=== PATIENT | female | born 1945 | race Caucasian/White ===

== ENCOUNTER → 2016-07-12 | Outpatient (REF) | payer MEDICARE ==
[~2016-07-12] MED LIST: ASPI1TAB PO; CALCTAB7 PO; LISI10TA4 PO; MONT10TA2 PO; NEXI40CA PO; NITR4TASL SL; SIMV40TA2 PO; VITA400C29 PO; ZETI10TA2 PO
[2016-07-12 17:41] LABS: BLOOD UREA NITROGEN 27 MG/DL (7-18); CREATININE FOR GFR 0.82 MG/DL (0.55-1.02); GLOMERULAR FILTRATION RATE > 60.0 (>45)
== END ==
LOC: M LABDRAW1 16:52
PROVIDERS: ATTEND Internal Medicine Pulmonary Disease
DX: R91.8 Other nonspecific abnormal finding of lung field (principal)

== ENCOUNTER 2016-07-15 10:00 | Emergency (ER) | payer MEDICARE ==
[2016-07-15 11:52] LABS: BASO % 0.4 % (0.0-1.0); EOS # 0.2 K/mm3 (0.0-0.50); EOS % 2.6 % (0.0-3.0); LARGE UNSTAINED CELL # 0.2 K/mm3 (0.0-0.4); LARGE UNSTAINED CELL % 2.3 % (0.0-4.0); LYMPH # 1.4 K/mm3 (1.5-4.5); MEAN CORPUSCULAR HEMOGLOBIN 30.7 pg (27.0-33.0); MEAN CORPUSCULAR VOLUME 93.3 fl (80.0-96.0); MONO # 0.5 K/mm3 (0.0-0.8); MONO % 5.5 % (0.0-5.0); NEUTROPHILS % 72.2 % (36.0-66.0); PLATELET COUNT, AUTOMATED 240 k/mm3 (150-450); RED CELL DISTRIBUTION WIDTH 12.2 % (11.5-14.5); WHITE BLOOD COUNT 8.3 K/mm3 (4.0-10.0)
[2016-07-15] MEDS ORDERED: ASPIRIN 81 MG CHEW TABLET As Ordered ONE (12:17)
[2016-07-15 12:21] LABS: ANION GAP 6 MEQ/L (8-16); BLOOD UREA NITROGEN 19 MG/DL (7-18); CALCIUM LEVEL 8.9 MG/DL (8.8-10.2); CARBON DIOXIDE LEVEL 32 MEQ/L (21-32); CHLORIDE LEVEL 101 MEQ/L (98-107); CREATININE FOR GFR 0.74 MG/DL (0.55-1.02); GLOMERULAR FILTRATION RATE > 60.0 (>45); GLUCOSE, FASTING 106 MG/DL (80-110); POTASSIUM SERUM 4.1 MEQ/L (3.5-5.1); SODIUM LEVEL 139 MEQ/L (136-145)
[2016-07-15 12:42] LABS: PHOSPHORUS LEVEL 3.3 MG/DL (2.5-4.9)
--- NOTE | 2016-07-15 12:49 | REP ---
Clinical: Chest pain . Comparison: 02/11/2014 . Technique: PA and lateral. Findings: The mediastinum and cardiac silhouette are normal. The lung [place] are clear and without acute consolidation, effusion, or pneumothorax. The skeletal structures are intact and normal. Impression: 1. No acute cardiopulmonary process. Signed by Royal Noel MD 07/15/2016 12:40 P
--- NOTE | 2016-07-15 18:52 | EDDOCDS ---
Physician Documentation [facility] Name: Huong Alcocer Age: 70 yrs Sex: Female : 1945 Arrival Date: 07/15/2016 Time: 10:00 Bed 13 Private MD: Iam Coon Disposition: 07/15/16 18:38 Discharged to Home/Self Care. Impression: Palpitations. - Condition is Stable. - Discharge Instructions: Palpitations. - Medication Reconciliation, Local Pharmacy Hours form. - Follow up: Rubin Lucas; When: 2 - 3 days; Reason: Recheck today's complaints. Follow up: Yared Landa; When: 2 - 3 days; Reason: Recheck today's complaints. - Problem is new. - Symptoms are resolved. - Notes: You were seen in the ED for fluttering in the chest concerning for palpitations. Bloodwork along with EKG of the heart, chest XRay and cardiac monitoring showed no acute findings. We have discussed the case with cardiology as well. As you are feeling better you may return home. Keep the appointment to see Dr. Landa on and call to make a general follow up as well. Return to the ED for any return of palpitations, chest pain, trouble breathing, lightheadedness, loss of consciousness or any other concerns. Historical: - Allergies: no known allergies; - Home Meds: 1. aspirin 81 mg Oral TbEC 1 tab once daily (Last dose: 07/13/2016) 2. lisinopril-hydrochlorothiazide 10-12.5 mg oral tab 1 tab once daily (Last dose: 07/14/2016) 3. Nexium 40 mg Oral cpDR 1 cap 2 times per day (Last dose: 07/14/2016) 4. Singulair 10 mg Oral tab 1 tab once daily (Last dose: 07/14/2016) 5. rosuvastatin 20 mg oral tab 1 tab once daily (Last dose: 07/13/2016) - PMHx: GERD; Hypercholesterolemia; Hypertension; Seasonal Allergies; - PSHx: ; Colonoscopy; Cardiac stents; - Social history: Smoking status: Patient states former smoker of tobacco. No barriers to communication noted, The patient speaks fluent Bulgarian. - : The pt / caregiver states he / she is not on anticoagulants. Home medication list is obtained from the patient. - Exposure Risk Screening:: None identified. Vital Signs: 07/15 10:01 BP 169 / 84; Pulse 76; Resp 18 S; Temp 96.8(O); Pulse Ox 97% on R/A; Weight 67.13 kg / gr2 148 lbs (R); Height 5 ft. 2 in. (157.48 cm) (R); Pain 3/10; 10:17 BP 127 / 56 (auto/); jjr 10:18 Pulse 64 MON; Pulse Ox 96% ; jjr 10:31 BP 120 / 58 (auto/); jjr 10:31 Pulse 62 MON; Pulse Ox 96% ; jjr 10:46 BP 122 / 65 (auto/); jjr 10:46 Pulse 58 MON; Pulse Ox 96% ; jjr 11:01 BP 133 / 67 (auto/); jjr 11:01 Pulse 60 MON; Pulse Ox 96% ; jjr 11:16 BP 157 / 75 (auto/); jjr 11:16 Pulse 60 MON; Pulse Ox 97% ; jjr 11:31 BP 144 / 80 (auto/); jjr 11:31 Pulse 56 MON; Pulse Ox 97% ; jjr 11:46 BP 144 / 83 (auto/); jjr 11:46 Pulse 56 MON; Pulse Ox 96% ; jjr 12:01 BP 153 / 89 (auto/); jjr 12:01 Pulse 66 MON; Resp 18; Pulse Ox 96% on R/A; jjr 12:16 BP 154 / 63 (auto/); tm5 12:16 Pulse 66 MON; Resp 18 S; Pulse Ox 96% on R/A; Pain 2/10; tm5 12:46 BP 150 / 67 (auto/); jjr 12:46 Pulse 56 MON; Pulse Ox 97% ; jjr 13:16 BP 159 / 67 (auto/); jjr 13:16 Pulse 70 MON; Pulse Ox 96% ; jjr 13:46 BP 137 / 64 (auto/); jjr 13:46 Pulse 72 MON; Pulse Ox 97% ; jjr 14:16 BP 142 / 66 (auto/); jjr 14:16 Pulse 74 MON; Resp 18; Pulse Ox 98% on R/A; jjr 14:46 BP 150 / 65 (auto/); jjr 14:46 Pulse 58 MON; Pulse Ox 97% ; jjr 15:16 BP 152 / 66 (auto/); jjr 15:16 Pulse 58 MON; Resp 18; Pulse Ox 97% on R/A; jjr 15:46 BP 154 / 65 (auto/); jjr 15:46 Pulse 62 MON; Resp 18; Pulse Ox 96% on R/A; jjr 16:16 BP 164 / 71 (auto/); jjr 16:16 Pulse 58 MON; Pulse Ox 97% ; jjr 16:46 BP 155 / 65 (auto/); jjr 16:46 Pulse 64 MON; Resp 18; Pulse Ox 97% on R/A; jjr 17:16 BP 146 / 64 (auto/); jjr 17:16 Pulse 58 MON; Pulse Ox 96% ; jjr 17:46 BP 144 / 65 (auto/); jjr 17:46 Pulse 60 MON; Resp 18; Pulse Ox 96% on R/A; jjr 18:17 BP 158 / 65 (auto/); jjr 18:17 Pulse 66 MON; Pulse Ox 96% ; jjr 18:43 BP 158 / 96 (auto/); Temp 97.2(O); Pain 0/10; jjr 18:43 Pulse 62 MON; Resp 18; Pulse Ox 95% on R/A; jjr 10:01 Body Mass Index 27.07 (67.13 kg, 157.48 cm) gr2 MDM: 10:05 ECG WITH READING ER PHYS+CARDIAG ordered. EDMS 11:13 Contract Law Specialist/Pulse Ox/q 30 min VS ordered. kcs 11:13 IV Saline Lock ordered. kcs 11:13 Rhythm Strip to chart ordered. kcs 11:13 Undress patient appropriately for examination ordered. kcs 11:14 Basic Metabolic Profile Ordered. EDMS 11:14 CBC with Diff Ordered. EDMS 11:14 Cardiac Injury Profile Ordered. EDMS 11:14 Troponin Ordered. EDMS 12:09 Aspirin 324 mg PO once ordered. br1 12:09 Chest, 2 View (pa\E\lat) Ordered. EDMS 12:09 D-Dimer Quant Ordered. EDMS 12:09 TSH with Free T4 Ordered. EDMS 12:09 Magnesium Level Ordered. EDMS 12:09 Phosphorous Level Ordered. EDMS 12:34 LOW FAT LOW CHOLESTEROL+DIET ordered. EDMS 12:38 Financial registration complete. mm15 12:52 [facility] Payment Agreement was scanned into [email or web address] and attached to record. mm15 14:19 Basic Metabolic Profile Reviewed. br1 14:19 CBC with Diff Reviewed. br1 14:19 Cardiac Injury Profile Reviewed. br1 14:19 Troponin Reviewed. br1 14:19 D-Dimer Quant Reviewed. br1 14:19 TSH with Free T4 Reviewed. br1 14:19 Magnesium Level Reviewed. br1 14:19 Phosphorous Level Reviewed. br1 14:19 Chest, 2 View (pa\E\lat) Reviewed. br1 14:21 Repeat EKG (put time details section) ordered. br1 14:21 Redraw CIP &Troponin (put time in details section) ordered. br1 15:03 Repeat EKG (put time details section) complete. deg 15:03 Redraw CIP &Troponin (put time in details section) complete. deg 15:04 ECG WITH READING ER PHYS ordered. EDMS 15:04 CARDIAC MARKER PANEL Ordered. EDMS 18:35 CARDIAC MARKER PANEL Reviewed. br1 Administered Medications: 12:22 Drug: Aspirin 324 mg [aspirin 81 mg chewable tablet (4 tabs)] Route: PO; tm5 13:00 Follow up: Response: No Adverse Reaction tm5 Signatures: Dispatcher [employer] EDMS Marina Wick, YENNIFER RN Phyllis Duvall, Drafter Assistant Unit deg Edwin Corrigan MD MD br1 Allie Good RN RN jjr Castle, Jennifer, RN RN jc4 Mehul De Lóen mm15 Nadeen Ya RN tm5 The chart was reviewed and I authenticate all verbal orders and agree with the evaluation and treatment provided.Attachments: 12:52 [facility] Payment Agreement mm15 MTDD
--- NOTE | 2016-07-15 18:52 | EDDOCDS ---
Nurse's Notes [facility] Name: Huong Alcocer Age: 70 yrs Sex: Female : 1945 Arrival Date: 07/15/2016 Time: 10:00 Bed 13 Private MD: Iam Coon Diagnosis: Palpitations Presentation: 07/15 10:07 Presenting complaint: Patient states: "I don't feel good. I don't have any energy. I'm jc4 a little short of breath. I had the flu a couple of weeks ago and it got worse after that. Palpitations have been ongoing for a month. Adult Sepsis Screening: The patient does not have new or worsening altered mentation. Patient's respiratory rate is less than 22. Systolic blood pressure is greater than 100. Patient has a qSOFA score of 0- Negative Sepsis Screen. Suicide/Homicide risk assessment- the patient denies having any suicidal and/or homicidal ideations and does not present with any other emotional, behavioral or mental health complaints. Status: Patient is not a visitor services coordinator or dependent. Transition of care: patient was not received from another setting of care. 10:07 Acuity: EDI Level 3 jc4 10:07 Method Of Arrival: Wheelchair jc4 Triage Assessment: 10:12 General: Appears in no apparent distress. Pain: Denies pain. The patient is triaged at jc4 the bedside. See Assessment in Nurses Notes section of ED record. Historical: - Allergies: no known allergies; - Home Meds: 1. aspirin 81 mg Oral TbEC 1 tab once daily (Last dose: 07/13/2016) 2. lisinopril-hydrochlorothiazide 10-12.5 mg oral tab 1 tab once daily (Last dose: 07/14/2016) 3. Nexium 40 mg Oral cpDR 1 cap 2 times per day (Last dose: 07/14/2016) 4. Singulair 10 mg Oral tab 1 tab once daily (Last dose: 07/14/2016) 5. rosuvastatin 20 mg oral tab 1 tab once daily (Last dose: 07/13/2016) - PMHx: GERD; Hypercholesterolemia; Hypertension; Seasonal Allergies; - PSHx: ; Colonoscopy; Cardiac stents; - Social history: Smoking status: Patient states former smoker of tobacco. No barriers to communication noted, The patient speaks fluent Georgian. - : The pt / caregiver states he / she is not on anticoagulants. Home medication list is obtained from the patient. - Exposure Risk Screening:: None identified. Screenin:25 Screening information is obtained from the patient. Fall risk: No risks identified. jjr Assistance ADL's: requires no assistance with activities of daily living. Abuse/DV Screen: The patient / caregiver reports he/she is: not in a situation that causes fear, pain or injury. Nutritional screening: No deficits noted. Advance Directives: There is no active DNR order. home support is adequate. Assessment: 10:24 General: Appears in no apparent distress, well nourished, well groomed, Behavior is jjr appropriate for age. Pain: Denies pain. Neurological: No deficits noted. Cardiovascular: Rhythm is sinus rhythm pt reports intermittent sharp pains to left anterior chest for past month. Respiratory: Airway is patent Respiratory effort is even, unlabored, Respiratory pattern is regular, Breath sounds are clear bilaterally. Derm: Skin is pink, warm & dry. 11:28 General: Appears in no apparent distress, reports sensation of irregular heart beat a jjr few times since arrival, PVC's noted to full disclosure page of cardiac rehabilitation program director, pt denies any chest pain since arrival and denies SOB at rest. 13:00 General: eating lunch tray denies needs at this time. jjr 14:26 General: Appears in no apparent distress. Cardiovascular: Rhythm is sinus rhythm Chest jjr pain is denied. Respiratory: No deficits noted. Derm: No deficits noted. 15:31 General: Appears in no apparent distress, Behavior is appropriate for age. Pain: Denies jjr pain. Neurological: No deficits noted. Cardiovascular: Rhythm is sinus rhythm. Respiratory: No deficits noted. Derm: No deficits noted. 17:15 General: Appears in no apparent distress. Neurological: No deficits noted. jjr Cardiovascular: Rhythm is sinus rhythm. Respiratory: No deficits noted. Derm: No deficits noted. 18:18 General: Appears in no apparent distress. Neurological: No deficits noted. jjr Cardiovascular: Rhythm is sinus rhythm. Respiratory: No deficits noted. Derm: No deficits noted. Vital Signs: 10:01 BP 169 / 84; Pulse 76; Resp 18 S; Temp 96.8(O); Pulse Ox 97% on R/A; Weight 67.13 kg gr2 (R); Height 5 ft. 2 in. (157.48 cm) (R); Pain 3/10; 10:17 BP 127 / 56 (auto/); jjr 10:18 Pulse 64 MON; Pulse Ox 96% ; jjr 10:31 BP 120 / 58 (auto/); jjr 10:31 Pulse 62 MON; Pulse Ox 96% ; jjr 10:46 BP 122 / 65 (auto/); jjr 10:46 Pulse 58 MON; Pulse Ox 96% ; jjr 11:01 BP 133 / 67 (auto/); jjr 11:01 Pulse 60 MON; Pulse Ox 96% ; jjr 11:16 BP 157 / 75 (auto/); jjr 11:16 Pulse 60 MON; Pulse Ox 97% ; jjr 11:31 BP 144 / 80 (auto/); jjr 11:31 Pulse 56 MON; Pulse Ox 97% ; jjr 11:46 BP 144 / 83 (auto/); jjr 11:46 Pulse 56 MON; Pulse Ox 96% ; jjr 12:01 BP 153 / 89 (auto/); jjr 12:01 Pulse 66 MON; Resp 18; Pulse Ox 96% on R/A; jjr 12:16 BP 154 / 63 (auto/); tm5 12:16 Pulse 66 MON; Resp 18 S; Pulse Ox 96% on R/A; Pain 2/10; tm5 12:46 BP 150 / 67 (auto/); jjr 12:46 Pulse 56 MON; Pulse Ox 97% ; jjr 13:16 BP 159 / 67 (auto/); jjr 13:16 Pulse 70 MON; Pulse Ox 96% ; jjr 13:46 BP 137 / 64 (auto/); jjr 13:46 Pulse 72 MON; Pulse Ox 97% ; jjr 14:16 BP 142 / 66 (auto/); jjr 14:16 Pulse 74 MON; Resp 18; Pulse Ox 98% on R/A; jjr 14:46 BP 150 / 65 (auto/); jjr 14:46 Pulse 58 MON; Pulse Ox 97% ; jjr 15:16 BP 152 / 66 (auto/); jjr 15:16 Pulse 58 MON; Resp 18; Pulse Ox 97% on R/A; jjr 15:46 BP 154 / 65 (auto/); jjr 15:46 Pulse 62 MON; Resp 18; Pulse Ox 96% on R/A; jjr 16:16 BP 164 / 71 (auto/); jjr 16:16 Pulse 58 MON; Pulse Ox 97% ; jjr 16:46 BP 155 / 65 (auto/); jjr 16:46 Pulse 64 MON; Resp 18; Pulse Ox 97% on R/A; jjr 17:16 BP 146 / 64 (auto/); jjr 17:16 Pulse 58 MON; Pulse Ox 96% ; jjr 17:46 BP 144 / 65 (auto/); jjr 17:46 Pulse 60 MON; Resp 18; Pulse Ox 96% on R/A; jjr 18:17 BP 158 / 65 (auto/); jjr 18:17 Pulse 66 MON; Pulse Ox 96% ; jjr 18:43 BP 158 / 96 (auto/); Temp 97.2(O); Pain 0/10; jjr 18:43 Pulse 62 MON; Resp 18; Pulse Ox 95% on R/A; jjr 10:01 Body Mass Index 27.07 (67.13 kg, 157.48 cm) gr2 Vitals: 10:01 Log In Time: July 15, 2016 at 10:01. gr2 10:03 RN notified that patient meets Red Flag criteria. gr2 ED Course: 10:01 Patient visited by Comfort Good. gr2 10:01 Iam Coon is Private Physician. gr2 10:01 Patient moved to Waiting gr2 10:03 Patient visited by Comfort Good. gr2 10:03 Patient visited by Comfort Good. gr2 10:04 Patient moved to Pre RCE gr2 10:06 Patient moved to 13 jc4 10:08 Triage Initiated jc4 10:12 EKG done. (by ED staff). Reviewed by Edwin Corrigan MD. dem1 10:20 athletic monitor on. Pulse ox on. NIBP on. dem1 10:21 Patient visited by Joya Nazario. dem1 10:25 Patient visited by Allie Good, YENNIFER. jjr 10:25 The patient / caregiver is instructed regarding the plan of care and ED course. jjr 11:29 Patient visited by Yanet Kelley PCA. ct3 11:30 Patient visited by Allie Good RN. jjr 11:37 Edwin Corrigan MD is Attending Physician. br1 11:41 Basic Metabolic Profile Sent. jjr 11:41 CBC with Diff Sent. jjr 11:41 Cardiac Injury Profile Sent. jjr 11:41 Troponin Sent. jjr 11:42 Inserted saline lock: 20 gauge in left antecubital area and blood collected. Labs jjr drawn. (by ED staff). Sent per order to lab. 11:59 Patient visited by Rosalia Childress PCA. jlf 12:08 Patient visited by Edwin Corrigan MD. br1 12:42 Patient visited by Rosalia Childress PCA. jlf 12:52 [facility] Payment Agreement was scanned into [employer] and attached to record. mm15 12:53 Diet: low fat cholesterol diet given to patient.. ct3 12:54 Patient visited by Yanet Kelley PCA. ct3 13:09 Chest, 2 View (pa\\E\\lat) Returned. EDMS 13:22 Patient visited by Rosalia Childress PCA. jlf 14:27 Patient visited by Allie Good RN. jjr 15:31 Patient visited by Allie Good RN. jjr 15:52 Patient visited by Yanet Kelley PCA. ct3 15:52 EKG done. (by ED staff). Reviewed by Edwin Corrigan MD. ct3 15:53 CARDIAC MARKER PANEL Sent. jjr 17:15 Patient visited by Allie Good RN. jjr 18:18 Patient visited by Allie Good RN. jjr 18:37 Rubin Lucas is Referral Physician. br1 18:37 Yared Landa is Referral Physician. br1 18:48 Discontinued lock intact, bleeding controlled, pressure dressing applied, No jjr redness/swelling at site. No procedures done that require assistance. Administered Medications: 12:22 Drug: Aspirin 324 mg [aspirin 81 mg chewable tablet (4 tabs)] Route: PO; tm5 13:00 Follow up: Response: No Adverse Reaction tm5 Order Results: Lab Order: Basic Metabolic Profile; SPEC'M 07/15/16 11:38 Test: GLUCOSE, FASTING; Value: 106; Range: 80-110; Units: MG/DL; Status: F Test: BLOOD UREA NITROGEN; Value: 19; Range: 7-18; Abnormal: Above high normal; Units: MG/DL; Status: F Test: CREATININE FOR GFR; Value: 0.74; Range: 0.55-1.02; Units: MG/DL; Status: F Test: GLOMERULAR FILTRATION RATE; Value: > 60.0; Range: >45; Status: F Test: SODIUM LEVEL; Value: 139; Range: 136-145; Units: MEQ/L; Status: F Test: POTASSIUM SERUM; Value: 4.1; Range: 3.5-5.1; Units: MEQ/L; Status: F Test: CHLORIDE LEVEL; Value: 101; Range: 98-107; Units: MEQ/L; Status: F Test: CARBON DIOXIDE LEVEL; Value: 32; Range: 21-32; Units: MEQ/L; Status: F Test: ANION GAP; Value: 6; Range: 8-16; Abnormal: Below low normal; Units: MEQ/L; Status: F Test: CALCIUM LEVEL; Value: 8.9; Range: 8.8-10.2; Units: MG/DL; Status: F Test Note: ; Units are mL/min/1.73 m2 Chronic Kidney Disease Staging per NKF: Stage I & II GFR >=60 Normal to Mildly Decreased Stage III GFR 30-59 Moderately Decreased Stage IV GFR 15-29 Severely Decreased Stage V GFR <15 Very Little GFR Left ESRD GFR <15 on FURRIER DESIGNER Lab Order: CBC with Diff; SPEC'M 07/15/16 11:38 Test: WHITE BLOOD COUNT; Value: 8.3; Range: 4.0-10.0; Units: K/mm3; Status: F Test: RED BLOOD COUNT; Value: 4.25; Range: 4.00-5.40; Units: M/mm3; Status: F Test: HEMOGLOBIN; Value: 13.1; Range: 12.0-16.0; Units: g/dl; Status: F Test: HEMATOCRIT; Value: 39.6; Range: 36.0-47.0; Units: %; Status: F Test: MEAN CORPUSCULAR VOLUME; Value: 93.3; Range: 80.0-96.0; Units: fl; Status: F Test: MEAN CORPUSCULAR HEMOGLOBIN; Value: 30.7; Range: 27.0-33.0; Units: pg; Status: F Test: MEAN CORPUSCULAR HGB CONC; Value: 33.0; Range: 32.0-36.5; Units: g/dl; Status: F Test: RED CELL DISTRIBUTION WIDTH; Value: 12.2; Range: 11.5-14.5; Units: %; Status: F Test: PLATELET COUNT, AUTOMATED; Value: 240; Range: 150-450; Units: k/mm3; Status: F Test: NEUTROPHILS %; Value: 72.2; Range: 36.0-66.0; Abnormal: Above high normal; Units: %; Status: F Test: LYMPH %; Value: 17.0; Range: 24.0-44.0; Abnormal: Below low normal; Units: %; Status: F Test: MONO %; Value: 5.5; Range: 0.0-5.0; Abnormal: Above high normal; Units: %; Status: F Test: EOS %; Value: 2.6; Range: 0.0-3.0; Units: %; Status: F Test: BASO %; Value: 0.4; Range: 0.0-1.0; Units: %; Status: F Test: LARGE UNSTAINED CELL %; Value: 2.3; Range: 0.0-4.0; Units: %; Status: F Test: NEUTROPHILS #; Value: 6.0; Range: 1.8-7.7; Units: K/mm3; Status: F Test: LYMPH #; Value: 1.4; Range: 1.5-4.5; Abnormal: Below low normal; Units: K/mm3; Status: F Test: MONO #; Value: 0.5; Range: 0.0-0.8; Units: K/mm3; Status: F Test: EOS #; Value: 0.2; Range: 0.0-0.50; Units: K/mm3; Status: F Test: BASO #; Value: 0.0; Range: 0.0-0.2; Units: K/mm3; Status: F Test: LARGE UNSTAINED CELL #; Value: 0.2; Range: 0.0-0.4; Units: K/mm3; Status: F Lab Order: Cardiac Injury Profile; 07/15/16 11:38 Test: CPK CREATINE PHOSPHOKINASE; Value: 64; Range: 26-192; Units: U/L; Status: F Test: CK-MB VALUE MASS; Value: 1.0; Range: 0.0-3.6; Units: NG/ML; Status: F Test: MB/CK RELATIVE INDEX; Value: 1.56; Range: < OR =4; Status: F Test Note: ; DIAGNOSIS CRITERIA MMB ng/ml Relative Index (RI) NON-AMI < or = 5 N/A VASQUEZ ZONE > 5 < or = 4 AMI > 5 > 4 Lab Order: Troponin; 07/15/16 11:38 Test: TROPONIN I; Value: < 0.02; Range: < 0.10; Units: NG/ML; Status: F Test Note: ; Troponin I Reference Interval for [employer] LOCI: 99th Percentile= 0.00-0.045 ng/ml Risk Stratification: <= 0.10 ng/ml Decreased Risk for Adverse Clinical Events. 0.10-1.50 ng/ml Increased Risk for Adverse Clinical Events. Evaluation of additional criterion and/or repeat testing in 2-6 hours is suggested to rule out myocardial damage. >= 1.50 ng/ml Indicative of Myocardial Injury. Lab Order: D-Dimer Quant; 07/15/16 11:38 Test: D-DIMER QUANT; Value: 408.3; Range: <500; Units: ng/ml; Status: F Lab Order: TSH with Free T4; 07/15/16 11:38 Test: THYROID STIMULATING HORMONE; Value: 1.190; Range: 0.358-3.740; Units: uIU/ML; Status: F Test: FREE T4; Value: 1.00; Range: 0.76-1.46; Units: NG/DL; Status: F Lab Order: Magnesium Level; 07/15/16 11:38 Test: MAGNESIUM LEVEL; Value: 2.0; Range: 1.8-2.4; Units: MG/DL; Status: F Lab Order: Phosphorous Level; SPEC'M 07/15/16 11:38 Test: PHOSPHORUS LEVEL; Value: 3.3; Range: 2.5-4.9; Units: MG/DL; Status: F Lab Order: CARDIAC MARKER PANEL; SPEC'M 07/15/16 15:51 Test: CPK CREATINE PHOSPHOKINASE; Value: 56; Range: 26-192; Units: U/L; Status: F Test: CK-MB VALUE MASS; Value: 1.0; Range: 0.0-3.6; Units: NG/ML; Status: F Test: MB/CK RELATIVE INDEX; Value: 1.78; Range: < OR =4; Status: F Test: TROPONIN I; Value: < 0.02; Range: < 0.10; Units: NG/ML; Status: F Test Note: ; DIAGNOSIS CRITERIA MMB ng/ml Relative Index (RI) NON-AMI < or = 5 N/A VASQUEZ ZONE > 5 < or = 4 AMI > 5 > 4 Radiology Order: Chest, 2 View (pa\\E\\lat) Test: Chest, 2 View (pa\\E\\lat) REASON FOR EXAMINATION: Chest Pain; Clinical: Chest pain .; ; Comparison: 02/11/2014 .; ; Technique: PA and lateral.; ; Findings:; The mediastinum and cardiac silhouette are normal. The lung [place] are clear and; without acute consolidation, effusion, or pneumothorax. The skeletal structures; are intact and normal.; ; Impression:; 1. No acute cardiopulmonary process.; ; ; Signed by; Royal Noel MD 07/15/2016 12:40 P; Outcome: 18:38 Discharge ordered by Provider. br1 18:51 Discharge Assessment: patient administered narcotics - no. The following High Risk jjr Discharge criteria are identified: None. Discharged to home ambulatory, with significant other. Condition: stable. Discharge instructions given to patient, Instructed on discharge instructions, follow up and referral plans. Demonstrated understanding of instructions. No special radiology studies were completed. Property sent home with patient. 18:51 Patient left the ED. jjr Signatures: Dispatcher [employer] EDMS Edwin Corrigan MD MD br1 Allie Good RN RN Alma Jason RN RN jc4 Yanet Kelley, FOOD SAFETY COORDINATOR FOOD SAFETY COORDINATOR ct3 Joya Nazario dem1 Comfort Good gr2 Mehul De León mm15 Rosalia Childress, FOOD SAFETY COORDINATOR FOOD SAFETY COORDINATOR jlf Nadeen Ya,RN RN tm5 MTDD
--- NOTE | 2016-07-16 19:43 | ECGEPIP ---
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
--- NOTE | 2016-07-16 19:50 | ECGEPIP ---
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
--- NOTE | 2016-07-17 19:52 | EDDOCDS ---
Nurse's Notes [facility] Name: Huong Rucker Age: 70 yrs Sex: Female : 1945 Arrival Date: 07/15/2016 Time: 10:00 Bed 13 Private MD: Iam Coon Diagnosis: Palpitations Presentation: 07/15 10:07 Presenting complaint: Patient states: "I don't feel good. I don't have any energy. I'm jc4 a little short of breath. I had the flu a couple of weeks ago and it got worse after that. Palpitations have been ongoing for a month. Adult Sepsis Screening: The patient does not have new or worsening altered mentation. Patient's respiratory rate is less than 22. Systolic blood pressure is greater than 100. Patient has a qSOFA score of 0- Negative Sepsis Screen. Suicide/Homicide risk assessment- the patient denies having any suicidal and/or homicidal ideations and does not present with any other emotional, behavioral or mental health complaints. Status: Patient is not a counseling services manager or dependent. Transition of care: patient was not received from another setting of care. 10:07 Acuity: EDI Level 3 jc4 10:07 Method Of Arrival: Wheelchair jc4 Triage Assessment: 10:12 General: Appears in no apparent distress. Pain: Denies pain. The patient is triaged at jc4 the bedside. See Assessment in Nurses Notes section of ED record. Historical: - Allergies: no known allergies; - Home Meds: 1. aspirin 81 mg Oral TbEC 1 tab once daily (Last dose: 07/13/2016) 2. lisinopril-hydrochlorothiazide 10-12.5 mg oral tab 1 tab once daily (Last dose: 07/14/2016) 3. Nexium 40 mg Oral cpDR 1 cap 2 times per day (Last dose: 07/14/2016) 4. Singulair 10 mg Oral tab 1 tab once daily (Last dose: 07/14/2016) 5. rosuvastatin 20 mg oral tab 1 tab once daily (Last dose: 07/13/2016) - PMHx: GERD; Hypercholesterolemia; Hypertension; Seasonal Allergies; - PSHx: ; Colonoscopy; Cardiac stents; - Social history: Smoking status: Patient states former smoker of tobacco. No barriers to communication noted, The patient speaks fluent Paraguayan. - : The pt / caregiver states he / she is not on anticoagulants. Home medication list is obtained from the patient. - Exposure Risk Screening:: None identified. Screenin:25 Screening information is obtained from the patient. Fall risk: No risks identified. jjr Assistance ADL's: requires no assistance with activities of daily living. Abuse/DV Screen: The patient / caregiver reports he/she is: not in a situation that causes fear, pain or injury. Nutritional screening: No deficits noted. Advance Directives: There is no active DNR order. home support is adequate. Assessment: 10:24 General: Appears in no apparent distress, well nourished, well groomed, Behavior is jjr appropriate for age. Pain: Denies pain. Neurological: No deficits noted. Cardiovascular: Rhythm is sinus rhythm pt reports intermittent sharp pains to left anterior chest for past month. Respiratory: Airway is patent Respiratory effort is even, unlabored, Respiratory pattern is regular, Breath sounds are clear bilaterally. Derm: Skin is pink, warm & dry. 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 13:00 General: eating lunch tray denies needs at this time. jjr 14:26 General: Appears in no apparent distress. Cardiovascular: Rhythm is sinus rhythm Chest jjr pain is denied. Respiratory: No deficits noted. Derm: No deficits noted. 15:31 General: Appears in no apparent distress, Behavior is appropriate for age. Pain: Denies jjr pain. Neurological: No deficits noted. Cardiovascular: Rhythm is sinus rhythm. Respiratory: No deficits noted. Derm: No deficits noted. 17:15 General: Appears in no apparent distress. Neurological: No deficits noted. jjr Cardiovascular: Rhythm is sinus rhythm. Respiratory: No deficits noted. Derm: No deficits noted. 18:18 General: Appears in no apparent distress. Neurological: No deficits noted. jjr Cardiovascular: Rhythm is sinus rhythm. Respiratory: No deficits noted. Derm: No deficits noted. Vital Signs: 10:01 BP 169 / 84; Pulse 76; Resp 18 S; Temp 96.8(O); Pulse Ox 97% on R/A; Weight 67.13 kg gr2 (R); Height 5 ft. 2 in. (157.48 cm) (R); Pain 3/10; 10:17 BP 127 / 56 (auto/); jjr 10:18 Pulse 64 MON; Pulse Ox 96% ; jjr 10:31 BP 120 / 58 (auto/); jjr 10:31 Pulse 62 MON; Pulse Ox 96% ; jjr 10:46 BP 122 / 65 (auto/); jjr 10:46 Pulse 58 MON; Pulse Ox 96% ; jjr 11:01 BP 133 / 67 (auto/); jjr 11:01 Pulse 60 MON; Pulse Ox 96% ; jjr 11:16 BP 157 / 75 (auto/); jjr 11:16 Pulse 60 MON; Pulse Ox 97% ; jjr 11:31 BP 144 / 80 (auto/); jjr 11:31 Pulse 56 MON; Pulse Ox 97% ; jjr 11:46 BP 144 / 83 (auto/); jjr 11:46 Pulse 56 MON; Pulse Ox 96% ; jjr 12:01 BP 153 / 89 (auto/); jjr 12:01 Pulse 66 MON; Resp 18; Pulse Ox 96% on R/A; jjr 12:16 BP 154 / 63 (auto/); tm5 12:16 Pulse 66 MON; Resp 18 S; Pulse Ox 96% on R/A; Pain 2/10; tm5 12:46 BP 150 / 67 (auto/); jjr 12:46 Pulse 56 MON; Pulse Ox 97% ; jjr 13:16 BP 159 / 67 (auto/); jjr 13:16 Pulse 70 MON; Pulse Ox 96% ; jjr 13:46 BP 137 / 64 (auto/); jjr 13:46 Pulse 72 MON; Pulse Ox 97% ; jjr 14:16 BP 142 / 66 (auto/); jjr 14:16 Pulse 74 MON; Resp 18; Pulse Ox 98% on R/A; jjr 14:46 BP 150 / 65 (auto/); jjr 14:46 Pulse 58 MON; Pulse Ox 97% ; jjr 15:16 BP 152 / 66 (auto/); jjr 15:16 Pulse 58 MON; Resp 18; Pulse Ox 97% on R/A; jjr 15:46 BP 154 / 65 (auto/); jjr 15:46 Pulse 62 MON; Resp 18; Pulse Ox 96% on R/A; jjr 16:16 BP 164 / 71 (auto/); jjr 16:16 Pulse 58 MON; Pulse Ox 97% ; jjr 16:46 BP 155 / 65 (auto/); jjr 16:46 Pulse 64 MON; Resp 18; Pulse Ox 97% on R/A; jjr 17:16 BP 146 / 64 (auto/); jjr 17:16 Pulse 58 MON; Pulse Ox 96% ; jjr 17:46 BP 144 / 65 (auto/); jjr 17:46 Pulse 60 MON; Resp 18; Pulse Ox 96% on R/A; jjr 18:17 BP 158 / 65 (auto/); jjr 18:17 Pulse 66 MON; Pulse Ox 96% ; jjr 18:43 BP 158 / 96 (auto/); Temp 97.2(O); Pain 0/10; jjr 18:43 Pulse 62 MON; Resp 18; Pulse Ox 95% on R/A; jjr 10:01 Body Mass Index 27.07 (67.13 kg, 157.48 cm) gr2 Vitals: 10:01 Log In Time: July 15, 2016 at 10:01. gr2 10:03 RN notified that patient meets Red Flag criteria. gr2 ED Course: 10:01 Patient visited by Comfort Good. gr2 10:01 Iam Coon is Private Physician. gr2 10:01 Patient moved to Waiting gr2 10:03 Patient visited by Comfort Good. gr2 10:03 Patient visited by Comfort Good. gr2 10:04 Patient moved to Pre RCE gr2 10:06 Patient moved to 13 jc4 10:08 Triage Initiated jc4 10:12 EKG done. (by ED staff). Reviewed by Momo Corrigan MD. 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 Pulse ox on. NIBP on. dem1 10:21 Patient visited by Joya Nazario. dem1 10:25 Patient visited by Allie Good, YENNIFER. jjr 10:25 The patient / caregiver is instructed regarding the plan of care and ED course. jjr 11:29 Patient visited by Yanet Kelley PCA. ct3 11:30 Patient visited by Allie Good, YENNIFER. jjr 11:37 Momo Corrigan MD is Attending Physician. br1 11:41 Basic Metabolic Profile Sent. jjr 11:41 CBC with Diff Sent. jjr 11:41 Cardiac Injury Profile Sent. jjr 11:41 Troponin Sent. jjr 11:42 Inserted saline lock: 20 gauge in left antecubital area and blood collected. Labs jjr drawn. (by ED staff). Sent per order to lab. 11:59 Patient visited by Rosalia Childress PCA. jlf 12:08 Patient visited by Momo Corrigan MD. br1 12:42 Patient visited by Rosalia Childress PCA. jlf 12:52 [facility] Payment Agreement was scanned into [employer] and attached to record. mm15 12:53 Diet: low fat cholesterol diet given to patient.. ct3 12:54 Patient visited by Yanet Kelley PCA. ct3 13:09 Chest, 2 View (pa\\E\\lat) Returned. EDMS 13:22 Patient visited by Rosalia Childress PCA. jlf 14:27 Patient visited by Allie Good RN. jjr 15:31 Patient visited by Allie Good RN. jjr 15:52 Patient visited by Yanet Kelley PCA. ct3 15:52 EKG done. (by ED staff). Reviewed by Momo Corrigan MD. ct3 15:53 CARDIAC MARKER PANEL Sent. jjr 17:15 Patient visited by Allie Good RN. jjr 18:18 Patient visited by Allie Good, YENNIFER. jjr 18:37 Rubin Lucas is Referral Physician. br1 18:37 Yared Landa is Referral Physician. br1 18:48 Discontinued lock intact, bleeding controlled, pressure dressing applied, No jjr redness/swelling at site. No procedures done that require assistance. 07/16 04:01 T-Sheet-- Draft Copy was scanned into [employer] and attached to record. hs2 10:34 ECG/EKG was scanned into [employer] and attached to record. gb 20:25 EKG-ADULT Returned. EDMS 20:25 ECG WITH READING ER PHYS Returned. EDMS Administered Medications: 07/15 12:22 Drug: Aspirin 324 mg [aspirin 81 mg chewable tablet (4 tabs)] Route: PO; tm5 13:00 Follow up: Response: No Adverse Reaction tm5 Order Results: Lab Order: Basic Metabolic Profile; SPEC'M 07/15/16 11:38 Test: GLUCOSE, FASTING; Value: 106; Range: 80-110; Units: MG/DL; Status: F Test: BLOOD UREA NITROGEN; Value: 19; Range: 7-18; Abnormal: Above high normal; Units: MG/DL; Status: F Test: CREATININE FOR GFR; Value: 0.74; Range: 0.55-1.02; Units: MG/DL; Status: F Test: GLOMERULAR FILTRATION RATE; Value: > 60.0; Range: >45; Status: F Test: SODIUM LEVEL; Value: 139; Range: 136-145; Units: MEQ/L; Status: F Test: POTASSIUM SERUM; Value: 4.1; Range: 3.5-5.1; Units: MEQ/L; Status: F Test: CHLORIDE LEVEL; Value: 101; Range: 98-107; Units: MEQ/L; Status: F Test: CARBON DIOXIDE LEVEL; Value: 32; Range: 21-32; Units: MEQ/L; Status: F Test: ANION GAP; Value: 6; Range: 8-16; Abnormal: Below low normal; Units: MEQ/L; Status: F Test: CALCIUM LEVEL; Value: 8.9; Range: 8.8-10.2; Units: MG/DL; Status: F Test Note: ; Units are mL/min/1.73 m2 Chronic Kidney Disease Staging per NKF: Stage I & II GFR >=60 Normal to Mildly Decreased Stage III GFR 30-59 Moderately Decreased Stage IV GFR 15-29 Severely Decreased Stage V GFR <15 Very Little GFR Left ESRD GFR <15 on DELIVERY RECRUITER Lab Order: CBC with Diff; SPEC'M 07/15/16 11:38 Test: WHITE BLOOD COUNT; Value: 8.3; Range: 4.0-10.0; Units: K/mm3; Status: F Test: RED BLOOD COUNT; Value: 4.25; Range: 4.00-5.40; Units: M/mm3; Status: F Test: HEMOGLOBIN; Value: 13.1; Range: 12.0-16.0; Units: g/dl; Status: F Test: HEMATOCRIT; Value: 39.6; Range: 36.0-47.0; Units: %; Status: F Test: MEAN CORPUSCULAR VOLUME; Value: 93.3; Range: 80.0-96.0; Units: fl; Status: F Test: MEAN CORPUSCULAR HEMOGLOBIN; Value: 30.7; Range: 27.0-33.0; Units: pg; Status: F Test: MEAN CORPUSCULAR HGB CONC; Value: 33.0; Range: 32.0-36.5; Units: g/dl; Status: F Test: RED CELL DISTRIBUTION WIDTH; Value: 12.2; Range: 11.5-14.5; Units: %; Status: F Test: PLATELET COUNT, AUTOMATED; Value: 240; Range: 150-450; Units: k/mm3; Status: F Test: NEUTROPHILS %; Value: 72.2; Range: 36.0-66.0; Abnormal: Above high normal; Units: %; Status: F Test: LYMPH %; Value: 17.0; Range: 24.0-44.0; Abnormal: Below low normal; Units: %; Status: F Test: MONO %; Value: 5.5; Range: 0.0-5.0; Abnormal: Above high normal; Units: %; Status: F Test: EOS %; Value: 2.6; Range: 0.0-3.0; Units: %; Status: F Test: BASO %; Value: 0.4; Range: 0.0-1.0; Units: %; Status: F Test: LARGE UNSTAINED CELL %; Value: 2.3; Range: 0.0-4.0; Units: %; Status: F Test: NEUTROPHILS #; Value: 6.0; Range: 1.8-7.7; Units: K/mm3; Status: F Test: LYMPH #; Value: 1.4; Range: 1.5-4.5; Abnormal: Below low normal; Units: K/mm3; Status: F Test: MONO #; Value: 0.5; Range: 0.0-0.8; Units: K/mm3; Status: F Test: EOS #; Value: 0.2; Range: 0.0-0.50; Units: K/mm3; Status: F Test: BASO #; Value: 0.0; Range: 0.0-0.2; Units: K/mm3; Status: F Test: LARGE UNSTAINED CELL #; Value: 0.2; Range: 0.0-0.4; Units: K/mm3; Status: F Lab Order: Cardiac Injury Profile; 07/15/16 11:38 Test: CPK CREATINE PHOSPHOKINASE; Value: 64; Range: 26-192; Units: U/L; Status: F Test: CK-MB VALUE MASS; Value: 1.0; Range: 0.0-3.6; Units: NG/ML; Status: F Test: MB/CK RELATIVE INDEX; Value: 1.56; Range: < OR =4; Status: F Test Note: ; DIAGNOSIS CRITERIA MMB ng/ml Relative Index (RI) NON-AMI < or = 5 N/A VASQUEZ ZONE > 5 < or = 4 AMI > 5 > 4 Lab Order: Troponin; 07/15/16 11:38 Test: TROPONIN I; Value: < 0.02; Range: < 0.10; Units: NG/ML; Status: F Test Note: ; Troponin I Reference Interval for [employer] LOCI: 99th Percentile= 0.00-0.045 ng/ml Risk Stratification: <= 0.10 ng/ml Decreased Risk for Adverse Clinical Events. 0.10-1.50 ng/ml Increased Risk for Adverse Clinical Events. Evaluation of additional criterion and/or repeat testing in 2-6 hours is suggested to rule out myocardial damage. >= 1.50 ng/ml Indicative of Myocardial Injury. Lab Order: D-Dimer Quant; 07/15/16 11:38 Test: D-DIMER QUANT; Value: 408.3; Range: <500; Units: ng/ml; Status: F Lab Order: TSH with Free T4; 07/15/16 11:38 Test: THYROID STIMULATING HORMONE; Value: 1.190; Range: 0.358-3.740; Units: uIU/ML; Status: F Test: FREE T4; Value: 1.00; Range: 0.76-1.46; Units: NG/DL; Status: F Lab Order: Magnesium Level; SPEC'M 07/15/16 11:38 Test: MAGNESIUM LEVEL; Value: 2.0; Range: 1.8-2.4; Units: MG/DL; Status: F Lab Order: Phosphorous Level; SPEC'M 07/15/16 11:38 Test: PHOSPHORUS LEVEL; Value: 3.3; Range: 2.5-4.9; Units: MG/DL; Status: F Lab Order: CARDIAC MARKER PANEL; SPEC'M 07/15/16 15:51 Test: CPK CREATINE PHOSPHOKINASE; Value: 56; Range: 26-192; Units: U/L; Status: F Test: CK-MB VALUE MASS; Value: 1.0; Range: 0.0-3.6; Units: NG/ML; Status: F Test: MB/CK RELATIVE INDEX; Value: 1.78; Range: < OR =4; Status: F Test: TROPONIN I; Value: < 0.02; Range: < 0.10; Units: NG/ML; Status: F Test Note: ; DIAGNOSIS CRITERIA MMB ng/ml Relative Index (RI) NON-AMI < or = 5 N/A VASQUEZ ZONE > 5 < or = 4 AMI > 5 > 4 Radiology Order: EKG-ADULT Test: EKG-ADULT REASON FOR EXAMINATION: PALPITATIONS; Stationary ECG Study; [facility] - ED; ; Test Date: 2016-07-15; Pat Name: HUONG RUCKER Department:; Room: -; Gender: F 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; : 1945 Requested By: MOMO Cook; Order Number: [id number] Reading MD: Bee Welsh; Measurements; Intervals [place]; Rate: 66 P: 62; TN: 193 QRS: 6; QRSD: 94 T: 40; QT: 388; QTc: 407; Interpretive Statements; SINUS RHYTHM; BASELINE ARTIFACT LIMITS INTERPRETATION; DELAYED R PROGRESSION; LOW VOLTAGE LIMB; NO PRIOR FOR COMPARISON; Electronically Signed On 07-16-2016 19:43:01 EST by Bee Welsh; Radiology Order: Chest, 2 View (pa\\E\\lat) Test: Chest, 2 View (pa\\E\\lat) REASON FOR EXAMINATION: Chest Pain; Clinical: Chest pain .; ; Comparison: 02/11/2014 .; ; Technique: PA and lateral.; ; Findings:; The mediastinum and cardiac silhouette are normal. The lung [place] are clear and; without acute consolidation, effusion, or pneumothorax. The skeletal structures; are intact and normal.; ; Impression:; 1. No acute cardiopulmonary process.; ; ; Signed by; Royal Noel MD 07/15/2016 12:40 P; Radiology Order: ECG WITH READING ER PHYS Test: ECG WITH READING ER PHYS REASON FOR EXAMINATION: CHEST PAIN; Stationary ECG Study; [facility] ED; ; Test Date: 2016-07-15; Pat Name: HUONG RUCKER Department:; Room: -; Gender: F Ear Pull Machine Operator: ct; : 1945 Requested By: MOMO Cook; Order Number: [id number] Reading MD: Bee Welsh; Measurements; Intervals [place]; Rate: 63 P: 59; TN: 198 QRS: 38; QRSD: 90 T: 48; QT: 408; QTc: 419; Interpretive Statements; SINUS RHYTHM; DELAYED R PROGRESSION; LOW VOLTAGE LIMB; SIMILAR 07/15/16; Electronically Signed On 07-16-2016 19:50:18 EST by Bee Welsh; Outcome: 18:38 Discharge ordered by Provider. br1 18:51 Discharge Assessment: patient administered narcotics - no. The following High Risk jjr Discharge criteria are identified: None. Discharged to home ambulatory, with significant other. Condition: stable. Discharge instructions given to patient, Instructed on discharge instructions, follow up and referral plans. Demonstrated understanding of instructions. No special radiology studies were completed. Property sent home with patient. 18:51 Patient left the ED. jjr Signatures: Dispatcher [employer] EDMS Aranza Wan, Reg Reg Momo Perez MD MD br1 Allie Good RN RN Alma Jason RN RN jc4 Yanet Kelley, DIAGNOSTIC ASSISTANT DIAGNOSTIC ASSISTANT ct3 Joya Nazario dem1 Comfort Good gr2 Mehul De León mm15 Rosalia Childress, DIAGNOSTIC ASSISTANT DIAGNOSTIC ASSISTANT jlf Brandie Castillo, Reg Reg hs2 Nadeen Ya,RN RN tm5 Chart Complete MTDD
--- NOTE | 2016-07-17 19:52 | EDDOCDS ---
Physician Documentation [facility] Name: Huong Alccoer Age: 70 yrs Sex: Female : 1945 Arrival Date: 07/15/2016 Time: 10:00 Bed 13 Private MD: Iam Coon Disposition: 07/15/16 18:38 Discharged to Home/Self Care. Impression: Palpitations. - Condition is Stable. - Discharge Instructions: Palpitations. - Medication Reconciliation, Local Pharmacy Hours form. - Follow up: Rubin Lucas; When: 2 - 3 days; Reason: Recheck today's complaints. Follow up: Yared Landa; When: 2 - 3 days; Reason: Recheck today's complaints. - Problem is new. - Symptoms are resolved. - Notes: You were seen in the ED for fluttering in the chest concerning for palpitations. Bloodwork along with EKG of the heart, chest XRay and cardiac monitoring showed no acute findings. We have discussed the case with cardiology as well. As you are feeling better you may return home. Keep the appointment to see Dr. Landa on and call to make a general follow up as well. Return to the ED for any return of palpitations, chest pain, trouble breathing, lightheadedness, loss of consciousness or any other concerns. Historical: - Allergies: no known allergies; - Home Meds: 1. aspirin 81 mg Oral TbEC 1 tab once daily (Last dose: 07/13/2016) 2. lisinopril-hydrochlorothiazide 10-12.5 mg oral tab 1 tab once daily (Last dose: 07/14/2016) 3. Nexium 40 mg Oral cpDR 1 cap 2 times per day (Last dose: 07/14/2016) 4. Singulair 10 mg Oral tab 1 tab once daily (Last dose: 07/14/2016) 5. rosuvastatin 20 mg oral tab 1 tab once daily (Last dose: 07/13/2016) - PMHx: GERD; Hypercholesterolemia; Hypertension; Seasonal Allergies; - PSHx: ; Colonoscopy; Cardiac stents; - Social history: Smoking status: Patient states former smoker of tobacco. No barriers to communication noted, The patient speaks fluent Upper Sorbian. - : The pt / caregiver states he / she is not on anticoagulants. Home medication list is obtained from the patient. - Exposure Risk Screening:: None identified. Vital Signs: 07/15 10:01 BP 169 / 84; Pulse 76; Resp 18 S; Temp 96.8(O); Pulse Ox 97% on R/A; Weight 67.13 kg / gr2 148 lbs (R); Height 5 ft. 2 in. (157.48 cm) (R); Pain 3/10; 10:17 BP 127 / 56 (auto/); jjr 10:18 Pulse 64 MON; Pulse Ox 96% ; jjr 10:31 BP 120 / 58 (auto/); jjr 10:31 Pulse 62 MON; Pulse Ox 96% ; jjr 10:46 BP 122 / 65 (auto/); jjr 10:46 Pulse 58 MON; Pulse Ox 96% ; jjr 11:01 BP 133 / 67 (auto/); jjr 11:01 Pulse 60 MON; Pulse Ox 96% ; jjr 11:16 BP 157 / 75 (auto/); jjr 11:16 Pulse 60 MON; Pulse Ox 97% ; jjr 11:31 BP 144 / 80 (auto/); jjr 11:31 Pulse 56 MON; Pulse Ox 97% ; jjr 11:46 BP 144 / 83 (auto/); jjr 11:46 Pulse 56 MON; Pulse Ox 96% ; jjr 12:01 BP 153 / 89 (auto/); jjr 12:01 Pulse 66 MON; Resp 18; Pulse Ox 96% on R/A; jjr 12:16 BP 154 / 63 (auto/); tm5 12:16 Pulse 66 MON; Resp 18 S; Pulse Ox 96% on R/A; Pain 2/10; tm5 12:46 BP 150 / 67 (auto/); jjr 12:46 Pulse 56 MON; Pulse Ox 97% ; jjr 13:16 BP 159 / 67 (auto/); jjr 13:16 Pulse 70 MON; Pulse Ox 96% ; jjr 13:46 BP 137 / 64 (auto/); jjr 13:46 Pulse 72 MON; Pulse Ox 97% ; jjr 14:16 BP 142 / 66 (auto/); jjr 14:16 Pulse 74 MON; Resp 18; Pulse Ox 98% on R/A; jjr 14:46 BP 150 / 65 (auto/); jjr 14:46 Pulse 58 MON; Pulse Ox 97% ; jjr 15:16 BP 152 / 66 (auto/); jjr 15:16 Pulse 58 MON; Resp 18; Pulse Ox 97% on R/A; jjr 15:46 BP 154 / 65 (auto/); jjr 15:46 Pulse 62 MON; Resp 18; Pulse Ox 96% on R/A; jjr 16:16 BP 164 / 71 (auto/); jjr 16:16 Pulse 58 MON; Pulse Ox 97% ; jjr 16:46 BP 155 / 65 (auto/); jjr 16:46 Pulse 64 MON; Resp 18; Pulse Ox 97% on R/A; jjr 17:16 BP 146 / 64 (auto/); jjr 17:16 Pulse 58 MON; Pulse Ox 96% ; jjr 17:46 BP 144 / 65 (auto/); jjr 17:46 Pulse 60 MON; Resp 18; Pulse Ox 96% on R/A; jjr 18:17 BP 158 / 65 (auto/); jjr 18:17 Pulse 66 MON; Pulse Ox 96% ; jjr 18:43 BP 158 / 96 (auto/); Temp 97.2(O); Pain 0/10; jjr 18:43 Pulse 62 MON; Resp 18; Pulse Ox 95% on R/A; jjr 10:01 Body Mass Index 27.07 (67.13 kg, 157.48 cm) gr2 MDM: 10:05 ECG WITH READING ER PHYS+CARDIAG ordered. EDMS 11:13 Radio Interference Supervisor/Pulse Ox/q 30 min VS ordered. kcs 11:13 IV Saline Lock ordered. kcs 11:13 Rhythm Strip to chart ordered. kcs 11:13 Undress patient appropriately for examination ordered. kcs 11:14 Basic Metabolic Profile Ordered. EDMS 11:14 CBC with Diff Ordered. EDMS 11:14 Cardiac Injury Profile Ordered. EDMS 11:14 Troponin Ordered. EDMS 12:09 Aspirin 324 mg PO once ordered. br1 12:09 Chest, 2 View (pa\E\lat) Ordered. EDMS 12:09 D-Dimer Quant Ordered. EDMS 12:09 TSH with Free T4 Ordered. EDMS 12:09 Magnesium Level Ordered. EDMS 12:09 Phosphorous Level Ordered. EDMS 12:34 LOW FAT LOW CHOLESTEROL+DIET ordered. EDMS 12:38 Financial registration complete. mm15 12:52 [facility] Payment Agreement was scanned into [employer] and attached to record. mm15 14:19 Basic Metabolic Profile Reviewed. br1 14:19 CBC with Diff Reviewed. br1 14:19 Cardiac Injury Profile Reviewed. br1 14:19 Troponin Reviewed. br1 14:19 D-Dimer Quant Reviewed. br1 14:19 TSH with Free T4 Reviewed. br1 14:19 Magnesium Level Reviewed. br1 14:19 Phosphorous Level Reviewed. br1 14:19 Chest, 2 View (pa\E\lat) Reviewed. br1 14:21 Repeat EKG (put time details section) ordered. br1 14:21 Redraw CIP &Troponin (put time in details section) ordered. br1 15:03 Repeat EKG (put time details section) complete. deg 15:03 Redraw CIP &Troponin (put time in details section) complete. deg 15:04 ECG WITH READING ER PHYS ordered. EDMS 15:04 CARDIAC MARKER PANEL Ordered. EDMS 18:35 CARDIAC MARKER PANEL Reviewed. br1 07/16 04:01 T-Sheet-- Draft Copy was scanned into [employer] and attached to record. hs2 10:34 ECG/EKG was scanned into [employer] and attached to record. gb Administered Medications: 07/15 12:22 Drug: Aspirin 324 mg [aspirin 81 mg chewable tablet (4 tabs)] Route: PO; tm5 13:00 Follow up: Response: No Adverse Reaction tm5 Signatures: Dispatcher [employer] EDMS Marina Wick, RN RN Phyllis Duvall, Pl Sql Programmer Unit deg Aranza Wan, Reg Reg gb Edwin Corrigan MD MD br1 Allie Good RN RN Alma Jason RN RN jc4 Mehul De León mm15 Brandie Castillo, Reg Reg hs2 Nadeen Ya RN tm5 The chart was reviewed and I authenticate all verbal orders and agree with the evaluation and treatment provided.Attachments: 12:52 [facility] Payment Agreement mm15 07/16 04:01 T-Sheet-- Draft Copy hs2 10:34 ECG/EKG gb Chart Complete MTDD
--- NOTE | 2016-07-17 19:52 | EDDOCDS ---
Physician Documentation [facility] Name: Huong Alcocer Age: 70 yrs Sex: Female : 1945 Arrival Date: 07/15/2016 Time: 10:00 Bed 13 Private MD: Ima Coon Disposition: 07/15/16 18:38 Discharged to Home/Self Care. Impression: Palpitations. - Condition is Stable. - Discharge Instructions: Palpitations. - Medication Reconciliation, Local Pharmacy Hours form. - Follow up: Rubin Lucas; When: 2 - 3 days; Reason: Recheck today's complaints. Follow up: Yared Landa; When: 2 - 3 days; Reason: Recheck today's complaints. - Problem is new. - Symptoms are resolved. - Notes: You were seen in the ED for fluttering in the chest concerning for palpitations. Bloodwork along with EKG of the heart, chest XRay and cardiac monitoring showed no acute findings. We have discussed the case with cardiology as well. As you are feeling better you may return home. Keep the appointment to see Dr. Landa on and call to make a general follow up as well. Return to the ED for any return of palpitations, chest pain, trouble breathing, lightheadedness, loss of consciousness or any other concerns. Historical: - Allergies: no known allergies; - Home Meds: 1. aspirin 81 mg Oral TbEC 1 tab once daily (Last dose: 07/13/2016) 2. lisinopril-hydrochlorothiazide 10-12.5 mg oral tab 1 tab once daily (Last dose: 07/14/2016) 3. Nexium 40 mg Oral cpDR 1 cap 2 times per day (Last dose: 07/14/2016) 4. Singulair 10 mg Oral tab 1 tab once daily (Last dose: 07/14/2016) 5. rosuvastatin 20 mg oral tab 1 tab once daily (Last dose: 07/13/2016) - PMHx: GERD; Hypercholesterolemia; Hypertension; Seasonal Allergies; - PSHx: ; Colonoscopy; Cardiac stents; - Social history: Smoking status: Patient states former smoker of tobacco. No barriers to communication noted, The patient speaks fluent Greek. - : The pt / caregiver states he / she is not on anticoagulants. Home medication list is obtained from the patient. - Exposure Risk Screening:: None identified. Vital Signs: 07/15 10:01 BP 169 / 84; Pulse 76; Resp 18 S; Temp 96.8(O); Pulse Ox 97% on R/A; Weight 67.13 kg / gr2 148 lbs (R); Height 5 ft. 2 in. (157.48 cm) (R); Pain 3/10; 10:17 BP 127 / 56 (auto/); jjr 10:18 Pulse 64 MON; Pulse Ox 96% ; jjr 10:31 BP 120 / 58 (auto/); jjr 10:31 Pulse 62 MON; Pulse Ox 96% ; jjr 10:46 BP 122 / 65 (auto/); jjr 10:46 Pulse 58 MON; Pulse Ox 96% ; jjr 11:01 BP 133 / 67 (auto/); jjr 11:01 Pulse 60 MON; Pulse Ox 96% ; jjr 11:16 BP 157 / 75 (auto/); jjr 11:16 Pulse 60 MON; Pulse Ox 97% ; jjr 11:31 BP 144 / 80 (auto/); jjr 11:31 Pulse 56 MON; Pulse Ox 97% ; jjr 11:46 BP 144 / 83 (auto/); jjr 11:46 Pulse 56 MON; Pulse Ox 96% ; jjr 12:01 BP 153 / 89 (auto/); jjr 12:01 Pulse 66 MON; Resp 18; Pulse Ox 96% on R/A; jjr 12:16 BP 154 / 63 (auto/); tm5 12:16 Pulse 66 MON; Resp 18 S; Pulse Ox 96% on R/A; Pain 2/10; tm5 12:46 BP 150 / 67 (auto/); jjr 12:46 Pulse 56 MON; Pulse Ox 97% ; jjr 13:16 BP 159 / 67 (auto/); jjr 13:16 Pulse 70 MON; Pulse Ox 96% ; jjr 13:46 BP 137 / 64 (auto/); jjr 13:46 Pulse 72 MON; Pulse Ox 97% ; jjr 14:16 BP 142 / 66 (auto/); jjr 14:16 Pulse 74 MON; Resp 18; Pulse Ox 98% on R/A; jjr 14:46 BP 150 / 65 (auto/); jjr 14:46 Pulse 58 MON; Pulse Ox 97% ; jjr 15:16 BP 152 / 66 (auto/); jjr 15:16 Pulse 58 MON; Resp 18; Pulse Ox 97% on R/A; jjr 15:46 BP 154 / 65 (auto/); jjr 15:46 Pulse 62 MON; Resp 18; Pulse Ox 96% on R/A; jjr 16:16 BP 164 / 71 (auto/); jjr 16:16 Pulse 58 MON; Pulse Ox 97% ; jjr 16:46 BP 155 / 65 (auto/); jjr 16:46 Pulse 64 MON; Resp 18; Pulse Ox 97% on R/A; jjr 17:16 BP 146 / 64 (auto/); jjr 17:16 Pulse 58 MON; Pulse Ox 96% ; jjr 17:46 BP 144 / 65 (auto/); jjr 17:46 Pulse 60 MON; Resp 18; Pulse Ox 96% on R/A; jjr 18:17 BP 158 / 65 (auto/); jjr 18:17 Pulse 66 MON; Pulse Ox 96% ; jjr 18:43 BP 158 / 96 (auto/); Temp 97.2(O); Pain 0/10; jjr 18:43 Pulse 62 MON; Resp 18; Pulse Ox 95% on R/A; jjr 10:01 Body Mass Index 27.07 (67.13 kg, 157.48 cm) gr2 MDM: 10:05 ECG WITH READING ER PHYS+CARDIAG ordered. EDMS 11:13 Bath Tester/Pulse Ox/q 30 min VS ordered. kcs 11:13 IV Saline Lock ordered. kcs 11:13 Rhythm Strip to chart ordered. kcs 11:13 Undress patient appropriately for examination ordered. kcs 11:14 Basic Metabolic Profile Ordered. EDMS 11:14 CBC with Diff Ordered. EDMS 11:14 Cardiac Injury Profile Ordered. EDMS 11:14 Troponin Ordered. EDMS 12:09 Aspirin 324 mg PO once ordered. br1 12:09 Chest, 2 View (pa\E\lat) Ordered. EDMS 12:09 D-Dimer Quant Ordered. EDMS 12:09 TSH with Free T4 Ordered. EDMS 12:09 Magnesium Level Ordered. EDMS 12:09 Phosphorous Level Ordered. EDMS 12:34 LOW FAT LOW CHOLESTEROL+DIET ordered. EDMS 12:38 Financial registration complete. mm15 12:52 [facility] Payment Agreement was scanned into In[employer] and attached to record. mm15 14:19 Basic Metabolic Profile Reviewed. br1 14:19 CBC with Diff Reviewed. br1 14:19 Cardiac Injury Profile Reviewed. br1 14:19 Troponin Reviewed. br1 14:19 D-Dimer Quant Reviewed. br1 14:19 TSH with Free T4 Reviewed. br1 14:19 Magnesium Level Reviewed. br1 14:19 Phosphorous Level Reviewed. br1 14:19 Chest, 2 View (pa\E\lat) Reviewed. br1 14:21 Repeat EKG (put time details section) ordered. br1 14:21 Redraw CIP &Troponin (put time in details section) ordered. br1 15:03 Repeat EKG (put time details section) complete. deg 15:03 Redraw CIP &Troponin (put time in details section) complete. deg 15:04 ECG WITH READING ER PHYS ordered. EDMS 15:04 CARDIAC MARKER PANEL Ordered. EDMS 18:35 CARDIAC MARKER PANEL Reviewed. br1 07/16 04:01 T-Sheet-- Draft Copy was scanned into Instructure and attached to record. hs2 10:34 ECG/EKG was scanned into In[employer] and attached to record. gb Administered Medications: 07/15 12:22 Drug: Aspirin 324 mg [aspirin 81 mg chewable tablet (4 tabs)] Route: PO; tm5 13:00 Follow up: Response: No Adverse Reaction tm5 Signatures: Dispatcher [employer] EDMS Marina Wick, RN RN Phyllis Duvall, Job Placement Officer Unit deg Aranza Wan, Reg Reg gb Edwin Corrigan MD MD br1 Allie Good RN RN Alma Jason RN RN jc4 Mehul De León mm15 Brandie Castillo, Reg Reg hs2 Nadeen Ya RN tm5 The chart was reviewed and I authenticate all verbal orders and agree with the evaluation and treatment provided.Attachments: 12:52 [facility] Payment Agreement mm15 07/16 04:01 T-Sheet-- Draft Copy hs2 10:34 ECG/EKG gb Chart Complete MTDD
== END 2016-07-15 18:51 | disposition home or self-care (01) ==
LOC: M ED 10:00
DX: R00.2 Palpitations (principal); K21.9 Gastro-esophageal reflux disease without esophagitis; E78.00 Pure hypercholesterolemia, unspecified; I10 Essential (primary) hypertension; J30.2 Other seasonal allergic rhinitis; Z87.891 Personal history of nicotine dependence; Z98.61 Coronary angioplasty status; Z79.82 Long term (current) use of aspirin; Z79.899 Other long term (current) drug therapy

== ENCOUNTER → 2017-06-27 | Outpatient (CLI) | payer MEDICARE ==
[~2017-06-27] MED LIST changes: +VITA-110 PO; -VITA400C29 PO; -ZETI10TA2 PO; +ZETI10TA30 PO
--- NOTE | 2017-06-27 14:00 | REPMRS ---
Patient History The patient states she had a clinical breast exam in 05/2017. Patient is postmenopausal. Family history of colorectal cancer in father at age 50 or over, colorectal cancer in paternal aunt, colorectal cancer in paternal grandmother, and colorectal cancer in brother at age 50 or over. Digital Woman Screen Mammo: June 27, 2017 - Exam #: [id number] Bilateral CC and MLO view(s) were taken. Technologist: Lizette Otto Technologist Prior study comparison: May 07, 2016, digital woman screen mammo performed at [facility] [employer] [place] [facility]. January 04, 2015, digital woman screen mammo performed at [facility] [place] [facility]. October 27, 2013, digital woman screen mammo performed at [facility] [place] [facility]. FINDINGS: There are scattered fibroglandular densities. There is a grouping of coarse benign appearing calcifications projecting at 12 o'clock on the right. There has been no change in the appearance of the mammogram from the prior studies. There is a mild amount of scattered fibroglandular density which is fairly symmetric. There is no interval development of dominant mass, architectural distortion, or clustered microcalcification suggestive of malignancy. ASSESSMENT: BI-RADS/ACR category 2 mammogram. Benign finding(s). Recommendation Routine screening mammogram in 1 year (for women over age 40). This mammogram was interpreted with the aid of an FDA-approved computer-aided dectection system. Electronically Signed By: Mg Garza MD 06/27/17 1400
== END ==
LOC: M WHC 13:34
PROVIDERS: ATTEND Nurse Practitioner Family
DX: Z12.31 Encounter for screening mammogram for malignant neoplasm of breast (principal); Z78.0 Asymptomatic menopausal state

== ENCOUNTER → 2017-07-09 | Outpatient (REF) | payer MEDICARE ==
[2017-07-09 15:42] LABS: CREATININE FOR GFR 0.92 MG/DL (0.55-1.02); GLOMERULAR FILTRATION RATE > 60.0 (>39)
[2017-07-09 15:42] LABS: BLOOD UREA NITROGEN 29 MG/DL (7-18)
== END ==
LOC: M LABDRAW1 13:41
DX: R91.8 Other nonspecific abnormal finding of lung field (principal)
CPT/HCPCS: 82565

== ENCOUNTER → 2017-09-06 | Outpatient (REF) | payer MEDICARE | LOC: M LAB REF 09:16 | DX: R31.9 Hematuria, unspecified (principal) | CPT/HCPCS: 87086 ==

== ENCOUNTER → 2017-11-12 | Outpatient (REF) | payer MEDICARE ==
[2017-11-12 12:20] LABS: ALBUMIN 3.7 GM/DL (3.2-5.2); ANION GAP 3 MEQ/L (8-16); BLOOD UREA NITROGEN 24 MG/DL (7-18); CALCIUM LEVEL 8.6 MG/DL (8.8-10.2); CARBON DIOXIDE LEVEL 30 MEQ/L (21-32); CHLORIDE LEVEL 108 MEQ/L (98-107); CREATININE FOR GFR 0.82 MG/DL (0.55-1.30); GLOMERULAR FILTRATION RATE > 60.0 (>39); GLUCOSE, FASTING 116 MG/DL (70-100); PHOSPHORUS LEVEL 2.6 MG/DL (2.5-4.9); POTASSIUM SERUM 4.4 MEQ/L (3.5-5.1); SODIUM LEVEL 141 MEQ/L (136-145)
== END ==
LOC: M LABDRAW1 09:16
DX: I10 Essential (primary) hypertension (principal)
CPT/HCPCS: 80069

== ENCOUNTER 2018-04-20 11:52 | Day surgery (SDC) | payer MEDICARE ==
[~2018-04-20 11:52] MED LIST changes: -ASPI1TAB PO; -CALCTAB7 PO; -LISI10TA4 PO; -MONT10TA2 PO; -NEXI40CA PO; -NITR4TASL SL; +NS 1,000 ML IV; -SIMV40TA2 PO; -VITA-110 PO; -ZETI10TA30 PO
[2018-04-20] MEDS ORDERED: PROPOFOL 200 MG/20 ML VIAL As Ordered (12:26)
[2018-04-20] MEDS ORDERED: LIDOCAINE 2% INJ 100 MG/5 ML SDV (FOR ANES.) As Ordered (12:26)
== END 2018-04-20 14:04 | disposition home or self-care (01) ==
LOC: M OPP 11:52
DX: K22.70 Barrett's esophagus without dysplasia (principal); K22.8 Other specified diseases of esophagus; K44.9 Diaphragmatic hernia without obstruction or gangrene; I25.10 Atherosclerotic heart disease of native coronary artery without angina pectoris; I10 Essential (primary) hypertension; Z95.5 Presence of coronary angioplasty implant and graft; E78.5 Hyperlipidemia, unspecified; K21.9 Gastro-esophageal reflux disease without esophagitis; R12 Heartburn; M48.02 Spinal stenosis, cervical region; L40.9 Psoriasis, unspecified; Z78.0 Asymptomatic menopausal state; R06.02 Shortness of breath; Z87.891 Personal history of nicotine dependence; Z79.82 Long term (current) use of aspirin; Z79.899 Other long term (current) drug therapy; Z80.0 Family history of malignant neoplasm of digestive organs; Z83.71 Family history of colonic polyps
CPT/HCPCS: 43239

== ENCOUNTER → 2018-07-01 | Outpatient (CLI) | payer MEDICARE ==
[~2018-07-01] MED LIST changes: +ASPI1TAB PO; +CALCTAB7 PO; +CHLO25TA PO; +LISI10TA4 PO; +MONT10TA2 PO; +NEXI40CA PO; +NITR4TASL SL; -NS 1,000 ML IV; +SIMV40TA2 PO; +VITA-110 PO; +ZETI10TA30 PO
--- NOTE | 2018-07-01 09:43 | REPMRS ---
Patient History The patient states she had a clinical breast exam in 06/23 Family history of colorectal cancer in paternal aunt, colorectal cancer at age 50 or over in brother, colorectal cancer at age 50 or over in father, colorectal cancer in paternal grandmother. 3D TOMOSYNTHESIS WAS PERFORMED. Digital Woman Screen Mammo: July 01, 2018 - Exam #: [id number] Bilateral CC and MLO view(s) were taken. Technologist: Huong Serrato, Technologist Prior study comparison: June 27, 2017, digital woman screen mammo performed at [facility] [employer] [facility]. May 07, 2016, digital woman screen mammo performed at [facility] [employer] [facility]. FINDINGS: The breast tissue is heterogeneously dense. This may lower the sensitivity of mammography. There has been no change in the appearance of the mammogram from the prior studies. There is a moderate amount of residual fibroglandular tissue which is fairly symmetric. There is no interval development of dominant mass, areas of architectural distortion, or clustered microcalcification typical of malignancy. Assessment: BI-RADS/ACR category 1 mammogram. Negative. Recommendation Routine screening mammogram in 1 year (for women over age 40). This mammogram was interpreted with the aid of an FDA-approved computer-aided dectection system. Electronically Signed By: Jose Carlson MD 07/01/18 0990
--- NOTE | 2018-07-02 14:00 | DEXA ---
AP SPINE L1 - L4 1.185 -0.1 1.6 LT FEMUR TOTAL 0.987 -0.2 1.4 LT NECK 0.806 -1.7 0.1 RT FEMUR TOTAL 1.037 0.2 1.8 RT NECK 0.896 -1.0 0.7 TOTAL BODY TOTAL OTHER COMMENTS: Normal bone densitometry of the spine. There is low bone density of the hips. FOLLOW-UP: Recommendation for the next bone density exam: 2 years. JEANNETTE
== END ==
LOC: M WHC 08:16
PROVIDERS: ATTEND Nurse Practitioner Family
DX: Z12.31 Encounter for screening mammogram for malignant neoplasm of breast (principal); N95.9 Unspecified menopausal and perimenopausal disorder
CPT/HCPCS: 77063; 77067; 77080; G0463

== ENCOUNTER → 2018-07-21 | Outpatient (CLI) | payer MEDICARE ==
[~2018-07-21] MED LIST changes: +LIDOCAINE 1% MDV 20ML VIAL As Ordered ONE
--- NOTE | 2018-07-21 16:22 | REP ---
Thyroid sonography: History: The patient referred for bilateral fine-needle aspiration biopsy thyroid nodules. Comparison is made with prior CT study. Soft tissues of the neck from April 21, 2018 and a prior sonography April 28, 2018. Sonographic findings: Thyroid isthmus is 0.2 cm in thickness. Right lobe dimensions are 3.4 x 1.6 x 1.5 cm. Left lobe measures 4.0 x 1.1 x 1.5 cm. There are multiple hypoechoic nodules in each lobe. Dominant nodule on the right measures 1.1 x 0.8 x 0.9 cm. This is felt to correspond with a enhancing nodule on CT. The right lobe also contains solid nodules measuring 0.4 centimeter in greatest diameter, one in the upper and the other in the lower pole. There is a 0.4 cm hypoechoic lesion in the thyroid isthmus. In the lower pole left lobe there is a 0.6 x 0.5 cm nodule. This is felt to correspond with the other enhancing lesion seen on CT. The left lobe also contains two tiny 0.3 cm hypoechoic nodules. Impression: Multinodular thyroid. The largest nodule in each lobe will be targeted for fine needle aspiration biopsy Electronically Signed by Cortez Garza MD 07/21/2018 06:16 P
--- NOTE | 2018-07-22 19:39 | REP ---
ULTRASOUND-GUIDED BILATERAL THYROID BIOPSY The procedure was performed under the direct supervision of Dr. Garza. The patient has a history of a 1.1 x 0.8 x 0.9 cm nodule in the right thyroid and a 0.6 x 0.5 cm nodule in the left lower pole thyroid seen on a previous ultrasound performed earlier today. The risks and benefits of the procedure were explained to the patient and informed consent was obtained. The left and right thyroid nodules were localized using ultrasound guidance. The skin was prepped and draped in a sterile fashion. The right thyroid nodule was addressed first. 1% lidocaine was used as a local anesthetic. Using ultrasound guidance four fine-needle aspirations were obtained using 29 gauge needles. The left thyroid nodule was then addressed. 1% lidocaine was used as a local anesthetic. Using ultrasound guidance four fine-needle aspirations were obtained using 25 gauge needles. The patient tolerated the procedure well and there were no immediate complications. After the appropriate amount of monitored convalescence the patient was discharged from the department. Reviewed by BRONSON Brady 07/22/2018 03:10 P Electronically Signed by Cortez Garza MD 07/22/2018 07:31 P
== END ==
LOC: M RADPRO 10:53
PROVIDERS: ATTEND Otolaryngology
DX: E07.9 Disorder of thyroid, unspecified (principal)

== ENCOUNTER → 2018-10-20 | Outpatient (CLI) | payer MEDICARE ==
[~2018-10-20] MED LIST changes: -ASPI1TAB PO; +ASPI81TA26 PO; -LIDOCAINE 1% MDV 20ML VIAL As Ordered ONE
[2018-10-20 12:15] LABS: BASO % 0.3 % (0.0-1.0); EOS # 0.2 10^3/uL (0.0-0.50); EOS % 1.7 % (0.0-3.0); HEMATOCRIT 41.6 % (36.0-47.0); HEMOGLOBIN 13.3 g/dl (12.0-15.5); LYMPH # 1.6 10^3/uL (1.5-4.5); LYMPH % 15.1 % (24.0-44.0); MEAN CORPUSCULAR HEMOGLOBIN 31.4 pg (27.0-33.0); MEAN CORPUSCULAR VOLUME 98.3 fl (80.0-96.0); MONO # 0.8 10^3/uL (0.0-0.8); MONO % 7.4 % (0.0-5.0); NEUTROPHILS # 7.7 10^3/uL (1.8-7.7); PLATELET COUNT, AUTOMATED 266 10^3/uL (150-450); RED BLOOD COUNT 4.23 10^6/uL (4.00-5.40); WHITE BLOOD COUNT 10.2 10^3/uL (4.0-10.0)
[2018-10-20 12:37] LABS: CALCIUM LEVEL 9.4 MG/DL (8.8-10.2); CREATININE FOR GFR 0.99 MG/DL (0.55-1.30); GLOMERULAR FILTRATION RATE 58.9 (>39); POTASSIUM SERUM 4.2 MEQ/L (3.5-5.1)
--- NOTE | 2018-10-20 14:15 | REP ---
PA and lateral chest: Comparison is 07/15/2016. The lung [place] are clear. The cardiac size is normal. The christine, mediastinum, and skeletal structures are unremarkable. Impression: Negative PA and lateral chest. There is no interval change. Electronically Signed by Jose Maravilla MD 10/20/2018 02:07 P
== END ==
LOC: M LAB 11:31
PROVIDERS: ATTEND Physician Assistant
DX: R06.02 Shortness of breath (principal)

== ENCOUNTER → 2019-01-28 | Outpatient (CLI) | payer MEDICARE ==
--- NOTE | 2019-01-28 11:52 | REP ---
Thyroid ultrasound in a patient with nontoxic multinodular goiter: Comparison is 07/21/2018. The thyroid right lobe measures 5.0 x 1.5 x 1.8 cm and is enlarged. The thyroid left lobe measures 3.90 1.4 x 1.4 cm and is normal size. The isthmus measures 3 ml thickness which is normal for this. There are multiple small nodules throughout the thyroid gland bilaterally and in the isthmus. The largest nodules in the right lobe are one at the mid pole measuring 10 mm and another at the lower pole measuring 7 mm. The largest nodules in the left lobe at the mid pole measuring 3 mm at the lower pole measuring 6 mm. There is a 3 mm nodule in the isthmus. Impression: Enlarged thyroid right lobe. Multiple nodules bilaterally compatible with the clinical diagnosis nontoxic multinodular goiter. The largest nodules in each lobe are measured as discussed above. Electronically Signed by Jose Maravilla MD 01/28/2019 11:44 A
== END ==
LOC: M RAD 10:38
PROVIDERS: ATTEND Otolaryngology
DX: E04.2 Nontoxic multinodular goiter (principal)

== ENCOUNTER → 2019-02-10 | Outpatient (CLI) | payer MEDICARE ==
[~2019-02-10] MED LIST changes: +ZETI10TA16 PO; -ZETI10TA30 PO
[2019-02-10 12:33] LABS: C REACTIVE PROTEIN QUANTITATIV < 0.30 MG/DL (0.00-0.30); RHEUMATOID FACTOR QUANT < 10.0 IU/ML (<15.0)
--- NOTE | 2019-02-10 14:05 | REP ---
REASON: Pain. There is mild asymmetric hip joint space narrowing without buttressing or prominent marginal osteophytosis. IMPRESSION: Chronic changes. Electronically Signed by Carlito Au DO 02/10/2019 05:13 P
--- NOTE | 2019-02-10 14:33 | REP ---
REASON FOR EXAM: Pain. FINDINGS: Three views of the sacroiliac joints show them to be non-fused. There is no lysis or sclerosis of either the sacral or iliac side of either SI joints. There is no evidence of whiskering. There is no prominent osteophytosis. IMPRESSION: SI joints within normal limits. Electronically Signed by Carlito Au DO 02/10/2019 05:14 P
[2019-02-17 14:12] LABS: CYCLIC CITRULLINATED PEPTIDE 11 units (0-19); HLA-B27 Negative (.)
== END ==
LOC: M LAB 10:58
PROVIDERS: ATTEND Internal Medicine Rheumatology
DX: M16.0 Bilateral primary osteoarthritis of hip (principal); M25.551 Pain in right hip; Z87.2 Personal history of diseases of the skin and subcutaneous tissue
CPT/HCPCS: 36415; 72202; 73502; 81374; 86140; 86200; 86431; G0463

== ENCOUNTER → 2019-03-15 | Outpatient (REF) | payer MEDICARE ==
[2019-03-15 12:40] LABS: HEMATOCRIT 40.5 % (36.0-47.0); HEMOGLOBIN 12.4 g/dl (12.0-15.5); MEAN CORPUSCULAR HEMOGLOBIN 31.1 pg (27.0-33.0); MEAN CORPUSCULAR HGB CONC 30.6 g/dl (32.0-36.5); MEAN CORPUSCULAR VOLUME 101.5 fl (80.0-96.0); PLATELET COUNT, AUTOMATED 247 10^3/uL (150-450); RED BLOOD COUNT 3.99 10^6/uL (4.00-5.40); WHITE BLOOD COUNT 7.7 10^3/uL (4.0-10.0)
[2019-03-15 12:58] LABS: ALBUMIN 3.9 GM/DL (3.2-5.2); BILIRUBIN,TOTAL 0.3 MG/DL (0.2-1.0); CALCIUM LEVEL 9.6 MG/DL (8.8-10.2); CHOLESTEROL RISK RATIO 2.933 (<5); CREATININE FOR GFR 1.08 MG/DL (0.55-1.30); GLOMERULAR FILTRATION RATE 53.1 (>39); POTASSIUM SERUM 4.8 MEQ/L (3.5-5.1)
[2019-03-15 13:02] LABS: HEMOGLOBIN A1c 6.4 %
== END ==
LOC: M LABDRAW1 11:34
PROVIDERS: ATTEND Internal Medicine
DX: E78.5 Hyperlipidemia, unspecified (principal); I10 Essential (primary) hypertension

== ENCOUNTER → 2019-05-10 | Outpatient (CLI) | payer MEDICARE ==
--- NOTE | 2019-05-10 13:11 | REP ---
Lumbar spine five views: There is mild degenerative disc disease at L2-3 and advanced degenerative disc disease at L5 S1. The remainder of the disc spaces are unremarkable. Vertebral body heights and alignment are normal. There is no spondylolysis. There is no spondylolisthesis. The pedicles and facets are unremarkable. The sacroiliac articulations are unremarkable. Impression: Mild degenerative disc disease at L2-3. Advanced degenerative disc disease at L5 S1. Electronically Signed by Jose Maravilla MD 05/10/2019 01:02 P
== END ==
LOC: M RAD 12:06
PROVIDERS: ATTEND Internal Medicine
DX: M51.36 Other intervertebral disc degeneration, lumbar region (principal); M51.37 Other intervertebral disc degeneration, lumbosacral region; M54.32 Sciatica, left side

== ENCOUNTER → 2019-07-02 | Outpatient (CLI) | payer MEDICARE ==
[~2019-07-02] MED LIST changes: -MONT10TA2 PO; +MONT10TA4 PO; -SIMV40TA2 PO; +SIMV40TA20 PO
--- NOTE | 2019-07-02 09:31 | REPMRS ---
Patient History The patient states she had a clinical breast exam in June 2019.Family history of colorectal cancer in paternal aunt, colorectal cancer at age 50 or over in brother, colorectal cancer at age 50 or over in father, colorectal cancer in paternal grandmother. 3D TOMOSYNTHESIS WAS PERFORMED. The Luana Whitehead lifetime risk for breast cancer is 3.6%. Digital Woman Screen Mammo: July 02, 2019 - Exam #: [id number] Bilateral CC and MLO view(s) were taken. Technologist: Alma Alcazar, Technologist Prior study comparison: July 01, 2018, bilateral digital woman screen mammo performed at [facility]. June 27, 2017, digital woman screen mammo performed at [facility]. FINDINGS: The breast tissue is heterogeneously dense. This may lower the sensitivity of mammography. There has been no change in the appearance of the mammogram from the prior studies. There is a moderate amount of residual fibroglandular tissue which is fairly symmetric. There is no interval development of dominant mass, areas of architectural distortion, or clustered microcalcification typical of malignancy. Assessment: BI-RADS/ACR category 1 mammogram. Negative Mammogram. Recommendation Routine screening mammogram in 1 year (for women over age 40). This mammogram was interpreted with the aid of an FDA-approved computer-aided dectection system. Electronically Signed By: Jose Carlson MD 07/02/19 2724
== END ==
LOC: M WHC 08:06
PROVIDERS: ATTEND Nurse Practitioner Family
DX: Z12.31 Encounter for screening mammogram for malignant neoplasm of breast (principal)
CPT/HCPCS: 72052; 77063; 77067; G0101

== ENCOUNTER → 2019-07-02 | Outpatient (CLI) | payer MEDICARE ==
[~2019-07-02] MED LIST changes: +MONT10TA2 PO; -MONT10TA4 PO
--- NOTE | 2019-07-02 09:47 | REP ---
Clinical: Cervical Technique: AP, lateral, flexion/extension, bilateral oblique, and open mouth views of the cervical spine. Findings: Moderate/early advanced multilevel degenerative disc osteophyte complexes are appreciated along with 3.5 mm anterolisthesis at the C3-4 level and 1.5 mm anterolisthesis at the C4-5 level. No acute fracture / compression injury. Open mouth view demonstrates normal C1-C2 articulation and odontoid process. Impression: Moderate/early advanced multilevel degenerative spondylosis with anterolisthesis at C3-4 and C4-5. Electronically Signed by Royal Noel MD 07/02/2019 09:38 A
== END ==
LOC: M RAD 09:12
PROVIDERS: ATTEND Internal Medicine
DX: M47.812 Spondylosis without myelopathy or radiculopathy, cervical region (principal); M54.2 Cervicalgia

== ENCOUNTER → 2019-07-23 | Outpatient (CLI) | payer MEDICARE ==
[2019-07-23 09:44] LABS: HEMATOCRIT 41.9 % (36.0-47.0); HEMOGLOBIN 13.1 g/dl (12.0-15.5); MEAN CORPUSCULAR HEMOGLOBIN 30.3 pg (27.0-33.0); MEAN CORPUSCULAR HGB CONC 31.3 g/dl (32.0-36.5); PLATELET COUNT, AUTOMATED 285 10^3/uL (150-450); RED BLOOD COUNT 4.32 10^6/uL (4.00-5.40); WHITE BLOOD COUNT 10.3 10^3/uL (4.0-10.0)
[2019-07-23 10:14] LABS: BILIRUBIN,TOTAL 0.5 MG/DL (0.2-1.0); CALCIUM LEVEL 9.1 MG/DL (8.8-10.2); CREATININE FOR GFR 0.98 MG/DL (0.55-1.30); GLOMERULAR FILTRATION RATE 59.4 (>39); POTASSIUM SERUM 4.5 MEQ/L (3.5-5.1); THYROID STIMULATING HORMONE 1.05 uIU/ML (0.358-3.740); TOTAL PROTEIN 7.4 GM/DL (6.4-8.2)
== END ==
LOC: M LAB 09:10
PROVIDERS: ATTEND Internal Medicine
DX: R06.02 Shortness of breath (principal); R53.83 Other fatigue

== ENCOUNTER → 2019-09-13 | Outpatient (CLI) | payer MEDICARE ==
[~2019-09-13] MED LIST changes: -MONT10TA2 PO; +MONT10TA4 PO
--- NOTE | 2019-09-13 14:17 | REP ---
Low-dose lung screening CT of the chest: The study is performed without IV contrast. The images are presented at lung windowing only. Comparison is the chest CT with IV contrast dated 07/16/2017. There are seven small sub centimeter stable lung nodules, unchanged from the prior study, one in the right upper lobe, two in the left upper lobe and four in the right middle lobe. There are no new lung nodules. There are no masses. There are no infiltrates or pleural effusions. Impression: There are multiple small stable lung nodules as described. There are no enlarging nodules. There are no new lung nodules. Category II low-dose lung screening CT of the chest. The probability of malignancy is less than 1%. Depending on risk factors, consider annual follow-up low-dose lung screening CT of the chest. Electronically Signed by Jose Maravilla MD 09/13/2019 02:09 P
== END ==
LOC: M RAD 13:29
PROVIDERS: ATTEND Internal Medicine Pulmonary Disease
DX: Z12.2 Encounter for screening for malignant neoplasm of respiratory organs (principal); J44.9 Chronic obstructive pulmonary disease, unspecified; Z87.891 Personal history of nicotine dependence

== ENCOUNTER → 2019-12-22 | Outpatient (CLI) | payer MEDICARE ==
[2019-12-22 12:20] LABS: ALBUMIN 3.8 GM/DL (3.2-5.2); CREATININE FOR GFR 1.01 MG/DL (0.55-1.30); GLOMERULAR FILTRATION RATE 57.4 (>39); PHOSPHORUS LEVEL 2.9 MG/DL (2.5-4.9); POTASSIUM SERUM 4.3 MEQ/L (3.5-5.1)
== END ==
LOC: M PLALAB 08:00
PROVIDERS: ATTEND Physician Assistant
DX: L40.9 Psoriasis, unspecified (principal)
CPT/HCPCS: 36415; 80069; G0463

== ENCOUNTER → 2020-03-01 | Outpatient (CLI) | payer MEDICARE ==
[~2020-03-01] MED LIST changes: +CALC-211 PO; -CALCTAB7 PO
[2020-03-01 16:05] LABS: BASO % 0.3 % (0.0-1.0); EOS # 0.7 10^3/uL (0.0-0.5); EOS % 7.9 % (0.0-3.0); HEMATOCRIT 40.2 % (36.0-47.0); HEMOGLOBIN 12.8 g/dl (12.0-15.5); LYMPH # 1.5 10^3/uL (1.5-5.0); LYMPH % 16.6 % (24.0-44.0); MEAN CORPUSCULAR HEMOGLOBIN 31.1 pg (27.0-33.0); MEAN CORPUSCULAR HGB CONC 31.8 g/dl (32.0-36.5); MEAN CORPUSCULAR VOLUME 97.8 fl (80.0-96.0); MONO # 0.8 10^3/uL (0.0-0.8); MONO % 9.2 % (0.0-5.0); NEUTROPHILS # 5.8 10^3/uL (1.5-8.5); NEUTROPHILS % 65.2 % (36.0-66.0); PLATELET COUNT, AUTOMATED 240 10^3/uL (150-450); RED BLOOD COUNT 4.11 10^6/uL (4.00-5.40); WHITE BLOOD COUNT 8.9 10^3/uL (4.0-10.0)
[2020-03-01 16:08] LABS: ALBUMIN 3.8 GM/DL (3.2-5.2); ALT/SGPT 42 U/L (12-78); BILIRUBIN,TOTAL 0.3 MG/DL (0.2-1.0); BLOOD UREA NITROGEN 30 MG/DL (7-18); CALCIUM LEVEL 9.2 MG/DL (8.8-10.2); CARBON DIOXIDE LEVEL 28 MEQ/L (21-32); CHLORIDE LEVEL 104 MEQ/L (98-107); CREATININE FOR GFR 1.21 MG/DL (0.55-1.30); GLOMERULAR FILTRATION RATE 46.4 (>39); GLUCOSE, FASTING 114 MG/DL (70-100); POTASSIUM SERUM 4.5 MEQ/L (3.5-5.1); SODIUM LEVEL 138 MEQ/L (136-145); TOTAL PROTEIN 7.1 GM/DL (6.4-8.2)
[2020-03-01 16:29] LABS: HEPATITIS B SURFACE ANTIGEN NEGATIVE (NEGATIVE)
[2020-03-01 16:56] LABS: HEPATITIS C VIRUS ABY INDEX 0.2 INDEX (<0.8)
[2020-03-01 16:57] LABS: HEPATITIS B CORE ANTIBODY IGM NEGATIVE (NEGATIVE); HIV 1&2 SCREEN CENTAUR NEGATIVE (NEGATIVE)
[2020-03-01 16:59] LABS: HEPATITIS A ANTIBODY IGM NEGATIVE (NEGATIVE)
== END ==
LOC: M PLALAB 13:42
PROVIDERS: ATTEND Physician Assistant
DX: L40.0 Psoriasis vulgaris (principal)

== ENCOUNTER → 2020-07-04 | Outpatient (CLI) | payer MEDICARE ==
[~2020-07-04] MED LIST changes: -MONT10TA4 PO; +MONT5TAB2 PO
--- NOTE | 2020-07-04 09:22 | REPMRS ---
Patient History The patient states she had a clinical breast exam in 06/2020. Patient is postmenopausal. Family history of colorectal cancer in paternal aunt, colorectal cancer at age 50 or over in brother, colorectal cancer at age 50 or over in father, colorectal cancer in paternal grandmother. No Hormone Replacement Therapy Digital Woman Screen Mammo: July 04, 2020 - Exam #: [id number] Bilateral CC and MLO view(s) were taken. Technologist: Maira Hauser, Technologist Prior study comparison: July 02, 2019, bilateral digital woman screen mammo performed at [facility]. July 01, 2018, bilateral digital woman screen mammo performed at [facility]. June 27, 2017, digital woman screen mammo performed at [facility]. FINDINGS: There are scattered fibroglandular densities. The Volpara volumetric breast density category is: B. There is a moderate amount of residual fibroglandular tissue which is fairly symmetric. There is no interval development of dominant mass, architectural distortion, or grouped microcalcification typical of malignancy. There has been no change in the appearance of the mammogram from the prior studies. 3-D tomosynthesis shows no additional findings. Assessment: BI-RADS/ACR category 1 mammogram. Negative Mammogram. Recommendation Routine screening mammogram of both breasts in 1 year (for women over age 40). This patient's [facility] Lifetime Breast Cancer RIsk is estimated at 3.4 %. This mammogram was interpreted with the aid of an FDA-approved computer-aided dectection system. Electronically Signed By: Mg Garza MD 07/04/20 0922
== END ==
LOC: M WHC 08:08
PROVIDERS: ATTEND Nurse Practitioner Family
DX: Z12.31 Encounter for screening mammogram for malignant neoplasm of breast (principal); Z78.0 Asymptomatic menopausal state; Z80.0 Family history of malignant neoplasm of digestive organs
CPT/HCPCS: 77063; 77067; G0463

== ENCOUNTER → 2020-07-26 | Outpatient (CLI) | payer MEDICARE ==
[~2020-07-26] MED LIST changes: +ANOR1AER INH; +DUPI300I SC; +LISI10TA22 PO; -LISI10TA4 PO; +MONT10TA10 PO; -MONT5TAB2 PO; +OMEP40CA97 PO; +POTA1TAB14 PO; +ROSU20TA5 PO; +TRAM50TA2 PO
== END ==
LOC: M LABSMTC 10:24
PROVIDERS: ATTEND Anesthesiology
DX: Z01.812 Encounter for preprocedural laboratory examination (principal); Z20.822 Contact with and (suspected) exposure to COVID-19

== ENCOUNTER → 2020-08-23 | Outpatient (CLI) | payer MEDICARE | LOC: M LABSMTC 09:48 | PROVIDERS: ATTEND Anesthesiology | DX: Z01.812 Encounter for preprocedural laboratory examination (principal); Z20.822 Contact with and (suspected) exposure to COVID-19 ==

== ENCOUNTER 2020-08-28 06:55 | Day surgery (SDC) | payer MEDICARE ==
[~2020-08-28] VITALS: Ht 157.5 cm; Wt 83.9 kg
[~2020-08-28 06:55] MED LIST changes: +NS 1,000 ML IV ONE
[2020-08-28] MEDS ORDERED: NS 1,000 ML IV ONE (07:00)
--- OUTSIDE RECORDS SUMMARY | 2020-08-28 07:00 | CCD ---
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 Active 64530160 Problem Arias's esophagus K22.70 Active 260719447 Problem Psoriasis vulgaris L40.0 Active 396601249 Problem Intrinsic eczema L20.84 Active 88676137 Problem Family history of cancer of digestive organ Z80.0 Active 741820694 Problem Family history of breast cancer in male Z80.3 Active 562685022 Problem Menopausal disorder N95.9 Active 614448103 Problem Psoriasis L40.9 Active 6745061 ALLERGIES Allergen (clinical drug ingredient) Drug/Non Drug Allergy do cumented on EMR Reaction Allergy Type Onset Date Status apremilast Otezla([facility] Code:[address]-48) Hives Drug Allergy Active ENCOUNTERS from 1945 to 2020-07-31 Encounter Location Date Provider Diagnosis [facility] Dermatology [address] [address] Jul, Genesis Nguyen IMMUNIZATIONS No Information SOCIAL HISTORY Tobacco Use: Social History Observation Description Date Details (start date - stop date) Former Smoker Sex Assigned At : Social History Observation Description Sex Assigned At Unknown Education: Question Answer Notes Level of Education: Finished High School Language: Question Answer Notes Languages spoken: Chinese Latter Day: Question Answer Notes Latter Day 21 Taoist Sexual Hx: Question Answer Notes Had sex in the last 12 months (vaginal, oral, or anal)? No LMP: post menopause Have you ever had an STD? No Alcohol Screening: Question Answer Notes Did you have a drink containing alcohol in the past year? Ye s Points 5 Interpretation Positive How often did you have six or more drinks on one occas ion in the past year? Never (0 points) How many drinks did you have on a typica l day when you were drinking in the past year? 3 or 4 (1 point) How often did you have a drink containing alcohol in t he past year? Four or more times a week (4 points) BMI Care Goal Follow-Up Question Answer Notes Above Normal BMI Follow-Up Giving encouragement to exercise Tobacco Use: Question Answer Notes Are you a: former smoker REASON FOR REFERRAL No Information VITAL SIGNS No information MEDICATIONS Medication SIG (Take, Route, Frequency, Duration) Notes Start Da te End Date Status Simvastatin 80 MG 1 tablet in the evening Orally Once a day Not-Taking Anoro Ellipta 62.5-25 MCG/INH 1 puff Inhalation Once a day Active Doxycycline Hyclate 100 MG 1 tablet Orally Once a day for 10 day (s) Dec, Not-Taking Lisinopril 20 MG 1 tablet Orally Once a day Not-Taking Rosuvastatin Calcium 20 MG 1 tablet Orally Once a day Active AmLODIPine Besylate 5 MG 1 tablet Orally Once a day for 30 day(s) Active Aspir-81 81 MG 1 tab(s) p.o. Once a day for 30 day(s) Active Omeprazole 20 MG 1 capsule 30 minutes before morning meal Orally Once a day for 30 day(s) Active Betamethasone Dipropionate 0.05 % 1 application Sterile Instrument Technician ally Twice daily to rash on the body for 2 weeks, then once daily for 2 weeks Not-Taking Levocetirizine Dihydrochloride 5 MG 1 tablet in the ev ening Orally Once a day for 30 day(s) Apr, Not-Taking Dupixent 300 MG/2ML as directed Subcutaneous 300 mg SQ every other week, *DISP PEN NOT SYRINGE for 30 days Mar, Acti ve Betamethasone Dipropionate Aug 0.05 % External for 14 Not-Taking Sulfamethoxazole-Trimethoprim 400-80 MG 1 tablet Orall y Once a day for 10 day(s) Not-Taking Otezla 30 MG 1 tablet Orally Twice a day for 30 day(s) Dec, Not-Taking PredniSONE 20 MG 1 tablet Orally Once a day for 5 days Jan, Not-Taking Lisinopril-Hydrochlorothiazide 10-12.5 MG 1 tablet Orally Once a day Not-Taking Singulair 10 MG 1 tablet in the evening Orally Once a day for 30 day( s) Not-Taking Mometasone Furoate 0.1 % APPLY TO FACIAL RASH TWICE DAILY FOR 2 WEEKS for 30 Not-Taking HydrOXYzine HCl 10 MG as directed Orally at bedtime for itch for 30 days Dec, Not-Taking Tramadol HCl 50 MG 1 tablet as needed Orally Once a day Active Otezla 10 & 20 & 30 MG as directed Orally Twice a day for 14 day s Dec, Not-Taking Montelukast Sodium 10 MG 1 tablet Orally Once a day for 30 day(s) Active Triamcinolone Acetonide 0.1 % 1 application Externally Once a day to trunk and extremities (1 lb jar) for 14 days Apr, Not-Taking Calcium 600 + D 600-400 MG-UNIT 1 tablet Orally occ. Not-Taking Nexium 40 mg 1 capsule p.o. twice a day as needed Not-Taking Nitroglycerin 0.4 MG 1 tab Sublingual up to 3 doses as needed Not-Taking Chlorthalidone 25 mg 1/2 tablet Orally Once a day Active PROCEDURES No Information RESULTS No Results REASON FOR VISIT PA Dupixent 300MG/2ML Pens MEDICAL (GENERAL) HISTORY Type Description Date Medical History hyperlipidemia Medical History Hiatal hernia Medical History environmental allergies Medical History microscopic hematuria, hx of Sees Dr Leonardo Heaton annually Medical History Colonoscopy 2008, polyp removed again 25 06 Medical History IVP 03/2007, Neg Medical History psoriasis Medical History cardiac stent placed 04/2010, [place] Se[facility] cardiology Medical History GERD/Barretts esophagus EDG every 2 year s Medical History postmenopause Medical History fam hx colon cancer (father, brother) Medical History thyroid nodules euthyroid 2017 Medical History degenerative disc disease Surgical History C section 1971 Surgical History D&C Surgical History tubal ligation Surgical History stent placed due to blockage ([place]) 04/2010 Surgical History cystoscopy Surgical History colonoscopy EDG 2016 Hospitalization History chest pain 05/26 Goals Section No Information Health Concerns No Information MEDICAL EQUIPMENT No Information MENTAL STATUS No Information FUNCTIONAL STATUS No Information ASSESSMENTS No Information PLAN OF TREATMENT Medication Medication Name Sig Start Date Stop Date Dupixent 300 MG/2ML as directed Subcutaneous 300 mg SQ every other week, *DISP PEN NOT SYRINGE for 30 days Mar, Next Appt Details Provider Name:Genesis Nguyen, 07:15:00 AM, [address] [place], [address], Insurance Providers Payer Name Payer Address Payer Phone Insured Name Patient Relati onship to Insured Coverage Start Date Coverage End Date [employer] HE[employer] CARE OPTIONS [facility] CLAIM DIV [address] [facility] [phone] JOSELUIS RUCKER self MEDICARE Part A and B [address] [facility] [phone] JOSELUIS RUCKER self
--- OUTSIDE RECORDS SUMMARY | 2020-08-28 07:00 | CCD ---
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 Active con firmed 09501028 Problem Arias's esophagus K22.70 Active confirmed 796730395 Problem Psoriasis vulgaris L40.0 Active confirmed 2 58833466 Problem Intrinsic eczema L20.84 Active confirmed 240 79113 Problem Family history of cancer of digestive organ Z80.0 Active confirmed 847945139 Problem Family history of breast cancer in male Z80.3 Active confirmed 265102608 Problem Menopausal disorder N95.9 Active confirmed 874459329 Problem Psoriasis L40.9 Active confirmed 9655772 ALLERGIES Allergen (clinical drug ingredient) Drug/Non Drug Allergy do cumented on EMR Reaction Allergy Type Onset Date Status apremilast Otezla([facility] Code:[address]-00) Hives Drug Allergy Active ENCOUNTERS from 1945 to 2020-08-07 Encounter Location Date Provider Diagnosis [address] [address] Jul, Genesis Nguyen IMMUNIZATIONS No Information SOCIAL HISTORY Tobacco Use: Social History Observation Description Date Details (start date - stop date) Former Smoker Sex Assigned At : Social History Observation Description Sex Assigned At Unknown Education: Question Answer Notes Level of Education: Finished High School Language: Question Answer Notes Languages spoken: Citizen Of [place] Pentecostal: Question Answer Notes Pentecostal 21 Cheondoism Sexual Hx: Question Answer Notes Had sex [...] Notes Start Da te End Date Status Calcium 600 + D 600-400 MG-UNIT 1 tablet Orally occ. Not-Taking Nexium 40 mg 1 capsule p.o. twice a day as needed Not-Taking Nitroglycerin 0.4 MG 1 tab Sublingual up to 3 doses as needed Active Montelukast Sodium 10 MG 1 tablet Orally Once a day for 30 day(s) Active Otezla 10 & 20 & 30 MG as directed Orally Twice a day for 14 day s Dec, Not-Taking Chlorthalidone 25 mg 1/2 tablet Orally Once a day Active Omeprazole 20 MG 1 capsule 30 minutes before morning meal Orally Once a day for 30 day(s) Active Dupixent 300 MG/2ML as directed Subcutaneous 300 mg SQ every other week, *DISP PEN NOT SYRINGE for 30 days Mar, Acti ve Aspir-81 81 MG 1 tab(s) p.o. Once a day for 30 day(s) Active Doxycycline Hyclate 100 MG 1 tablet Orally Once a day for 10 day (s) Dec, Not-Taking Singulair 10 MG 1 tablet in the evening Orally Once a day for 30 day( s) Not-Taking Otezla 30 MG 1 tablet Orally Twice a day for 30 day(s) Dec, Not-Taking Rosuvastatin Calcium 20 MG 1 tablet Orally Once a day Active Simvastatin 80 MG 1 tablet in the evening Orally Once a day Not-Taking Lisinopril Active Anoro Ellipta 62.5-25 MCG/INH 1 puff Inhalation Once a day Active PredniSONE 20 MG 1 tablet Orally Once a day for 5 days Jan, Not-Taking Triamcinolone Acetonide 0.1 % 1 application Externally Once a day to trunk and extremities (1 lb jar) for 14 days Apr, Not-Taking Lisinopril-Hydrochlorothiazide 10-12.5 MG 1 tablet Orally Once a day Not-Taking Mometasone Furoate 0.1 % APPLY TO FACIAL RASH TWICE DAILY FOR 2 WEEKS for 30 Not-Taking Tramadol HCl 50 MG 1 tablet as needed Orally Once a day Active Levocetirizine Dihydrochloride 5 MG 1 tablet in the ev ening Orally Once a day for 30 day(s) Apr, Not-Taking Betamethasone Dipropionate Aug 0.05 % External for 14 Not-Taking Sulfamethoxazole-Trimethoprim 400-80 MG 1 tablet Orall y Once a day for 10 day(s) Not-Taking Potassium Chloride ER Act shay Betamethasone Dipropionate 0.05 % 1 application Transportation Design Engineer ally Twice daily to rash on the body for 2 weeks, then once daily for 2 weeks Not-Taking AmLODIPine Besylate 5 MG 1 tablet Orally Once a day for 30 day(s) Not-Taking Lisinopril 20 MG 1 tablet Orally Once a day Not-Taking HydrOXYzine HCl 10 MG as directed Orally at bedtime for itch for 30 days Dec, Not-Taking PROCEDURES No Information RESULTS No Results REASON FOR VISIT Dupixent pen MEDICAL (GENERAL) HISTORY Type Description Date Medical History hyperlipidemia Medical History Hiatal hernia Medical History environmental allergies Medical History microscopic hematuria, hx of Sees Dr Leonardo Heaton annually Medical History Colonoscopy 2008, polyp removed again 25 06 Medical History IVP 03/2007, Neg Medical History psoriasis Medical History cardiac stent placed 04/2010, [facility] Sees cardiology Medical History GERD/Barretts esophagus EDG every 2 year s Medical History postmenopause Medical History fam hx colon cancer (father, brother) Medical History thyroid nodules euthyroid 2017 Medical History degenerative disc disease Surgical History C section 1971 Surgical History D&C Surgical History tubal ligation Surgical History stent placed due to blockage ([facility]) 04/2010 Surgical History cystoscopy Surgical History colonoscopy [...] Details Provider Name:Genesis Nguyen, 07:15:00 AM, [address] [place], [address], Insurance Providers Payer Name Payer Address Payer Phone Insured Name Patient Relati onship to Insured Coverage Start Date Coverage End Date MEDICARE Part A and B [address] [facility] [id number] [phone] JOSELUIS RUCKER [facility] OPTIONS [facility] CLAIM DIV [address] [facility] [phone] JOSELUIS RUCKER self
--- OUTSIDE RECORDS SUMMARY | 2020-08-28 07:00 | CCD ---
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 Active 04810766 Problem Arias's esophagus K22.70 Active 212929456 Problem Psoriasis vulgaris L40.0 Active 766904575 Problem Intrinsic eczema L20.84 Active 71998547 Problem Family history of cancer of digestive organ Z80.0 Active 686475101 Problem Family history of breast cancer in male Z80.3 Active 185525198 Problem Menopausal disorder N95.9 Active 814094089 Problem Psoriasis L40.9 Active 0225978 ALLERGIES Allergen (clinical drug ingredient) Drug/Non Drug Allergy do cumented on EMR Reaction Allergy Type Onset Date Status apremilast Otezla([facility] Code:[address]-91) Hives Drug Allergy Active ENCOUNTERS from 1945 to 2020-06-12 Encounter Location Date Provider Diagnosis [facility] Dermatology [place] [address] [place] [address] 0 2 Jun, 2020 Genesis Nguyen Intrinsic eczema L20.84 IMMUNIZATIONS No Information SOCIAL HISTORY Tobacco Use: Social History Observation Description Date Details (start date - stop date) Former Smoker Sex Assigned At : Social History Observation Description Sex Assigned At Unknown Education: Question Answer Notes Level of Education: Finished High School Language: Question Answer Notes Languages spoken: Turkmen Zoroastrianism: Question Answer Notes Zoroastrianism 21 Moravian Sexual Hx: Question Answer Notes Had sex [...] REASON FOR REFERRAL No Information VITAL SIGNS Weight 147 lbs Jun, Height 61 in Jun, BMI 27.77 kg/m2 Jun, Blood pressure systolic 124 mm Hg Jun, Blood pressure diastolic 72 mm Hg Jun, MEDICATIONS Medication SIG (Take, Route, Frequency, Duration) Notes Start Da te End Date Status Chlorthalidone 25 mg 1/2 tablet Orally Once a day Active Anoro Ellipta 62.5-25 MCG/INH 1 puff Inhalation Once a day Active Dupixent 300 MG/2ML as directed Subcutaneous 300 mg SQ every other week, *DISP PEN NOT SYRINGE for 30 days Mar, Acti ve Omeprazole 20 MG 1 capsule 30 minutes before morning meal Orally Once a day for 30 day(s) Active HydrOXYzine HCl 10 MG as directed Orally at bedtime for itch for 30 days Dec, Not-Taking Lisinopril 20 MG 1 tablet Orally Once a day Not-Taking Montelukast Sodium 10 MG 1 tablet Orally Once a day for 30 day(s) Active AmLODIPine Besylate 5 MG 1 tablet Orally Once a day for 30 day(s) Active PredniSONE 20 MG 1 tablet Orally Once a day for 5 days Jan, Not-Taking Simvastatin 80 MG 1 tablet in the evening Orally Once a day Active Calcium 600 + D 600-400 MG-UNIT 1 tablet Orally occ. Not-Taking Otezla 30 MG 1 tablet Orally Twice a day for 30 day(s) Dec, Not-Taking Singulair 10 MG 1 tablet in the evening Orally Once a day for 30 day( s) Not-Taking Sulfamethoxazole-Trimethoprim 400-80 MG 1 tablet Orall y Once a day for 10 day(s) Active Doxycycline Hyclate 100 MG 1 tablet Orally Once a day for 10 day (s) Dec, Not-Taking Nitroglycerin 0.4 MG 1 tab Sublingual up to 3 doses as needed Not-Taking Levocetirizine Dihydrochloride 5 MG 1 tablet in the ev ening Orally Once a day for 30 day(s) Apr, Active Triamcinolone Acetonide 0.1 % 1 application Externally Once a day to trunk and extremities (1 lb jar) for 14 days Apr, Active Mometasone Furoate 0.1 % APPLY TO FACIAL RASH TWICE DAILY FOR 2 WEEKS for 30 Not-Taking Nexium 40 mg 1 capsule p.o. twice a day as needed Not-Taking Aspir-81 81 MG 1 tab(s) p.o. Once a day for 30 day(s) Active Otezla 10 & 20 & 30 MG as directed Orally Twice a day for 14 day s Dec, Not-Taking Lisinopril-Hydrochlorothiazide 10-12.5 MG 1 tablet Orally Once a day Not-Taking Betamethasone Dipropionate Aug 0.05 % External for 14 Not-Taking Tramadol HCl 50 MG 1 tablet as needed Orally Once a day Active Betamethasone Dipropionate 0.05 % 1 application State Archivist ally Twice daily to rash on the body for 2 weeks, then once daily for 2 weeks Active PROCEDURES No Information RESULTS No Results REASON FOR VISIT DUPIXENT F/U MEDICAL (GENERAL) HISTORY Type Description Date Medical History hyperlipidemia Medical History Hiatal hernia Medical History environmental allergies Medical History microscopic hematuria, hx of Sees Dr Leonardo Heaton annually Medical History Colonoscopy 2008, polyp removed again 20 12 Medical History IVP 03/2007, Neg Medical History psoriasis Medical History cardiac stent placed 04/2010, [place] Sees cardiology Medical History GERD/Barretts esophagus EDG every 2 year s Medical History postmenopause Medical History fam hx colon cancer (father, brother) Medical History thyroid nodules euthyroid 2017 Medical History degenerative disc disease Surgical History C section 1971 Surgical History D&C Surgical History tubal ligation Surgical History stent placed due to blockage ([place]) 04/2010 Surgical History cystoscopy Surgical History colonoscopy EDG 2016 Goals Section No Information Health Concerns No Information MEDICAL EQUIPMENT No Information MENTAL STATUS No Information FUNCTIONAL STATUS No Information ASSESSMENTS Encounter Date Diagnosis Assessment Notes Treatment Notes Treatm ent Clinical Notes Jun, Intrinsic eczema (ICD-10 - L20.84) PLAN OF TREATMENT Medication Medication Name Sig Start Date Stop Date Dupixent 300 MG/2ML as directed Subcutaneous 300 mg SQ every other week, *DISP PEN NOT SYRINGE for 30 days Mar, Betamethasone Dipropionate 0.05 % 1 application State Archivist ally Twice daily to rash on the body for 2 weeks, then once daily for 2 weeks Next Appt Details 8-10 weeks Reason:Dupixent F/U Provider Name:Mendy Brittany, 2020-07-04 08:00:00 AM, [address] [place], [address], Provider Name:Genesis Nguyen, 07:15:00 AM, [address] [place], [address], Follow Up:8-10 weeksDupixent F/U Insurance Providers Payer Name Payer Address Payer Phone Insured Name Patient Relati onship to Insured Coverage Start Date Coverage End Date MEDICARE Part A and B [address] [facility] [phone] JOSELUIS RUCKER [facility] HEALTH CARE [facility] CLAIM DIV [address] [facility] [phone] JOSELUIS RUCKER self
--- OUTSIDE RECORDS SUMMARY | 2020-08-28 07:00 | CCD ---
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 Active 49498564 Problem Arias's esophagus K22.70 Active 678180712 Problem Psoriasis vulgaris L40.0 Active 064089480 Problem Intrinsic eczema L20.84 Active 19111158 Problem Family history of cancer of digestive organ Z80.0 Active 997141939 Problem Family history of breast cancer in male Z80.3 Active 591814766 Problem Menopausal disorder N95.9 Active 131171968 Problem Psoriasis L40.9 Active 9891620 ALLERGIES Allergen (clinical drug ingredient) Drug/Non Drug Allergy do cumented on EMR Reaction Allergy Type Onset Date Status apremilast Otezla([facility] Code:[address]-99) Hives Drug Allergy Active ENCOUNTERS from 1945 to 2020-07-28 Encounter Location Date Provider Diagnosis [facility] Dermatology [address] [address] Jul, Genesis Nguyen IMMUNIZATIONS No Information SOCIAL HISTORY Tobacco Use: Social History Observation Description Date Details (start date - stop date) Former Smoker Sex Assigned At : Social History Observation Description Sex Assigned At Unknown Education: Question Answer Notes Level of Education: Finished High School Language: Question Answer Notes Languages spoken: Cape Verdean Mu-Ism: Question Answer Notes Mu-Ism 21 Jehovah'S Witness Sexual Hx: Question Answer Notes Had sex [...] Active Betamethasone Dipropionate 0.05 % 1 application Extrusion Manager ally Twice daily to rash on the [...] RESULTS No Results REASON FOR VISIT DUPIXENT OVERDUE MEDICAL (GENERAL) HISTORY Type Description Date Medical History hyperlipidemia Medical History Hiatal hernia Medical History environmental allergies Medical History microscopic hematuria, hx of Sees Dr Leonardo Heaton annually Medical History Colonoscopy 2008, polyp removed again 25 06 Medical History IVP 03/2007, Neg Medical History psoriasis Medical History cardiac stent placed 04/2010, [place] Sees cardiology Medical History GERD/Barretts esophagus EDG every 2 year s Medical History postmenopause Medical History fam hx colon cancer (father, brother) Medical History thyroid nodules euthyroid 2017 Medical History degenerative disc disease Surgical History C section 1971 Surgical History D&C Surgical History tubal ligation Surgical History stent placed due to blockage ([place]) 04/2010 Surgical History cystoscopy Surgical History colonoscopy [...] *DISP PEN NOT SYRINGE for 30 days 30 Sep, 2020 Next Appt Details Provider Name:Genesis Nguyen, 07:15:00 AM, [address] [place], [address], Insurance Providers Payer Name Payer Address Payer Phone Insured Name Patient Relati onship to Insured Coverage Start Date Coverage End Date [employer] HEALTH CARE OPTIONS [facility] CLAIM DIV [address] [facility] [phone] JOSELUIS RUCKER self MEDICARE Part A and B [address] [facility] [address] [phone] JOSELUIS RUCKER self
--- OUTSIDE RECORDS SUMMARY | 2020-08-28 07:00 | CCD ---
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 Active 81047437 Problem Arias's esophagus K22.70 Active 446380028 Problem Psoriasis vulgaris L40.0 Active 981318041 Problem Intrinsic eczema L20.84 Active 19286405 Problem Family history of cancer of digestive organ Z80.0 Active 468242774 Problem Family history of breast cancer in male Z80.3 Active 756958713 Problem Menopausal disorder N95.9 Active 139124679 Problem Psoriasis L40.9 Active 4547493 ALLERGIES Allergen (clinical drug ingredient) Drug/Non Drug Allergy do cumented on EMR Reaction Allergy Type Onset Date Status apremilast Otezla([facility] Code:[address]-56) Hives Drug Allergy Active ENCOUNTERS from 1945 to 2020-08-03 Encounter Location Date Provider Diagnosis [facility] Dermatology [address] [address] Jul, Genesis Nguyen IMMUNIZATIONS No Information SOCIAL HISTORY Tobacco Use: Social History Observation Description Date Details (start date - stop date) Former Smoker Sex Assigned At : Social History Observation Description Sex Assigned At Unknown Education: Question Answer Notes Level of Education: Finished High School Language: Question Answer Notes Languages spoken: Nepalese Mosque: Question Answer Notes Mosque 21 Gnosticist Sexual Hx: Question Answer Notes Had sex [...] Active Betamethasone Dipropionate 0.05 % 1 application Supplier Specialist ally Twice daily to rash on the [...] RESULTS No Results REASON FOR VISIT Dupixent prescription MEDICAL (GENERAL) HISTORY Type Description Date Medical History hyperlipidemia Medical History Hiatal hernia Medical History environmental allergies Medical History microscopic hematuria, hx of Sees Dr Leonardo Heaton annually Medical History Colonoscopy 2008, polyp removed again 25 06 Medical History IVP 03/2007, Neg Medical History psoriasis Medical History cardiac stent placed 04/2010, [facility] Sees cardiology Medical History GERD/Barretts esophagus EDG every 2 year s Medical History postmenopause Medical History fam hx colon cancer (father, brother) Medical History thyroid nodules euthyroid 2017 Medical History degenerative disc disease Surgical History C section 1971 Surgical History D&C Surgical History tubal ligation Surgical History stent placed due to blockage ([facility]) 04/2010 Surgical History cystoscopy Surgical History colonoscopy [...] Mar, Next Appt Details Provider Name:Genesis Nguyen, 10:15:00 AM, [address] [facility], [address] [facility], [place], [address], Insurance Providers Payer Name Payer Address Payer Phone Insured Name Patient Relati onship to Insured Coverage Start Date Coverage End Date MEDICARE Part A and B [address] [facility] [id number] [phone] JOSELUIS RUCKER [facility] HE[facility] CLAIM DIV [address] [facility] [phone] JOSELUIS RUCKER self
--- OUTSIDE RECORDS SUMMARY | 2020-08-28 07:00 | CCD | Continuity of Care Document ---
Author Author Huong PATEL M.D. Organization Unknown Address [address] [place] [address] Phone [phone] Care Team Providers Care Hvac Sheet Metal Installer Name Role Phone Alfie Crespo MD AUTM [phone] Rubin Lucas M.D. AUTM [phone] Problems Active Problems Provider Date Arias's esophagus Lisa Birch,A.N.PJeana Onset: 12/09/19 14 Family history of malignant neoplasm of gastrointestin al tract Lisa Birch,A.N.PJeana Onset: 12/08/2013 History of polyp of colon Lisa Birch,A.N.PJeana Onset: Essential hypertension Onset: 12/08/2013 Social History Type Date Description Comments Sex Unknown ETOH Use Occasionally Tobacco Use Start: Unknown End: Unknown Patient is a former smoker Allergies, Adverse Reactions, Alerts Description No Known Drug Allergies Medications Active Medications SIG Qnty Indications Ordering Provide r Date Sutab [id number] Tablets use as directed 1box Rusty Patel M.D. 021 Montelukast Sodium 10mg Tablets Unknown Aspirin [address] Unknown Chlorthalidone 25mg Tablets Unknown Anoro Ellipta 62.5-25mcg/Inh Aerosol Jun Prasad M.D. Amlodipine Besylate 5mg Tablets Take One Tablet By Mouth Every Day Unknown Tramadol HCL 50mg Tablets Take 1 Tablet By Mouth Twice A Day as Needed For Pain Maximum Daily Dose 2 Tablets Unknown Rosuvastatin Calcium 20mg Tablets Take One Tablet By Mouth Every Day Unknown Dupixent 300mg/2ML Solution Pen-Inject Unknown Immunizations Description No Information Available Vital Signs Date Vital Result Comment 07/11/2020 12:11pm Height 62 inches 5'2" Weight 150.00 lb BP Systolic 130 mmHg BP Diastolic 74 mmHg Heart Rate 70 /min BMI (Body Mass Index) 27.4 kg/m2 Weight 68.040 kg Body Temperature 97.2 F 04/02/2018 2:45pm Height 62 inches 5'2" Weight 148.00 lb BP Systolic 116 mmHg BP Diastolic 69 mmHg Heart Rate 59 /min BMI (Body Mass Index) 27.1 kg/m2 Weight 67.133 kg Results Description No Information Available Procedures Description No Information Available Medical Devices Description No Information Available Encounters Description No Information Available Assessments Date Code Description Provider 07/11/2020 Z80.0 Family history of malignant neop lasm of digestive organs Rusty Patel M.D. 07/11/2020 K22.70 Arias's esophagus without dysp lasia Rusty Patel M.D. Plan of Treatment Future Appointment(s):* 07/31/2020 9:15 am - Rusty Patel M.D. at Main Office 07/11/2020 - Rusty Patel M.D.* Z80.0 Family history of malignant neoplasm of digestive organs* Comments:* 74 yo wf who presents for a repeat egd to check for dysplasia in her Arias's, and a colonoscopy, due to brother + father having colon cancer. Last scope was in 2017, and the colon was in 2015. Her heartburn is controlled. No dysplasia. No c/o abdominal pain, weight loss, or rectal bleeding. Plan :1.Setup colonoscopy + egd.2. Informed consent given. * K22.70 Arias's esophagus without dysplasia* Comments:* As above. Functional Status Description No Information Available Mental Status Description No Information Available Referrals Description No Information Available
--- OUTSIDE RECORDS SUMMARY | 2020-08-28 07:00 | CCD ---
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 Code:[address]-85) Hives Drug Allergy Active ENCOUNTERS from 1945 to 2020-07-05 Encounter Location Date Provider Diagnosis [facility] [address] [place] [id number] Jun, Mendy Soto Encounter for screen ing mammogram for malignant neoplasm of breast Z12.31 and Other screening breast examination Z12.39 IMMUNIZATIONS No Information SOCIAL HISTORY Tobacco Use: Social History Observation Description Date Details (start date - stop date) Former Smoker Sex Assigned At : Social History Observation Description Sex Assigned At Unknown Education: Question Answer Notes Level of Education: Finished High School Language: Question Answer Notes Languages spoken: [place] Mu-Ism: Question Answer Notes Mu-Ism 21 Muslim Sexual Hx: Question Answer Notes Had sex [...] FOR REFERRAL No Information VITAL SIGNS Weight 148.6 lbs Jun, Weight-kg 67.4 kg Jun, Height 61 in Jun, BMI 28.07 kg/m2 Jun, Blood pressure systolic 154 mm Hg Jun, Blood pressure diastolic 73 mm Hg Jun, MEDICATIONS Medication SIG (Take, Route, Frequency, Duration) Notes Start Da te End Date Status Aspir-81 81 MG 1 tab(s) p.o. Once a day for 30 day(s) Active Omeprazole 20 MG 1 capsule 30 minutes before morning meal Orally Once a day for 30 day(s) Active Simvastatin 80 MG 1 tablet in the evening Orally Once a day Not-Taking Anoro Ellipta 62.5-25 MCG/INH 1 puff Inhalation Once a day Active Betamethasone Dipropionate 0.05 % 1 application Pottery Decoration Designer ally Twice daily to rash on the body for 2 weeks, then once daily for 2 weeks Not-Taking Levocetirizine Dihydrochloride 5 MG 1 tablet in the ev ening Orally Once a day for 30 day(s) Apr, Not-Taking Rosuvastatin Calcium 20 MG 1 tablet Orally Once a day Active AmLODIPine Besylate 5 MG 1 tablet Orally Once a day for 30 day(s) Active Mometasone Furoate 0.1 % APPLY TO FACIAL RASH TWICE DAILY FOR 2 WEEKS for 30 Not-Taking Dupixent 300 MG/2ML as directed Subcutaneous 300 mg SQ every other week, *DISP PEN NOT SYRINGE for 30 days Mar, Acti ve Singulair 10 MG 1 tablet in the evening Orally Once a day for 30 day( s) Not-Taking Betamethasone Dipropionate Aug 0.05 % External for 14 Not-Taking Sulfamethoxazole-Trimethoprim 400-80 MG 1 tablet Orall y Once a day for 10 day(s) Not-Taking Otezla 10 & 20 & 30 MG as directed Orally Twice a day for 14 day s Dec, Not-Taking HydrOXYzine HCl 10 MG as directed Orally at bedtime for itch for 30 days Dec, Not-Taking Lisinopril-Hydrochlorothiazide 10-12.5 MG 1 tablet Orally Once a day Not-Taking Otezla 30 MG 1 tablet Orally Twice a day for 30 day(s) Dec, Not-Taking PredniSONE 20 MG 1 tablet Orally Once a day for 5 days Jan, Not-Taking Lisinopril 20 MG 1 tablet Orally Once a day Not-Taking Tramadol HCl 50 MG 1 tablet as needed Orally Once a day Active Doxycycline Hyclate 100 MG 1 tablet Orally Once a day for 10 day (s) Dec, Not-Taking Montelukast Sodium 10 MG 1 [...] Information RESULTS No Results REASON FOR VISIT BREAST EXAM/MAMMO MEDICAL (GENERAL) HISTORY Type Description Date Medical History hyperlipidemia Medical History Hiatal hernia Medical History environmental allergies Medical History microscopic hematuria, hx of Sees Dr Leonardo Baroneuse annually Medical History Colonoscopy 2008, polyp removed again 20 12 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) 04/2010 Surgical History cystoscopy Surgical History colonoscopy EDG 2016 Hospitalization History chest pain 05/26 Goals Section No Information Health Concerns No Information MEDICAL EQUIPMENT No Information MENTAL STATUS No Information FUNCTIONAL STATUS No Information ASSESSMENTS Encounter Date Diagnosis Assessment Notes Treatment Notes Treatm ent Clinical Notes Jun, Encounter for screening mamm ogram for malignant neoplasm of breast (ICD-10 - Z12.31) Jun, Other screening breast examination (ICD-10 - Z12 .39) PLAN OF TREATMENT Treatment Notes Test Name Order Date [facility] Manuel Screening Bilateral (Ultrasound if Indicated ) (3D Mammo) 2020-07-05 Next Appt Details 1 Year Reason:annual and mammo Provider Name:Genesis Nguyen, 07:15:00 AM, [address] [place], [address], Follow Up:1 Yearannual and mammo Insurance Providers Payer Name Payer Address Payer Phone Insured Name Patient Relati onship to Insured Coverage Start Date Coverage End Date [employer] HE[employer] CARE [facility] CLAIM DIV [address] [facility] [id number] JOSELUIS RUCKER MEDICARE Part A and B [address] [facility] [phone] JOSELUIS RUCKER
--- OUTSIDE RECORDS SUMMARY | 2020-08-28 07:00 | CCD | Continuity of Care Document ---
Author Author Huong PATEL M.D. Organization Unknown Address [address] [place] [address] Phone [phone] Care Team Providers Care Acid Polymerization Operator Name Role Phone Alfie Crespo MD AUTM [phone] Rubin Lucas M.D. AUTM [phone] Problems Active Problems Provider Date Arias's esophagus [...] Qnty Indications Ordering Provide r Date Sutab [id number] Tablets use as directed 1box Rusty Patel [...] Medical Devices Description No Information Available Encounters Type Date Location Provider Dx Diagnosis Office Visit 07/11/2020 11:45a Main Office Rusty Patel M.D. Z 80.0 Family history of malignant neoplasm of digestive organs K22.70 Arias's esophagus without dysplasia Assessments Date Code Description Provider 07/11/2020 Z80.0 Family history of malignant neop lasm of digestive organs Rusty Patel M.D. 07/11/2020 K22.70 Arias's esophagus without dysp lasia Rusty Patel M.D. Plan of Treatment Future Appointment(s):* 07/24/2020 6:15 am - Phillip at Main Office * 07/31/2020 9:15 am - Rusty Patel M.D. at Main Office 07/11/2020 - Rusty Patel M.D.* Z80.0 Family history of malignant neoplasm of digestive organs* Comments:* 74 yo wf who presents for a repeat egd to check for dysplasia in her Arias's, and a colonoscopy, due to brother + father having colon cancer. Last scope was in 2018, and the colon was in 2016. Her heartburn is controlled. No dysplasia. No c/o abdominal pain, weight loss, or rectal bleeding. Plan :1.Setup colonoscopy + egd.2. Informed consent given. * K22.70 Raias's esophagus without dysplasia* Comments:* As above. Functional Status Description No Information Available Mental Status Description No Information Available Referrals Description No Information Available
--- OUTSIDE RECORDS SUMMARY | 2020-08-28 07:00 | CCD ---
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 Active con firmed 32036069 Problem Arias's esophagus K22.70 Active confirmed 723056264 Problem Psoriasis vulgaris L40.0 Active confirmed 2 92627668 Problem Intrinsic eczema L20.84 Active confirmed 240 [address]106 Problem Family history of cancer of digestive organ Z80.0 Active confirmed 948482054 Problem Family history of breast cancer in male Z80.3 Active confirmed 881725513 Problem Menopausal disorder N95.9 Active confirmed 953761587 Problem Psoriasis L40.9 Active confirmed 0090870 ALLERGIES Allergen (clinical drug ingredient) Drug/Non Drug Allergy do cumented on EMR Reaction Allergy Type Onset Date Status apremilast Otezla([facility] Code:[address]-83) Hives Drug Allergy Active ENCOUNTERS from 1945 to 2020-08-10 Encounter Location Date Provider Diagnosis [facility] D[facility] [address] [facility] [address] [place] [address] 29 Jul, 2020 Genesis Nguyen Intrinsic eczema L20.84 IMMUNIZATIONS No Information SOCIAL HISTORY Tobacco Use: Social History Observation Description Date Details (start date - stop date) Former Smoker Sex Assigned At : Social History Observation Description Sex Assigned At Unknown Education: Question Answer Notes Level of Education: Finished High School Language: Question Answer Notes Languages spoken: Vincentian Anabaptist: Question Answer Notes Anabaptist 21 Voodoo Sexual Hx: Question Answer Notes Had sex [...] FOR REFERRAL No Information VITAL SIGNS Weight 150.0 lbs Jul, Height 61 in Jul, BMI 28.34 kg/m2 Jul, Blood pressure systolic 134 mm Hg Jul, Blood pressure diastolic 78 mm Hg Jul, MEDICATIONS Medication SIG (Take, Route, Frequency, Duration) [...] shay Betamethasone Dipropionate 0.05 % 1 application Pan Washer ally Twice daily to rash on the [...] Information RESULTS No Results REASON FOR VISIT Injection lessons MEDICAL (GENERAL) HISTORY Type Description Date Medical History hyperlipidemia Medical History Hiatal hernia Medical History environmental allergies Medical History microscopic hematuria, hx of Sees Dr Leonardo Heaton annually Medical History Colonoscopy 2008, polyp removed again 20 12 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 PLAN OF TREATMENT Medication Medication Name Sig Start Date Stop Date Dupixent 300 MG/2ML as directed Subcutaneous 300 mg SQ every other week, *DISP PEN NOT SYRINGE for 30 days Mar, Treatment Notes Assessment Notes Clinical Notes Intrinsic eczema Injection given into Right a bdomen by Genesis TOMLINSON patient brought in own medication Dupixent 300mg/2ml [facility] [id number] Exp: 11/2022.. Next Appt Details 3 Months Reason: Provider Name:Genesis Nguyen, 07:15:00 AM, [address] [place], [address], Insurance Providers Payer Name Payer Address Payer Phone Insured Name Patient Relati onship to Insured Coverage Start Date Coverage End Date A[employer] HEALTH CARE [facility] [facility] CLAIM DIV [address] [address] [facility] [phone] JOSELUIS RUCKER MEDICARE Part A and B [address] [facility] [phone] JOSELUIS RUCKER
--- OUTSIDE RECORDS SUMMARY | 2020-08-28 07:03 | CCD ---
Author Author [facility] Organization [facility] Address Unknown Phone Unavailable Care Team Providers Care School Business Manager Name Role Phone Tamiko Patel MD Unavailable Unavailable Tamiko Patel MD Unavailable Unavailable Tamiko Patel MD Unavailable Unavailable Tamiko Patel MD Unavailable Unavailable Tamiko Patel MD Unavailable Unavailable Tamiko Patel MD Unavailable Unavailable Tamiko Patel MD Unavailable Unavailable Tamiko Patel MD Unavailable Unavailable Tamiko Patel MD Unavailable Unavailable Tamiko Patel MD Unavailable Unavailable Tamiko Patel MD Unavailable Unavailable Tamiko Patel MD Unavailable Unavailable Tamiko Patel MD Unavailable Unavailable Tamiko Patel MD Unavailable Unavailable Tamiko Patel MD Unavailable Unavailable Tamiko Patel MD Unavailable Unavailable Tamiko Patel MD Unavailable Unavailable Tamiko Patel MD Unavailable Unavailable Tamiko Patel MD Unavailable Unavailable Tamiko Patel MD Unavailable Unavailable Tamiko Patel MD Unavailable Unavailable Tamiko Patel MD Unavailable Unavailable Tamiko Patel MD Unavailable Unavailable Tamiko Patel MD Unavailable Unavailable Tamiko Patel MD Unavailable Unavailable Tamiko Patel MD Unavailable Unavailable aTmiko Patel MD Unavailable Unavailable Tamiko Patel MD Unavailable Unavailable Tamiko Patel MD Unavailable Unavailable Jorge S Rusty BROWN Unavailable Unavailable Jorge S Rusty BROWN Unavailable Unavailable Jorge, S Rusty BROWN Unavailable Unavailable Jorge, S Rusty BROWN Unavailable Unavailable Jorge, S Rusty BROWN Unavailable Unavailable Jorge, S Rusty BROWN Unavailable Unavailable Jorge, S Rusty BROWN Unavailable Unavailable Jorge, S Rusty BROWN Unavailable Unavailable Jorge, S Rusty MD Unavailable Unavailable Jorge, S Rusty MD Unavailable Unavailable Jorge, S Rusty BROWN Unavailable Unavailable Jorge, S Rusty BROWN Unavailable Unavailable Jorge, S Rusty BROWN Unavailable Unavailable Jorge, S Rusty BROWN Unavailable Unavailable Jorge, S Rusty BROWN Unavailable Unavailable Jorge, S Rusty BROWN Unavailable Unavailable Jorge, S Rusty BROWN Unavailable Unavailable Jorge, S Rusty BROWN Unavailable Unavailable Jorge, S Rusty BROWN Unavailable Unavailable Jorge S Rusty BROWN Unavailable Unavailable Jorge, S Rusty MD Unavailable Unavailable Barraclough, Katheryn PA Unavailable Unavailable Barraclough, Katheryn PA Unavailable Unavailable Barraclough, Katheryn PA Unavailable Unavailable Barraclough, Katheryn PA Unavailable Unavailable Barraclough, Katheryn PA Unavailable Unavailable Barraclough, Katheryn PA Unavailable Unavailable Symenow, Courtney Nayely PA Unavailable Unavailable Symenow, Courtney Nayely PA Unavailable Unavailable Symenow, Courtney Nayely PA Unavailable Unavailable Symenow, Courtney Nayely PA Unavailable Unavailable Symenow, Courtney Nayely PA Unavailable Unavailable Symenow, Courtney Nayely PA Unavailable Unavailable Symenow, Courtney Nayely PA Unavailable Unavailable Symenow, Courtney Nayely PA Unavailable Unavailable Symenow, Courtney Nayely PA Unavailable Unavailable Symenow, Courtney Nayely PA Unavailable Unavailable Symenow, Courtney Nayely PA Unavailable Unavailable Symenow, Courtney Nayely PA Unavailable Unavailable Symenow, Courtney Nayely PA Unavailable Unavailable Symenow, Courtney Nayely PA Unavailable Unavailable Symenow, Courtney Nayely PA Unavailable Unavailable Symenow, Courtney Nayely PA Unavailable Unavailable Symenow, Courtney Nayely PA Unavailable Unavailable Symenow, Courtney Nayely PA Unavailable Unavailable Symenow, Courtney Nayely PA Unavailable Unavailable Symenow, Courtney Nayely PA Unavailable Unavailable Symenow, Courtney Nayely PA Unavailable Unavailable Symenow, Courtney Nayely PA Unavailable Unavailable Symenow, Courtney Nayely PA Unavailable Unavailable Symenow, Courtney Nayely PA Unavailable Unavailable Symenow, Courtney Nayely PA Unavailable Unavailable Symenow, Courtney Nayely PA Unavailable Unavailable Symenow, Courtney Nayely PA Unavailable Unavailable Symenow, Courtney Nayely PA Unavailable Unavailable Symenow, Courtney Nayely PA Unavailable Unavailable Symenow, Courtney Nayely PA Unavailable Unavailable Symenow, Courtney Nayely PA Unavailable Unavailable Symenow, Courtney Nayely PA Unavailable Unavailable Symenow, Courtney Nayely PA Unavailable Unavailable Symenow, Courtney Nayely PA Unavailable Unavailable Symenow, Courtney Nayely PA Unavailable Unavailable Symenow, Courtney Nayely PA Unavailable Unavailable Silvia LUCAS MD Unavailable Unavailable Silvia LUCAS MD Unavailable Unavailable Silvia LUCAS MD Unavailable Unavailable Silvia LUCAS MD Unavailable Unavailable Silvia LUCAS MD Unavailable Unavailable Silvia LUCAS MD Unavailable Unavailable Silvia LUCAS MD Unavailable Unavailable Silvia LUCAS MD Unavailable Unavailable Silvia LUCAS MD Unavailable Unavailable Silvia LUCAS MD Unavailable Unavailable Silvia LUCAS MD Unavailable Unavailable Silvia LUCAS MD Unavailable Unavailable Silvia LUCAS MD Unavailable Unavailable Silvia LUCAS MD Unavailable Unavailable Silvia LUCAS MD Unavailable Unavailable Silvia LUCAS MD Unavailable Unavailable Silvia LUCAS MD Unavailable Unavailable Silvia LUCAS MD Unavailable Unavailable Silvia LUCAS MD Unavailable Unavailable Silvia LUCAS MD Unavailable Unavailable Silvia LUCAS MD Unavailable Unavailable Silvia LUCAS MD Unavailable Unavailable Silvia LUCAS MD Unavailable Unavailable Silvia LUCAS MD Unavailable Unavailable Silvia LUCAS MD Unavailable Unavailable Silvia LUCAS MD Unavailable Unavailable Silvia LUCAS MD Unavailable Unavailable Silvia LUCAS MD Unavailable Unavailable Silvia LUCAS MD Unavailable Unavailable Silvia LUCAS MD Unavailable Unavailable Silvia LUCAS MD Unavailable Unavailable Silvia LUCAS MD Unavailable Unavailable Silvia LUCAS MD Unavailable Unavailable Silvia LUCAS MD Unavailable Unavailable Silvia LUCAS MD Unavailable Unavailable Silvia LUCAS MD Unavailable Unavailable Silvia LUCAS MD Unavailable Unavailable Silvia LUCAS MD Unavailable Unavailable Silvia LUCAS MD Unavailable Unavailable Silvia LUCAS MD Unavailable Unavailable Silvia LUCAS MD Unavailable Unavailable Silvia LUCAS MD Unavailable Unavailable Silvia LUCAS MD Unavailable Unavailable Silvia LUCAS MD Unavailable Unavailable Silvia LUCAS MD Unavailable Unavailable Silvia LUCAS MD Unavailable Unavailable Silvia LUCAS MD Unavailable Unavailable Silvia LUCAS MD Unavailable Unavailable Silvia LUCAS MD Unavailable Unavailable Sivlia LUCAS MD Unavailable Unavailable Silvia LUCAS MD Unavailable Unavailable Silvia LUCAS MD Unavailable Unavailable Silvia LUCAS MD Unavailable Unavailable Silvia LUCAS MD Unavailable Unavailable Silvia LUCAS MD Unavailable Unavailable Silvia LUCAS MD Unavailable Unavailable Silvia LUCAS MD Unavailable Unavailable Silvia LUCAS MD Unavailable Unavailable Silvia LUCAS MD Unavailable Unavailable Silvia LUCAS MD Unavailable Unavailable Silvia LUCAS MD Unavailable Unavailable Silvia LUCAS MD Unavailable Unavailable Silvia LUCAS MD Unavailable Unavailable Silvia LUCAS MD Unavailable Unavailable Silvia LUCAS MD Unavailable Unavailable Silvia LUCAS MD Unavailable Unavailable Silvia LUCAS MD Unavailable Unavailable Silvia LUCAS MD Unavailable Unavailable Silvia LUCAS MD Unavailable Unavailable Silvia LUCAS MD Unavailable Unavailable Silvia LUCAS MD Unavailable Unavailable Silvia LUCAS MD Unavailable Unavailable Silvia LUCAS MD Unavailable Unavailable Silvia LUCAS MD Unavailable Unavailable Silvia LUCAS MD Unavailable Unavailable Silvia LUCAS MD Unavailable Unavailable Verbeck Jr, Kevin Sigifredo PA Unavailable Unavailable Verbeck Jr, Kevin Sigifredo PA Unavailable Unavailable Verbeck Jr, Kevin Sigifredo PA Unavailable Unavailable Verbeck Jr, [place] Sigifredo PA Unavailable Unavailable Verbeck Jr, [place] Sigifredo PA Unavailable Unavailable Verbeck Jr, Kevin Sigifredo PA Unavailable Unavailable Verbeck Jr, [place] Sigifredo PA Unavailable Unavailable Verbeck Jr, Kevin Sigifredo PA Unavailable Unavailable Verbeck Jr, Kevin Sigifredo PA Unavailable Unavailable Verbeck Jr, [place] Sigifredo PA Unavailable Unavailable Verbeck Jr, Kevin Sigifredo PA Unavailable Unavailable Verbeck Jr, [place] Sigifredo PA Unavailable Unavailable Verbeck Jr, [place] Sigifredo PA Unavailable Unavailable Verbeck Jr, [place] Sigifredo PA Unavailable Unavailable Verbeck Jr, [place] Sigifredo PA Unavailable Unavailable Verbeck Jr, [place] Sigifredo PA Unavailable Unavailable Verbeck Jr, [place] Sigifredo PA Unavailable Unavailable Verbeck Jr, [place] Sigifredo PA Unavailable Unavailable Verbeck Jr, Kevin Sigifredo PA Unavailable Unavailable Verbeck Jr, [place] Sigifredo PA Unavailable Unavailable Verbeck Jr, [place] Sigifredo PA Unavailable Unavailable Verbeck Jr, Kevin Sigifredo PA Unavailable Unavailable Verbeck Jr, [place] Sigifredo PA Unavailable Unavailable Verbeck Jr, Kevin Sigifredo PA Unavailable Unavailable Verbeck Jr, [place] Sigifredo PA Unavailable Unavailable Verbeck Jr, Kevin Sigifredo PA Unavailable Unavailable Verbeck Jr, [place] Sigifredo PA Unavailable Unavailable Verbeck Jr, [place] Sigifredo PA Unavailable Unavailable Verbeck Jr, Kevin Sigifredo PA Unavailable Unavailable Verbeck Jr, Kevin Sigifredo PA Unavailable Unavailable Verbeck Jr, [place] Sigifredo PA Unavailable Unavailable Verbeck Jr, Kevin Sigifredo PA Unavailable Unavailable Verbeck Jr, [place] Sigifredo PA Unavailable Unavailable Verbeck Jr, [place] Sigifredo PA Unavailable Unavailable Silvia LUCAS MD Unavailable Unavailable Silvia LUCAS MD Unavailable Unavailable Silvia LUCAS MD Unavailable Unavailable Silvia LUCAS MD Unavailable Unavailable Silvia LUCAS MD Unavailable Unavailable Silvia LUCAS MD Unavailable Unavailable Silvia LUCAS MD Unavailable Unavailable Silvia LUCAS MD Unavailable Unavailable Silvia LUCAS MD Unavailable Unavailable Silvia LUCAS MD Unavailable Unavailable Silvia LUCAS MD Unavailable Unavailable Silvia LUCAS MD Unavailable Unavailable Silvia LUCAS MD Unavailable Unavailable Silvia LUCAS MD Unavailable Unavailable Silvia LUCAS MD Unavailable Unavailable Silvia LUCAS MD Unavailable Unavailable Silvia LUCAS MD Unavailable Unavailable Silvia LUCAS MD Unavailable Unavailable Silvia LUCAS MD Unavailable Unavailable Silvia LUCAS MD Unavailable Unavailable Silvia LUCAS MD Unavailable Unavailable Silvia LUCAS MD Unavailable Unavailable Silvia LUCAS MD Unavailable Unavailable Silvia LUCAS MD Unavailable Unavailable Silvia LUCAS MD Unavailable Unavailable Silvia LUCAS MD Unavailable Unavailable Silvia LUCAS MD Unavailable Unavailable Silvia LUCAS MD Unavailable Unavailable Silvia LUCAS MD Unavailable Unavailable Silvia LCUAS MD Unavailable Unavailable Silvia LUCAS MD Unavailable Unavailable Silvia LUCAS MD Unavailable Unavailable Silvia LUCAS MD Unavailable Unavailable Silvia LUCAS MD Unavailable Unavailable Silvia LUCAS MD Unavailable Unavailable Silvia LUCSA MD Unavailable Unavailable Silvia LUCAS MD Unavailable Unavailable Silvia LUCAS MD Unavailable Unavailable Silvia LUCAS MD Unavailable Unavailable Silvia LUCAS MD Unavailable Unavailable Silvia LUCAS MD Unavailable Unavailable Silvia LUCAS MD Unavailable Unavailable Silvia LUCAS MD Unavailable Unavailable Silvia LUCAS MD Unavailable Unavailable Silvia LUCAS MD Unavailable Unavailable Silvia LUCAS MD Unavailable Unavailable Silvia LUCAS MD Unavailable Unavailable Silvia LUCAS MD Unavailable Unavailable Silvia LUCAS MD Unavailable Unavailable Silvia LUCAS MD Unavailable Unavailable Silvia LUCAS MD Unavailable Unavailable Silvia LUCAS MD Unavailable Unavailable Silvia LUCAS MD Unavailable Unavailable Silvia LUCAS MD Unavailable Unavailable Silvia LUCAS MD Unavailable Unavailable Silvia LUCAS MD Unavailable Unavailable Silvia LUCAS MD Unavailable Unavailable Silvia LUCAS MD Unavailable Unavailable Silvia LUCAS MD Unavailable Unavailable Silvia LUCAS MD Unavailable Unavailable Silvia LUCAS MD Unavailable Unavailable Silvia LUCAS MD Unavailable Unavailable Silvia LUCAS MD Unavailable Unavailable Silvia LUCAS MD Unavailable Unavailable Silvia LUCAS MD Unavailable Unavailable Silvia LUCAS MD Unavailable Unavailable Silvia LUCAS MD Unavailable Unavailable Silvia LUCAS MD Unavailable Unavailable Silvia LUCAS MD Unavailable Unavailable Silvia LUCAS MD Unavailable Unavailable Silvia LUCAS MD Unavailable Unavailable Silvia LUCAS MD Unavailable Unavailable Silvia LUCAS MD Unavailable Unavailable Silvia LUCAS MD Unavailable Unavailable Silvia LUCAS MD Unavailable Unavailable Silvia LUCAS MD Unavailable Unavailable TURRIN, KIARA Unavailable Unavailable TURRIN, KIARA Unavailable Unavailable TURRIN, KIARA Unavailable Unavailable TURRIN, KIARA Unavailable Unavailable Verbeck Jr, Kevin Sigifredo PA Unavailable Unavailable Verbeck Jr, [place] Sigifredo PA Unavailable Unavailable Verbeck Jr, [place] Sigifredo PA Unavailable Unavailable Verbeck Jr, [place] Sigifredo PA Unavailable Unavailable Verbeck Jr, [place] Sigifredo PA Unavailable Unavailable Verbeck Jr, Kevin Sigifredo PA Unavailable Unavailable Verbeck Jr, [place] Sigifredo PA Unavailable Unavailable Verbeck Jr, Kevin Sigifredo PA Unavailable Unavailable Verbeck Jr, Kevin Sigifredo PA Unavailable Unavailable Verbeck Jr, [place] Sigifredo PA Unavailable Unavailable Verbeck Jr, [place] Sigifredo PA Unavailable Unavailable Verbeck Jr, [place] Sigifredo PA Unavailable Unavailable Verbeck Jr, Kevin Sigifredo PA Unavailable Unavailable Verbeck Jr, [place] Sigifredo PA Unavailable Unavailable Verbeck Jr, [place] Sigifredo PA Unavailable Unavailable Verbeck Jr, [place] Sigifredo PA Unavailable Unavailable Verbeck Jr, [place] Sigifredo PA Unavailable Unavailable Verbeck Jr, [place] Sigifredo PA Unavailable Unavailable Verbeck Jr, [place] Sigifredo PA Unavailable Unavailable Verbeck Jr, [place] Sigifredo PA Unavailable Unavailable Verbeck Jr, [place] Sigifredo PA Unavailable Unavailable Verbeck Jr, Kevin Sigifredo PA Unavailable Unavailable Verbeck Jr, Kevin Sigifredo PA Unavailable Unavailable Verbeck Jr, [place] Sgiifredo PA Unavailable Unavailable Verbeck Jr, Kevin Sigifredo PA Unavailable Unavailable Verbeck Jr, [place] Sigifredo PA Unavailable Unavailable Verbeck Jr, [place] Sigifredo PA Unavailable Unavailable Verbeck Jr, Kevin Sigifredo PA Unavailable Unavailable Verbeck Jr, Kevin Sigifredo PA Unavailable Unavailable Verbeck Jr, [place] Sigifredo PA Unavailable Unavailable Verbeck Jr, [place] Sigifredo PA Unavailable Unavailable Verbeck Jr, [place] Sigifredo PA Unavailable Unavailable Verbeck Jr, [place] Sigifredo PA Unavailable Unavailable Verbeck Jr, [place] Sigifredo PA Unavailable Unavailable Doctor Provided, Family PHYS No Family Unavailable U navailable GABBY, Quinten GONSALEZ MD Unavailable Unavailable VENERUS, Quinten GONSALEZ MD Unavailable Unavailable VENERUS, Quinten GONSALEZ MD Unavailable Unavailable VENERUS, Quinten GONSALEZ MD Unavailable Unavailable VENERUS, Quinten GONSALEZ MD Unavailable Unavailable VENERUS, Quinten GONSALEZ MD Unavailable Unavailable VENERUS, Quinten GONSALEZ MD Unavailable Unavailable VENERUS, Quinten GONSALEZ MD Unavailable Unavailable VENERUS, Quinten GONSALEZ MD Unavailable Unavailable HEMA, F JOSS DO Unavailable Unavailable HEMA, F JOSS DO Unavailable Unavailable HEMA, F JOSS DO Unavailable Unavailable HEMA, F JOSS DO Unavailable Unavailable HEMA, F JOSS DO Unavailable Unavailable HEMA, F JOSS DO Unavailable Unavailable HEMA, F JOSS DO Unavailable Unavailable HEMA, F JOSS DO Unavailable Unavailable HEMA, F JOSS DO Unavailable Unavailable HEMA, F JOSS DO Unavailable Unavailable HEMA, F JOSS DO Unavailable Unavailable HEMA, F JOSS DO Unavailable Unavailable HEMA, F JOSS DO Unavailable Unavailable HEMA, F JOSS DO Unavailable Unavailable HEMA, F JOSS DO Unavailable Unavailable HEMA, F JOSS DO Unavailable Unavailable HEMA, F JOSS DO Unavailable Unavailable HEMA, F JOSS DO Unavailable Unavailable HEMA, F JOSS DO Unavailable Unavailable HEMA, F JOSS DO Unavailable Unavailable HEMA, F JOSS DO Unavailable Unavailable HEMA, F JOSS DO Unavailable Unavailable HEMA, F JOSS DO Unavailable Unavailable HEMA, F JOSS DO Unavailable Unavailable HEMA, F JOSS DO Unavailable Unavailable HEMA, F JOSS DO Unavailable Unavailable HEMA, F JOSS DO Unavailable Unavailable HEMA, F JOSS DO Unavailable Unavailable HEMA, F JOSS DO Unavailable Unavailable HEMA, F JOSS DO Unavailable Unavailable HEMA, F JOSS DO Unavailable Unavailable HEMA, F JOSS DO Unavailable Unavailable Speedy, B Scar ENTRY PROCESSOR Unavailable Unavailable Speedy, B Scar ENTRY PROCESSOR Unavailable Unavailable Speedy, B Scar ENTRY PROCESSOR Unavailable Unavailable Speedy, B Scar ENTRY PROCESSOR Unavailable Unavailable Speedy, B Scar ENTRY PROCESSOR Unavailable Unavailable Speedy, B Scar ENTRY PROCESSOR Unavailable Unavailable Speedy, B Scar ENTRY PROCESSOR Unavailable Unavailable Speedy, B Scar ENTRY PROCESSOR Unavailable Unavailable Speedy, B Scar ENTRY PROCESSOR Unavailable Unavailable Werchinski, L Genesis PA Unavailable Unavailable Werchinski, L Genesis PA Unavailable Unavailable Werchinski, L Genesis PA Unavailable Unavailable Werchinski, L Genesis PA Unavailable Unavailable Werchinski, L Genesis PA Unavailable Unavailable Werchinski, L Genesis PA Unavailable Unavailable Werchinski, L Genesis PA Unavailable Unavailable Werchinski, L Genesis PA Unavailable Unavailable Werchinski, L Genesis PA Unavailable Unavailable Werchinski, L Genesis PA Unavailable Unavailable Werchinski, L Genesis PA Unavailable Unavailable Werchinski, L Genesis PA Unavailable Unavailable Werchinski, L Genesis PA Unavailable Unavailable Werchinski, L Genesis PA Unavailable Unavailable Werchinski, L Genesis PA Unavailable Unavailable Werchinski, L Genesis PA Unavailable Unavailable Werchinski, L Genesis PA Unavailable Unavailable Werchinski, L Genesis PA Unavailable Unavailable Werchinski, L Genesis PA Unavailable Unavailable Werchinski, L Genesis PA Unavailable Unavailable Werchinski, L Genesis PA Unavailable Unavailable Werchinski, L Genesis PA Unavailable Unavailable Werchinski, L Genesis PA Unavailable Unavailable Werchinski, L Genesis PA Unavailable Unavailable Werchinski, L Genesis PA Unavailable Unavailable Werchinski, L Genesis PA Unavailable Unavailable Werchinski, L Genesis PA Unavailable Unavailable Werchinski, L Genesis PA Unavailable Unavailable Werchinski, L Genesis PA Unavailable Unavailable Werchinski, L Genesis PA Unavailable Unavailable Werchinski, L Genesis PA Unavailable Unavailable Werchinski, L Genesis PA Unavailable Unavailable Re-disclosure Warning The records that you are about to access may contain information from federally-assisted alcohol or drug abuse programs. If such information is present, then the following federally mandated warning applies: This information has been disclosed to you from records protected by federal confidentiality rules (42 CFR part 2). The federal rules prohibit you from making any further disclosure of this information unless further disclosure is expressly permitted by the written consent of the person to whom it pertains or as otherwise permitted by 42 CFR part 2. A general authorization for the release of medical or other information is NOT sufficient for this purpose. The Federal rules restrict any use of the information to criminally investigate or prosecute any alcohol or drug abuse patient.The records that you are about to access may contain highly sensitive health information, the redisclosure of which is protected by Article 27-F of the [facility] Public Health law. If you continue you may have access to information: Regarding HIV / AIDS; Provided by facilities licensed or operated by the [facility] Office of Mental Health; or Provided by the [facility] Office for People With Developmental Disabilities. If such information is present, then the following [facility] mandated warning applies: This information has been disclosed to you from confidential records which are protected by state law. State law prohibits you from making any further disclosure of this information without the specific written consent of the person to whom it pertains, or as otherwise permitted by law. Any unauthorized further disclosure in violation of state law may result in a fine or shelter sentence or both. A general authorization for the release of medical or other information is NOT sufficient authorization for further disc losure. Allergies and Adverse Reactions Type Description Substance Reaction Status Data Source(s ) No Known Food Allergies No Known Food Allergies [facility] BRANDNAME [facility] No Known Allergies No Known Allergies [facility] Drug allergy No Known Drug Allergies No Known Drug Allergies [facility] Family History Family Member Name Family Member Gender Family Member Status Date o f Status Description Data Source(s) Unknown Unknown Problem [facility] ([facility] Unknown Unknown Problem [facility] ([facility], ) Unknown Male Problem [facility] ([facility] () Unknown Male Problem [facility] ([facility]) Unknown Male Problem [facility] ([facility] Unknown Unknown Problem [facility] ([facility] Unknown Unknown Problem [facility] ([facility]) Unknown Unknown Problem [facility] ([facility]) mother Unknown Unknown Problem [facility] ([facility]) Encounters Encounter Providers Location Date Indications Data Source(s ) [place] [address] [facility] [address] [place]/04/2020 12:00:00 AM EST eCW1 ([facility]) [place] [address] [facility] [address] 08/04/2020 12:00:00 AM EST eCW1 ([facility]) [place] [address] [facility] [address] 07/31/2020 12:00:00 AM EST eCW1 ([facility] [place] [address] [facility] [address] 07/28/2020 12:00:00 AM EST eCW1 ([facility]) [place] [address] [facility] [address] 07/26/2020 12:00:00 AM EST eCW1 ([facility]) Outpatient Attender: RUBIN LUCAS MDConsultant: RUBIN AMOS MD 07/25/2020 03:23:00 PM EST - 07/25/2020 04:23:00 PM [facility] Outpatient Attender: Rusty Patel MD Main Office 07/11/2020 10:45:00 AM EST [facility] ([facility]) [place] [address] [facility] [address] 07/04/2020 12:00:00 AM EST eCW1 ([facility]) [place] [address] [facility] [address] 06/07/2020 12:00:00 AM EST eCW1 ([facility]) Outpatient Attender: Scar BAGLEY ttender: KIARA MOODYConsultant: RUBIN LUCAS MD 05/24/2020 12:04:00 PM EST - 05/25/2020 09:51:00 AM [facility] Patient discharged. [place] [address] [facility] [address] 05/15/2020 12:00:00 AM EST eCW1 ([facility]) Outpatient Attender: RUBIN LUCAS MD [place] [facility] 08/2019 02:00:00 PM EST [facility] ([facility] [place] [address] [facility] [address] 04/26/2020 12:00:00 AM EDT eCW1 ([facility]) Outpatient Attender: RUBIN LUCAS MD [place] [facility] 04:00:00 PM EDT [facility] ([facility] [place] [address] [facility] [address] 04/17/2020 12:00:00 AM EDT eCW1 ([facility]) Outpatient 04/15/2020 02:40:00 PM EDT [facility] Emergency Attender: JOSS CALDERON DOConsultant: RUBIN VASQUEZ MD 04/15/2020 01:49:00 PM EDT - 04/15/2020 05:14:00 PM EDT [facility] Patient discharged. Outpatient Attender: RUBIN LUCAS MD [place] [facility] 03/2020 01:15:00 PM EDT [facility] ([facility] Outpatient Attender: RUBIN LUCAS MD [place] [facility] 01/2020 10:00:00 AM EDT [facility] ([facility] [place] [address] [facility] [address] 04/11/2020 12:00:00 AM EDT eCW1 ([facility]) Outpatient 04/09/2020 05:28:00 PM EDT [facility] Emergency Attender: ARIES PIERRE MDConsultant: RUBIN ELIAS MD 04/09/2020 04:02:00 PM EDT - 04/09/2020 06:44:00 PM EDT [facility] Patient discharged. [place] [address] [facility] [address] 04/04/2020 12:00:00 AM EDT eCW1 ([facility]) Outpatient [address] [facility] [address] 01/26/2020 12:00:00 AM EDT eCW1 ([facility]) Outpatient Attender: Nayely TOMLINSON Main Office 01/10/2020 09:45:00 AM EDT [facility] ([facility]) Unknown [address] [facility] [address] 01/03/2020 12:00:00 AM EDT eCW1 ([facility]) Out[place] [address] [facility] [address] 12/22/2019 12:00:00 AM EDT eCW1 ([facility]) Outpatient Attender: Katheryn TOMLINSON [place] [facility] 11/10/2019 01:30:00 PM EDT [facility] ([facility] Outpatient Attender: RUBIN Street Office 07/2019 01:30:00 PM EDT [facility] ([facility] Outpatient Referrer: Sigifredo Gregg Jr 09/21/2019 11:18:00 AM EDT [facility] Outpatient Attender: Genesis Andrews: No Family D octor Provided 09/01/2019 07:06:00 [facility]: Sigifredo Gregg Jr [place] [facility] 01:20:00 PM EST [facility] ([facility] Outpatient Attender: RUBIN Street Office 10:30:00 AM EST [facility] ([facility] Outpatient Attender: Genesis TOMLINSON 08/05/2019 07:25:00 AM EST D48.5 [facility] D48.5 Outpatient Attender: Genesis Andrews: No Family D octor Provided 08/05/2019 07:16:00 AM EST - 08/05/2019 07:42:00 AM EST [facility] Outpatient Attender: Nayely TOMLINSON Main Office 07/23/2019 12:30:00 PM EST [facility] ([facility]) Outpatient Attender: RUBIN LUCAS MDConsultant: RUBIN AMOS MD 07/22/2019 02:29:00 PM EST - 07/22/2019 03:29:00 PM EST [facility] Outpatient Attender: RUBIN Street Office 12:45:00 PM EST [facility] ([facility] Outpatient Attender: Nayely TOMLINSON Main Office 07/09/2019 08:45:00 AM EST [facility] ([facility]) [address] [address] 07/02/2019 12:00:00 AM EST eCW1 ([facility]) Outpatient Attender: RUBIN LUCAS MD [place] [facility] 02:20:00 PM EST [facility] ([facility] Immunizations Vaccine Date Status Description Data Source(s) New in 2012. IIV4 05/08/2020 02:30:00 PM EST completed [facility] ([facility] Medications Medication Brand Name Start Date Product Form Dose Route Admi nistrative Instructions Pharmacy Instructions Status Indications Reaction Description Data Source(s) 1.479-0.188 gram 07/28/2020 12:00:00 AM EST tablet 24 USE DIRECTED USE DIRECTED SOLD: 07/28/2020 [facility] 20 mEq 07/19/2020 12:00:00 AM EST tablet extended release 30 TAKE ONE TABLET BY MOUTH EVERY DAY TAKE ONE TABLET BY MOUTH EVERY DAY SOLD: 08/19/2020 [facility] 20 mEq 07/19/2020 12:00:00 AM EST tablet extended release 30 TAKE ONE TABLET BY MOUTH EVERY DAY TAKE ONE TABLET BY MOUTH EVERY DAY SOLD: 07/20/2020 [facility] 10 mg 07/14/2020 12:00:00 AM EST tablet 90 TAKE ONE TABLET BY MOUTH NIGHTLY AT BEDTIME TAKE ONE TABLET BY MOUTH NIGHTLY AT BEDTIME SOLD: 07/15/2020 [facility] Sutab Sutab 07/11/2020 12:00:00 AM EST active [facility] ([facility]) 62.5-25 mcg/actuation 07/09/2020 12:00:00 AM EST blister wit h device 60 INHALE ONE PUFF BY MOUTH EVERY DAY INHALE ONE PUFF BY MOUTH EVERY DAY SOLD: 07/10/2020 [facility] 62.5-25 mcg/actuation 07/09/2020 12:00:00 AM EST blister wit h device 60 INHALE ONE PUFF BY MOUTH EVERY DAY INHALE ONE PUFF BY MOUTH EVERY DAY SOLD: 08/19/2020 [facility] Rosuvastatin calcium 20 MG Oral Tablet ROSUVASTATIN CALCIUM 05/09/2020 12:00:00 AM EST tablet 90 TAKE ONE TABLET BY MOUTH ZAYRA TAKE ONE TABLET BY MOUTH EVERY DAY SOLD: 05/10/2020 [facility] Rosuvastatin calcium 20 MG Oral Tablet ROSUVASTATIN CALCIUM 05/09/2020 12:00:00 AM EST tablet 90 TAKE ONE TABLET BY MOUTH ZAYRA TAKE ONE TABLET BY MOUTH EVERY DAY SOLD: 08/11/2020 [facility] montelukast 10 MG Oral Tablet MONTELUKAST SODIUM 05/08/2020 12:0 0:00 AM EST tablet 30 TAKE ONE TABLET BY MOUTH AT BEDT ONDINA MAXIMUM DAILY DOSE = 1 TAKE ONE TABLET BY MOUTH AT BEDTIME MAXIMUM DAILY DOSE = 1 SOLD: 07/20/2020 [facility] Rosuvastatin calcium 20 MG Oral Tablet [Crestor] Crestor 05/08/2020 12:00:00 AM EST ORAL active [facility] ([facility] montelukast 10 MG Oral Tablet MONTELUKAST SODIUM 05/08/2020 12:0 0:00 AM EST tablet 30 TAKE ONE TABLET BY MOUTH AT BEDT ONDINA MAXIMUM DAILY DOSE = 1 TAKE ONE TABLET BY MOUTH AT BEDTIME MAXIMUM DAILY DOSE = 1 SOLD: 08/19/2020 [facility] montelukast 10 MG Oral Tablet MONTELUKAST SODIUM 05/08/2020 12:0 0:00 AM EST tablet 30 TAKE ONE TABLET BY MOUTH AT BEDT ONDINA MAXIMUM DAILY DOSE = 1 TAKE ONE TABLET BY MOUTH AT BEDTIME MAXIMUM DAILY DOSE = 1 SOLD: 05/15/2020 [facility] montelukast 10 MG Oral Tablet MONTELUKAST SODIUM 05/08/2020 12:0 0:00 AM EST tablet 30 TAKE ONE TABLET BY MOUTH AT BEDT ONDINA MAXIMUM DAILY DOSE = 1 TAKE ONE TABLET BY MOUTH AT BEDTIME MAXIMUM DAILY DOSE = 1 SOLD: 06/19/2020 [facility] 50 mg 04/24/2020 12:00:00 AM EDT tablet 60 TAKE 1 TABLET BY MOUTH TWICE A DAY NEEDED FOR PAIN MAXIMUM DAILY DOSE = 2 TABLETS TAKE 1 TABLET BY MOUTH TWICE A DAY NEEDED FOR PAIN MAXIMUM DAILY DOSE = 2 TABLETS SOLD: 06/06/2020 [facility] 50 mg 04/24/2020 12:00:00 AM EDT tablet 60 TAKE 1 TABLET BY MOUTH TWICE A DAY NEEDED FOR PAIN MAXIMUM DAILY DOSE = 2 TABLETS TAKE 1 TABLET BY MOUTH TWICE A DAY NEEDED FOR PAIN MAXIMUM DAILY DOSE = 2 TABLETS SOLD: 08/16/2020 [facility] 50 mg 04/24/2020 12:00:00 AM EDT tablet 60 TAKE 1 TABLET BY MOUTH TWICE A DAY NEEDED FOR PAIN MAXIMUM DAILY DOSE = 2 TABLETS TAKE 1 TABLET BY MOUTH TWICE A DAY NEEDED FOR PAIN MAXIMUM DAILY DOSE = 2 TABLETS SOLD: 04/30/2020 [facility] 0.05 % 04/19/2020 12:00:00 AM EDT cream 45 APPLY TO RASH ON BODY TWICE A DAY FOR 2 WEEKS THEN ONCE A DAY FOR 2 WEEKS APPLY TO RASH ON BODY TWICE A DAY FOR 2 WEEKS THEN ONCE A DAY FOR 2 WEEKS SOLD: 04/21/2020 [facility] 5 mg 04/19/2020 12:00:00 AM EDT tablet 30 TAKE ONE TABLET BY MOUTH EVERY DAY TAKE ONE TABLET BY MOUTH EVERY DAY SOLD: 04/21/2020 [facility] 5 mg 04/19/2020 12:00:00 AM EDT tablet 30 TAKE ONE TABLET BY MOUTH EVERY DAY TAKE ONE TABLET BY MOUTH EVERY DAY SOLD: 06/22/2020 [facility] 5 mg 04/19/2020 12:00:00 AM EDT tablet 30 TAKE ONE TABLET BY MOUTH EVERY DAY TAKE ONE TABLET BY MOUTH EVERY DAY SOLD: 05/28/2020 [facility] 10 mg 04/18/2020 12:00:00 AM EDT tablet 20 TAKE 4 TABLETS BY MOUTH ONCE DAILY FOR 2 DAYS;3/DAY X 2 DAYS;2/DAY X 2 DAYS;THEN 1 DAILY TAKE 4 TABLETS BY MOUTH ONCE DAILY FOR 2 DAYS;3/DAY X 2 DAYS;2/DAY X 2 DAYS;THEN 1 DAILY SOLD: 04/19/2020 [facility] Prednisone 10 MG Oral Tablet Prednisone 04/18/2020 12:00:00 AM EDT ORAL active [facility] Amlodipine 5 MG Oral Tablet Amlodipine Besylate 04/18/2020 12:00:00 A M EDT ORAL active [facility] ([facility] 5 mg 04/12/2020 12:00:00 AM EDT tablet 30 TAKE ONE TABLET BY MOUTH EVERY EVENING TAKE ONE TABLET BY MOUTH EVERY EVENING SOLD: 05/15/2020 [facility] 5 mg 04/12/2020 12:00:00 AM EDT tablet 30 TAKE ONE TABLET BY MOUTH EVERY EVENING TAKE ONE TABLET BY MOUTH EVERY EVENING SOLD: 04/16/2020 [facility] 0.1 % 04/12/2020 12:00:00 AM EDT ointment 454 APPLY 1 APPLICATION TO TRUNK & EXTREMITIES ONCE A DAY FOR 14 DAYS APPLY 1 APPLICATION TO TRUNK & EXTREMITI ES ONCE A DAY FOR 14 DAYS SOLD: 04/16/2020 [facility] 100 mg 04/12/2020 12:00:00 AM EDT capsule 20 TAKE ONE CAPSULE BY MOUTH TWICE A DAY TAKE ONE CAPSULE BY MOUTH TWICE A DAY SOLD: 04/12/2020 [facility] doxycycline hyclate 100 MG Oral Capsule [Vibramycin] Vibramy art 04/12/2020 12:00:00 AM EDT ORAL active M EDENT ([facility] levocetirizine dihydrochloride 5 MG Oral Tablet Levocetirizine Dihydrochloride 5 MG Levocetirizine Dihydrochloride 5 MG 04/11/2020 12:00:00 AM EDT 1.0 {tablet_in_the_evening} active Levoceti rizine Dihydrochloride 5 MG eCW1 ([facility]) levocetirizine dihydrochloride 5 MG Oral Tablet Levocetirizine Dihydrochloride 5 MG Levocetirizine Dihydrochloride 5 MG 04/11/2020 12:00:00 AM EDT 1.0 {tablet_in_the_evening} suspended Levoce tirizine Dihydrochloride 5 MG eCW1 ([facility]) Triamcinolone Acetonide 0.001 MG/MG Topi rosemarie Ointment Triamcinolone Acetonide 0.1 % Triamcinolone Acetonide 0.1 % 04/11/2020 12:00:00 AM EDT 1.0 {application} active Triamcinolone Aceton kathy 0.1 % eCW1 ([facility]) levocetirizine dihydrochloride 5 MG Oral Tablet Levocetirizine Dihydrochloride 5 MG Levocetirizine Dihydrochloride 5 MG 04/11/2020 12:00:00 AM EDT 1.0 {tablet_in_the_evening} active Levoceti rizine Dihydrochloride 5 MG eCW1 ([facility]) Triamcinolone Acetonide 0.001 MG/MG Topi rosemarie Ointment Triamcinolone Acetonide 0.1 % Triamcinolone Acetonide 0.1 % 04/11/2020 12:00:00 AM EDT 1.0 {application} active Triamcinolone Aceton kathy 0.1 % eCW1 ([facility]) levocetirizine dihydrochloride 5 MG Oral Tablet Levocetirizine Dihydrochloride 5 MG Levocetirizine Dihydrochloride 5 MG 04/11/2020 12:00:00 AM EDT 1.0 {tablet_in_the_evening} active Levoceti rizine Dihydrochloride 5 MG eCW1 ([facility]) Triamcinolone Acetonide 0.001 MG/MG Topi rosemarie Ointment Triamcinolone Acetonide 0.1 % Triamcinolone Acetonide 0.1 % 04/11/2020 12:00:00 AM EDT 1.0 {application} active Triamcinolone Aceton kathy 0.1 % eCW1 ([facility]) Triamcinolone Acetonide 0.001 MG/MG Topi rosemarie Ointment Triamcinolone Acetonide 0.1 % Triamcinolone Acetonide 0.1 % 04/11/2020 12:00:00 AM EDT 1.0 {application} suspended Triamcinolone Aceton kathy 0.1 % eCW1 ([facility]) Triamcinolone Acetonide 0.001 MG/MG Topi rosemarie Ointment Triamcinolone Acetonide 0.1 % Triamcinolone Acetonide 0.1 % 04/11/2020 12:00:00 AM EDT 1.0 {application} active Triamcinolone Aceton kathy 0.1 % eCW1 ([facility]) levocetirizine dihydrochloride 5 MG Oral Tablet Levocetirizine Dihydrochloride 5 MG Levocetirizine Dihydrochloride 5 MG 04/11/2020 12:00:00 AM EDT 1.0 {tablet_in_the_evening} suspended Levoce tirizine Dihydrochloride 5 MG eCW1 ([facility]) Triamcinolone Acetonide 0.001 MG/MG Topi rosemarie Ointment Triamcinolone Acetonide 0.1 % Triamcinolone Acetonide 0.1 % 04/11/2020 12:00:00 AM EDT 1.0 {application} active Triamcinolone Aceton kathy 0.1 % eCW1 ([facility]) levocetirizine dihydrochloride 5 MG Oral Tablet Levocetirizine Dihydrochloride 5 MG Levocetirizine Dihydrochloride 5 MG 04/11/2020 12:00:00 AM EDT 1.0 {tablet_in_the_evening} active Levoceti rizine Dihydrochloride 5 MG eCW1 ([facility]) levocetirizine dihydrochloride 5 MG Oral Tablet Levocetirizine Dihydrochloride 5 MG Levocetirizine Dihydrochloride 5 MG 04/11/2020 12:00:00 AM EDT 1.0 {tablet_in_the_evening} suspended Levoce tirizine Dihydrochloride 5 MG eCW1 ([facility]) levocetirizine dihydrochloride 5 MG Oral Tablet Levocetirizine Dihydrochloride 5 MG Levocetirizine Dihydrochloride 5 MG 04/11/2020 12:00:00 AM EDT 1.0 {tablet_in_the_evening} suspended Levoce tirizine Dihydrochloride 5 MG eCW1 ([facility]) levocetirizine dihydrochloride 5 MG Oral Tablet Levocetirizine Dihydrochloride 5 MG Levocetirizine Dihydrochloride 5 MG 04/11/2020 12:00:00 AM EDT 1.0 {tablet_in_the_evening} active Levoceti rizine Dihydrochloride 5 MG eCW1 ([facility]) Triamcinolone Acetonide 0.001 MG/MG Topi rosemarie Ointment Triamcinolone Acetonide 0.1 % Triamcinolone Acetonide 0.1 % 04/11/2020 12:00:00 AM EDT 1.0 {application} suspended Triamcinolone Aceton kathy 0.1 % eCW1 ([facility]) Triamcinolone Acetonide 0.001 MG/MG Topi rosemarie Ointment Triamcinolone Acetonide 0.1 % Triamcinolone Acetonide 0.1 % 04/11/2020 12:00:00 AM EDT 1.0 {application} active Triamcinolone Aceton kathy 0.1 % eCW1 ([facility]) levocetirizine dihydrochloride 5 MG Oral Tablet Levocetirizine Dihydrochloride 5 MG Levocetirizine Dihydrochloride 5 MG 04/11/2020 12:00:00 AM EDT 1.0 {tablet_in_the_evening} suspended Levoce tirizine Dihydrochloride 5 MG eCW1 ([facility]) Triamcinolone Acetonide 0.001 MG/MG Topi rosemarie Ointment Triamcinolone Acetonide 0.1 % Triamcinolone Acetonide 0.1 % 04/11/2020 12:00:00 AM EDT 1.0 {application} suspended Triamcinolone Aceton kathy 0.1 % eCW1 ([facility]) Triamcinolone Acetonide 0.001 MG/MG Topi rosemarie Ointment Triamcinolone Acetonide 0.1 % Triamcinolone Acetonide 0.1 % 04/11/2020 12:00:00 AM EDT 1.0 {application} suspended Triamcinolone Aceton kathy 0.1 % eCW1 ([facility]) Triamcinolone Acetonide 0.001 MG/MG Topi rosemarie Ointment Triamcinolone Acetonide 0.1 % Triamcinolone Acetonide 0.1 % 04/11/2020 12:00:00 AM EDT 1.0 {application} suspended Triamcinolone Aceton kathy 0.1 % eCW1 ([facility]) levocetirizine dihydrochloride 5 MG Oral Tablet Levocetirizine Dihydrochloride 5 MG Levocetirizine Dihydrochloride 5 MG 04/11/2020 12:00:00 AM EDT 1.0 {tablet_in_the_evening} active Levoceti rizine Dihydrochloride 5 MG eCW1 ([facility]) Triamcinolone Acetonide 0.001 MG/MG Topi rosemarie Ointment Triamcinolone Acetonide 0.1 % Triamcinolone Acetonide 0.1 % 04/11/2020 12:00:00 AM EDT 1.0 {application} suspended Triamcinolone Aceton kathy 0.1 % eCW1 ([facility]) levocetirizine dihydrochloride 5 MG Oral Tablet Levocetirizine Dihydrochloride 5 MG Levocetirizine Dihydrochloride 5 MG 04/11/2020 12:00:00 AM EDT 1.0 {tablet_in_the_evening} suspended Levoce tirizine Dihydrochloride 5 MG eCW1 ([facility]) Sulfamethoxazole 800 MG / Trimethoprim 160 MG Oral Tab let 800-160 mg SULFAMETHOXAZOLE/TRIMETHOPRIM 04/10/2020 12:00:00 AM EDT tablet 14 TAKE ONE TABLET BY MOUTH TWICE A DAY FOR UTI/WOUND INFECTIONS- STOP LISINOPRIL WHILE TAKING TAKE ONE TABLET BY MOUTH TWICE A DAY FOR UTI/WOUND INFECTIONS- STOP LISINOPRIL WHILE TAKING SOLD: 04/10/2020 [facility] Dupixent 300 MG/2ML Dupixent 300 MG/2ML 04/05/2020 12:00:00 AM EDT active Dupixent 300 MG/2ML eCW1 ([facility]) Dupixent 300 MG/2ML Dupixent 300 MG/2ML 04/05/2020 12:00:00 AM EDT active Dupixent 300 MG/2ML eCW1 ([facility]) Dupixent 300 MG/2ML Dupixent 300 MG/2ML 04/05/2020 12:00:00 AM EDT active Dupixent 300 MG/2ML eCW1 ([facility]) Dupixent 300 MG/2ML Dupixent 300 MG/2ML 04/05/2020 12:00:00 AM EDT active Dupixent 300 MG/2ML eCW1 ([facility]) Dupixent 300 MG/2ML Dupixent 300 MG/2ML 04/05/2020 12:00:00 AM EDT active Dupixent 300 MG/2ML eCW1 ([facility]) Dupixent 300 MG/2ML Dupixent 300 MG/2ML 04/05/2020 12:00:00 AM EDT active Dupixent 300 MG/2ML eCW1 ([facility]) Dupixent 300 MG/2ML Dupixent 300 MG/2ML 04/05/2020 12:00:00 AM EDT active Dupixent 300 MG/2ML eCW1 ([facility]) Dupixent 300 MG/2ML Dupixent 300 MG/2ML 04/05/2020 12:00:00 AM EDT active Dupixent 300 MG/2ML eCW1 ([facility]) Dupixent 300 MG/2ML Dupixent 300 MG/2ML 04/05/2020 12:00:00 AM EDT active Dupixent 300 MG/2ML eCW1 ([facility]) Dupixent 300 MG/2ML Dupixent 300 MG/2ML 04/05/2020 12:00:00 AM EDT active Dupixent 300 MG/2ML eCW1 ([facility]) Dupixent 300 MG/2ML Dupixent 300 MG/2ML 04/05/2020 12:00:00 AM EDT active Dupixent 300 MG/2ML eCW1 ([facility]) Dupixent 300 MG/2ML Dupixent 300 MG/2ML 04/05/2020 12:00:00 AM EDT active Dupixent 300 MG/2ML eCW1 ([facility]) Dupixent 300 MG/2ML Dupixent 300 MG/2ML 04/05/2020 12:00:00 AM EDT active Dupixent 300 MG/2ML eCW1 ([facility]) 0.1 % 03/29/2020 12:00:00 AM EDT cream 45 APPLY A SMALL AMOUNT TOPICALLY TWICE A DAY APPLY A SMALL AMOUNT TOPICALLY TWICE A DAY SOLD: 05/03/2020 [facility] 0.1 % 03/29/2020 12:00:00 AM EDT cream 45 APPLY A SMALL AMOUNT TOPICALLY TWICE A DAY APPLY A SMALL AMOUNT TOPICALLY TWICE A DAY SOLD: 03/30/2020 [facility] 10 mg 02/11/2020 12:00:00 AM EDT tablet 21 TAKE 2 TABLETS BY MOUTH ONCE DAILY FOR 7 DAYS THEN 1 TABLET ONCE DAILY FOR 7 DAYS TAKE 2 TABLETS BY MOUTH ONCE DAILY FOR 7 DAYS THEN 1 TABLET ONCE DAILY FOR 7 DAYS SOLD: 02/11/2020 [facility] 25 mg 02/11/2020 12:00:00 AM EDT capsule 30 TAKE ONE CAPSULE BY MOUTH AT BEDTIME FOR 30 DAYS TAKE ONE CAPSULE BY MOUTH AT BEDTIME FOR 30 DAYS SOLD: 02/11/2020 [facility] 25 mg 02/11/2020 12:00:00 AM EDT capsule 30 TAKE ONE CAPSULE BY MOUTH AT BEDTIME FOR 30 DAYS TAKE ONE CAPSULE BY MOUTH AT BEDTIME FOR 30 DAYS SOLD: 03/28/2020 [facility] Prednisone 20 MG Oral Tablet PredniSONE 20 MG PredniSONE 20 MG 01/12/2020 12:00:00 AM EDT 1.0 {tablet} suspended PredniSONE 20 MG eCW1 ([facility]) Prednisone 20 MG Oral Tablet PredniSONE 20 MG PredniSONE 20 MG 01/12/2020 12:00:00 AM EDT 1.0 {tablet} suspended PredniSONE 20 MG eCW1 ([facility]) Prednisone 20 MG Oral Tablet PredniSONE 20 MG PredniSONE 20 MG 01/12/2020 12:00:00 AM EDT 1.0 {tablet} suspended PredniSONE 20 MG eCW1 ([facility]) Prednisone 20 MG Oral Tablet PredniSONE 20 MG PredniSONE 20 MG 01/12/2020 12:00:00 AM EDT 1.0 {tablet} suspended PredniSONE 20 MG eCW1 ([facility]) Prednisone 20 MG Oral Tablet PredniSONE 20 MG PredniSONE 20 MG 01/12/2020 12:00:00 AM EDT 1.0 {tablet} active Pr edniSONE 20 MG eCW1 ([facility]) Prednisone 20 MG Oral Tablet PredniSONE 20 MG PredniSONE 20 MG 01/12/2020 12:00:00 AM EDT 1.0 {tablet} suspended PredniSONE 20 MG eCW1 ([facility]) 20 mg 01/12/2020 12:00:00 AM EDT tablet 5 TAKE 1 TABLET BY MOUTH ONCE A DAY FOR 5 DAYS TAKE 1 TABLET BY MOUTH ONCE A DAY FOR 5 DAYS SOLD: 01/12/2020 [facility] Prednisone 20 MG Oral Tablet PredniSONE 20 MG PredniSONE 20 MG 01/12/2020 12:00:00 AM EDT 1.0 {tablet} suspended PredniSONE 20 MG eCW1 ([facility]) Prednisone 20 MG Oral Tablet PredniSONE 20 MG PredniSONE 20 MG 01/12/2020 12:00:00 AM EDT 1.0 {tablet} active Pr edniSONE 20 MG eCW1 ([facility]) Prednisone 20 MG Oral Tablet PredniSONE 20 MG PredniSONE 20 MG 01/12/2020 12:00:00 AM EDT 1.0 {tablet} suspended PredniSONE 20 MG eCW1 ([facility]) Prednisone 20 MG Oral Tablet PredniSONE 20 MG PredniSONE 20 MG 01/12/2020 12:00:00 AM EDT 1.0 {tablet} suspended PredniSONE 20 MG eCW1 ([facility]) Prednisone 20 MG Oral Tablet PredniSONE 20 MG PredniSONE 20 MG 01/12/2020 12:00:00 AM EDT 1.0 {tablet} active Pr edniSONE 20 MG eCW1 ([facility]) Prednisone 20 MG Oral Tablet PredniSONE 20 MG PredniSONE 20 MG 01/12/2020 12:00:00 AM EDT 1.0 {tablet} suspended PredniSONE 20 MG eCW1 ([facility]) Prednisone 20 MG Oral Tablet PredniSONE 20 MG PredniSONE 20 MG 01/12/2020 12:00:00 AM EDT 1.0 {tablet} suspended PredniSONE 20 MG eCW1 ([facility]) Prednisone 20 MG Oral Tablet PredniSONE 20 MG PredniSONE 20 MG 01/12/2020 12:00:00 AM EDT 1.0 {tablet} active Pr edniSONE 20 MG eCW1 ([facility]) 0.4 mg 01/11/2020 12:00:00 AM EDT tablet, sublingual 25 PLACE 1 TABLET UNER TONGUE EVERY 5 MINUTES FOR UP TO 3 DOSES [address] CHEST PAIN PL[address] 1 TABLET UNER TONGUE EVERY 5 MINUTES FOR UP TO 3 DOSES NEEDED CHEST PAIN SOLD: 01/12/2020 [facility] 30 ACTUAT umeclidinium 0.0625 MG/ACTUAT / vilanterol 0.025 MG/ACTUAT Dry Powder Inhaler [Anoro] Anoro Ellipta 01/09/2020 12:00:00 AM EDT ORAL active [facility] ([facility] doxycycline hyclate 100 MG Oral Capsule Doxycycline Hyclate 01/09/2020 12:00:00 AM EDT ORAL active [facility] ([facility] Betamethasone 0.5 MG/ML Topical Cream Betamethasone Dipropio cj 01/09/2020 12:00:00 AM EDT active M EDENT ([facility]) Hydroxyzine Hydrochloride 10 MG Oral Tablet Hydroxyzine HCL 01/09/2020 12:00:00 AM EDT ORAL active [facility] ([facility] doxycycline hyclate 100 MG Oral Tablet Doxycycline Hyc late 100 MG Doxycycline Hyclate 100 MG 01/03/2020 12:00:00 AM EDT 1.0 {tablet} suspended Doxycycline Hyclate 100 MG eCW1 ([facility]) Hydroxyzine Hydrochloride 10 MG Oral Tablet HydrOXYzin e HCl 10 MG HydrOXYzine HCl 10 MG 01/03/2020 12:00:00 AM EDT suspende d HydrOXYzine HCl 10 MG eCW1 ([facility]) Hydroxyzine Hydrochloride 10 MG Oral Tablet HydrOXYzin e HCl 10 MG HydrOXYzine HCl 10 MG 01/03/2020 12:00:00 AM EDT active HydrOXYzine HCl 10 MG eCW1 ([facility]) doxycycline hyclate 100 MG Oral Tablet Doxycycline Hyc late 100 MG Doxycycline Hyclate 100 MG 01/03/2020 12:00:00 AM EDT 1.0 {tablet} suspended Doxycycline Hyclate 100 MG eCW1 ([facility]) Hydroxyzine Hydrochloride 10 MG Oral Tablet HydrOXYzin e HCl 10 MG HydrOXYzine HCl 10 MG 01/03/2020 12:00:00 AM EDT suspende d HydrOXYzine HCl 10 MG eCW1 ([facility]) Hydroxyzine Hydrochloride 10 MG Oral Tablet HydrOXYzin e HCl 10 MG HydrOXYzine HCl 10 MG 01/03/2020 12:00:00 AM EDT suspende d HydrOXYzine HCl 10 MG eCW1 ([facility]) Hydroxyzine Hydrochloride 10 MG Oral Tablet HydrOXYzin e HCl 10 MG HydrOXYzine HCl 10 MG 01/03/2020 12:00:00 AM EDT suspende d HydrOXYzine HCl 10 MG eCW1 ([facility]) doxycycline hyclate 100 MG Oral Tablet Doxycycline Hyc late 100 MG Doxycycline Hyclate 100 MG 01/03/2020 12:00:00 AM EDT 1.0 {tablet} active Doxycycline Hyclate 100 MG eCW1 ([facility]) Hydroxyzine Hydrochloride 10 MG Oral Tablet HydrOXYzin e HCl 10 MG HydrOXYzine HCl 10 MG 01/03/2020 12:00:00 AM EDT suspende d HydrOXYzine HCl 10 MG eCW1 ([facility]) 10 mg 01/03/2020 12:00:00 AM EDT tablet 30 TAKE BY MOUTH DIRECTED AT BEDTIME FOR ITCH MAXIMUM DAILY DOSE = 1TABLET TAKE BY MOUTH DIRECTED AT BEDTIME FOR ITCH MAXIMUM DAILY DOSE = 1TABLET SOLD: 02/06/2020 [facility] Betamethasone 0.5 MG/ML Topical Cream Betamethasone Di propionate 0.05 % Betamethasone Dipropionate 0.05 % 01/03/2020 12:00:00 AM EDT 1.0 {application} active Betamethasone Dipropiona te 0.05 % eCW1 ([facility]) 10 mg 01/03/2020 12:00:00 AM EDT tablet 30 TAKE BY MOUTH DIRECTED AT BEDTIME FOR ITCH MAXIMUM DAILY DOSE = 1TABLET TAKE BY MOUTH DIRECTED AT BEDTIME FOR ITCH MAXIMUM DAILY DOSE = 1TABLET SOLD: 01/04/2020 [facility] doxycycline hyclate 100 MG Oral Tablet Doxycycline Hyc late 100 MG Doxycycline Hyclate 100 MG 01/03/2020 12:00:00 AM EDT 1.0 {tablet} suspended Doxycycline Hyclate 100 MG eCW1 ([facility]) doxycycline hyclate 100 MG Oral Tablet Doxycycline Hyc late 100 MG Doxycycline Hyclate 100 MG 01/03/2020 12:00:00 AM EDT 1.0 {tablet} suspended Doxycycline Hyclate 100 MG eCW1 ([facility]) Hydroxyzine Hydrochloride 10 MG Oral Tablet HydrOXYzin e HCl 10 MG HydrOXYzine HCl 10 MG 01/03/2020 12:00:00 AM EDT active HydrOXYzine HCl 10 MG eCW1 ([facility]) 0.05 % 01/03/2020 12:00:00 AM EDT cream 45 APPLY TO AFFECTED AREA OF RASH 2 TIMES A DAY X 2 WEEKS THEN DAILY X 2 WEEKS APPLY TO AFFECTED AREA OF RASH 2 TIMES A DAY X 2 WEEKS THEN DAILY X 2 WEEKS SOLD: 01/04/2020 [facility] doxycycline hyclate 100 MG Oral Tablet Doxycycline Hyc late 100 MG Doxycycline Hyclate 100 MG 01/03/2020 12:00:00 AM EDT 1.0 {tablet} suspended Doxycycline Hyclate 100 MG eCW1 ([facility]) Hydroxyzine Hydrochloride 10 MG Oral Tablet HydrOXYzin e HCl 10 MG HydrOXYzine HCl 10 MG 01/03/2020 12:00:00 AM EDT suspende d HydrOXYzine HCl 10 MG eCW1 ([facility]) doxycycline hyclate 100 MG Oral Tablet Doxycycline Hyc late 100 MG Doxycycline Hyclate 100 MG 01/03/2020 12:00:00 AM EDT 1.0 {tablet} suspended Doxycycline Hyclate 100 MG eCW1 ([facility]) Betamethasone 0.5 MG/ML Topical Cream Betamethasone Di propionate 0.05 % Betamethasone Dipropionate 0.05 % 01/03/2020 12:00:00 AM EDT 1.0 {application} active Betamethasone Dipropiona te 0.05 % eCW1 ([facility]) 0.05 % 01/03/2020 12:00:00 AM EDT cream 45 APPLY TO AFFECTED AREA OF RASH 2 TIMES A DAY X 2 WEEKS THEN DAILY X 2 WEEKS APPLY TO AFFECTED AREA OF RASH 2 TIMES A DAY X 2 WEEKS THEN DAILY X 2 WEEKS SOLD: 03/22/2020 [facility] doxycycline hyclate 100 MG Oral Tablet Doxycycline Hyc late 100 MG Doxycycline Hyclate 100 MG 01/03/2020 12:00:00 AM EDT 1.0 {tablet} suspended Doxycycline Hyclate 100 MG eCW1 ([facility]) Hydroxyzine Hydrochloride 10 MG Oral Tablet HydrOXYzin e HCl 10 MG HydrOXYzine HCl 10 MG 01/03/2020 12:00:00 AM EDT suspende d HydrOXYzine HCl 10 MG eCW1 ([facility]) Hydroxyzine Hydrochloride 10 MG Oral Tablet HydrOXYzin e HCl 10 MG HydrOXYzine HCl 10 MG 01/03/2020 12:00:00 AM EDT suspende d HydrOXYzine HCl 10 MG eCW1 ([facility]) Hydroxyzine Hydrochloride 10 MG Oral Tablet HydrOXYzin e HCl 10 MG HydrOXYzine HCl 10 MG 01/03/2020 12:00:00 AM EDT active HydrOXYzine HCl 10 MG eCW1 ([facility]) doxycycline hyclate 100 MG Oral Tablet Doxycycline Hyc late 100 MG Doxycycline Hyclate 100 MG 01/03/2020 12:00:00 AM EDT 1.0 {tablet} suspended Doxycycline Hyclate 100 MG eCW1 ([facility]) Hydroxyzine Hydrochloride 10 MG Oral Tablet HydrOXYzin e HCl 10 MG HydrOXYzine HCl 10 MG 01/03/2020 12:00:00 AM EDT suspende d HydrOXYzine HCl 10 MG eCW1 ([facility]) doxycycline hyclate 100 MG Oral Tablet Doxycycline Hyc late 100 MG Doxycycline Hyclate 100 MG 01/03/2020 12:00:00 AM EDT 1.0 {tablet} suspended Doxycycline Hyclate 100 MG eCW1 ([facility]) Hydroxyzine Hydrochloride 10 MG Oral Tablet HydrOXYzin e HCl 10 MG HydrOXYzine HCl 10 MG 01/03/2020 12:00:00 AM EDT active HydrOXYzine HCl 10 MG eCW1 ([facility]) doxycycline hyclate 100 MG Oral Tablet Doxycycline Hyc late 100 MG Doxycycline Hyclate 100 MG 01/03/2020 12:00:00 AM EDT 1.0 {tablet} suspended Doxycycline Hyclate 100 MG eCW1 ([facility]) doxycycline hyclate 100 MG Oral Tablet DOXYCYCLINE HYCLATE 0 01/03/2020 12:00:00 AM EDT tablet 20 TAKE ONE TABLET BY MOUTH TWI CE A DAY TAKE ONE TABLET BY MOUTH TWICE A DAY SOLD: 01/04/2020 [facility] doxycycline hyclate 100 MG Oral Tablet Doxycycline Hyc late 100 MG Doxycycline Hyclate 100 MG 01/03/2020 12:00:00 AM EDT 1.0 {tablet} suspended Doxycycline Hyclate 100 MG eCW1 ([facility]) doxycycline hyclate 100 MG Oral Tablet Doxycycline Hyc late 100 MG Doxycycline Hyclate 100 MG 01/03/2020 12:00:00 AM EDT 1.0 {tablet} active Doxycycline Hyclate 100 MG eCW1 ([facility]) Hydroxyzine Hydrochloride 10 MG Oral Tablet HydrOXYzin e HCl 10 MG HydrOXYzine HCl 10 MG 01/03/2020 12:00:00 AM EDT suspende d HydrOXYzine HCl 10 MG eCW1 ([facility]) doxycycline hyclate 100 MG Oral Tablet Doxycycline Hyc late 100 MG Doxycycline Hyclate 100 MG 01/03/2020 12:00:00 AM EDT 1.0 {tablet} suspended Doxycycline Hyclate 100 MG eCW1 ([facility]) Betamethasone 0.5 MG/ML Topical Cream Betamethasone Di propionate 0.05 % Betamethasone Dipropionate 0.05 % 12/28/2019 12:00:00 AM EDT 1.0 {application} active Betamethasone Dipropiona te 0.05 % eCW1 ([facility]) 0.05 % 12/28/2019 12:00:00 AM EDT cream 60 APPLY 2X/DAY FOR UP TO 2 WEEKS NEEDED(ADD INTO 1/2 JAR OF CERAVE CREAM) APPLY 2X/DAY FOR UP TO 2 WEEKS NEEDED(ADD INTO 1/2 JAR OF CERAVE CREAM) SOLD: 12/28/2019 [facility] Betamethasone 0.5 MG/ML Topical Cream Betamethasone Di propionate 0.05 % Betamethasone Dipropionate 0.05 % 12/28/2019 12:00:00 AM EDT 1.0 {application} active Betamethasone Dipropiona te 0.05 % eCW1 ([facility]) Otezla 10 & 20 & 30 MG Otezla 10 & 20 & 30 MG 12/22/2019 12:00:00 AM E DT suspended Otezla 10 & 20 & 30 MG eC W1 ([facility]) Otezla 10 & 20 & 30 MG Otezla 10 & 20 & 30 MG 12/22/2019 12:00:00 AM E DT active Otezla 10 & 20 & 30 MG eC W1 ([facility]) apremilast 30 MG Oral Tablet [Otezla] Otezla 30 MG Otezla 30 MG 12/22/2019 12:00:00 AM EDT 1.0 {tablet} suspended Otezla 30 MG eCW1 ([facility]) apremilast 30 MG Oral Tablet [Otezla] Otezla 30 MG Otezla 30 MG 12/22/2019 12:00:00 AM EDT 1.0 {tablet} active Ot ezla 30 MG eCW1 ([facility]) Otezla 10 & 20 & 30 MG Otezla 10 & 20 & 30 MG 12/22/2019 12:00:00 AM E DT suspended Otezla 10 & 20 & 30 MG eC W1 ([facility]) apremilast 30 MG Oral Tablet [Otezla] Otezla 30 MG Otezla 30 MG 12/22/2019 12:00:00 AM EDT 1.0 {tablet} suspended Otezla 30 MG eCW1 ([facility]) Otezla 10 & 20 & 30 MG Otezla 10 & 20 & 30 MG 12/22/2019 12:00:00 AM E DT suspended Otezla 10 & 20 & 30 MG eC W1 ([facility]) apremilast 30 MG Oral Tablet [Otezla] Otezla 30 MG Otezla 30 MG 12/22/2019 12:00:00 AM EDT 1.0 {tablet} suspended Otezla 30 MG eCW1 ([facility]) Otezla 10 & 20 & 30 MG Otezla 10 & 20 & 30 MG 12/22/2019 12:00:00 AM E DT suspended Otezla 10 & 20 & 30 MG eC W1 ([facility]) Otezla 10 & 20 & 30 MG Otezla 10 & 20 & 30 MG 12/22/2019 12:00:00 AM E DT suspended Otezla 10 & 20 & 30 MG eC W1 ([facility]) Otezla 10 & 20 & 30 MG Otezla 10 & 20 & 30 MG 12/22/2019 12:00:00 AM E DT active Otezla 10 & 20 & 30 MG eC W1 ([facility]) Otezla 10 & 20 & 30 MG Otezla 10 & 20 & 30 MG 12/22/2019 12:00:00 AM E DT suspended Otezla 10 & 20 & 30 MG eC W1 ([facility]) Otezla 10 & 20 & 30 MG Otezla 10 & 20 & 30 MG 12/22/2019 12:00:00 AM E DT suspended Otezla 10 & 20 & 30 MG eC W1 ([facility]) Otezla 10 & 20 & 30 MG Otezla 10 & 20 & 30 MG 12/22/2019 12:00:00 AM E DT active Otezla 10 & 20 & 30 MG eC W1 ([facility]) apremilast 30 MG Oral Tablet [Otezla] Otezla 30 MG Otezla 30 MG 12/22/2019 12:00:00 AM EDT 1.0 {tablet} suspended Otezla 30 MG eCW1 ([facility]) Otezla 10 & 20 & 30 MG Otezla 10 & 20 & 30 MG 12/22/2019 12:00:00 AM E DT suspended Otezla 10 & 20 & 30 MG eC W1 ([facility]) apremilast 30 MG Oral Tablet [Otezla] Otezla 30 MG Otezla 30 MG 12/22/2019 12:00:00 AM EDT 1.0 {tablet} suspended Otezla 30 MG eCW1 ([facility]) Otezla 10 & 20 & 30 MG Otezla 10 & 20 & 30 MG 12/22/2019 12:00:00 AM E DT suspended Otezla 10 & 20 & 30 MG eC W1 ([facility]) apremilast 30 MG Oral Tablet [Otezla] Otezla 30 MG Otezla 30 MG 12/22/2019 12:00:00 AM EDT 1.0 {tablet} active Ot ezla 30 MG eCW1 ([facility]) apremilast 30 MG Oral Tablet [Otezla] Otezla 30 MG Otezla 30 MG 12/22/2019 12:00:00 AM EDT 1.0 {tablet} suspended Otezla 30 MG eCW1 ([facility]) Otezla 10 & 20 & 30 MG Otezla 10 & 20 & 30 MG 12/22/2019 12:00:00 AM E DT suspended Otezla 10 & 20 & 30 MG eC W1 ([facility]) apremilast 30 MG Oral Tablet [Otezla] Otezla 30 MG Otezla 30 MG 12/22/2019 12:00:00 AM EDT 1.0 {tablet} suspended Otezla 30 MG eCW1 ([facility]) apremilast 30 MG Oral Tablet [Otezla] Otezla 30 MG Otezla 30 MG 12/22/2019 12:00:00 AM EDT 1.0 {tablet} active Ot ezla 30 MG eCW1 ([facility]) apremilast 30 MG Oral Tablet [Otezla] Otezla 30 MG Otezla 30 MG 12/22/2019 12:00:00 AM EDT 1.0 {tablet} suspended Otezla 30 MG eCW1 ([facility]) apremilast 30 MG Oral Tablet [Otezla] Otezla 30 MG Otezla 30 MG 12/22/2019 12:00:00 AM EDT 1.0 {tablet} suspended Otezla 30 MG eCW1 ([facility]) apremilast 30 MG Oral Tablet [Otezla] Otezla 30 MG Otezla 30 MG 12/22/2019 12:00:00 AM EDT 1.0 {tablet} suspended Otezla 30 MG eCW1 ([facility]) Otezla 10 & 20 & 30 MG Otezla 10 & 20 & 30 MG 12/22/2019 12:00:00 AM E DT suspended Otezla 10 & 20 & 30 MG eC W1 ([facility]) Otezla 10 & 20 & 30 MG Otezla 10 & 20 & 30 MG 12/22/2019 12:00:00 AM E DT suspended Otezla 10 & 20 & 30 MG eC W1 ([facility]) apremilast 30 MG Oral Tablet [Otezla] Otezla 30 MG Otezla 30 MG 12/22/2019 12:00:00 AM EDT 1.0 {tablet} suspended Otezla 30 MG eCW1 ([facility]) apremilast 30 MG Oral Tablet [Otezla] Otezla 30 MG Otezla 30 MG 12/22/2019 12:00:00 AM EDT 1.0 {tablet} suspended Otezla 30 MG eCW1 ([facility]) 25 mg 10/27/2019 12:00:00 AM EDT tablet 45 TAKE 1/2 TABLET BY MOUTH EVERY DAY TAKE 1/2 TABLET BY MOUTH EVERY DAY SOLD: 10/28/2019 [facility] 25 mg 10/27/2019 12:00:00 AM EDT tablet 45 TAKE 1/2 TABLET BY MOUTH EVERY DAY TAKE 1/2 TABLET BY MOUTH EVERY DAY SOLD: 01/31/2020 [facility] 25 mg 10/27/2019 12:00:00 AM EDT tablet 45 TAKE 1/2 TABLET BY MOUTH EVERY DAY TAKE 1/2 TABLET BY MOUTH EVERY DAY SOLD: 04/30/2020 [facility] 25 mg 10/27/2019 12:00:00 AM EDT tablet 45 TAKE 1/2 TABLET BY MOUTH EVERY DAY TAKE 1/2 TABLET BY MOUTH EVERY DAY SOLD: 07/28/2020 [facility] 20 mg 10/27/2019 12:00:00 AM EDT tablet 90 TAKE 1 TABLET BY MOUTH EVERY EVENING TAKE 1 TABLET BY MOUTH EVERY EVENING SOLD: 02/06/2020 [facility] 20 mg 10/27/2019 12:00:00 AM EDT tablet 90 TAKE 1 TABLET BY MOUTH EVERY EVENING TAKE 1 TABLET BY MOUTH EVERY EVENING SOLD: 10/28/2019 [facility] 50 mg 10/12/2019 12:00:00 AM EDT tablet 60 TAKE 1 TABLET BY MOUTH TWICE A DAY NEEDED FOR PAIN MAX DAILY DOSE = 2 TABLETS TAKE 1 TABLET BY MOUTH TWICE A DAY NEEDED FOR PAIN MAX DAILY DOSE = 2 TABLETS SOLD: 11/18/2019 [facility] 50 mg 10/12/2019 12:00:00 AM EDT tablet 60 TAKE 1 TABLET BY MOUTH TWICE A DAY NEEDED FOR PAIN MAX DAILY DOSE = 2 TABLETS TAKE 1 TABLET BY MOUTH TWICE A DAY NEEDED FOR PAIN MAX DAILY DOSE = 2 TABLETS SOLD: 03/11/2020 [facility] tramadol hydrochloride 50 MG Oral Tablet TRAMADOL HCL 10/12/2019 12:00:00 AM EDT tablet 60 TAKE 1 TABLET BY MOUTH TWICE A DAY NEEDED FOR PAIN MAX DAILY DOSE = 2 TABLETS TAKE 1 TABLET BY MOUTH TWICE A DAY NE EDED FOR PAIN MAX DAILY DOSE = 2 TABLETS SOLD: 10/12/2019 [facility] 50 mg 10/12/2019 12:00:00 AM EDT tablet 60 TAKE 1 TABLET BY MOUTH TWICE A DAY NEEDED FOR PAIN MAX DAILY DOSE = 2 TABLETS TAKE 1 TABLET BY MOUTH TWICE A DAY NEEDED FOR PAIN MAX DAILY DOSE = 2 TABLETS SOLD: 12/20/2019 [facility] 20 mg 10/01/2019 12:00:00 AM EDT tablet 30 TAKE ONE TABLET BY MOUTH EVERY EVENING TAKE ONE TABLET BY MOUTH EVERY EVENING SOLD: 10/07/2019 [facility] mometasone furoate 1 MG/ML Topical Cream Mometasone Mometaso ne 09/01/2019 07:20:13 AM EST 1 APPLIC active [facility] Betamethasone 0.5 MG/ML Augmented Topical Lotion Betam ethasone, Augmented Betamethasone, Augmented 09/01/2019 07:19:27 AM EST 1 APPLIC active [facility] Hydroxyzine Hydrochloride 10 MG Oral Tablet Hydroxyzine Hcl Hydroxyzine Hcl 09/01/2019 07:19:27 AM EST 10 MG active [facility] Betamethasone 0.5 MG/ML Augmented Topical Cream Betame thasone, Augmented Betamethasone, Augmented 09/01/2019 07:19:19 AM EST 1 APPLIC active [facility] 0.1 % 09/01/2019 12:00:00 AM EST cream 45 APPLY TO FACIAL RASH TWICE DAILY FOR 2 WEEKS APPLY TO FACIAL RASH TWICE DAILY FOR 2 WEEKS SOLD: 09/03/2019 [facility] 0.05 % 09/01/2019 12:00:00 AM EST lotion 60 APPLY TOPICALLY TO SCALP NIGHTLY AT BEDTIME FOR UP TO 2 WEEKS NEEDED APPLY TOPICALLY TO SCALP NIGHTLY AT BEDTIME FOR UP TO 2 WEEKS NEEDED SOLD: 10/07/2019 [facility] 0.05 % 09/01/2019 12:00:00 AM EST lotion 60 APPLY TOPICALLY TO SCALP NIGHTLY AT BEDTIME FOR UP TO 2 WEEKS NEEDED APPLY TOPICALLY TO SCALP NIGHTLY AT BEDTIME FOR UP TO 2 WEEKS NEEDED SOLD: 09/08/2019 [facility] 10 mg 09/01/2019 12:00:00 AM EST tablet 30 TAKE 1 TAB.BY MOUTH IN P.M. NEEDED FOR ITCHING MAY CAUSE DROWSINESS TAKE 1 TAB.BY MOUTH IN P.M. NEEDED FOR ITCHING MAY CAUSE DROWSINESS SOLD: 09/03/2019 [facility] 300 mg 08/28/2019 12:00:00 AM EST capsule 20 TAKE TWO CAPSULES BY MOUTH EVERY DAY FOR 10 DAYS TAKE TWO CAPSULES BY MOUTH EVERY DAY FOR 10 DAYS SOLD: 08/28/2019 [facility] Azelastine HCL (Nasal) Azelastine HCL (Nasal) 08/27/2019 12:00:[address] active MED[facility] ([facility] cefdinir 300 MG Oral Capsule Cefdinir 08/27/2019 12:00:00 AM EST ORAL completed [facility] ([facility] 62.5-25 mcg/actuation 08/19/2019 12:00:00 AM EST blister wit h device 60 INHALE ONE PUFF BY MOUTH EVERY DAY INHALE ONE PUFF BY MOUTH EVERY DAY SOLD: 01/31/2020 [facility] 62.5-25 mcg/actuation 08/19/2019 12:00:00 AM EST blister wit h device 60 INHALE ONE PUFF BY MOUTH EVERY DAY INHALE ONE PUFF BY MOUTH EVERY DAY SOLD: 09/18/2019 [facility] 62.5-25 mcg/actuation 08/19/2019 12:00:00 AM EST blister wit h device 60 INHALE ONE PUFF BY MOUTH EVERY DAY INHALE ONE PUFF BY MOUTH EVERY DAY SOLD: 12/27/2019 [facility] 62.5-25 mcg/actuation 08/19/2019 12:00:00 AM EST blister wit h device 60 INHALE ONE PUFF BY MOUTH EVERY DAY INHALE ONE PUFF BY MOUTH EVERY DAY SOLD: 11/18/2019 [facility] 62.5-25 mcg/actuation 08/19/2019 12:00:00 AM EST blister wit h device 60 INHALE ONE PUFF BY MOUTH EVERY DAY INHALE ONE PUFF BY MOUTH EVERY DAY SOLD: 10/21/2019 [facility] 62.5-25 mcg/actuation 08/19/2019 12:00:00 AM EST blister wit h device 60 INHALE ONE PUFF BY MOUTH EVERY DAY INHALE ONE PUFF BY MOUTH EVERY DAY SOLD: 08/20/2019 [facility] Triamcinolone Acetonide 0.001 MG/MG Topical Ointment Triamci nolone Acetonide 08/12/2019 07:22:30 AM EST 1 APPLIC active [facility] tramadol hydrochloride 50 MG Oral Tablet Tramadol Tramadol 08/05/2019 07:16:49 AM EST 50 MG active [facility] tramadol hydrochloride 50 MG Oral Tablet Tramadol Tramadol 08/05/2019 07:16:49 AM EST 50 MG active [facility] 200 ACTUAT Albuterol 0.09 MG/ACTUAT Metered Dose Inhal er [Ventolin] Ventolin HFA 08/05/2019 12:00:00 AM EST RESPIRATORY completed [facility] ([facility] 60 ACTUAT Budesonide 0.08 MG/ACTUAT / fo rmoterol fumarate 0.0045 MG/ACTUAT Metered Dose Inhaler [Symbicort] Symbicort 07/22/2019 12:00:00 AM EST RESPIRATORY completed [facility] ( [facility]) montelukast 10 MG Oral Tablet MONTELUKAST SODIUM 07/21/2019 12:0 0:00 AM EST tablet 30 TAKE ONE TABLET BY MOUTH AT BEDT ONDINA TAKE ONE TABLET BY MOUTH AT BEDTIME SOLD: 07/31/2019 [facility] montelukast 10 MG Oral Tablet MONTELUKAST SODIUM 07/21/2019 12:0 0:00 AM EST tablet 30 TAKE ONE TABLET BY MOUTH AT BEDT O[place] TAKE ONE TABLET BY MOUTH AT BEDTIME SOLD: 12/07/2019 [facility] montelukast 10 MG Oral Tablet MONTELUKAST SODIUM 07/21/2019 12:0 0:00 AM EST tablet 30 TAKE ONE TABLET BY MOUTH AT BEDT OND[place] TAKE ONE TABLET BY MOUTH AT BEDTIME SOLD: 10/28/2019 [facility] montelukast 10 MG Oral Tablet MONTELUKAST SODIUM 07/21/2019 12:0 0:00 AM EST tablet 30 TAKE ONE TABLET BY MOUTH AT BEDT OND[place] TAKE ONE TABLET BY MOUTH AT BEDTIME SOLD: 04/10/2020 [facility] montelukast 10 MG Oral Tablet MONTELUKAST SODIUM 07/21/2019 12:0 0:00 AM EST tablet 30 TAKE ONE TABLET BY MOUTH AT BEDT O[place] TAKE ONE TABLET BY MOUTH AT BEDTIME SOLD: 03/10/2020 [facility] montelukast 10 MG Oral Tablet MONTELUKAST SODIUM 07/21/2019 12:0 0:00 AM EST tablet 30 TAKE ONE TABLET BY MOUTH AT BEDT OND[place] TAKE ONE TABLET BY MOUTH AT BEDTIME SOLD: 09/29/2019 [facility] montelukast 10 MG Oral Tablet MONTELUKAST SODIUM 07/21/2019 12:0 0:00 AM EST tablet 30 TAKE ONE TABLET BY MOUTH AT BEDT [place] TAKE ONE TABLET BY MOUTH AT BEDTIME SOLD: 01/04/2020 [facility] montelukast 10 MG Oral Tablet MONTELUKAST SODIUM 07/21/2019 12:0 0:00 AM EST tablet 30 TAKE ONE TABLET BY MOUTH AT BEDT [place] TAKE ONE TABLET BY MOUTH AT BEDTIME SOLD: 08/28/2019 [facility] montelukast 10 MG Oral Tablet MONTELUKAST SODIUM 07/21/2019 12:0 0:00 AM EST tablet 30 TAKE ONE TABLET BY MOUTH AT BEDT [place] TAKE ONE TABLET BY MOUTH AT BEDTIME SOLD: 02/06/2020 [facility] tramadol hydrochloride 50 MG Oral Tablet Tramadol HCL 07/08/2019 12:00:00 AM EST ORAL active [facility] ([facility] Betamethasone 0.5 MG/ML Augmented Topical Lotion Betam ethasone, Augmented Betamethasone, Augmented 05/10/2019 12:24:00 PM EST 1 APPLIC completed [facility] calcipotriene 0.05 MG/ML Topical Solution Calcipotriene Calc ipotriene 05/10/2019 12:24:00 PM EST 1 APPLIC completed [facility] Cyclobenzaprine hydrochloride 10 MG Oral Tablet Cyclobenzapr ine HCL 05/06/2019 12:00:00 AM EDT ORAL completed [facility] ([facility] 80 mg 04/30/2019 12:00:00 AM EDT tablet 90 TAKE ONE TABLET BY MOUTH AT BEDTIME TAKE ONE TABLET BY MOUTH AT BEDTIME SOLD: 02/06/2020 [facility] 80 mg 04/30/2019 12:00:00 AM EDT tablet 90 TAKE ONE TABLET BY MOUTH AT BEDTIME TAKE ONE TABLET BY MOUTH AT BEDTIME SOLD: 10/28/2019 [facility] 80 mg 04/30/2019 12:00:00 AM EDT tablet 90 TAKE ONE TABLET BY MOUTH AT BEDTIME TAKE ONE TABLET BY MOUTH AT BEDTIME SOLD: 07/31/2019 [facility] Betamethasone 0.5 MG/ML Augmented Topical Cream Betame thasone, Augmented Betamethasone, Augmented 01/18/2019 10:20:50 AM EDT 1 APPLIC completed [facility] 25 mg 10/06/2018 12:00:00 AM EDT tablet 15 TAKE 1/2 TABLET BY MOUTH EVERY DAY TAKE 1/2 TABLET BY MOUTH EVERY DAY SOLD: 07/31/2019 [facility] 25 mg 10/06/2018 12:00:00 AM EDT tablet 15 TAKE 1/2 TABLET BY MOUTH EVERY DAY TAKE 1/2 TABLET BY MOUTH EVERY DAY SOLD: 09/29/2019 [facility] 25 mg 10/06/2018 12:00:00 AM EDT tablet 15 TAKE 1/2 TABLET BY MOUTH EVERY DAY TAKE 1/2 TABLET BY MOUTH EVERY DAY SOLD: 08/28/2019 [facility] 20 mg 09/21/2018 12:00:00 AM EDT tablet 30 TAKE 1 TABLET BY MOUTH EVERY EVENING TAKE 1 TABLET BY MOUTH EVERY EVENING SOLD: 08/05/2019 [facility] 20 mg 09/21/2018 12:00:00 AM EDT tablet 30 TAKE 1 TABLET BY MOUTH EVERY EVENING TAKE 1 TABLET BY MOUTH EVERY EVENING SOLD: 07/06/2019 [facility] 20 mg 09/21/2018 12:00:00 AM EDT tablet 30 TAKE 1 TABLET BY MOUTH EVERY EVENING TAKE 1 TABLET BY MOUTH EVERY EVENING SOLD: 09/03/2019 [facility] Insurance Providers Payer name Policy type / Coverage type Policy ID Covered democrat ID Covered democrat's relationship to zamorano Policy Zamorano Plan Information MEDICARE [id number] SP [id number] [facility] OPTIONS [id number] SP [id number] [facility] OPTIONS [id number] SP [id number] MEDICARE [id number] SP [id number] MEDICARE PART A -O/P [id number] 18 [id number] [facility] OPTIONS -O/P [id number] 18 [id number] MEDICARE C [id number] S [id number] AARP O [id number] S [id number] AAR U [id number] Self [id number] MEDICARE A [id number] Self [id number] BC/BS Hny Opt A Hmo Medigap Part B [id number] Self [id number] [facility] Healthcare Options Medigap Part B [id number] Self [id number] Medicare (Part B) Medicare Primary [id number] Self [id number] [employer] Medigap Part B [id number] Family Dependent [id number] Statewide Independent Ppo Commercial [id number] Self [id number] [employer] Medigap Part B [id number] Self [id number] Cigna/MVP Medigap Part B [id number] Self [id number] BC/BS Hny Opt A Hmo Medigap Part B [id number] Self [id number] [facility] Healthcare Options Medigap Part B [id number] Self [id number] Medicare (Part B) Medicare Primary [id number] Self [id number] BC/BS Hny Opt A Hmo Medigap Part B [id number] Self [id number] [facility] Options Medigap Part B [id number] Self [id number] Medicare (Part B) Medicare Primary [id number] Self [id number] BC/BS Hny Opt A Hmo Medigap Part B [id number] Self [id number] [facility] Options Medigap Part B [id number] Self [id number] Medicare (Part B) Medicare Primary [id number] Self [id number] [facility] Medigap Part B [id number] Self [id number] [place] Primary [id number] Self [id number] BC/BS Hny Opt A Hmo Medigap Part B [id number] Self [id number] [facility] Options Medigap Part B [id number] Self [id number] Medicare (Part B) Medicare Primary [id number] Self [id number] ANS-Medicare Part B [id number] ANSI-Commercial [id number] [place] Primary [id number] Self [id number] MEDICARE [id number] SP [id number] [facility] Options Medigap Part B [id number] Self [id number] [place] Primary [id number] Self [id number] BCBS [place] Medigap Part B [id number] Self [id number] [facility] Supplemental Plan Medigap Part B [id number] Self [id number] Medicare Medicare Primary [id number] Self [id number] Cigna Medigap Part B [id number] Self [id number] BC/BS Hny Opt A Hmo Medigap Part B [id number] Self [id number] [facility] Options Medigap Part B [id number] Self [id number] Medicare (Part B) Medicare Primary [id number] Self [id number] BC/BS Hny Opt A Hmo Medigap Part B [id number] Self [id number] [facility] Options Medigap Part B [id number] Self [id number] Medicare (Part B) Medicare Primary [id number] Self [id number] [facility] Medigap Part B [id number] Self [id number] Medicare [place] Gov't Servi Medicare Primary [id number] Self [id number] [facility] Medigap Part B [id number] Self [id number] Medicare - NGS Medicare Primary [id number] Self [id number] MEDICARE C [id number] S [id number] A [place] Medigap [place] B [id number] Self [id number] [facility] Medigap Part B [id number] Self [id number] Medicare Medicare Primary [id number] Self [id number] BC/BS Hny Opt A Hmo Medigap Part B [id number] Self [id number] [facility] Medigap Part B [id number] Self [id number] Medicare (Part B) Medicare Primary [id number] Self [id number] MEDICARE C [id number] S [id number] MEDICARE PART A -O/P [id number] 18 [id number] [facility] [facility] OPTIONS [id number] SP [id number] Medicare (Part B) Medicare Primary Self [employer] Medigap Part B Family Dependent Statewide Independent Ppo Commercial Self Cigna Medigap Part B Self Cigna/MVP Medigap Part B Self BC/BS Hny Opt A Hmo Medigap Part B Self [facility] Medigap Part B Plan N Self Plan N [facility] Medigap Part B Self [place] Primary Self [facility] Medigap Part B Self [place] Gov[place] Self Cigna Medigap Part B Self [facility] Medigap Part B Self Medicare Medicare Primary Self Medicare Medicare Primary Self Problems, Conditions, and Diagnoses Code Display Name Description Problem Type Effective Dates Data Source(s) L20.84 [id number] Intrinsic eczema Problem 04/26/2020 12:00:00 AM EDT eCW1 ([facility]) L40.0 [id number] Psoriasis vulgaris Problem 01/03/2020 12:00: 00 AM EDT eCW1 ([facility]) L40.9 [id number] Psoriasis Problem 12/22/2019 12:00:00 AM ED T eCW[facility] ([facility] [facility]) R0602 Shortness of breath Shortness of breath Diagnosis 0 07/25/2020 03:23:00 PM [facility] 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 Diagnosis 05/24/2020 12:04:00 PM [facility] [id number] Personal history of nicotine dependence Personal history of nicotine dependence Diagnosis 05/24/2020 12:04:00 PM [facility] Z8249 Family history of ischemic h eart disease and other diseases of the circulatory system Family history of ischemic heart disease and other diseases of the circulatory system Diagnosis 05/24/2020 12:04:00 PM [facility] Z7982 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 Diagnosis 05/24/2020 12:04:00 PM [facility] I119 Hypertensive heart disease without heart failure Hypertensive heart disease without heart failure Diagnosis 05/24/2020 12:04:00 PM [facility] J449 Chronic obstructive pulmonary disease, u nspecified Chronic obstructive pulmonary disease, unspecified Diagnosis 05/24/2020 12:04:00 PM [facility] E7800 Pure hypercholesterolemia, unspecified P ure hypercholesterolemia, unspecified Diagnosis 05/24/2020 12:04:00 PM [facility] R072 Precordial pain Precordial pain Diagnosis 05/24/2020 12:0 4:00 PM [facility] E785 Hyperlipidemia, unspecified Hyperlipidemia, unspecifie d Diagnosis 05/24/2020 12:04:00 PM [facility] I10 Essential (primary) hypertension Essential (primary) h ypertension Diagnosis 05/24/2020 12:04:00 PM [facility] E860 Dehydration Dehydration Diagnosis 05/24/2020 12:04:00 PM [facility] R0789 Other chest pain Other chest pain Diagnosis 05/24/2020 12 :04:00 PM [facility] [id number] Contact with and (suspected) exposure to other viral communicable diseases Contact with and (suspected) exposure to other viral communicable diseases Diagnosis 04/15[facility]2020 [facility]49[facility] Chills (without fever) Chills (without fever) Diagnosi s 04/15/2020 01:49:00 PM [facility] B41031 Unspecified place in unspeci fied non-institutional (private) residence as the place of occurrence of the external cause Unspecified place in unspecified non-institutional (private) residence as the place of occurrence of the external cause Diagnosis 04/09/2020 04:02:00 PM [facility] [id number] Exposure to other specified factors, ini tial encounter Exposure to other specified factors, initial encounter Diagnosis 04/09/2020 04:02:00 PM [facility] L409 Psoriasis, unspecified Psoriasis, unspecified Diagnosi s 04/09/2020 04:02:00 PM [facility] [id number] Abrasion, left ankle, initial encounter Abrasion, left ankle, initial encounter Diagnosis 04/09/2020 04:02:00 PM [facility] [id number] Abrasion, left knee, initial encounter A brasion, left knee, initial encounter Diagnosis 04/09/2020 04:02:00 PM [facility] [id number] Abrasion, left thigh, initial encounter Abrasion, left thigh, initial encounter Diagnosis 04/09/2020 04:02:00 PM [facility] [id number] Abrasion of left wrist, initial encounte r Abrasion of left wrist, initial encounter Diagnosis 04/09/2020 04:02:00 PM [facility] [id number] Abrasion of left forearm, initial encoun ter Abrasion of left forearm, initial encounter Diagnosis 04/09/2020 04:02:00 PM EDT [facility] [id number] Abrasion of left elbow, initial encounte r Abrasion of left elbow, initial encounter Diagnosis 04/09/2020 04:02:00 PM EDT [facility] [id number] Abrasion, right ankle, initial encounter Abrasion, right ankle, initial encounter Diagnosis 04/09/2020 04:02:00 PM EDT [facility] [id number] Abrasion, right knee, initial encounter Abrasion, right knee, initial encounter Diagnosis 04/09/2020 04:02:00 PM EDT [facility] [id number] Abrasion, right thigh, initial encounter Abrasion, right thigh, initial encounter Diagnosis 04/09/2020 04:02:00 PM EDT [facility] [id number] Abrasion of right wrist, initial encount er Abrasion of right wrist, initial encounter Diagnosis 04/09/2020 04:02:00 PM EDT [facility] [id number] Abrasion of right forearm, initial encou nter Abrasion of right forearm, initial encounter Diagnosis 04/09/2020 04:02:00 PM EDT [facility] [id number] Abrasion of right elbow, initial encount er Abrasion of right elbow, initial encounter Diagnosis 04/09/2020 04:02:00 PM EDT [facility] N3000 Acute cystitis without hematuria Acute cystitis without hematuria Diagnosis 04/09/2020 04:02:00 PM EDT [facility] [id number] Abrasion of unspecified part of head, in itial encounter Abrasion of unspecified part of head, initial encounter Diagnosis 04/09/2020 04:02:00 PM EDT [facility] Surgeries/Procedures Procedure Description Date Indications Data Source(s) ECG ROUTINE ECG W/LEAST 12 LDS W/I&R 01/10/2020 12:00: 00 AM EDT [facility] ([facility]) Tympanometry & Acoustic Reflex Threshold Testing 08/27 12:00:00 AM EST [facility] ([facility] MYOCARDIAL SPECT MULTIPLE STUDIES 07/26/2019 12:00:00 AM EST [facility] ([facility]) CV STRS TST XERS&/OR RX CONT ECG PHYS SI&R 07/26/2019 12:00:00 AM EST [facility] ([facility]) ECG ROUTINE ECG W/LEAST 12 LDS W/I&R 07/23/2019 12:00: 00 AM EST [facility] ([facility]) ECG ROUTINE ECG W/LEAST 12 LDS W/I&R 07/09/2019 12:00: 00 AM EST [facility] ([facility]) Cervical or vaginal cancer screening; pelvic and clinical br east examination 07/02/2019 12:00:00 AM EST [facility] Results ID Date Data Source [id number] 08/23/2020 11:10:00 AM EST [facility] Name Value Range Interpretation Code Description Data Orz rce(s) Supporting Document(s) SARS coronavirus 2 RNA Not Detected [facility] [place] This lab was ordered by [facility] and reported by [facility]. ID Date Data Source [id number] 07/26/2020 10:30:00 AM EST [facility] Name Value Range Interpretation Code Description Data Roz rce(s) Supporting Document(s) SARS coronavirus 2 RNA Not Detected [facility] [place] This lab was ordered by [facility] and reported by [facility]. ID Date Data Source [id number] 07/26/2020 09:10:00 AM EST [facility] [address] [place] [address] PHONE: [phone] FAX: [phone] Name .................. : ALKA Parrish Acct Number.................. : [id number] ROOM. ................. : MR Number ................... : [id number] Stay type ............. : O/P Discharge Date......... ... : 07/25/20 Admit Date ......... : 07/25/20 Admit Phys .................... : DELILAH Morrison Date of ....... : 1945 Family Phys ................... : DELILAH Morrison Phone .................. : [phone] Age ................................ : 74 Film# .................. .:[id number] Sex ................................. : F Unsigned transcriptions are preliminary reports and do not represent a medical or legal document CHEST 2 VIEWS [id number] COMPLETE:07/25/20 15:32 2540 (REASON FOR CHEST: SHORTNESS OF BREATH CHEST X-RAY: 2-VIEWS INDICATION: Shortness of breath. COMPARISON: 07/22/19 FINDINGS: The cardiac and mediastinal silhouettes appear normal and the lungs are clear. The bones and soft tissues are normal. The upper abdomen is unremarkable. IMPRESSION: No acute disease identifiable. Electronically Reviewed and Signed By Edwin Alexandre MD , 07/26/20 09:10, JEWELL Transcribe Initials: DZ , Transcribe Date: 07/25/20 16:51, Dictation Date: Copy for: DELILAH DUNBAR via fax Copy for: [address] [place] [address] REC Page 1 of 1 Name Value Range Interpretation Code Description Data Roz rce(s) Supporting Document(s) ID Date Data Source [id number] 05/25/2020 10:59:00 [place] [address] CONSULTATIONNAME: ALKA Parrish ROOM#: 106-1DATE OF : 1945 MR#: [id number] PHYS: LUIS F Saha DATE: 05/24/20DATE OF CONSULTATION: 05/25/2020HISTORY OF PRESENT ILLNESS:This is a 74-year-old white female who presented with chest pain. History and physical recorded by Giovanna. Patient claims that on the day of admission her chest pressure was quite severe and she came chestpain localized to the retrosternal area. She had previously had a coronary stent in years ago.REVIEW OF SYSTEMS:She having pain chest over the last two weeks. 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 The pain is mild in nature and localizedin the retrosternal area. There is no radiation of pain to the neck. There is no orthopnea or paroxysmalnocturnal dyspnea. No chills or fever. No cough or hemoptysis. No bowel disturbance. No urinary problem.No ankle edema.PERSONAL HISTORY:Nonsmoker.FAMILY HISTORY:Mother at 74 with dementia, diabetes. Father at 64 with carcinoma of the colon.PAST MEDICAL HISTORY:In the past, the patient had a coronary stent placement at [facility]. She also had psoriasis andosteoarthritis.ALLERGIES:OTEZLA.PHYSICAL EXAM:GENERAL: Moderately built.VITAL SIGNS: Blood pressure 130/80, pulse of 70.HEENT: Mouth normal.NECK: Supple. No lymphadenopathy. Thyroid not enlarged. Neck veins are not distended. No carotidbruits.CHEST: Symmetrical.HEART: Regular sinus rhythm. No murmur or gallop.LUNGS: Clear. No rales or rhonchi.ABDOMEN: Soft. Nontender.EXTREMTIES: Normal. 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 She was told that he has recurrent chest pain quite oftenand could have a heart attack which could be serious. She understands. She does not want to stayanymore in the hospital. She elected to sign out against medical advice. She was told the risk of anginaand heart attack, cardiac arrest, hypotension, sudden . She understands. She will take the risk andsign out against medical advice.DD: Berto Goins MD, PC 05/25/20 09:26DT: SSR 05/25/20 10:59DS: Berto Goins MD, PC 05/26/20 09:20 2 Name Value Range Interpretation Code Description Data Roz rce(s) Supporting Document(s) ID Date Data Source [id number] 05/25/2020 04:07:00 PM EST [facility] ([facility]) Name Value Range Interpretation Code Description Data Roz rce(s) Supporting Document(s) Hemoglobin A1c/Hemoglobin.total in Blood 1.7 [facility] ([facility]) ID Date Data Source [id number] 05/25/2020 04:07:00 PM EST [facility] ([facility]) Name Value Range Interpretation Code Description Data Roz rce(s) Supporting Document(s) Troponin Laboratory test result [facility] ([facility]) ID Date Data Source [id number] 05/25/2020 04:07:00 PM EST [facility] ([facility]) Name Value Range Interpretation Code Description Data Roz rce(s) Supporting Document(s) Triglycerides 161 [facility] ([facility]) Cholesterol 165 131-200 [facility] ([facility]) Chol/HDL Ratio Laboratory test result [facility] ([facility]) HDL 68 29-86 [facility] ([facility]) Cholesterol in LDL [Mass/volume] in Serum or Plasma by calculation 73 [facility] ([facility]) ID Date Data Source [id number] 05/25/2020 04:07:00 PM EST [facility] ([facility]) Name Value Range Interpretation Code Description Data Roz rce(s) Supporting Document(s) Albumin [Mass/volume] in Serum or Plasma 4.0 [facility] ([facility]) Alanine aminotransferase [Enzymatic activity/volume] in Serum or Pl asma 23 [facility] ([facility]) Calcium [Mass/volume] in Serum or Plasma 9.1 [facility] ([facility]) Chloride [Moles/volume] in Serum or Plasma 103 [facility] ([facility]) Carbon dioxide, total [Moles/volume] in Serum or Plasma 34 [facility] ([facility]) Protein [Mass/volume] in Serum or Plasma 6.5 [facility] ([facility]) Potassium [Moles/volume] in Serum or Plasma 4.3 [facility] ([facility]) Sodium 141 [facility] Alkaline phosphatase [Enzymatic activity/volume] in Serum or Plasma 7 7 [facility] ([facility]) Glucose 135 65-110 [facility] Urea nitrogen [Mass/volume] in Serum or Plasma 16 [facility] ([facility]) Aspartate aminotransferase [Enzymatic activity/volume] in Serum or Plasma 17 [facility] ([facility]) Creatinine For GFR 0.8 [facility] ([facility]) ID Date Data Source [id number] 05/25/2020 04:07:00 PM EST [facility] ([facility]) Name Value Range Interpretation Code Description Data Roz rce(s) Supporting Document(s) Hemoglobin 13.2 12.0-16.0 [facility] ([facility]) White Blood Count 7.8 4.2-11.0 [facility] ([facility]) Platelets 277 150-450 [facility] Red Blood Count 4.33 4.20-5.40 [facility] ([facility]) Hematocrit 41.6 37.0-47.0 [facility] ([facility]) ID Date Data Source [id number] 05/25/2020 01:55:00 PM [facility] [address] [place] [address] PHONE: [phone] FAX: [phone] Name .................. : ALKA Parrish Acct Number.................. : [id number] ROOM. ................. : 106-1 Number ................... : [id number] Stay type ............. : O/P Discharge Date......... ... : Admit Date ......... : 1 07/24/19 Admit Phys .................... : SPEEDY MAT Date of ....... : 1945 Family Phys ................... : DELILAH S Phone .................. : [phone] Age ................................ : 74 Film# .................. .:[id number] Sex ................................. : F Unsigned transcriptions are preliminary reports and do not represent a medical or legal document CHEST PORTABLE [id number] COMPLETE:05/24/20 15:14 ARIANNA 06563 Reason(s): Chest Pain PORTABLE CHEST X-RAY: COMPARISON: 07/22/19 FINDINGS: The cardiac and mediastinal silhouettes appear normal and the lungs are clear. The bones and soft tissues are normal. The upper abdomen is unremarkable. IMPRESSION: No acute disease identifiable. Electronically Reviewed and Signed By Brigitte Julien MD , 05/25/20 13:55, KGG Transcribe Initials: BETH , Transcribe Date: 05/25/20 01:29, Dictation Date: Copy for: EMERGENCY DEPT via mode Copy for: 710 MED REC DISCHARGED Page 1 of 1 Name Value Range Interpretation Code Description Data Roz rce(s) Supporting Document(s) ID Date Data Source [id number] 05/25/2020 07:15:00 AM [facility] Name Value Range Interpretation Code Description Data Roz rce(s) Supporting Document(s) COMPREHENSIVE METABOLIC PANEL [facility] COMPREHENSIVE METABOLIC PANEL Sodium [Moles/volume] in Serum or Plasma 141 mEq/L 134 - 153 [facility] Potassium [Moles/volume] in Serum or Plasma 4.3 mEq/L 3.6 - 5.0 [facility] Chloride [Moles/volume] in Serum or Plasma 103 mEq/L 98 - 107 [facility] Carbon dioxide, total [Moles/volume] in Serum or Plasma 34 MEQ/L 22 - 30 H [facility] Glucose [Mass/volume] in Serum or Plasma 135 MG/DL 65 - 110 H [facility] BUN 16 MG/DL 7 - 21 [facility] Creatinine [Mass/volume] in Serum or Plasma 0.8 MG/DL 0.7 - 1.5 [facility] BUN/CREAT 20 8 - 27 [facility] Protein [Mass/volume] in Serum or Plasma 6.5 G/DL 6.3 - 8.2 [facility] Albumin [Mass/volume] in Serum or Plasma 4.0 G/DL 3.9 - 5.0 [facility] Globulin [Mass/volume] in Serum by calculation 2.5 GM/DL 2.4 - 3.2 [facility] A/G RATIO 1.6 0.8 - 2.0 [facility] Calcium [Mass/volume] in Serum or Plasma 9.1 MG/DL 8.4 - 10.2 [facility] Bilirubin.total [Mass/volume] in Serum or Plasma <0.7 MG/DL 0.2 - 1.3 [facility] Alkaline phosphatase [Enzymatic activity/volume] in Serum or Plasma 77 U/L 38 - 126 [facility] Aspartate aminotransferase [Enzymatic activity/volume] in Serum or Plasma 17 U/L 5 - 40 [facility] Alanine aminotransferase [Enzymatic activity/volume] in Seru m or Plasma 23 U/L 7 - 56 [facility] Anion gap 3 in Serum or Plasma 4.0 mmol/L 8.0 - 16.0 L [facility] 74 [facility] >60 mL/min [facility] AFR AMER GFR >60 [facility] Male GFR In terprentation 20-49 yrs >60 mL/min Normal 50-59 yrs >56 mL/min Normal 60-69 yrs >49 mL/min Normal 70-79yrs >42 mL/min Normal 80 and above >35 mL/min Normal Female GFR Interpretation 20-39 yrs >60 mL/min Normal 40-49 yrs >58 mL/min Normal 50-59 yrs >51 mL/min Normal 60-69 yrs >45 mL/min Normal 70-79 yrs >39 mL/min Normal 80 and above >32 mL/min Normal ID Date Data Source [id number] 05/25/2020 07:09:00 AM [facility] Name Value Range Interpretation Code Description Data Roz rce(s) Supporting Document(s) Magnesium [Mass/volume] in Serum or Plasma 1.7 MG/DL 1.7 - 2.2 [facility] ID Date Data Source [id number] 05/25/2020 07:08:00 AM [facility] Name Value Range Interpretation Code Description Data Roz rce(s) Supporting Document(s) CBC W/AUTOMATED DIFF [facility] COMPLETE BLOOD COUNT Leukocytes [#/volume] in Blood by Automated count 7.8 10^3/uL 4.2 - 1 1.0 [facility] Erythrocytes [#/volume] in Blood by Automated count 4.33 10^6/uL 4. 20 - 5.40 [facility] Hemoglobin [Mass/volume] in Blood 13.2 g/dL 12.0 - 16.0 [facility] Hematocrit [Volume Fraction] of Blood by Automated count 41.6 % 3 7.0 - 47.0 [facility] Erythrocyte mean corpuscular volume [Entitic volume] by Auto mated count 96.1 fL 81.0 - 101 [facility] Erythrocyte mean corpuscular hemoglobin [Entitic mass] by Automated count 30.5 pg 27.0 - 34.0 [facility] Erythrocyte mean corpuscular hemoglobin concentration [Mass/volume] by Automated count 31.7 g/dL 31.0 - 36.0 [facility] Erythrocyte distribution width [Ratio] by Automated count 12.3 % 11.5 - 14.5 [facility] Platelets [#/volume] in Blood by Automated count 277 10^3/uL 150 - 45 0 [facility] Platelet mean volume [Entitic volume] in Blood by Automated count 10.2 fL 7.4 - 10.4 [facility] Neutrophils/100 leukocytes in Blood by Automated count 70.4 % 37. 0 - 80.0 [facility] Lymphocytes/100 leukocytes in Blood by Manual count 18.2 % 25.0 - 40.0 L [facility] Monocytes/100 leukocytes in Blood by Automated count 8.0 % 3.0 - 8.0 [facility] Eosinophils/100 leukocytes in Blood by Automated count 2.4 % 0.0 - 7.0 [facility] Basophils/100 leukocytes in Blood by Automated count 0.6 % 0.0 - 2.5 [facility] %IG 0.4 % 0.0 - 0.0 H [facility] %NRBC 0.0 % 0.0 - 0.0 [facility] Neutrophils [#/volume] in Blood by Automated count 5.51 10^3/uL 2.00 - 6.90 [facility] Lymphocytes [#/volume] in Blood by Automated count 1.43 10^3/uL 0.60 - 3.40 [facility] Monocytes [#/volume] in Blood by Automated count 0.63 10^3/uL 0.00 - 0.90 [facility] Eosinophils [#/volume] in Blood by Automated count 0.19 10^3/uL 0.00 - 0.70 [facility] Basophils [#/volume] in Blood by Automated count 0.05 10^3/uL 0.00 - 0.20 [facility] #IG 0.03 10^3/uL 0.00 - 0.10 [facility] ospital #NRBC 0.00 10^3/uL 0.00 - 0.00 [facility] ospital MANUAL DIFF NOT INDICATED [facility] RBC MORPH NOT INDICATED [facility] spital ID Date Data Source [id number] 05/25/2020 03:32:00 AM EST [facility] Name Value Range Interpretation Code Description Data Roz rce(s) Supporting Document(s) TROPONIN T <0.01 NG/ML 0.00 - 0.10 [facility] ospital TROPONIN T0.1 ng/ml Recommended as the c linical threshold value forTroponin T. ID Date Data Source [id number] 05/24/2020 08:00:00 [place] [address] RESPIRATORY CARE REPORT ==== ---------NAME------- NUMBER SEX AGE ADMIT DISC. XRAY# F/C TYPEFLELZBIETA Parrish [id number] F 74 05/24/20 [id number] MB4 O/P DATE OF : 1945 M/R# [id number] #: [id number] 106-1 LOCATION: EMERGENCY DEPT EKG [id number] COMP LETE:05/24/20 13:26 RV [id number] PHYSICIAN: SPEEDY VILLANUEVA Name Value Range Interpretation Code Description Data Roz rce(s) Supporting Document(s) ID Date Data Source [id number] 05/24/2020 08:01:00 PM [facility] Name Value Range Interpretation Code Description Data Roz rce(s) Supporting Document(s) TROPONIN T <0.01 NG/ML 0.00 - 0.10 [facility] ospital TROPONIN T0.1 ng/ml Recommended as the c linical threshold value forTroponin T. ID Date Data Source [id number] 05/24/2020 12:04:00 PM [facility] 1 OrderSheet [facility] Emergency Department [address] [place] [address] Phone #: ext- [phone] 05/24/2020 12:04 Patient: HUONG RUCKER Sex: F : 1945 Age: 74yWEIGHT:67.1 kg (S) HEIGHT:62 inches (S) BMI:27.1ALLERGIES: OtezlaCHIEF COMPLAINT: chest pain, discomfortDIAGNOSIS: Chest pain, Chest wall painLAB ORDERSOrder Description Priority Entered Acknowledged InitialedCBC w Diff STAT 12:05/24/2020 12:32 Philip Giron Riccardo John R.N. M.D.;CMP STAT 12:05/24/2020 12:32 Philip Giron Riccardo John R.N. M.D.;Lipase STAT 12:05/24/2020 12:32 Philip Giron Riccardo John R.N. M.D.;PT/PTT STAT 12:05/24/2020 12:32 Philip Giron Riccardo John R.N. M.D.;Troponin-T STAT 12:05/24/2020 12:32 Philip Giron Riccardo John R.N. M.D.;DIAGNOSTIC STUDY ORDERSOrder Description Priority Entered Acknowledged InitialedChest Portable 1 STAT 12:05/24/2020 12:32 Madhavi Giron Riccardo John R.N.(Oxygen?(No)) M.DJeana; Reason for Study: Chest PainMEDICATION/IV/DRIP/FLUID ORDERSOrder Description Priority Entered Acknowledged InitialedAspirin PO 12:05/24/2020 12:33 Arleth Gironable 81 mg Kiara Moody R.N.162 mg M.D.;GENERAL ORDERSOrder Description Priority Entered Acknowledged Initialed 2 OrderSheet [facility] Emergency Department [address] [place] [address] Phone #: ext- [phone] 05/24/2020 12:04 [id number] Sex: F : 1945 Age: 74yBlood Pressure 12:05/24/2020 12:32 Bree,Monitor Kiara Moody R.N., M.D.;Workforce Manager 12:05/24/2020 12:32 Bree,(continuous) Kiara Moody R.N., M.D.;EKG 12:05/24/2020 12:32 Philip Giron Riccardo John R.N. M.D.;NPO 12:05/24/2020 12:32 Philip Giron Riccardo John R.N. M.D.;Obtain Old EKG 12:05/24/2020 12:32 Philip Giron Riccardo John R.N. M.D.;Obtain Old Records 12:05/24/2020 12:32 Philip Giron Riccardo John R.N. M.D.;Oxygen titrate to 12:05/24/2020 12:32 Bree,92% Kiara Moody R.N., M.D.;Pulse oximeter 12:05/24/2020 12:32 Bree(Continuous) Kiara Moody R.N., M.D.;Saline Lock 12:05/24/2020 12:32 Philip Giron Riccardo John R.N. M.D.;Vitals 12:05/24/2020 12:32 Philip Giron Riccardo John R.N. M.D.;Consult - 13:20 05/24/2020 13:22 Bree,Hospitalist Kiara Moody R.N., M.D.;[Electronically signed by Marko Giron R.N. (16:24 05/24/2020)][Electronically signed by Kiara Moody M.D. (16:43 05/24/2020)][Electronically locked by Marko Giron R.N. (16:24 05/24/2020)] Name Value Range Interpretation Code Description Data Roz rce(s) Supporting Document(s) ID Date Data Source [id number] 05/24/2020 12:04:00 PM [place] [address] Medication Reconciliation Report [facility] Emergency Department [address] [place] [address] Phone #: ext- [phone] 05/24/2020 12:04 Patient: HUONG RUCKER Sex: F : 1945 Age: 74yWeight: 67.1 kgHeight/Length: 62 in.BMI: 27.1ALLERGIES: OtezlaThe patient's Home Medications are listed below:THE FOLLOWING MEDICATIONS NEED TO BE RECONCILED: Anoro Ellipta Inhalation Aspirin Low Dose Oral Diuretic Dupixent Subcutaneous Lisinopril Oral Singulair Oral Statins Support OralThe source(s) of the original Home Medication information:Not obtained.The following Medications were given to the patient in the Emergency Department:ASPIRIN CHEWABLE 81 MG [PO] PO 81 mg, administered: 05/24/2020 12:33:00 PMThe following Medications were prescribed to the patient:None. Name Value Range Interpretation Code Description Data Roz rce(s) Supporting Document(s) ID Date Data Source [id number] 05/24/2020 12:04:00 PM [place] [address] Medication Administration Record [facility] Emergency Department [address] [place] [address] Phone #: ext [phone] 05/24/2020 12:04 Patient: HUONG RUCKER Sex: F : 1945 Age: 74yWeight: 67.1 kgHeight/Length: 62 inBMI: 27.1ALLERGIES: Otezla Date/Time Medication Administered Medication OrderedGiven ASPIRIN CHEWABLE 81 MG [PO] Aspirin PO Chewable 81 mg [id number] 05/24/2020 Dose: 81 mg Tablets PO Marko Paul R.N. Name Value Range Interpretation Code Description Data [facility](s) Supporting Document(s) ID Date Data Source [id number] 05/24/2020 12:04:00 PM [facility] 1 General Instructions [facility] Emergency Department [address] [place] [address] Phone #: ext- [phone] 05/24/2020 12:04 Patient: HUONG RUCKER Sex: F : 1945 Age: 74yPrecordial chest pain characterized as "discomfort"(Rule out NC).Chest wall pain.(Electronically signed by Kiara Moody M.D. 05/24/2020 16:43) Name Value Range Interpretation Code Description Data [facility](s) Supporting Document(s) ID Date Data Source [id number] 05/24/2020 12:04:00 PM [facility] 1 Clinical Report - Nurses [facility] Emergency Department [address] [place] [address] Phone #: ext [phone] 05/24/2020 12:04 Patient: HUONG RUCKER Sex: F : 1945 Age: 74yTRIAGEArrived by private vehicle. Historian: patient.Acuity: LEVEL 3.Chief Complaint: CHEST PAIN and DISCOMFORT.Onset. (about 1 weeks). ( denies SOB, Dizziness or radiation). No difficulty breathing, sweatingepisodes, nausea, vomiting or fever. No cough. --12:17 05/24/20 Marko Giron R.N.12:13 05/24/20. BP: 155/60. MAP: 91. HR: 75. RR: 16. O2 saturation: 97%. Temp: 98.2 F. Pain level now:09/13. --12:17 05/24/20 Marko iGron R.N.Acuity: LEVEL 3. --12:18 05/24/20 Marko Giron R.N.Weight: 67.1 kg stated. Height/Length: 62 inches Per Patient. BMI: 27.1. --12:17 05/24/20 Marko Giron R.N.MedicationsAnoro Ellipta Inhalation. Aspirin Low Dose Oral. Diuretic. Lisinopril Oral. Singulair Oral. Statins Support Oral. --12:14 05/24/20 Marko Giron R.N. Dupixent Subcutaneous. --12:14 05/24/20 Marko Giron R.N.AllergiesOtezla. --12:14 05/24/20 Marko Giron R.N.HistoryPAST MEDICAL HX: Hypertension. Heart disease. Lung disease. No history of diabetes mellitus.Denies current .SOCIAL HX: Former smoker, end date 1989. Alcohol use; consumes beer occasionally. No drug use.She was offe red HIV testing but declined and hepatitis C testing but declined. She has not traveledoutside the [place]Infectious disease exposure: No infectious disease exposure.SELF HARM ASSESSMENT: Self harm assessment was performed. The patient answered "no" to thequestion(s) "Have you recently felt down, depressed, or hopeless?" and "Do you have thoughts of harmingor killing yourself?". 2 Clinical Report - Nurses [facility] Emergency Department [address] [place] [address] Phone #: ext- [phone] 05/24/2020 12:04 Patient: HUONG RUCKER [facility]#: [id number] Sex: F : 1945 Age: 74y ABUSE ASSESSMENT: Abuse assessment. No report of abuse. NUTRITIONAL RISK ASSESSMENT: The nutritional risk assessment revealed no deficiencies. FUNCTIONAL ASSESSMENT: Functional assessment: no impairments noted. LEARNING NEEDS ASSESSMENT: The learning needs assessment revealed no barriers. FALL RISK ASSESSMENT: Fall risk assessment completed. No risk factors identified. SKIN INTEGRITY ASSESSMENT: Skin integrity risk assessment completed. No skin integrity risk identified. --12:17 05/24/20 Marko Giron R.N. FAMILY HX: (Mother w CAD). --12:30 05/24/20 Kiara Moody M.D.PHYSICAL ASSESSMENTGENERAL / NEURO / PSYCH: Alert. Oriented X 4. Appears in no acute d istress.RESPIRATORY: Respirations not labored.CVS: Normal sinus rhythm noted.EXTREMITIES: No lower extremity edema.SKIN: Skin is warm and dry. --12:18 05/24/20 Marko Giron R.N.NURSING PROGRESS NOTES12:33 05/24/2020 ASPIRIN CHEWABLE 81 MG PO Tablets 81 mg given. --12:33 05/24/20 Marko Giron R.N. The patient is resting quietly. Side rails up x 2. Bed placed in lowest position. Brakes of bed on. --12:34 05/24/20 Marko Giron R.N. Reassurance given to the patient. --13:02 05/24/20 Marko Giron R.N. 13:02 05/24/20. BP: 134/64. MAP: 87. HR: 69. RR: 16. O2 saturation: 96%. Temp: deferred. Pain level now: 08/16. --13:02 05/24/20 Marko Giron R.N. ( in for discussion on admission. Pt agrees. No change in condition.). --13:18 05/24/20 Marko Giron R.N. The patient is calm and resting quietly. ( Pt resting with no chest discomfort awaiting bed for admission.). --15:41 05/24/20 Marko Giron R.N. 15:39 05/24/20. BP: 149/66. MAP: 93. HR: 62. RR: 18. O2 saturation: 99%. Temp: deferred. Pain level now: 0/10. --15:41 05/24/20 Marko Giron R.N.DISPOSITION / DISCHARGE 3 Clinical Report - Nurses [facility] Emergency Department [address] [place] [address] Phone #: ext- [phone] 05/24/2020 12:04 Patient: HUONG RUCKER Sex: F : 1945 Age: 74y 16:23 05/24/20. BP: 126/64. MAP: 84. HR: 68. RR: 18. O2 saturation: 98%. Temp: deferred. Pain level now: 0/10. --16:23 05/24/20 Marko Giron R.N. Report was given to a nurse in person. Report included patient's treatment. All questions were answered. Report was acknowledged. --16:24 05/24/20 Marko Giron R.N. Departure time: 16:20 05/24/2020. --16:24 05/24/20 Marko Giron R.N.Locked/Released at 05/24/2020 16:24 by Marko Giron R.N. Name Value Range Interpretation Code Description Data Roz rce(s) Supporting Document(s) ID Date Data Source [id number] 05/24/2020 12:04:00 PM EST [facility] 1 Clinical Report - Physicians/Mid Levels [facility] Emergency Department [address] [place] [address] Phone #: ext- [phone] 05/24/2020 12:04 Patient: HUONG RUCKER Sex: F : 1945 Age: 74y Time Seen: 12:10 05/24/2020; initial patient contact. Arrived- By private vehicle. Historian- patient. Disposition decision: 13:19 05/24/2020.HISTORY OF PRESENT ILLNESS Chief Complaint: CHEST PAIN and DISCOMFORT. This started 1 weeks ago and is now gone. It has been intermittent. Onset during rest. It is described as "pain" and it is described as located in the left chest area. No radiation. At its maximum, severity described as mild and 3 / 10. When seen in the E.D., it was almost gone and severity described as 1 / 10. Modifying factors- worsened by movement. Relieved by rest. No nausea, vomiting, difficulty breathing or diaphoresis. (pt doesn't believe it's her heart; her [employer]CH[employer] wanted an EKG). Similar symptoms previously. Patient has had similar symptoms occasionally. Recent medical care: Not recently seen/assessed.REVIEW OF SYSTEMSNo fever, chills, cough, pedal edema or calf pain. No fainting episodes, headache, sore throat, blurredvision or abdominal pain. No black stools, difficulty with urination, skin rash, enlarged lymph nodes or jointpain. No bloody stools. All other systems reviewed and are negative.PAST HISTORYSee nurses notes. Problems: Cardiac Stent. Hypercholesterolemia. COPD - Chronic Obstructive Pulmonary Disease. Heart Disease. Hypertension. Additional Surgeries: Cardiac Stent. . Medications: Dupixent Subcutaneous. Anoro Ellipta Inhalation. Aspirin Low Dose Oral. Diuretic. Lisinopril Oral. 2 Clinical Report - Physicians/Mid Levels [facility] Emergency Department [address] [place] [address] Phone #: ext- [phone] 05/24/2020 12:04 Patient: HUONG RUCKER Sex: F : 1945 Age: 74y Singulair Oral. Statins Support Oral. Allergies: Otezla.SOCIAL HISTORYFormer smoker, end date 1989. Alcohol use; consumes beer occasionally. No drug use.FAMILY HISTORY(Mother w CAD).ADDITIONAL NOTESThe nursing notes have been reviewed with agreement regarding the chief complaint, HPI, ROS, PMH andpatient medications and allergies.PHYSICAL EXAMVital Signs: 05/24/2020 12:13 BP: 155/60. MAP: 91. HR: 75. RR: 16. O2 saturation: 97%. Temp: 98.2 F.Pain level now: 09/13. Have been reviewed. Oxygen saturation normal.Appearance: Alert. Oriented X3. No acute distress.Eyes: Pupils equal, round and reactive to light. Eyes normal inspection.ENT: Ears normal. Nose normal. Pharynx normal.Neck: Normal inspection. Neck supple.CVS: Normal heart rate and rhythm. Heart sounds normal. Pulses normal.Respiratory: No respiratory distress. Chest pain reproducible with palpation of the anterior chest wall (leftside, localized). Painless inspiration. Breath sounds normal.Abdomen: Soft and nontender. Bowel sounds normal. No organomegaly. No mass. Femoral pulses equal.Back: Normal external inspection.Skin: Skin warm and dry. Normal skin color. No rash. Normal skin turgor.Extremities: Extremities exhibit normal ROM. No lower extremity edema. No calf tenderness. No lowerextremity edema.Neuro: Oriented X 3. No motor deficit. No sensory deficit. Reflexes normal.LABS, X- RAYS, AND EKGEKG: No acute process. No acute ischemia. Normal EKG. Normal sinus rhythm. Rate: 81/min.Normal ST and T waves. EKG unchanged when compared with prior EKG. (05-24-20). The study hasbeen interpreted contemporaneously by me. The EKG appears to be a good tracing. Interpretation time:12:16 05/24/2020.Chest X-ray: No acute disease. Views: AP (portable). The X-rays were interpreted by the radiologist.Interpretation time: 12:49 05/24/2020.Laboratory Tests: Laboratory tests have been ordered, with results reviewed and considered in themedical decision making process. CBC w Diff: (KHUSHBOO: 05/24/2020 12:10) ( MsgRcvd 05/24/2020 12:43) Final results Test Result Flag Units (Reference) 3 Clinical Report - Physicians/Mid Levels [facility] Emergency Department [address] [place] [address] Phone #: ext- [phone] 05/24/2020 12:04 Patient: HUONG RUCKER Sex: F : 1945 Age: 74y CBC W/AUTOMATED DIFF COMPLETE BLOOD COUNT WBC 9.9 10/uL (4.2 - 11.0) RBC 4.49 10/uL (4.20 - 5.40) HEMOGLOBIN 13.6 g/dL (12.0 - 16.0) HEMATOCRIT 42.8 % (37.0 - 47.0) MCV 95.3 fL (81.0 - 101) MCH 30.3 pg (27.0 - 34.0) MCHC 31.8 g/dL (31.0 - 36.0) RDW 12.1 % (11.5 - 14.5) PLATELETS 318 10/uL (150 - 450) MPV 10.3 fL (7.4 - 10.4) NEUT 65.0 % (37.0 - 80.0) LYMPH 23.9 L % (25.0 - 40.0) MONO 8.5 H % (3.0 - 8.0) EOS 1.6 % (0.0 - 7.0) BASO 0.5 % (0.0 - 2.5) %IG 0.5 H % (0.0 - 0.0) %NRBC 0.0 % (0.0 - 0.0) #NEUT 6.45 10/uL (2.00 - 6.90) #LYMPH 2.37 10/uL (0.60 - 3.40) #MONO 0.84 10/uL (0.00 - 0.90) #EOS 0.16 10/uL (0.00 - 0.70) #BASO 0.05 10/uL (0.00 - 0.20) #IG 0.05 10/uL (0.00 - 0.10) #NRBC 0.00 10/uL (0.00 - 0.00) MANUAL DIFF NOT INDICATED RBC MORPH NOT INDICATEDCMP: (KHUSHBOO: 05/24/2020 12:10) ( MsgRcvd 05/24/2020 12:57) Final results Test Result Flag Units (Reference) COMPREHENSIVE METABOLIC PANEL COMPREHENSIVE METABOLIC PANEL SODIUM 140 mEq/L (134 - 153) POTASSIUM 4.4 mEq/L (3.6 - 5.0) CHLORIDE 101 mEq/L (98 - 107) CO2 31 H MEQ/L (22 - 30) GLUCOSE 175 H MG/DL (65 - 110) BUN 22 H MG/DL (7 - 21) CREATININE 0.8 MG/DL (0.7 - 1.5) BUN/CREAT 28 H (8 - 27) TOTAL PROTEIN 7.3 G/DL (6.3 - 8.2) ALBUMIN 4.7 G/DL (3.9 - 5.0) GLOBULIN 2.6 GM/DL (2.4 - 3.2) A/G RATIO 1.8 (0.8 - 2.0) CALCIUM 9.7 MG/DL (8.4 - 10.2) TOTAL BILI <0.7 MG/DL (0.2 - 1.3) ALKALINE PHOS 95 U/L (38 - 126) SGOT/AST 19 U/L (5 - 40) SGPT/ALT 25 U/L (7 - 56) ANION GAP 8.0 mmol/L (8.0 - 16.0) AGE 74 yrs NON-AA GFR >60 mL/min AFR AMER GFR >60 Male GFR Interprentation 20-49 yrs >60 mL/min Ksjqnj70-25 yrs >56 mL/min Normal 60-69 yrs >49 mL/min Normal 70-79yrs>42 mL/min Normal 80 and above >35 mL/min Normal Female GFRInterpretation 20-39 yrs >60 mL/min Normal 40-49 yrs >58 mL/minNormal 50-59 yrs >51 mL/min Normal 60-69 yrs >45 mL/min Normal 4 Clinical Report - Physicians/Mid Levels [facility] Emergency Department [address] [place] [address] Phone #: ext- [phone] 05/24/2020 12:04 Patient: HUONG RUCKER Sex: F : 1945 Age: 74y 70-79 yrs >39 mL/min Normal 80 and above > 32 mL/min Normal Lipase: (KHUSHBOO: 05/24/2020 12:10) ( [facility] 05/24/2020 12:57) Final results Test Result Flag Units (Reference) LIPASE 27 U/L (13 - 60) PT/PTT: (KHUSHBOO: 05/24/2020 12:10) ( [facility] 05/24/2020 12:50) Final results Test Result Flag Units (Reference) PROTIME 12.2 SECONDS (11.0 - 15.5) INR 0.90 L (0.93 - 1.23) PTT 28.5 SECONDS (24.8 - 36.7) \\BLDo\\INR INTERPRETATION\\BLDx\\ Therapeutic range for Coumadin and related oral anticoagulants. -International Normalized Ratio (INR): 2.0 - 3.0 for Venous Thrombosis, Pulmonary Embolus, Tissue heart valves, Acute NC Atrial Fibrillation, Valvular heart disease and recurrent Systemic Embolism. -International Normalized Ratio (INR): 2.5 - 3.5 for Mechanical Prosthetic valve. Troponin-T: (KHUSHBOO: 05/24/2020 12:10) ( [facility] 05/24/2020 12:57) Final results Test Result Flag Units (Reference) TROPONIN T <0.01 NG/ML (0.00 - 0.10) TROPONIN T0.1 ng/ml Recommended as the clinical threshold value forTroponin T..PROGRESS AND PROCEDURESCourse of Care: 13:17 05/24/20. workup all in and reviewed and nml; pt asymptomatic in ER; probablechest wall pain but she has cardiac stent that's 10 yo; it would be prudent to keep her overnight and ruleher out; case discussed w hospitalist, DAVI Alas, who will observe overnight, pt agrees. Critical care performed (60 minutes). Time is exclusive of separately billable procedures. Time includes: direct patient care, patient reassessment, coordination of patient care, interpretation of data (laboratory data, chest xrays and prior electrocardiograms), medical consultation and documentation of patient care- see progress notes. Patient counseled in person regarding the patient's stable condition, test results, diagnosis and need for admission. Patient agrees with plan of care. Disposition: Condition: good and stable. Admit decision based on need for additional testing, monitoring, telemetry, observation and IV therapy and medications.CLINICAL IMPRESSION Precordial chest pain characterized as "discomfort"(Rule out NC). Chest wall pain. 5 Clinical Report - Physicians/Mid Levels [facility] Emergency Department [address] [place] [address] Phone #: ext- [phone] 05/24/2020 12:04 Patient: HUONG RUCKER Sex: F : 1945 Age: 74y(Electronically signed by Kiara Moody M.D. 05/24/2020 16:43) Name Value Range Interpretation Code Description Data Roz rce(s) Supporting Document(s) ID Date Data Source [id number] 05/24/2020 06:14:00 PM EST [facility] Name Value Range Interpretation Code Description Data Roz rce(s) Supporting Document(s) Hemoglobin A1c/Hemoglobin.total in Blood 6.7 % 4.4 - 6.1 H [facility] {A1]{HB] ID Date Data Source [id number] 05/24/2020 12:10:00 PM EST [facility] Name Value Range Interpretation Code Description Data Roz rce(s) Supporting Document(s) Natriuretic peptide.B prohormone N-Terminal [Mass/volu me] in Serum or Plasma 38 pg/mL 0-125 [facility] ([facility] ID Date Data Source [id number] 05/24/2020 03:31:00 PM EST [facility] Name Value Range Interpretation Code Description Data Roz rce(s) Supporting Document(s) BNP 38 PG/ML 0 - 125 [facility] ID Date Data Source [id number] 05/24/2020 12:57:00 PM [facility] Name Value Range Interpretation Code Description Data Roz rce(s) Supporting Document(s) TROPONIN T <0.01 NG/ML 0.00 - 0.10 [facility] TROPONIN T0.1 ng/ml Recommended as the c linical threshold value forTroponin T. ID Date Data Source [id number] 05/24/2020 12:57:00 PM [facility] Name Value Range Interpretation Code Description Data Roz rce(s) Supporting Document(s) COMPREHENSIVE METABOLIC PANEL [facility] COMPREHENSIVE METABOLIC PANEL Sodium [Moles/volume] in Serum or Plasma 140 mEq/L 134 - 153 [facility] Potassium [Moles/volume] in Serum or Plasma 4.4 mEq/L 3.6 - 5.0 [facility] Chloride [Moles/volume] in Serum or Plasma 101 mEq/L 98 - 107 [facility] Carbon dioxide, total [Moles/volume] in Serum or Plasma 31 MEQ/L 22 - 30 H [facility] Glucose [Mass/volume] in Serum or Plasma 175 MG/DL 65 - 110 H [facility] BUN 22 MG/DL 7 - 21 H [facility] Creatinine [Mass/volume] in Serum or Plasma 0.8 MG/DL 0.7 - 1.5 [facility] BUN/CREAT 28 8 - 27 [facility] Protein [Mass/volume] in Serum or Plasma 7.3 G/DL 6.3 - 8.2 [facility] Albumin [Mass/volume] in Serum or Plasma 4.7 G/DL 3.9 - 5.0 [facility] Globulin [Mass/volume] in Serum by calculation 2.6 GM/DL 2.4 - 3.2 [facility] A/G RATIO 1.8 0.8 - 2.0 [facility] Calcium [Mass/volume] in Serum or Plasma 9.7 MG/DL 8.4 - 10.2 [facility] Bilirubin.total [Mass/volume] in Serum or Plasma <0.7 MG/DL 0.2 - 1.3 [facility] Alkaline phosphatase [Enzymatic activity/volume] in Serum or Plasma 95 U/L 38 - 126 [facility] Aspartate aminotransferase [Enzymatic activity/volume] in Serum or Plasma 19 U/L 5 - 40 [facility] Alanine aminotransferase [Enzymatic activity/volume] in Seru m or Plasma 25 U/L 7 - 56 [facility] Anion gap 3 in Serum or Plasma 8.0 mmol/L 8.0 - 16.0 [facility] AGE 74 yrs [facility] al NON-AA GFR >60 mL/min [facility] ital AFR AMER GFR >60 [facility] Male GFR In terprentation 20-49 yrs >60 mL/min Normal 50-59 yrs >56 mL/min Normal 60-69 yrs >49 mL/min Normal 70-79yrs >42 mL/min Normal 80 and above >35 mL/min Normal Female GFR Interpretation 20-39 yrs >60 mL/min Normal 40-49 yrs >58 mL/min Normal 50-59 yrs >51 mL/min Normal 60-69 yrs >45 mL/min Normal 70-79 yrs >39 mL/min Normal 80 and above >32 mL/min Normal ID Date Data Source [id number] 05/24/2020 12:57:00 PM [facility] Name Value Range Interpretation Code Description Data Roz rce(s) Supporting Document(s) Lipase [Enzymatic activity/volume] in Serum or Plasma 27 U/L 13 - 60 [facility] ID Date Data Source [id number] 05/24/2020 12:50:00 PM [facility] Name Value Range Interpretation Code Description Data Roz rce(s) Supporting Document(s) Prothrombin time (PT) 12.2 SECONDS 11.0 - 15.5 [facility] INR in Platelet poor plasma by Coagulation assay 0.90 0.93 - 1. 23 L [facility] aPTT in Blood by Coagulation assay 28.5 SECONDS 24.8 - 36.7 [facility] \\BLDo\\INR INTERPRETATION\\BLDx\\ Therapeutic range for Coumadin and related oral anticoagulants. - International Normalized Ratio (INR): 2.0 - 3.0 for Venous Thrombosis, Pulmonary Embolus, Tissue heart valves, Acute NC Atrial Fibrillation, Valvular heart disease and recurrent Systemic Embolism. - International Normalized Ratio (INR): 2.5 - 3.5 for Mechanical Prosthetic valve. ID Date Data Source [id number] 05/24/2020 12:43:00 PM EST [facility] Name Value Range Interpretation Code Description Data Roz rce(s) Supporting Document(s) CBC W/AUTOMATED DIFF [facility] COMPLETE BLOOD COUNT Leukocytes [#/volume] in Blood by Automated count 9.9 10^3/uL 4.2 - 1 1.0 [facility] Erythrocytes [#/volume] in Blood by Automated count 4.49 10^6/uL 4. 20 - 5.40 [facility] Hemoglobin [Mass/volume] in Blood 13.6 g/dL 12.0 - 16.0 [facility] Hematocrit [Volume Fraction] of Blood by Automated count 42.8 % 3 7.0 - 47.0 [facility] Erythrocyte mean corpuscular volume [Entitic volume] by Auto mated count 95.3 fL 81.0 - 101 [facility] Erythrocyte mean corpuscular hemoglobin [Entitic mass] by Automated count 30.3 pg 27.0 - 34.0 [facility] Erythrocyte mean corpuscular hemoglobin concentration [Mass/volume] by Automated count 31.8 g/dL 31.0 - 36.0 [facility] Erythrocyte distribution width [Ratio] by Automated count 12.1 % 11.5 - 14.5 [facility] Platelets [#/volume] in Blood by Automated count 318 10^3/uL 150 - 45 0 [facility] Platelet mean volume [Entitic volume] in Blood by Automated count 10.3 fL 7.4 - 10.4 [facility] Neutrophils/100 leukocytes in Blood by Automated count 65.0 % 37. 0 - 80.0 [facility] Lymphocytes/100 leukocytes in Blood by Manual count 23.9 % 25.0 - 40.0 L [facility] Monocytes/100 leukocytes in Blood by Automated count 8.5 % 3.0 - 8.0 H [facility] Eosinophils/100 leukocytes in Blood by Automated count 1.6 % 0.0 - 7.0 [facility] Basophils/100 leukocytes in Blood by Automated count 0.5 % 0.0 - 2.5 [facility] %IG 0.5 % 0.0 - 0.0 H [facility] %NRBC 0.0 % 0.0 - 0.0 [facility] Neutrophils [#/volume] in Blood by Automated count 6.45 10^3/uL 2.00 - 6.90 [facility] Lymphocytes [#/volume] in Blood by Automated count 2.37 10^3/uL 0.60 - 3.40 [facility] Monocytes [#/volume] in Blood by Automated count 0.84 10^3/uL 0.00 - 0.90 [facility] Eosinophils [#/volume] in Blood by Automated count 0.16 10^3/uL 0.00 - 0.70 [facility] Basophils [#/volume] in Blood by Automated count 0.05 10^3/uL 0.00 - 0.20 [facility] #IG 0.05 10^3/uL 0.00 - 0.10 [facility] ospital #NRBC 0.00 10^3/uL 0.00 - 0.00 [facility] MANUAL DIFF NOT INDICATED [facility] RBC MORPH NOT INDICATED [facility] spital ID Date Data Source [id number] 05/24/2020 12:10:00 PM EST [facility] ([facility] Name Value Range Interpretation Code Description Data Roz rce(s) Supporting Document(s) Troponin T.cardiac [Mass/volume] in Serum or Plasma Laborato ry test result 0.00-0.10 [facility] TROPONIN T 0.1 ng/ml Recommended as the clinical th reshold value for Troponin T. ID Date Data Source [id number] 05/24/2020 12:10:00 PM EST [facility] ([facility] Name Value Range Interpretation Code Description Data Roz rce(s) Supporting Document(s) Chloride 101 meq/L 98-107 [facility] ([facility] Comprehensive [facility] Laboratory test result [facility] ([facility] COMPREHENSIVE METABOLIC PANEL Potassium 4.4 meq/L 3.6-5.0 [facility] ([facility] Sodium 140 meq/L 134-153 [facility] ([facility] Glucose 175 mg/dL 65-110 Above high normal [facility] ([facility] BUN 22 mg/dL 7-21 Above high normal [facility] ([facility] Co2 31 meq/L 22-30 Above high normal [facility] ([facility] Total Protein 7.3 g/dL 6.3-8.2 [facility] ([facility] Albumin 4.7 g/dL 3.9-5.0 [facility] ([facility] Creatinine 0.8 mg/dL 0.7-1.5 [facility] ([facility] BUN/Creat 28 8-27 Above high normal [facility] ([facility] A/G Ratio 1.8 0.8-2.0 [facility] ([facility] Globulin 2.6 GM/DL 2.4-3.2 [facility] ([facility] Calcium 9.7 mg/dL 8.4-10.2 [facility] ([facility] Total Bili Laboratory test result 0.2-1.3 ME DENT ([facility] SGPT/Alt 25 U/L 7-56 [facility] Sgot/Ast 19 U/L 5-40 [facility] Alkaline Phos 95 U/L 38-126 [facility] Anion Gap 8.0 mmol/L 8.0-16.0 [facility] Age 74 yrs [facility] ([facility] Non-Aa GFR Laboratory test result ME [facility] ([facility] Afr Amer GFR Laboratory test result [facility] ([facility] Male GFR Interprentation 20-49 yrs >60 mL/min Normal 50-59 yrs >56 mL/min Normal 60-69 yrs >49 mL/min Normal 70-79yrs >42 mL/min Normal 80 and above >35 mL/min Normal Female GFR Interpretation 20-39 yrs >60 mL/min Normal 40-49 yrs >58 mL/min Normal 50-59 yrs >51 mL/min Normal 60-69 yrs >45 mL/min Normal 70-79 yrs >39 mL/min Normal 80 and above >32 mL/min Normal ID Date Data Source [id number] 05/24/2020 12:10:00 PM EST [facility] ([facility] Name Value Range Interpretation Code Description Data Roz rce(s) Supporting Document(s) Lipoprotein lipase [Enzymatic activity/volume] in Serum or Plasm a 27 U/L 13-60 [facility] ([facility] ) ID Date Data Source [id number] 05/24/2020 12:10:00 PM EST [facility] ([facility] Name Value Range Interpretation Code Description Data Roz rce(s) Supporting Document(s) Inr 0.90 0.93-1.23 Below low normal [facility] ( [facility] Protime 12.2 s 11.0-15.5 [facility] PTT 28.5 s 24.8-36.7 [facility] ([facility] \\BLDo\\INR INTERPRETATION\\BLDx\\ Therapeutic range for Coumadin and related oral anticoagulants. -International Normalized Ratio (INR): 2 .0 - 3.0 for Venous Thrombosis, Pulmonary Embolus, Tissue heart valves, Acute NC Atrial Fibrillation, Valvular heart disease and recurrent Systemic Embolism. -International Normalized Ratio (INR): 2 .5 - 3.5 for Mechanical Prosthetic valve. ID Date Data Source [id number] 05/24/2020 12:10:00 PM EST [facility] ([facility] Name Value Range Interpretation Code Description Data Roz rce(s) Supporting Document(s) CBC W/Automated Diff Laboratory test result [facility] ([facility] COMPLETE BLOOD COUNT WBC 9.9 10^3/uL 4.2-11.0 [facility] Hematocrit 42.8 % 37.0-47.0 [facility] ([facility] Hemoglobin 13.6 g/dL 12.0-16.0 [facility] RBC 4.49 10^6/uL 4.20-5.40 [facility] ([facility] MCV 95.3 fL 81.0-101 [facility] ([facility] MCH 30.3 pg 27.0-34.0 [facility] RDW 12.1 % 11.5-14.5 [facility] ([facility] MCHC 31.8 g/dL 31.0-36.0 [facility] Neut 65.0 % 37.0-80.0 [facility] MPV 10.3 fL 7.4-10.4 [facility] Platelets 318 10^3/uL 150-450 [facility] Lymph 23.9 % 25.0-40.0 Below low normal [facility] ( [facility] [place] 8.5 % 3.0-8.0 Above high normal [facility] ([facility] Baso 0.5 % 0.0-2.5 [facility] ([facility] Eos 1.6 % 0.0-7.0 [facility] ([facility] %Ig 0.5 % 0.0-0.0 Above high normal [facility] #Neut 6.45 10^3/uL 2.00-6.90 [facility] ([facility] %NRBC 0.0 % 0.0-0.0 [facility] ([facility] #Lymph 2.37 10^3/uL 0.60-3.40 [facility] #[place] 0.84 10^3/uL 0.00-0.90 [facility] ([facility] #Eos 0.16 10^3/uL 0.00-0.70 [facility] ([facility] #Baso 0.05 10^3/uL 0.00-0.20 [facility] ([facility] #NRBC 0.00 10^3/uL 0.00-0.00 [facility] ([facility] Manual Diff Laboratory test result M EDENT ([facility] #Ig 0.05 10^3/uL 0.00-0.10 [facility] ([facility] RBC Morph Laboratory test result ME [facility] ([facility] ID Date Data Source [id number] 05/24/2020 06:37:00 PM EST [facility] Name Value Range Interpretation Code Description Data Roz rce(s) Supporting Document(s) [facility] Cholesterol [Mass/volume] in Serum or Plasma 165 MG/DL 131 - 200 [facility] Deprecated Triglyceride [Mass/volume] in Serum or Plasma 161 MG/DL 3 5 - 160 H [facility] HDL 68 MG/DL 29 - 86 [facility] Cholesterol in LDL [Mass/volume] in Serum or Plasma by Direc t assay 73 mg/dL 65 - 175 [facility] Cholesterol.total/Cholesterol in HDL [Mass Ratio] in Serum o r Plasma 2.4 3.2 - 4.4 L [facility] LDL/HDL 1.07 1.47 - 3.22 L [facility] CVE RISK CHOL/HDL LDL/HDLMEN: 1/2 AVERAGE 3.43 1.00 AVERAGE 4.97 3.55 2X AVERAGE 9.55 6.25 3X AVERAGE 23.99 7.99WOMEN: 1/2 AVERAGE 3.27 1.47 AVERAGE 4.44 3.22 2X AVERAGE 7.05 5.03 3X AVERAGE 11.04 6.14 ID Date Data Source [id number] 05/08/2020 03:25:00 PM EST [facility] ([facility] Name Value Range Interpretation Code Description Data Roz rce(s) Supporting Document(s) WBC 10.6 10E3/uL 4.1-10.9 [facility] ([facility] NORMAL RANGES Age WBC RBC HGB HCT MCV PLT Adult M 4.1-10.9 4.20-6.30 12.0-18.0 37.0-51.0 80-97 140-440 Adult F 4.1-10.9 4.04-5.48 12.0-18.0 37.0-51.0 80-97 140-440 0 -1 Yr 5.0-20.0 3.9-5.9 15-18 MV: 44 MV: 91 MV: 277 2-9 Yr. 6.0-17.0 3.8-5.4 11-13 MV: 37 MV: 78 MV: 300 10 Yrs. 5.0-13.0 3.8-5.4 12-15 MV: 39 MV: 80 MV: 250 NOTE: * FOR ADULT BLACK MALES AND FEMALES, NORMAL WBC IS 2.9-7.7 K/ML * FOR ADULT BLACK MALES AND FEMALES, NORMAL RBC,HGB, AND HCT IS 5% LESS SOURCE FOR DATA: [employer] DYN 1800 OPERATION MANUAL( AUTOMATED BLOOD COUNTS AND DIFF.) APPENDIX B-3 CHRONIC KIDNEY DISEASE STAGING PER NKF: MALE GFR INTERPRETATION: 20-49 YRS: >60 mL/min Normal 50-59 YRS: >56 mL/min Normal 60-69 YRS: >49 mL/min Normal 70-79 YRS: >42 mL/min Normal 80 and above >35 mL/min Normal FEMALE GRF INTERPRETATION: 20-39 YRS: >60 mL/min Normal 40-49 YRS: >58 mL/min Normal 50-59 YRS: >51 mL/min Normal 60-69 YRS: >45 mL/min Normal 70-79 YRS: >39 mL/min Normal 80 and above >32 mL/min Normal HCT 39.4 % 37.0-51.0 [facility] NORMAL RANGES Age WBC RBC HGB HCT MCV PLT Adult M 4.1-10.9 4.20-6.30 12.0-18.0 37.0-51.0 80-97 140-440 Adult F 4.1-10.9 4.04-5.48 12.0-18.0 37.0-51.0 80-97 140-440 0 -1 Yr 5.0-20.0 3.9-5.9 15-18 MV: 44 MV: 91 MV: 277 2-9 Yr. 6.0-17.0 3.8-5.4 11-13 MV: 37 MV: 78 MV: 300 10 Yrs. 5.0-13.0 3.8-5.4 12-15 MV: 39 MV: 80 MV: 250 NOTE: * FOR ADULT BLACK MALES AND FEMALES, NORMAL WBC IS 2.9-7.7 K/ML * FOR ADULT BLACK MALES AND FEMALES, NORMAL RBC,HGB, AND HCT IS 5% LESS SOURCE FOR DATA: [employer] 1800 OPERATION MANUAL( AUTOMATED BLOOD COUNTS AND DIFF.) APPENDIX B-3 CHRONIC KIDNEY DISEASE STAGING PER NKF: MALE GFR INTERPRETATION: 20-49 YRS: >60 mL/min Normal 50-59 YRS: >56 mL/min Normal 60-69 YRS: >49 mL/min Normal 70-79 YRS: >42 mL/min Normal 80 and above >35 mL/min Normal FEMALE GRF INTERPRETATION: 20-39 YRS: >60 mL/min Normal 40-49 YRS: >58 mL/min Normal 50-59 YRS: >51 mL/min Normal 60-69 YRS: >45 mL/min Normal 70-79 YRS: >39 mL/min Normal 80 and above >32 mL/min Normal RBC 4.09 10E6/uL 4.20-6.30 Below low normal [facility] NORMAL RANGES Age WBC RBC HGB HCT MCV PLT Adult M 4.1-10.9 4.20-6.30 12.0-18.0 37.0-51.0 80-97 140-440 Adult F 4.1-10.9 4.04-5.48 12.0-18.0 37.0-51.0 80-97 140-440 0 -1 Yr 5.0-20.0 3.9-5.9 15-18 MV: 44 MV: 91 MV: 277 2-9 Yr. 6.0-17.0 3.8-5.4 11-13 MV: 37 MV: 78 MV: 300 10 Yrs. 5.0-13.0 3.8-5.4 12-15 MV: 39 MV: 80 MV: 250 NOTE: * FOR ADULT BLACK MALES AND FEMALES, NORMAL WBC IS 2.9-7.7 K/ML * FOR ADULT BLACK MALES AND FEMALES, NORMAL RBC,HGB, AND HCT IS 5% LESS SOURCE FOR DATA: [employer] 1800 OPERATION MANUAL( AUTOMATED BLOOD COUNTS AND DIFF.) APPENDIX B-3 CHRONIC KIDNEY DISEASE STAGING PER NKF: MALE GFR INTERPRETATION: 20-49 YRS: >60 mL/min Normal 50-59 YRS: >56 mL/min Normal 60-69 YRS: >49 mL/min Normal 70-79 YRS: >42 mL/min Normal 80 and above >35 mL/min Normal FEMALE GRF INTERPRETATION: 20-39 YRS: >60 mL/min Normal 40-49 YRS: >58 mL/min Normal 50-59 YRS: >51 mL/min Normal 60-69 YRS: >45 mL/min Normal 70-79 YRS: >39 mL/min Normal 80 and above >32 mL/min Normal HGB 12.5 g/dL 12.0-18.0 [facility] NORMAL RANGES Age WBC RBC HGB HCT MCV PLT Adult M 4.1-10.9 4.20-6.30 12.0-18.0 37.0-51.0 80-97 140-440 Adult F 4.1-10.9 4.04-5.48 12.0-18.0 37.0-51.0 80-97 140-440 0 -1 Yr 5.0-20.0 3.9-5.9 15-18 MV: 44 MV: 91 MV: 277 2-9 Yr. 6.0-17.0 3.8-5.4 11-13 MV: 37 MV: 78 MV: 300 10 Yrs. 5.0-13.0 3.8-5.4 12-15 MV: 39 MV: 80 MV: 250 NOTE: * FOR ADULT BLACK MALES AND FEMALES, NORMAL WBC IS 2.9-7.7 K/ML * FOR ADULT BLACK MALES AND FEMALES, NORMAL RBC,HGB, AND HCT IS 5% LESS SOURCE FOR DATA: [employer] 1800 OPERATION MANUAL( AUTOMATED BLOOD COUNTS AND DIFF.) APPENDIX B-3 CHRONIC KIDNEY DISEASE STAGING PER NKF: MALE GFR INTERPRETATION: 20-49 YRS: >60 mL/min Normal 50-59 YRS: >56 mL/min Normal 60-69 YRS: >49 mL/min Normal 70-79 YRS: >42 mL/min Normal 80 and above >35 mL/min Normal FEMALE GRF INTERPRETATION: 20-39 YRS: >60 mL/min Normal 40-49 YRS: >58 mL/min Normal 50-59 YRS: >51 mL/min Normal 60-69 YRS: >45 mL/min Normal 70-79 YRS: >39 mL/min Normal 80 and above >32 mL/min Normal MCV 96.3 fL 80.0-97.0 [facility] ([facility] NORMAL RANGES Age WBC RBC HGB HCT MCV PLT Adult M 4.1-10.9 4.20-6.30 12.0-18.0 37.0-51.0 80-97 140-440 Adult F 4.1-10.9 4.04-5.48 12.0-18.0 37.0-51.0 80-97 140-440 0 -1 Yr 5.0-20.0 3.9-5.9 15-18 MV: 44 MV: 91 MV: 277 2-9 Yr. 6.0-17.0 3.8-5.4 11-13 MV: 37 MV: 78 MV: 300 10 Yrs. 5.0-13.0 3.8-5.4 12-15 MV: 39 MV: 80 MV: 250 NOTE: * FOR ADULT BLACK MALES AND FEMALES, NORMAL WBC IS 2.9-7.7 K/ML * FOR ADULT BLACK MALES AND FEMALES, NORMAL RBC,HGB, AND HCT IS 5% LESS SOURCE FOR DATA: [employer] 1800 OPERATION MANUAL( AUTOMATED BLOOD COUNTS AND DIFF.) APPENDIX B-3 CHRONIC KIDNEY DISEASE STAGING PER NKF: MALE GFR INTERPRETATION: 20-49 YRS: >60 mL/min Normal 50-59 YRS: >56 mL/min Normal 60-69 YRS: >49 mL/min Normal 70-79 YRS: >42 mL/min Normal 80 and above >35 mL/min Normal FEMALE GRF INTERPRETATION: 20-39 YRS: >60 mL/min Normal 40-49 YRS: >58 mL/min Normal 50-59 YRS: >51 mL/min Normal 60-69 YRS: >45 mL/min Normal 70-79 YRS: >39 mL/min Normal 80 and above >32 mL/min Normal MCH 30.6 pg 26.0-32.0 [facility] ([facility] NORMAL RANGES Age WBC RBC HGB HCT MCV PLT Adult M 4.1-10.9 4.20-6.30 12.0-18.0 37.0-51.0 80-97 140-440 Adult F 4.1-10.9 4.04-5.48 12.0-18.0 37.0-51.0 80-97 140-440 0 -1 Yr 5.0-20.0 3.9-5.9 15-18 MV: 44 MV: 91 MV: 277 2-9 Yr. 6.0-17.0 3.8-5.4 11-13 MV: 37 MV: 78 MV: 300 10 Yrs. 5.0-13.0 3.8-5.4 12-15 MV: 39 MV: 80 MV: 250 NOTE: * FOR ADULT BLACK MALES AND FEMALES, NORMAL WBC IS 2.9-7.7 K/ML * FOR ADULT BLACK MALES AND FEMALES, NORMAL RBC,HGB, AND HCT IS 5% LESS SOURCE FOR DATA: [employer] 1800 OPERATION MANUAL( AUTOMATED BLOOD COUNTS AND DIFF.) APPENDIX B-3 CHRONIC KIDNEY DISEASE STAGING PER NKF: MALE GFR INTERPRETATION: 20-49 YRS: >60 mL/min Normal 50-59 YRS: >56 mL/min Normal 60-69 YRS: >49 mL/min Normal 70-79 YRS: >42 mL/min Normal 80 and above >35 mL/min Normal FEMALE GRF INTERPRETATION: 20-39 YRS: >60 mL/min Normal 40-49 YRS: >58 mL/min Normal 50-59 YRS: >51 mL/min Normal 60-69 YRS: >45 mL/min Normal 70-79 YRS: >39 mL/min Normal 80 and above >32 mL/min Normal RDW-CV 12.2 % 11.5-14.5 [facility] ([facility] NORMAL RANGES Age WBC RBC HGB HCT MCV PLT Adult M 4.1-10.9 4.20-6.30 12.0-18.0 37.0-51.0 80-97 140-440 Adult F 4.1-10.9 4.04-5.48 12.0-18.0 37.0-51.0 80-97 140-440 0 -1 Yr 5.0-20.0 3.9-5.9 15-18 MV: 44 MV: 91 MV: 277 2-9 Yr. 6.0-17.0 3.8-5.4 11-13 MV: 37 MV: 78 MV: 300 10 Yrs. 5.0-13.0 3.8-5.4 12-15 MV: 39 MV: 80 MV: 250 NOTE: * FOR ADULT BLACK MALES AND FEMALES, NORMAL WBC IS 2.9-7.7 K/ML * FOR ADULT BLACK MALES AND FEMALES, NORMAL RBC,HGB, AND HCT IS 5% LESS SOURCE FOR DATA: [employer] 1800 OPERATION MANUAL( AUTOMATED BLOOD COUNTS AND DIFF.) APPENDIX B-3 CHRONIC KIDNEY DISEASE STAGING PER NKF: MALE GFR INTERPRETATION: 20-49 YRS: >60 mL/min Normal 50-59 YRS: >56 mL/min Normal 60-69 YRS: >49 mL/min Normal 70-79 YRS: >42 mL/min Normal 80 and above >35 mL/min Normal FEMALE GRF INTERPRETATION: 20-39 YRS: >60 mL/min Normal 40-49 YRS: >58 mL/min Normal 50-59 YRS: >51 mL/min Normal 60-69 YRS: >45 mL/min Normal 70-79 YRS: >39 mL/min Normal 80 and above >32 mL/min Normal MCHC 31.7 g/dL 31.0-36.0 [facility] ([facility] NORMAL RANGES Age WBC RBC HGB HCT MCV PLT Adult M 4.1-10.9 4.20-6.30 12.0-18.0 37.0-51.0 80-97 140-440 Adult F 4.1-10.9 4.04-5.48 12.0-18.0 37.0-51.0 80-97 140-440 0 -1 Yr 5.0-20.0 3.9-5.9 15-18 MV: 44 MV: 91 MV: 277 2-9 Yr. 6.0-17.0 3.8-5.4 11-13 MV: 37 MV: 78 MV: 300 10 Yrs. 5.0-13.0 3.8-5.4 12-15 MV: 39 MV: 80 MV: 250 NOTE: * FOR ADULT BLACK MALES AND FEMALES, NORMAL WBC IS 2.9-7.7 K/ML * FOR ADULT BLACK MALES AND FEMALES, NORMAL RBC,HGB, AND HCT IS 5% LESS SOURCE FOR DATA: [employer] 1800 OPERATION MANUAL( AUTOMATED BLOOD COUNTS AND DIFF.) APPENDIX B-3 CHRONIC KIDNEY DISEASE STAGING PER NKF: MALE GFR INTERPRETATION: 20-49 YRS: >60 mL/min Normal 50-59 YRS: >56 mL/min Normal 60-69 YRS: >49 mL/min Normal 70-79 YRS: >42 mL/min Normal 80 and above >35 mL/min Normal FEMALE GRF INTERPRETATION: 20-39 YRS: >60 mL/min Normal 40-49 YRS: >58 mL/min Normal 50-59 YRS: >51 mL/min Normal 60-69 YRS: >45 mL/min Normal 70-79 YRS: >39 mL/min Normal 80 and above >32 mL/min Normal PLT 231 10E3/uL 140-440 [facility] ([facility] NORMAL RANGES Age WBC RBC HGB HCT MCV PLT Adult M 4.1-10.9 4.20-6.30 12.0-18.0 37.0-51.0 80-97 140-440 Adult F 4.1-10.9 4.04-5.48 12.0-18.0 37.0-51.0 80-97 140-440 0 -1 Yr 5.0-20.0 3.9-5.9 15-18 MV: 44 MV: 91 MV: 277 2-9 Yr. 6.0-17.0 3.8-5.4 11-13 MV: 37 MV: 78 MV: 300 10 Yrs. 5.0-13.0 3.8-5.4 12-15 MV: 39 MV: 80 MV: 250 NOTE: * FOR ADULT BLACK MALES AND FEMALES, NORMAL WBC IS 2.9-7.7 K/ML * FOR ADULT BLACK MALES AND FEMALES, NORMAL RBC,HGB, AND HCT IS 5% LESS SOURCE FOR DATA: [employer] 1800 OPERATION MANUAL( AUTOMATED BLOOD COUNTS AND DIFF.) APPENDIX B-3 CHRONIC KIDNEY DISEASE STAGING PER NKF: MALE GFR INTERPRETATION: 20-49 YRS: >60 mL/min Normal 50-59 YRS: >56 mL/min Normal 60-69 YRS: >49 mL/min Normal 70-79 YRS: >42 mL/min Normal 80 and above >35 mL/min Normal FEMALE GRF INTERPRETATION: 20-39 YRS: >60 mL/min Normal 40-49 YRS: >58 mL/min Normal 50-59 YRS: >51 mL/min Normal 60-69 YRS: >45 mL/min Normal 70-79 YRS: >39 mL/min Normal 80 and above >32 mL/min Normal Lym% 18.8 % 10.0-58.5 [facility] ([facility] NORMAL RANGES Age WBC RBC HGB HCT MCV PLT Adult M 4.1-10.9 4.20-6.30 12.0-18.0 37.0-51.0 80-97 140-440 Adult F 4.1-10.9 4.04-5.48 12.0-18.0 37.0-51.0 80-97 140-440 0 -1 Yr 5.0-20.0 3.9-5.9 15-18 MV: 44 MV: 91 MV: 277 2-9 Yr. 6.0-17.0 3.8-5.4 11-13 MV: 37 MV: 78 MV: 300 10 Yrs. 5.0-13.0 3.8-5.4 12-15 MV: 39 MV: 80 MV: 250 NOTE: * FOR ADULT BLACK MALES AND FEMALES, NORMAL WBC IS 2.9-7.7 K/ML * FOR ADULT BLACK MALES AND FEMALES, NORMAL RBC,HGB, AND HCT IS 5% LESS SOURCE FOR DATA: [employer]EL[employer] DYN 1800 OPERATION MANUAL( AUTOMATED BLOOD COUNTS AND DIFF.) APPENDIX B-3 CHRONIC KIDNEY DISEASE STAGING PER NKF: MALE GFR INTERPRETATION: 20-49 YRS: >60 mL/min Normal 50-59 YRS: >56 mL/min Normal 60-69 YRS: >49 mL/min Normal 70-79 YRS: >42 mL/min Normal 80 and above >35 mL/min Normal FEMALE GRF INTERPRETATION: 20-39 YRS: >60 mL/min Normal 40-49 YRS: >58 mL/min Normal 50-59 YRS: >51 mL/min Normal 60-69 YRS: >45 mL/min Normal 70-79 YRS: >39 mL/min Normal 80 and above >32 mL/min Normal Neut% 73.2 % 37.0-92.0 [facility] ([facility] NORMAL RANGES Age WBC RBC HGB HCT MCV PLT Adult M 4.1-10.9 4.20-6.30 12.0-18.0 37.0-51.0 80-97 140-440 Adult F 4.1-10.9 4.04-5.48 12.0-18.0 37.0-51.0 80-97 140-440 0 -1 Yr 5.0-20.0 3.9-5.9 15-18 MV: 44 MV: 91 MV: 277 2-9 Yr. 6.0-17.0 3.8-5.4 11-13 MV: 37 MV: 78 MV: 300 10 Yrs. 5.0-13.0 3.8-5.4 12-15 MV: 39 MV: 80 MV: 250 NOTE: * FOR ADULT BLACK MALES AND FEMALES, NORMAL WBC IS 2.9-7.7 K/ML * FOR ADULT BLACK MALES AND FEMALES, NORMAL RBC,HGB, AND HCT IS 5% LESS SOURCE FOR DATA: [employer] 1800 OPERATION MANUAL( AUTOMATED BLOOD COUNTS AND DIFF.) APPENDIX B-3 CHRONIC KIDNEY DISEASE STAGING PER NKF: MALE GFR INTERPRETATION: 20-49 YRS: >60 mL/min Normal 50-59 YRS: >56 mL/min Normal 60-69 YRS: >49 mL/min Normal 70-79 YRS: >42 mL/min Normal 80 and above >35 mL/min Normal FEMALE GRF INTERPRETATION: 20-39 YRS: >60 mL/min Normal 40-49 YRS: >58 mL/min Normal 50-59 YRS: >51 mL/min Normal 60-69 YRS: >45 mL/min Normal 70-79 YRS: >39 mL/min Normal 80 and above >32 mL/min Normal MXD% 8.0 % 0.1-24.0 [facility] ([facility] NORMAL RANGES Age WBC RBC HGB HCT MCV PLT Adult M 4.1-10.9 4.20-6.30 12.0-18.0 37.0-51.0 80-97 140-440 Adult F 4.1-10.9 4.04-5.48 12.0-18.0 37.0-51.0 80-97 140-440 0 -1 Yr 5.0-20.0 3.9-5.9 15-18 MV: 44 MV: 91 MV: 277 2-9 Yr. 6.0-17.0 3.8-5.4 11-13 MV: 37 MV: 78 MV: 300 10 Yrs. 5.0-13.0 3.8-5.4 12-15 MV: 39 MV: 80 MV: 250 NOTE: * FOR ADULT BLACK MALES AND FEMALES, NORMAL WBC IS 2.9-7.7 K/ML * FOR ADULT BLACK MALES AND FEMALES, NORMAL RBC,HGB, AND HCT IS 5% LESS SOURCE FOR DATA: [employer] 1800 OPERATION MANUAL( AUTOMATED BLOOD COUNTS AND DIFF.) APPENDIX B-3 CHRONIC KIDNEY DISEASE STAGING PER NKF: MALE GFR INTERPRETATION: 20-49 YRS: >60 mL/min Normal 50-59 YRS: >56 mL/min Normal 60-69 YRS: >49 mL/min Normal 70-79 YRS: >42 mL/min Normal 80 and above >35 mL/min Normal FEMALE GRF INTERPRETATION: 20-39 YRS: >60 mL/min Normal 40-49 YRS: >58 mL/min Normal 50-59 YRS: >51 mL/min Normal 60-69 YRS: >45 mL/min Normal 70-79 YRS: >39 mL/min Normal 80 and above >32 mL/min Normal Lym# 2.0 10E3/uL 0.6-4.1 [facility] ([facility] NORMAL RANGES Age WBC RBC HGB HCT MCV PLT Adult M 4.1-10.9 4.20-6.30 12.0-18.0 37.0-51.0 80-97 140-440 Adult F 4.1-10.9 4.04-5.48 12.0-18.0 37.0-51.0 80-97 140-440 0 -1 Yr 5.0-20.0 3.9-5.9 15-18 MV: 44 MV: 91 MV: 277 2-9 Yr. 6.0-17.0 3.8-5.4 11-13 MV: 37 MV: 78 MV: 300 10 Yrs. 5.0-13.0 3.8-5.4 12-15 MV: 39 MV: 80 MV: 250 NOTE: * FOR ADULT BLACK MALES AND FEMALES, NORMAL WBC IS 2.9-7.7 K/ML * FOR ADULT BLACK MALES AND FEMALES, NORMAL RBC,HGB, AND HCT IS 5% LESS SOURCE FOR DATA: [employer] 1800 OPERATION MANUAL( AUTOMATED BLOOD COUNTS AND DIFF.) APPENDIX B-3 CHRONIC KIDNEY DISEASE STAGING PER NKF: MALE GFR INTERPRETATION: 20-49 YRS: >60 mL/min Normal 50-59 YRS: >56 mL/min Normal 60-69 YRS: >49 mL/min Normal 70-79 YRS: >42 mL/min Normal 80 and above >35 mL/min Normal FEMALE GRF INTERPRETATION: 20-39 YRS: >60 mL/min Normal 40-49 YRS: >58 mL/min Normal 50-59 YRS: >51 mL/min Normal 60-69 YRS: >45 mL/min Normal 70-79 YRS: >39 mL/min Normal 80 and above >32 mL/min Normal Neut# 7.8 % 2.0-7.8 [facility] ([facility] NORMAL RANGES Age WBC RBC HGB HCT MCV PLT Adult M 4.1-10.9 4.20-6.30 12.0-18.0 37.0-51.0 80-97 140-440 Adult F 4.1-10.9 4.04-5.48 12.0-18.0 37.0-51.0 80-97 140-440 0 -1 Yr 5.0-20.0 3.9-5.9 15-18 MV: 44 MV: 91 MV: 277 2-9 Yr. 6.0-17.0 3.8-5.4 11-13 MV: 37 MV: 78 MV: 300 10 Yrs. 5.0-13.0 3.8-5.4 12-15 MV: 39 MV: 80 MV: 250 NOTE: * FOR ADULT BLACK MALES AND FEMALES, NORMAL WBC IS 2.9-7.7 K/ML * FOR ADULT BLACK MALES AND FEMALES, NORMAL RBC,HGB, AND HCT IS 5% LESS SOURCE FOR DATA: [employer] 1800 OPERATION MANUAL( AUTOMATED BLOOD COUNTS AND DIFF.) APPENDIX B-3 CHRONIC KIDNEY DISEASE STAGING PER NKF: MALE GFR INTERPRETATION: 20-49 YRS: >60 mL/min Normal 50-59 YRS: >56 mL/min Normal 60-69 YRS: >49 mL/min Normal 70-79 YRS: >42 mL/min Normal 80 and above >35 mL/min Normal FEMALE GRF INTERPRETATION: 20-39 YRS: >60 mL/min Normal 40-49 YRS: >58 mL/min Normal 50-59 YRS: >51 mL/min Normal 60-69 YRS: >45 mL/min Normal 70-79 YRS: >39 mL/min Normal 80 and above >32 mL/min Normal MXD# 0.8 10E3/uL 0.0-1.8 [facility] ([facility] NORMAL RANGES Age WBC RBC HGB HCT MCV PLT Adult M 4.1-10.9 4.20-6.30 12.0-18.0 37.0-51.0 80-97 140-440 Adult F 4.1-10.9 4.04-5.48 12.0-18.0 37.0-51.0 80-97 140-440 0 -1 Yr 5.0-20.0 3.9-5.9 15-18 MV: 44 MV: 91 MV: 277 2-9 Yr. 6.0-17.0 3.8-5.4 11-13 MV: 37 MV: 78 MV: 300 10 Yrs. 5.0-13.0 3.8-5.4 12-15 MV: 39 MV: 80 MV: 250 NOTE: * FOR ADULT BLACK MALES AND FEMALES, NORMAL WBC IS 2.9-7.7 K/ML * FOR ADULT BLACK MALES AND FEMALES, NORMAL RBC,HGB, AND HCT IS 5% LESS SOURCE FOR DATA: [employer] 1800 OPERATION MANUAL( AUTOMATED BLOOD COUNTS AND DIFF.) APPENDIX B-3 CHRONIC KIDNEY DISEASE STAGING PER NKF: MALE GFR INTERPRETATION: 20-49 YRS: >60 mL/min Normal 50-59 YRS: >56 mL/min Normal 60-69 YRS: >49 mL/min Normal 70-79 YRS: >42 mL/min Normal 80 and above >35 mL/min Normal FEMALE GRF INTERPRETATION: 20-39 YRS: >60 mL/min Normal 40-49 YRS: >58 mL/min Normal 50-59 YRS: >51 mL/min Normal 60-69 YRS: >45 mL/min Normal 70-79 YRS: >39 mL/min Normal 80 and above >32 mL/min Normal MPV 10.8 fL 9.0-13.0 [facility] ([facility] NORMAL RANGES Age WBC RBC HGB HCT MCV PLT Adult M 4.1-10.9 4.20-6.30 12.0-18.0 37.0-51.0 80-97 140-440 Adult F 4.1-10.9 4.04-5.48 12.0-18.0 37.0-51.0 80-97 140-440 0 -1 Yr 5.0-20.0 3.9-5.9 15-18 MV: 44 MV: 91 MV: 277 2-9 Yr. 6.0-17.0 3.8-5.4 11-13 MV: 37 MV: 78 MV: 300 10 Yrs. 5.0-13.0 3.8-5.4 12-15 MV: 39 MV: 80 MV: 250 NOTE: * FOR ADULT BLACK MALES AND FEMALES, NORMAL WBC IS 2.9-7.7 K/ML * FOR ADULT BLACK MALES AND FEMALES, NORMAL RBC,HGB, AND HCT IS 5% LESS SOURCE FOR DATA: [employer] 1800 OPERATION MANUAL( AUTOMATED BLOOD COUNTS AND DIFF.) APPENDIX B-3 CHRONIC KIDNEY DISEASE STAGING PER NKF: MALE GFR INTERPRETATION: 20-49 YRS: >60 mL/min Normal 50-59 YRS: >56 mL/min Normal 60-69 YRS: >49 mL/min Normal 70-79 YRS: >42 mL/min Normal 80 and above >35 mL/min Normal FEMALE GRF INTERPRETATION: 20-39 YRS: >60 mL/min Normal 40-49 YRS: >58 mL/min Normal 50-59 YRS: >51 mL/min Normal 60-69 YRS: >45 mL/min Normal 70-79 YRS: >39 mL/min Normal 80 and above >32 mL/min Normal ID Date Data Source [id number] 05/08/2020 03:25:00 PM EST [facility] ([facility] Name Value Range Interpretation Code Description Data Roz rce(s) Supporting Document(s) BUN 22 mg/dL 8- [facility] ([facility] NORMAL RANGES Age WBC RBC HGB HCT MCV PLT Adult M 4.1-10.9 4.20-6.30 12.0-18.0 37.0-51.0 80-97 140-440 Adult F 4.1-10.9 4.04-5.48 12.0-18.0 37.0-51.0 80-97 140-440 0 -1 Yr 5.0-20.0 3.9-5.9 15-18 MV: 44 MV: 91 MV: 277 2-9 Yr. 6.0-17.0 3.8-5.4 11-13 MV: 37 MV: 78 MV: 300 10 Yrs. 5.0-13.0 3.8-5.4 12-15 MV: 39 MV: 80 MV: 250 NOTE: * FOR ADULT BLACK MALES AND FEMALES, NORMAL WBC IS 2.9-7.7 K/ML * FOR ADULT BLACK MALES AND FEMALES, NORMAL RBC,HGB, AND HCT IS 5% LESS SOURCE FOR DATA: [employer] 1800 OPERATION MANUAL( AUTOMATED BLOOD COUNTS AND DIFF.) APPENDIX B-3 CHRONIC KIDNEY DISEASE STAGING PER NKF: MALE GFR INTERPRETATION: 20-49 YRS: >60 mL/min Normal 50-59 YRS: >56 mL/min Normal 60-69 YRS: >49 mL/min Normal 70-79 YRS: >42 mL/min Normal 80 and above >35 mL/min Normal FEMALE GRF INTERPRETATION: 20-39 YRS: >60 mL/min Normal 40-49 YRS: >58 mL/min Normal 50-59 YRS: >51 mL/min Normal 60-69 YRS: >45 mL/min Normal 70-79 YRS: >39 mL/min Normal 80 and above >32 mL/min Normal Glu 132 mg/dL 70-110 Above high normal [facility] ([facility] NORMAL RANGES Age WBC RBC HGB HCT MCV PLT Adult M 4.1-10.9 4.20-6.30 12.0-18.0 37.0-51.0 80-97 140-440 Adult F 4.1-10.9 4.04-5.48 12.0-18.0 37.0-51.0 80-97 140-440 0 -1 Yr 5.0-20.0 3.9-5.9 15-18 MV: 44 MV: 91 MV: 277 2-9 Yr. 6.0-17.0 3.8-5.4 11-13 MV: 37 MV: 78 MV: 300 10 Yrs. 5.0-13.0 3.8-5.4 12-15 MV: 39 MV: 80 MV: 250 NOTE: * FOR ADULT BLACK MALES AND FEMALES, NORMAL WBC IS 2.9-7.7 K/ML * FOR ADULT BLACK MALES AND FEMALES, NORMAL RBC,HGB, AND HCT IS 5% LESS SOURCE FOR DATA: [employer] 1800 OPERATION MANUAL( AUTOMATED BLOOD COUNTS AND DIFF.) APPENDIX B-3 CHRONIC KIDNEY DISEASE STAGING PER NKF: MALE GFR INTERPRETATION: 20-49 YRS: >60 mL/min Normal 50-59 YRS: >56 mL/min Normal 60-69 YRS: >49 mL/min Normal 70-79 YRS: >42 mL/min Normal 80 and above >35 mL/min Normal FEMALE GRF INTERPRETATION: 20-39 YRS: >60 mL/min Normal 40-49 YRS: >58 mL/min Normal 50-59 YRS: >51 mL/min Normal 60-69 YRS: >45 mL/min Normal 70-79 YRS: >39 mL/min Normal 80 and above >32 mL/min Normal Co2 26.5 mmol/L 22.0-29.0 [employer] ([facility] NORMAL RANGES Age WBC RBC HGB HCT MCV PLT Adult M 4.1-10.9 4.20-6.30 12.0-18.0 37.0-51.0 80-97 140-440 Adult F 4.1-10.9 4.04-5.48 12.0-18.0 37.0-51.0 80- 140-440 0 -1 Yr 5.0-20.0 3.9-5.9 15-18 MV: 44 MV: 91 MV: 277 2-9 Yr. 6.0-17.0 3.8-5.4 11-13 MV: 37 MV: 78 MV: 300 10 Yrs. 5.0-13.0 3.8-5.4 12-15 MV: 39 MV: 80 MV: 250 NOTE: * FOR ADULT BLACK MALES AND FEMALES, NORMAL WBC IS 2.9-7.7 K/ML * FOR ADULT BLACK MALES AND FEMALES, NORMAL RBC,HGB, AND HCT IS 5% LESS SOURCE FOR DATA: AVELINA DYN 1800 OPERATION MANUAL( AUTOMATED BLOOD COUNTS AND DIFF.) APPENDIX B-3 CHRONIC KIDNEY DISEASE STAGING PER NKF: MALE GFR INTERPRETATION: 20-49 YRS: >60 mL/min Normal 50-59 YRS: >56 mL/min Normal 60-69 YRS: >49 mL/min Normal 70-79 YRS: >42 mL/min Normal 80 and above >35 mL/min Normal FEMALE GRF INTERPRETATION: 20-39 YRS: >60 mL/min Normal 40-49 YRS: >58 mL/min Normal 50-59 YRS: >51 mL/min Normal 60-69 YRS: >45 mL/min Normal 70-79 YRS: >39 mL/min Normal 80 and above >32 mL/min Normal Creat 1.0 mg/dL 0.5-1.0 [facility] ([facility] NORMAL RANGES Age WBC RBC HGB HCT MCV PLT Adult M 4.1-10.9 4.20-6.30 12.0-18.0 37.0-51.0 80-97 140-440 Adult F 4.1-10.9 4.04-5.48 12.0-18.0 37.0-51.0 80-97 140-440 0 -1 Yr 5.0-20.0 3.9-5.9 15-18 MV: 44 MV: 91 MV: 277 2-9 Yr. 6.0-17.0 3.8-5.4 11-13 MV: 37 MV: 78 MV: 300 10 Yrs. 5.0-13.0 3.8-5.4 12-15 MV: 39 MV: 80 MV: 250 NOTE: * FOR ADULT BLACK MALES AND FEMALES, NORMAL WBC IS 2.9-7.7 K/ML * FOR ADULT BLACK MALES AND FEMALES, NORMAL RBC,HGB, AND HCT IS 5% LESS SOURCE FOR DATA: [employer] 1800 OPERATION MANUAL( AUTOMATED BLOOD COUNTS AND DIFF.) APPENDIX B-3 CHRONIC KIDNEY DISEASE STAGING PER NKF: MALE GFR INTERPRETATION: 20-49 YRS: >60 mL/min Normal 50-59 YRS: >56 mL/min Normal 60-69 YRS: >49 mL/min Normal 70-79 YRS: >42 mL/min Normal 80 and above >35 mL/min Normal FEMALE GRF INTERPRETATION: 20-39 YRS: >60 mL/min Normal 40-49 YRS: >58 mL/min Normal 50-59 YRS: >51 mL/min Normal 60-69 YRS: >45 mL/min Normal 70-79 YRS: >39 mL/min Normal 80 and above >32 mL/min Normal BUN/Creatinine Ratio 22.4 [facility] NORMAL RANGES Age WBC RBC HGB HCT MCV PLT Adult M 4.1-10.9 4.20-6.30 12.0-18.0 37.0-51.0 80-97 140-440 Adult F 4.1-10.9 4.04-5.48 12.0-18.0 37.0-51.0 80-97 140-440 0 -1 Yr 5.0-20.0 3.9-5.9 15-18 MV: 44 MV: 91 MV: 277 2-9 Yr. 6.0-17.0 3.8-5.4 11-13 MV: 37 MV: 78 MV: 300 10 Yrs. 5.0-13.0 3.8-5.4 12-15 MV: 39 MV: 80 MV: 250 NOTE: * FOR ADULT BLACK MALES AND FEMALES, NORMAL WBC IS 2.9-7.7 K/ML * FOR ADULT BLACK MALES AND FEMALES, NORMAL RBC,HGB, AND HCT IS 5% LESS SOURCE FOR DATA: [employer] 1800 OPERATION MANUAL( AUTOMATED BLOOD COUNTS AND DIFF.) APPENDIX B-3 CHRONIC KIDNEY DISEASE STAGING PER NKF: MALE GFR INTERPRETATION: 20-49 YRS: >60 mL/min Normal 50-59 YRS: >56 mL/min Normal 60-69 YRS: >49 mL/min Normal 70-79 YRS: >42 mL/min Normal 80 and above >35 mL/min Normal FEMALE GRF INTERPRETATION: 20-39 YRS: >60 mL/min Normal 40-49 YRS: >58 mL/min Normal 50-59 YRS: >51 mL/min Normal 60-69 YRS: >45 mL/min Normal 70-79 YRS: >39 mL/min Normal 80 and above >32 mL/min Normal Na 136 mmol/L 136-145 [facility] ([facility] NORMAL RANGES Age WBC RBC HGB HCT MCV PLT Adult M 4.1-10.9 4.20-6.30 12.0-18.0 37.0-51.0 80-97 140-440 Adult F 4.1-10.9 4.04-5.48 12.0-18.0 37.0-51.0 80-97 140-440 0 -1 Yr 5.0-20.0 3.9-5.9 15-18 MV: 44 MV: 91 MV: 277 2-9 Yr. 6.0-17.0 3.8-5.4 11-13 MV: 37 MV: 78 MV: 300 10 Yrs. 5.0-13.0 3.8-5.4 12-15 MV: 39 MV: 80 MV: 250 NOTE: * FOR ADULT BLACK MALES AND FEMALES, NORMAL WBC IS 2.9-7.7 K/ML * FOR ADULT BLACK MALES AND FEMALES, NORMAL RBC,HGB, AND HCT IS 5% LESS SOURCE FOR DATA: [employer] 1800 OPERATION MANUAL( AUTOMATED BLOOD COUNTS AND DIFF.) APPENDIX B-3 CHRONIC KIDNEY DISEASE STAGING PER NKF: MALE GFR INTERPRETATION: 20-49 YRS: >60 mL/min Normal 50-59 YRS: >56 mL/min Normal 60-69 YRS: >49 mL/min Normal 70-79 YRS: >42 mL/min Normal 80 and above >35 mL/min Normal FEMALE GRF INTERPRETATION: 20-39 YRS: >60 mL/min Normal 40-49 YRS: >58 mL/min Normal 50-59 YRS: >51 mL/min Normal 60-69 YRS: >45 mL/min Normal 70-79 YRS: >39 mL/min Normal 80 and above >32 mL/min Normal K 3.7 mmol/L 3.5-5.1 [facility] ([facility] NORMAL RANGES Age WBC RBC HGB HCT MCV PLT Adult M 4.1-10.9 4.20-6.30 12.0-18.0 37.0-51.0 80-97 140-440 Adult F 4.1-10.9 4.04-5.48 12.0-18.0 37.0-51.0 80-97 140-440 0 -1 Yr 5.0-20.0 3.9-5.9 15-18 MV: 44 MV: 91 MV: 277 2-9 Yr. 6.0-17.0 3.8-5.4 11-13 MV: 37 MV: 78 MV: 300 10 Yrs. 5.0-13.0 3.8-5.4 12-15 MV: 39 MV: 80 MV: 250 NOTE: * FOR ADULT BLACK MALES AND FEMALES, NORMAL WBC IS 2.9-7.7 K/ML * FOR ADULT BLACK MALES AND FEMALES, NORMAL RBC,HGB, AND HCT IS 5% LESS SOURCE FOR DATA: [employer] 1800 OPERATION MANUAL( AUTOMATED BLOOD COUNTS AND DIFF.) APPENDIX B-3 CHRONIC KIDNEY DISEASE STAGING PER NKF: MALE GFR INTERPRETATION: 20-49 YRS: >60 mL/min Normal 50-59 YRS: >56 mL/min Normal 60-69 YRS: >49 mL/min Normal 70-79 YRS: >42 mL/min Normal 80 and above >35 mL/min Normal FEMALE GRF INTERPRETATION: 20-39 YRS: >60 mL/min Normal 40-49 YRS: >58 mL/min Normal 50-59 YRS: >51 mL/min Normal 60-69 YRS: >45 mL/min Normal 70-79 YRS: >39 mL/min Normal 80 and above >32 mL/min Normal CA 9.5 mg/dL 8.6-10.2 [facility] NORMAL RANGES Age WBC RBC HGB HCT MCV PLT Adult M 4.1-10.9 4.20-6.30 12.0-18.0 37.0-51.0 80-97 140-440 Adult F 4.1-10.9 4.04-5.48 12.0-18.0 37.0-51.0 80-97 140-440 0 -1 Yr 5.0-20.0 3.9-5.9 15-18 MV: 44 MV: 91 MV: 277 2-9 Yr. 6.0-17.0 3.8-5.4 11-13 MV: 37 MV: 78 MV: 300 10 Yrs. 5.0-13.0 3.8-5.4 12-15 MV: 39 MV: 80 MV: 250 NOTE: * FOR ADULT BLACK MALES AND FEMALES, NORMAL WBC IS 2.9-7.7 K/ML * FOR ADULT BLACK MALES AND FEMALES, NORMAL RBC,HGB, AND HCT IS 5% LESS SOURCE FOR DATA: [employer] 1800 OPERATION MANUAL( AUTOMATED BLOOD COUNTS AND DIFF.) APPENDIX B-3 CHRONIC KIDNEY DISEASE STAGING PER NKF: MALE GFR INTERPRETATION: 20-49 YRS: >60 mL/min Normal 50-59 YRS: >56 mL/min Normal 60-69 YRS: >49 mL/min Normal 70-79 YRS: >42 mL/min Normal 80 and above >35 mL/min Normal FEMALE GRF INTERPRETATION: 20-39 YRS: >60 mL/min Normal 40-49 YRS: >58 mL/min Normal 50-59 YRS: >51 mL/min Normal 60-69 YRS: >45 mL/min Normal 70-79 YRS: >39 mL/min Normal 80 and above >32 mL/min Normal Anion Gap 15 mmol/L [facility] ([facility] NORMAL RANGES Age WBC RBC HGB HCT MCV PLT Adult M 4.1-10.9 4.20-6.30 12.0-18.0 37.0-51.0 80-97 140-440 Adult F 4.1-10.9 4.04-5.48 12.0-18.0 37.0-51.0 80-97 140-440 0 -1 Yr 5.0-20.0 3.9-5.9 15-18 MV: 44 MV: 91 MV: 277 2-9 Yr. 6.0-17.0 3.8-5.4 11-13 MV: 37 MV: 78 MV: 300 10 Yrs. 5.0-13.0 3.8-5.4 12-15 MV: 39 MV: 80 MV: 250 NOTE: * FOR ADULT BLACK MALES AND FEMALES, NORMAL WBC IS 2.9-7.7 K/ML * FOR ADULT BLACK MALES AND FEMALES, NORMAL RBC,HGB, AND HCT IS 5% LESS SOURCE FOR DATA: [employer] 1800 OPERATION MANUAL( AUTOMATED BLOOD COUNTS AND DIFF.) APPENDIX B-3 CHRONIC KIDNEY DISEASE STAGING PER NKF: MALE GFR INTERPRETATION: 20-49 YRS: >60 mL/min Normal 50-59 YRS: >56 mL/min Normal 60-69 YRS: >49 mL/min Normal 70-79 YRS: >42 mL/min Normal 80 and above >35 mL/min Normal FEMALE GRF INTERPRETATION: 20-39 YRS: >60 mL/min Normal 40-49 YRS: >58 mL/min Normal 50-59 YRS: >51 mL/min Normal 60-69 YRS: >45 mL/min Normal 70-79 YRS: >39 mL/min Normal 80 and above >32 mL/min Normal CL 98.0 mmol/L 98.0-107.0 [facility] ([facility] NORMAL RANGES Age WBC RBC HGB HCT MCV PLT Adult M 4.1-10.9 4.20-6.30 12.0-18.0 37.0-51.0 80-97 140-440 Adult F 4.1-10.9 4.04-5.48 12.0-18.0 37.0-51.0 80-97 140-440 0 -1 Yr 5.0-20.0 3.9-5.9 15-18 MV: 44 MV: 91 MV: 277 2-9 Yr. 6.0-17.0 3.8-5.4 11-13 MV: 37 MV: 78 MV: 300 10 Yrs. 5.0-13.0 3.8-5.4 12-15 MV: 39 MV: 80 MV: 250 NOTE: * FOR ADULT BLACK MALES AND FEMALES, NORMAL WBC IS 2.9-7.7 K/ML * FOR ADULT BLACK MALES AND FEMALES, NORMAL RBC,HGB, AND HCT IS 5% LESS SOURCE FOR DATA: [employer] 1800 OPERATION MANUAL( AUTOMATED BLOOD COUNTS AND DIFF.) APPENDIX B-3 CHRONIC KIDNEY DISEASE STAGING PER NKF: MALE GFR INTERPRETATION: 20-49 YRS: >60 mL/min Normal 50-59 YRS: >56 mL/min Normal 60-69 YRS: >49 mL/min Normal 70-79 YRS: >42 mL/min Normal 80 and above >35 mL/min Normal FEMALE GRF INTERPRETATION: 20-39 YRS: >60 mL/min Normal 40-49 YRS: >58 mL/min Normal 50-59 YRS: >51 mL/min Normal 60-69 YRS: >45 mL/min Normal 70-79 YRS: >39 mL/min Normal 80 and above >32 mL/min Normal eGFR Non-Afr. [employer] 56 # [facility] ([facility] NORMAL RANGES Age WBC RBC HGB HCT MCV PLT Adult M 4.1-10.9 4.20-6.30 12.0-18.0 37.0-51.0 80-97 140-440 Adult F 4.1-10.9 4.04-5.48 12.0-18.0 37.0-51.0 80-97 140-440 0 -1 Yr 5.0-20.0 3.9-5.9 15-18 MV: 44 MV: 91 MV: 277 2-9 Yr. 6.0-17.0 3.8-5.4 11-13 MV: 37 MV: 78 MV: 300 10 Yrs. 5.0-13.0 3.8-5.4 12-15 MV: 39 MV: 80 MV: 250 NOTE: * FOR ADULT BLACK MALES AND FEMALES, NORMAL WBC IS 2.9-7.7 K/ML * FOR ADULT BLACK MALES AND FEMALES, NORMAL RBC,HGB, AND HCT IS 5% LESS SOURCE FOR DATA: [employer] 1800 OPERATION MANUAL( AUTOMATED BLOOD COUNTS AND DIFF.) APPENDIX B-3 CHRONIC KIDNEY DISEASE STAGING PER NKF: MALE GFR INTERPRETATION: 20-49 YRS: >60 mL/min Normal 50-59 YRS: >56 mL/min Normal 60-69 YRS: >49 mL/min Normal 70-79 YRS: >42 mL/min Normal 80 and above >35 mL/min Normal FEMALE GRF INTERPRETATION: 20-39 YRS: >60 mL/min Normal 40-49 YRS: >58 mL/min Normal 50-59 YRS: >51 mL/min Normal 60-69 YRS: >45 mL/min Normal 70-79 YRS: >39 mL/min Normal 80 and above >32 mL/min Normal eGFR 65 # [facility] ( [facility] NORMAL RANGES Age WBC RBC HGB HCT MCV PLT Adult M 4.1-10.9 4.20-6.30 12.0-18.0 37.0-51.0 80-97 140-440 Adult F 4.1-10.9 4.04-5.48 12.0-18.0 37.0-51.0 80-97 140-440 0 -1 Yr 5.0-20.0 3.9-5.9 15-18 MV: 44 MV: 91 MV: 277 2-9 Yr. 6.0-17.0 3.8-5.4 11-13 MV: 37 MV: 78 MV: 300 10 Yrs. 5.0-13.0 3.8-5.4 12-15 MV: 39 MV: 80 MV: 250 NOTE: * FOR ADULT BLACK MALES AND FEMALES, NORMAL WBC IS 2.9-7.7 K/ML * FOR ADULT BLACK MALES AND FEMALES, NORMAL RBC,HGB, AND HCT IS 5% LESS SOURCE FOR DATA: [employer]ELINA DYN 1800 OPERATION MANUAL( AUTOMATED BLOOD COUNTS AND DIFF.) APPENDIX B-3 CHRONIC KIDNEY DISEASE STAGING PER NKF: MALE GFR INTERPRETATION: 20-49 YRS: >60 mL/min Normal 50-59 YRS: >56 mL/min Normal 60-69 YRS: >49 mL/min Normal 70-79 YRS: >42 mL/min Normal 80 and above >35 mL/min Normal FEMALE GRF INTERPRETATION: 20-39 YRS: >60 mL/min Normal 40-49 YRS: >58 mL/min Normal 50-59 YRS: >51 mL/min Normal 60-69 YRS: >45 mL/min Normal 70-79 YRS: >39 mL/min Normal 80 and above >32 mL/min Normal ID Date Data Source [id number] 05/04/2020 12:00:00 AM EDT [facility] Rubin Lucas MD Patient Name: JAYCOB RUCKER [facility] Date of : 1945[place] [address] Date of Exam: 05/04/2020#: Fax: [phone] EXAM: US RETROPERITONEAL, COMPLETE(RENAL/AORTA)CLINICAL INFORMATION: Acute renal failure.There are no prior renal ultrasounds for comparison.The right kidney measures 12.2 x 4.4 x 5.1 cm and the left kidney dnotmlom89.4 x 5.1 x 4.9 cm. There is no hydronephrosis on either side. There is,however, mild bilateral caliectasis. There is no abnormal renal corticalthinning, however, the renal cortical echos are slightly diffuselyincreased throughout with less than optimal corticomedullarydifferentiation although it is preserved. Seen arising from the superiorpole of the left kidney there is a 3.7 x 4.2 x 3.4 cm sized anechoicstructure which exhibits posterior wall enhancement and increased throughtransmission. This is a simple cyst without septations or mural nodules.The right renal RI is .77 and the left is .82.Doppler of the urinary bladder shows urojet phenomenon bilaterally.IMPRESSION:1. Renal findings as described above possibly indicating changes fromearly medical renal disease, however, this would need to be correlatedclinically and consider followup with renal function testing. It should bestated that although the prior exam was reviewed, the examinations aremarkedly technically different and I cannot say with certainty whether ornot there has been a significant change.2. There is a left renal cyst as described above.Accredited by the [employer] in General Ultrasound.NEFTALY Du/[place] flor for referring HUONG RUCKER to our office.Electronically Signed - KATY STEVE DO 05/05/20 15:57 Name Value Range Interpretation Code Description Data Roz rce(s) Supporting Document(s) ID Date Data Source [id number] 04/15/2020 01:49:00 PM EDT [facility] 1 OrderSheet [facility] Emergency Department [address] [place] [address] Phone #: ext- [phone] 04/15/2020 13:38 Patient: HUONG RUCKER Sex: F : 1945 Age: 74yWEIGHT:68.0 kg (S) HEIGHT:62 inches (S) BMI:27.4ALLERGIES: OtezlaCHIEF COMPLAINT: chillsLAB ORDERSOrder Description Priority Entered Acknowledged InitialedBlood Culture STAT 14:38 04/15/2020 14:55 Bombmppx30x X2 (Mita Calderon cold press operatorTobi Arambula ER14:34 04/15/2020) Physician; Jtri1Fncoi Culture STAT 14:38 04/15/2020 14:55 Mnnjvdse29b X2 (Sched [facility] cold press operator, Tobi ER14:44 04/15/2020) Physician; [id number] w Diff STAT 14:38 04/15/2020 14:55 [facility] cold press operator, [place] [facility] Physician; Ukir9DAL STAT 14:38 04/15/2020 14:55 [facility], [place] [facility] Physician; [id number] Acid STAT 14:38 04/15/2020 14:55 [facility] cold press operator, [place] [facility] Physician; Blzt6Wpq. Rate STAT 14:38 04/15/2020 14:55 [facility], [place] [facility] Physician; [id number] (Clean STAT 14:38 04/15/2020 15:29 Bree,Catch) Joss Zhu R.N. Physician;CRP STAT 14:38 04/15/2020 14:55 [facility], [place] [facility] Physician; [id number] Quant STAT 14:38 04/15/2020 14:55 [facility] Tech, [place] [facility] Physician; [id number] STAT 14:38 04/15/2020 15:29 Bree,COVID-19 Joss Zhu R.N. Physician;Syphilis 14:38 04/15/2020 15:29 Joss Giron R.N. Physician; 2 OrderSheet [facility] Emergency Department [address] [place] [address] Phone #: ext- [phone] 04/15/2020 13:38 Patient: HUONG RUCKER Sex: F : 1945 Age: 74yD- Dimer STAT 14:38 04/15/2020 14:55 [facility], [place] [facility] Physician; [id number] STUDY ORDERSOrder Description Priority Entered Acknowledged InitialedUS Lower Ext STAT 15:44 04/15/2020 15:46 Dayday Giron Bilateral Joss Zhu R.N.(Oxygen?(No)) Physician; NOTES: ;eg pain and cramps elevated D-dimer Reason for Study: DVTMEDICATION/IV/DRIP/FLUID ORDERSOrder Description Priority Entered Acknowledged InitialedGENERAL ORDERSOrder Description Priority Entered Acknowledged InitialedEKG 14:38 04/15/2020 14:56 [place] Joss Calderon cold press operatorTobi Physician; Tech1[Electronically signed by Marko Giron R.N. (17:14 04/15/2020)][Electronically signed by Joss Calderon Physician (19:29 04/15/2020)][Electronically locked by Marko Giron R.N. (17:14 04/15/2020)] Name Value Range Interpretation Code Description Data Roz rce(s) Supporting Document(s) ID Date Data Source [id number] 04/15/2020 01:49:00 PM EDT [facility] 1 Medication Reconciliation Report [facility] Emergency Department [address] [place] [address] Phone #: ext- [phone] 04/15/2020 13:38 Patient: HUONG RUCKER Sex: F : 1945 Age: 74yWeight: 68.0 kgHeight/Length: 62 in.BMI: 27.4ALLERGIES: OtezlaThe patient's Home Medications are listed below:CONTINUE TAKING THE FOLLOWING MEDICATIONS: Anoro Ellipta Inhalation Aspirin Low Dose Oral Diuretic Lisinopril Oral Singulair Oral Statins Support OralThe source(s) of the original Home Medication information:Not obtained.The following Medications were given to the patient in the Emergency Department:None.The following Medications were prescribed to the patient:None. Name Value Range Interpretation Code Description Data Roz rce(s) Supporting Document(s) ID Date Data Source [id number] 04/15/2020 01:49:00 PM EDT [facility] 1 Medication Administration Record [facility] Emergency Department [address] [place] [address] Phone #: ext- [phone] 04/15/2020 13:38 Patient: HUONG RUCKER Sex: F : 1945 Age: 74yWeight: 68.0 kgHeight/Length: 62 inBMI: 27.4ALLERGIES: OtezlaDate/Time Medication Administered Medication Ordered Name Value Range Interpretation Code Description Data Roz rce(s) Supporting Document(s) ID Date Data Source [id number] 04/15/2020 01:49:00 PM EDT [facility] 1 General Instructions [facility] Emergency Department [address] [place] [address] Phone #: ext- [phone] 04/15/2020 13:38 Patient: HUONG RUCKER Sex: F : 1945 Age: 74yChills.INSTRUCTIONS(Tylenol for symptoms. Isolate yourself until COVID test results come back.).Warnings: Further evaluation is necessary (echocardiogram.).GENERAL WARNINGS: Return or contact your physician immediately if your condition worsens orchanges unexpectedly, if not improving as expected, or if other problems arise.Your Current Medications: Your current home medications have been reviewed.CONTINUE TAKING THE FOLLOWING MEDICATIONS:Anoro Ellipta Inhalation.Aspirin Low Dose Oral.Diuretic*.Lisinopril Oral.Singulair Oral.Statins Support Oral.Follow-up:Follow up with your healthcare provider in three days. Reason for referral: evaluation and treatment.Summary of care provided to patient and family.Understanding of the discharge instructions verbalized by patient.(Electronically signed by Joss Calderon, Physician 04/15/2020 19:29) Name Value Range Interpretation Code Description Data Roz rce(s) Supporting Document(s) ID Date Data Source [id number] 04/15/2020 01:49:00 PM EDT [facility] 1 Clinical Report - Nurses [facility] Emergency Department [address] [place] [address] Phone #: ext- [phone] 04/15/2020 13:38 Patient: HUONG RUCKER Sex: F : 1945 Age: 74yTRIAGEArrived by private vehicle. Historian: patient.Acuity: LEVEL 4.Chief Complaint: CHILLS.Onset. (1 weeks ago). ( Pt states she was seen here last Friday for the same thing and was diagnosedwith a UTI and put on anti biotics, she seen her PCP this week and he didn't feel she had a UTI andchanged her anti biotic, pt continues to feel chills).Treatment MANAGER COMMUNICATION:Took Tylenol. (1200).SEPSIS SCREEN: SIRS Screen negative. Sepsis Screen negative. No suspected or confirmed signs ofinfection present.DICKSON COMA SCORE: 15- eyes open- spontaneous (4); best verbal response- oriented (5); bestmotor response- obeys commands (6). --13:43 04/15/20 Constantino You RN13:38 04/15/20. BP: 142/71. MAP: 94. HR: 73. RR: 16. O2 saturation: 97%. Temp: 98.1 F (oral). Painlevel now: 0/10. --13:43 04/15/20 Constantino You RN.Weight: 68 kg stated. Height/Length: 62 inches Per Patient. BMI: 27.4. --13:38 04/15/20 Constantino You RN.MedicationsAnoro Ellipta Inhalation. Aspirin Low Dose Oral. Diuretic. Lisinopril Oral. Singulair Oral. Statins Support Oral. --14:31 04/15/20 Alma Stephenson R.N.Allerg iesOtezla. --14:31 04/15/20 Alma Stephenson R.N.HistoryPAST MEDICAL HX: Immunizations: up-to-date. The patient is post-menopausal.SOCIAL HX: Never smoker. Occasional alcohol use; consumes beer occasionally. No drug use. Shewas offered HIV testing but declined and hepatitis C testing but declined. She has not traveled outside the.. 2 Clinical Report - Nurses [facility] Emergency Department [address] [place] [address] Phone #: ext- [phone] 04/15/2020 13:38 Patient: HUONG RUCKER Sex: F : 1945 Age: 74y Infectious disease exposure: No infectious disease exposure. The patient was not exposed to Coronavirus. SELF HARM ASSESSMENT: Self harm assessment was performed. The patient answered "no" to the question(s) "Have you recently felt down, depressed, or hopeless?", "Do you have thoughts of harming or killing yourself?", "Do you have a plan for harming or killing yourself?", "Have you recently had thoughts about harming or killing others?", "Do you have any dangerous items in your possession?", "Have you noticed less interest or pleasure in doing things?", "Are you here because you tried to hurt yourself?" and "Have you ever tried to hurt yourself before today?". ABUSE ASSESSMENT: No report of abuse. NUTRITIONAL RISK ASSESSMENT: The nutritional risk assessment revealed no deficiencies. FUNCTIONAL ASSESSMENT: Functional assessment: no impairments noted. LEARNING NEEDS ASSESSMENT: The learning needs assessment revealed no barriers. FALL RISK ASSESSMENT: Fall risk assessment completed. No risk factors identified. SKIN INTEGRITY ASSESSMENT: Skin integrity risk assessment completed. No skin integrity risk identified. --13:43 04/15/20 Constantino You RN. FAMILY HX: Negative. --14:32 04/15/20 Joss Calderon, Physician. Interventions To treatment room. --13:43 04/15/20 Constantino You RN.NURSING PROGRESS NOTESEKG time: (15:02 04/15/2020). EKG was performed by a tech and shown to the ED physician. --15: [facility] Tech, [facility] Tech1 15: 49 04/15/20. BP: 136/65. MAP: 88. HR: 74. RR: 18. O2 saturation: 97%. Temp: deferred. Pain level now: 3. --15:50 04/15/20 Marko Giron R.N. Bed placed in lowest position. Brakes of bed on. --17:13 04/15/20 Marko Giron R.N.DISPOSITION / DISCHARGE 17:11 04/15/20. BP: 155/71. HR: 68. RR: 17. O2 saturation: 96%. Temp: 98.3 F. Pain level now 0/10. --17:11 04/15/20 [facility] Tech, [facility] Tech1 No learning barriers present. Discharge instructions provided and reviewed with the patient. Written instructions provided in Spanish. The patient was discharged by the physician. She was discharged home a nd accompanied by family. She left ambulatory and via private vehicle. Patient driving. --17:13 04/15/20 Marko Giron R.N. 3 Clinical Report - Nurses [facility] Emergency Department [address] [place] [address] Phone #: ext- [phone] 04/15/2020 13:38 Patient: HUONG RUCKER Sex: F : 1945 Age: 74y Departure time: 17:13 04/15/2020. --17:13 04/15/20 Marko Giron R.N.Locked/Released at 04/15/2020 17:14 by Marko Giron R.N. Name Value Range Interpretation Code Description Data Roz rce(s) Supporting Document(s) ID Date Data Source [id number] 04/15/2020 01:49:00 PM EDT [facility] 1 Clinical Report - Physicians/Mid Levels [facility] Emergency Department [address] [place] [address] Phone #: ext- [phone] 04/15/2020 13:38 Patient: HUONG RUCKER Sex: F : 1945 Age: 74y Time Seen: 14:16 04/15/2020. Arrived- By private vehicle. Historian- patient. Disposition decision: 17:02 04/15/2020.HISTORY OF PRESENT ILLNESS Chief Complaint: CHILLS. This started 9 days ago and is still present. At its maximum, severity described as moderate. When seen in the E.D., it was almost gone. The patient has had loss of appetite. No weight loss, headache, visual disturbance, fatigue or muscle aches. No weakness. Denies sleep problem. No decreased urine output. Similar symptoms previously. None. Recent medical care: The patient was seen recently in the emergency department and office. ( Seen here in ER dx with possible UTI then follo).REVIEW OF SYSTEMSNo fever, sore throat, sinus drainage, nasal congestion or cough. No difficulty breathing, chest pain,abdominal pain, nausea or vomiting. No diarrhea, black stools, bloody stools, difficulty with urination orabnormal bleeding. No vaginal discharge, skin rash, back pain, headache or blackouts. No doublevision. The patient has had chills and calf pain. No difficulty with ambulation. All other systemsreviewed and are negative.PAST HISTORYSee nurses notes. Problems: Heart Disease. Hypercholesterolemia. Abrasion(s). COPD - Chronic Obstructive Pulmonary Disease. Hypertension. Psoriasis. UTI - Urinary Tract Infection. Lung Disease. Other Disease. Additional Surgeries: . Medications: Anoro Ellipta Inhalation. Aspirin Low Dose Oral. 2 Clinical Report - Physicians/Mid Levels [facility] Emergency Department [address] [place] [address] Phone #: ext- [phone] 04/15/2020 13:38 Patient: HUONG RUCKER Sex: F : 1945 Age: 74y Diuretic. Lisinopril Oral. Singulair Oral. Statins Support Oral. Allergies: Otezla.SOCIAL HISTORYNever smoker. No alcohol use or drug use. No recent travel.FAMILY HISTORYNegative.ADDITIONAL NOTESThe nursing notes have been reviewed with agreement regarding the chief complaint, HPI, ROS, PMH andpatient medications and allergies.PHYSICAL EXAMVital Signs: 04/15/2020 13:38 BP: 142/71. MAP: 94. HR: 73. RR: 16. O2 saturation: 97%. Temp: 98.1 F.Pain level now: 0/10. Have been reviewed as normal. Blood pressure normal. Heart rate normal.Respiratory rate normal. Temperature normal. Oxygen saturation normal.Appearance: Alert. Patient in mild distress.Eyes: Pupils equal, round and reactive to light. Eyes normal inspection.ENT: Ears normal. Nose normal. Pharynx normal.Neck: Normal inspection. Neck supple.CVS: Normal heart rate and rhythm. Heart sounds normal. Pulses normal.Respiratory: No respiratory distress. Painless inspiration. Breath sounds normal. Chest nontender.Abdomen: No visible injury. Soft and nontender. Bowel sounds normal. No organomegaly. No mass.Femoral pulses equal.Back: Normal inspection.Skin: Skin warm and dry. Normal skin color. Normal skin turgor. Moderate, generalized, macular,excoriated skin rash located on the right arm, right hand, right leg and right foot, left arm, left hand, left legand left foot, chest, back, trunk and abdomen.Extremities: Extremities exhibit normal ROM. No lower extremity edema.Neuro: Oriented X 3. No motor deficit. No sensory deficit.LABS, X-RAYS, AND EKGEKG: Normal EKG: independently viewed by me. Normal sinus rhythm. Normal MA interval. Normal QRScomplexes. Normal STs and T waves. No ectopy.Laboratory Tests: Laboratory tests have been ordered, with results reviewed and considered in themedical decision making process. US Lower Ext Venous Bilateral: (KHUSHBOO: 04/15/2020 15:44) ( MsgRcvd 04/15/2020 16:47) In Progress US DOPPLER VENOUS BILAT LEG Reason(s): DVT 3 Clinical Report - Physicians/Mid Levels [facility] Emergency Department [address] [place] [address] Phone #: ext- [phone] 04/15/2020 13:38 Patient: HUONG RUCKER Sex: F : 1945 Age: 74yTRANSPORTATION: WC IV? O2? Oxygen?(No) Room: ED: No CMTS: ;eg pain and cramps elevated D-dimerCBC w Diff: (KHUSHBOO: 04/15/2020 14:50) ( MsgRcvd 04/15/2020 15:36) Final results Test Result Flag Units (Reference) CBC W/AUTOMATED DIFF COMPLETE BLOOD COUNT WBC 9.4 10/uL (4.2 - 11.0) RBC 3.99 L 10/uL (4.20 - 5.40) HEMOGLOBIN 12.1 g/dL (12.0 - 16.0) HEMATOCRIT 38.7 % (37.0 - 47.0) MCV 97.0 fL (81.0 - 101) MCH 30.3 pg (27.0 - 34.0) MCHC 31.3 g/dL (31.0 - 36.0) RDW 12.9 % (11.5 - 14.5) PLATELETS 324 10/uL (150 - 450) MPV 9.9 fL (7.4 - 10.4) NEUT 57.3 % (37.0 - 80.0) LYMPH 20.0 L % (25.0 - 40.0) MONO 8.7 H % (3.0 - 8.0) EOS 13.3 H % (0.0 - 7.0) BASO 0.4 % (0.0 - 2.5) %IG 0.3 H % (0.0 - 0.0) %NRBC 0.0 % (0.0 - 0.0) #NEUT 5.38 10/uL (2.00 - 6.90) #LYMPH 1.88 10/uL (0.60 - 3.40) #MONO 0.82 10/uL (0.00 - 0.90) #EOS 1.25 H 10/uL (0.00 - 0.70) #BASO 0.04 10/uL (0.00 - 0.20) #IG 0.03 10/uL (0.00 - 0.10) #NRBC 0.00 10/uL (0.00 - 0.00) MANUAL DIFF NOT INDICATED RBC MORPH NOT INDICATEDCMP: (KHUSHBOO: 04/15/2020 14:50) ( MsgRcvd 04/15/2020 15:52) Final results Test Result Flag Units (Reference) COMPREHENSIVE METABOLIC PANEL COMPREHENSIVE METABOLIC PANEL SODIUM 138 mEq/L (134 - 153) POTASSIUM 4.6 mEq/L (3.6 - 5.0) CHLORIDE 103 mEq/L (98 - 107) CO2 26 MEQ/L (22 - 30) GLUCOSE 110 MG/DL (65 - 110) BUN 33 H MG/DL (7 - 21) CREATININE 1.6 H MG/DL (0.7 - 1.5) BUN/CREAT 21 (8 - 27) TOTAL PROTEIN 7.6 G/DL (6.3 - 8.2) ALBUMIN 4.8 G/DL (3.9 - 5.0) GLOBULIN 2.8 GM/DL (2.4 - 3.2) A/G RATIO 1.7 (0.8 - 2.0) CALCIUM 9.7 MG/DL (8.4 - 10.2) TOTAL BILI <0.7 MG/DL (0.2 - 1.3) ALKALINE PHOS 76 U/L (38 - 126) SGOT/AST 25 U/L (5 - 40) SGPT/ALT 31 U/L (7 - 56) ANION GAP 9.0 mmol/L (8.0 - 16.0) AGE 74 yrs 4 Clinical Report - Physicians/Mid Levels [facility] Emergency Department [address] [place] [address] Phone #: ext- [phone] 04/15/2020 13:38 Patient: HUONG RUCKER Sex: F : 1945 Age: 74y NON-AA GFR 34 mL/min AFR AMER GFR >60 Male GFR Interprentation 20-49 yrs >60 mL/min Fqjalt51- 59 yrs >56 mL/min Normal 60-69 yrs >49 mL/min Normal 70-79yrs>42 mL/min Normal 80 and above >35 mL/min Normal Female GFRInterpretation 20-39 yrs >60 mL/min Normal 40-49 yrs >58 mL/minNormal 50-59 yrs >51 mL/min Normal 60-69 yrs >45 mL/min Mcukxy58-62 yrs >39 mL/min Normal 80 and above >32 mL/min NormalLactic Acid: (KHUSHBOO: 04/15/2020 14:50) ( MsgRcvd 04/15/2020 15:33) Final results Test Result Flag Units (Reference) LACTIC ACID 1.3 MMOL/L (0.2 - 2.2)Sed. Rate: (KHUSHBOO: 04/15/2020 14:50) ( MsgRcvd 04/15/2020 16:37) Final results Test Result Flag Units (Reference) SED RATE 10 mm/hr (0 - 30) SED RATE REENTER 10Urinalysis: (KHUSHBOO: 04/15/2020 15:20) ( [facility] 04/15/2020 16:37) Final results Test Result Flag Units (Reference) URINALYSIS URINALYSIS SOURCE Clean Catch COLOR yellow (NORMAL: Yello CLARITY clear (NORMAL: Clear SPEC GRAVITY 1.025 (1.001 - 1.030 pH 5 (5 - 9) GLUCOSE NORM (NORMAL: Negat BILIRUBIN NEG (NORMAL: Negat KETONE 5 A (NORMAL: Negat PROTEIN NEG (NORMAL: Negat NITRITE NEG (NORMAL: Negat BLOOD 25 A (NORMAL: Negat LEUK EST 25 (NORMAL: Negat UROBILINOGEN NOR (less than 1.0 MICROSCOPIC See Below WBC 1 - 3 (NORMAL: NONE RBC 1 - 3 (NORMAL: NONE EPITHELIAL FEW (NORMAL: NONE MUCOUS Trace (NORMAL: NONECRP: (KHUSHBOO: 04/15/2020 14:50) ( [facility] 04/15/2020 15:52) Final results Test Result Flag Units (Reference) CRP-HS 1.32 MG/L (1.00 - 3.00) CDC/AHS HS-CRP CUT-OFF: RELATIVE RISK: <1.0 mg/LLow 1.0 - 3.0 mg/L Average >3.0 mg/LHigh Optimally, the average of HS-CRP results repeated two weeks apart should be used forrisk assessment.RA Quant: (KHUSHBOO: 04/15/2020 14:50) ( [facility] 04/15/2020 15:52) Final results Test Result Flag Units (Reference) RA QUANT 12 IU/mL (0 - 14)Syphilis: (KHUSHBOO: 04/15/2020 14:50) ( [facility] 04/15/2020 16:06) Final results 5 Clinical Report - Physicians/Mid Levels [facility] Emergency Department [address] [place] [address] Phone #: ext- [phone] 04/15/2020 13:38 Patient: HUONG RUCKER Sex: F : 1945 Age: 74y Test Result Flag Units (Reference) SYPHILIS NON-REACTIVE (NORMAL:NON RE D-Dimer: (KHUSHBOO: 04/15/2020 14:50) ( MsgRcvd 04/15/2020 15:37) Final results Test Result Flag Units (Reference) D-DIMER QUANT 1.27 H ug/mL (0.27 - 0.50) EKG: (KHUSHBOO: 04/15/2020 14:38) ( MsgRcvd 04/15/2020 16:05) In Progress.PROGRESS AND PROCEDURESCourse of Care: (Patient's history obtained and previous 04/09/2020 ER record reviewed. Physical examcompleted. Treatment plan discussed and agreed upon . Labs/ Covid 19 , EKG ordered.). 15:45 Apr 15 2020. (Elevated D-dimer and leg cramps will get US lower extremities.). 17:00 Apr 15 2020. (Discussed labs and follow up including calling cardiology for echocardiogram. Patient will isolate until COVID 19 results and return if worsen. Tylenol as needed.). Disposition: Condition: stable.CLINICAL IMPRESSION Chills.INSTRUCTIONS (Tylenol for symptoms. Isolate yourself until COVID test results come back.). Warnings: Further evaluation is necessary (echocardiogram.). GENERAL WARNINGS: Return or contact your physician immediately if your condition worsens or changes unexpectedly, if not improving as expected, or if other problems arise. Your Current Medications: Your current home medications have been reviewed. CONTINUE TAKING THE FOLLOWING MEDICATIONS: Anoro Ellipta Inhalation. Aspirin Low Dose Oral. Diuretic*. Lisinopril Oral. Singulair Oral. Statins Support Oral. 6 Clinical Report - Physicians/Mid Levels [facility] Emergency Department [address] [place] [address] Phone #: ext- [phone] 04/15/2020 13:38 Patient: HUONG RUCKER Sex: F : 1945 Age: 74y Follow-up: Follow up with your healthcare provider in three days. Reason for referral: evaluation and treatment. Summary of care provided to patient and family. Understanding of the discharge instructions verbalized by patient.(Electronically signed by Joss Calderon, Physician 04/15/2020 19:29) Name Value Range Interpretation Code Description Data Roz rce(s) Supporting Document(s) ID Date Data Source [id number] 04/15/2020 01:49:00 PM EDT [facility] for HUONG RUCKER VisitID: [id number] Date: 11:32Lab results reviewed, Coronavirus COVID-19 SARS- CoV-2 NOT DETECTED. Communicatedinformation to patient.(Electronically signed by Cleo Madden RN - 04/19/2020 11:32) Name Value Range Interpretation Code Description Data Roz rce(s) Supporting Document(s) ID Date Data Source [id number] 04/18/2020 04:32:00 PM EDT [facility] Name Value Range Interpretation Code Description Data Roz rce(s) Supporting Document(s) BUN 30 mg/dL 8-23 Above high normal [facility] ([facility] CHRONIC KIDNEY DISEASE STAGING PER NKF: MALE GFR INTERPRETATION: 20-49 YRS: >60 mL/min Normal 50-59 YRS: >56 mL/min Normal 60-69 YRS: >49 mL/min Normal 70-79 YRS: >42 mL/min Normal 80 and above >35 mL/min Normal FEMALE GRF INTERPRETATION: 20-39 YRS: >60 mL/min Normal 40-49 YRS: >58 mL/min Normal 50-59 YRS: >51 mL/min Normal 60-69 YRS: >45 mL/min Normal 70-79 YRS: >39 mL/min Normal 80 and above >32 mL/min Normal Glu 140 mg/dL 70-110 Above high normal [facility] ([facility] CHRONIC KIDNEY DISEASE STAGING PER NKF: MALE GFR INTERPRETATION: 20-49 YRS: >60 mL/min Normal 50-59 YRS: >56 mL/min Normal 60-69 YRS: >49 mL/min Normal 70-79 YRS: >42 mL/min Normal 80 and above >35 mL/min Normal FEMALE GRF INTERPRETATION: 20-39 YRS: >60 mL/min Normal 40-49 YRS: >58 mL/min Normal 50-59 YRS: >51 mL/min Normal 60-69 YRS: >45 mL/min Normal 70-79 YRS: >39 mL/min Normal 80 and above >32 mL/min Normal BUN/Creatinine Ratio 24.2 Calc [facility] ([facility] CHRONIC KIDNEY DISEASE STAGING PER NKF: MALE GFR INTERPRETATION: 20-49 YRS: >60 mL/min Normal 50-59 YRS: >56 mL/min Normal 60-69 YRS: >49 mL/min Normal 70-79 YRS: >42 mL/min Normal 80 and above >35 mL/min Normal FEMALE GRF INTERPRETATION: 20-39 YRS: >60 mL/min Normal 40-49 YRS: >58 mL/min Normal 50-59 YRS: >51 mL/min Normal 60-69 YRS: >45 mL/min Normal 70-79 YRS: >39 mL/min Normal 80 and above >32 mL/min Normal Creat 1.3 mg/dL 0.5-1.0 Above high normal [facility] ([facility] CHRONIC KIDNEY DISEASE STAGING PER NKF: MALE GFR INTERPRETATION: 20-49 YRS: >60 mL/min Normal 50-59 YRS: >56 mL/min Normal 60-69 YRS: >49 mL/min Normal 70-79 YRS: >42 mL/min Normal 80 and above >35 mL/min Normal FEMALE GRF INTERPRETATION: 20-39 YRS: >60 mL/min Normal 40-49 YRS: >58 mL/min Normal 50-59 YRS: >51 mL/min Normal 60-69 YRS: >45 mL/min Normal 70-79 YRS: >39 mL/min Normal 80 and above >32 mL/min Normal Na 138 mmol/L 136-145 [facility] CHRONIC KIDNEY DISEASE STAGING PER NKF: MALE GFR INTERPRETATION: 20-49 YRS: >60 mL/min Normal 50-59 YRS: >56 mL/min Normal 60-69 YRS: >49 mL/min Normal 70-79 YRS: >42 mL/min Normal 80 and above >35 mL/min Normal FEMALE GRF INTERPRETATION: 20-39 YRS: >60 mL/min Normal 40-49 YRS: >58 mL/min Normal 50-59 YRS: >51 mL/min Normal 60-69 YRS: >45 mL/min Normal 70-79 YRS: >39 mL/min Normal 80 and above >32 mL/min Normal Co2 19.0 mmol/L 22.0-29.0 Below low normal [facility] ([facility] CHRONIC KIDNEY DISEASE STAGING PER NKF: MALE GFR INTERPRETATION: 20-49 YRS: >60 mL/min Normal 50-59 YRS: >56 mL/min Normal 60-69 YRS: >49 mL/min Normal 70-79 YRS: >42 mL/min Normal 80 and above >35 mL/min Normal FEMALE GRF INTERPRETATION: 20-39 YRS: >60 mL/min Normal 40-49 YRS: >58 mL/min Normal 50-59 YRS: >51 mL/min Normal 60-69 YRS: >45 mL/min Normal 70-79 YRS: >39 mL/min Normal 80 and above >32 mL/min Normal CA 9.2 mg/dL 8.6-10.2 [facility] CHRONIC KIDNEY DISEASE STAGING PER NKF: MALE GFR INTERPRETATION: 20-49 YRS: >60 mL/min Normal 50-59 YRS: >56 mL/min Normal 60-69 YRS: >49 mL/min Normal 70-79 YRS: >42 mL/min Normal 80 and above >35 mL/min Normal FEMALE GRF INTERPRETATION: 20-39 YRS: >60 mL/min Normal 40-49 YRS: >58 mL/min Normal 50-59 YRS: >51 mL/min Normal 60-69 YRS: >45 mL/min Normal 70-79 YRS: >39 mL/min Normal 80 and above >32 mL/min Normal Anion Gap 19 mmol/L [facility] CHRONIC KIDNEY DISEASE STAGING PER NKF: MALE GFR INTERPRETATION: 20-49 YRS: >60 mL/min Normal 50-59 YRS: >56 mL/min Normal 60-69 YRS: >49 mL/min Normal 70-79 YRS: >42 mL/min Normal 80 and above >35 mL/min Normal FEMALE GRF INTERPRETATION: 20-39 YRS: >60 mL/min Normal 40-49 YRS: >58 mL/min Normal 50-59 YRS: >51 mL/min Normal 60-69 YRS: >45 mL/min Normal 70-79 YRS: >39 mL/min Normal 80 and above >32 mL/min Normal K 4.0 mmol/L 3.5-5.1 [facility] ([facility] CHRONIC KIDNEY DISEASE STAGING PER NKF: MALE GFR INTERPRETATION: 20-49 YRS: >60 mL/min Normal 50-59 YRS: >56 mL/min Normal 60-69 YRS: >49 mL/min Normal 70-79 YRS: >42 mL/min Normal 80 and above >35 mL/min Normal FEMALE GRF INTERPRETATION: 20-39 YRS: >60 mL/min Normal 40-49 YRS: >58 mL/min Normal 50-59 YRS: >51 mL/min Normal 60-69 YRS: >45 mL/min Normal 70-79 YRS: >39 mL/min Normal 80 and above >32 mL/min Normal CL 103.7 mmol/L 98.0-107.0 [facility] ([facility] CHRONIC KIDNEY DISEASE STAGING PER NKF: MALE GFR INTERPRETATION: 20-49 YRS: >60 mL/min Normal 50-59 YRS: >56 mL/min Normal 60-69 YRS: >49 mL/min Normal 70-79 YRS: >42 mL/min Normal 80 and above >35 mL/min Normal FEMALE GRF INTERPRETATION: 20-39 YRS: >60 mL/min Normal 40-49 YRS: >58 mL/min Normal 50-59 YRS: >51 mL/min Normal 60-69 YRS: >45 mL/min Normal 70-79 YRS: >39 mL/min Normal 80 and above >32 mL/min Normal eGFR 47 # [facility] ( [facility] CHRONIC KIDNEY DISEASE STAGING PER NKF: MALE GFR INTERPRETATION: 20-49 YRS: >60 mL/min Normal 50-59 YRS: >56 mL/min Normal 60-69 YRS: >49 mL/min Normal 70-79 YRS: >42 mL/min Normal 80 and above >35 mL/min Normal FEMALE GRF INTERPRETATION: 20-39 YRS: >60 mL/min Normal 40-49 YRS: >58 mL/min Normal 50-59 YRS: >51 mL/min Normal 60-69 YRS: >45 mL/min Normal 70-79 YRS: >39 mL/min Normal 80 and above >32 mL/min Normal eGFR Non-Afr. Vincentian 41 # [facility] ([facility] CHRONIC KIDNEY DISEASE STAGING PER NKF: MALE GFR INTERPRETATION: 20-49 YRS: >60 mL/min Normal 50-59 YRS: >56 mL/min Normal 60-69 YRS: >49 mL/min Normal 70-79 YRS: >42 mL/min Normal 80 and above >35 mL/min Normal FEMALE GRF INTERPRETATION: 20-39 YRS: >60 mL/min Normal 40-49 YRS: >58 mL/min Normal 50-59 YRS: >51 mL/min Normal 60-69 YRS: >45 mL/min Normal 70-79 YRS: >39 mL/min Normal 80 and above >32 mL/min Normal ID Date Data Source [id number] 04/18/2020 12:52:00 [place] [address] PHONE: [phone] FAX: [phone] Name .................. : ALKA Parrish Acct Number.................. : [id number] ROOM. ................. : TR-06 Number ................... : [id number] Stay type ............. : E/R Discharge Date......... ... : 04/15/20 Admit Date .... ..... : 04/15/20 Admit Phys .................... : HEMA TOMLINSON Date of ....... : 1945 Family Phys ................... : DELILAH Morrison Phone .................. : [phone] Age ................................ : 74 Film# .................. .:[id number] Sex ................................. : F Unsigned transcriptions are preliminary reports and do not represent a medical or legal document DOPPLER VENOUS BILAT LEG [id number] COMPLETE:04/15/20 16:47 BAW [id number] Reason(s): DVT BILATERAL LOWER EXTREMITY VENOUS DUPLEX DOPPLER ULTRASOUND: HISTORY: DVT COMPARISON: None. FINDINGS: There is normal matias scale compression ultrasound of the right and left common femoral, superficial femoral and popliteal veins. Proximal greater saphenous compressibility is also documented bilaterally. Normal flow is established in the right and left lower extremity deep venous systems with n ormal color Doppler ultrasound and there is normal cardiorespiratory phases with augmented flow throughout the right and left lower extremity deep venous systems. Prominent but benign-appearing lymph nodes are noted in each inguinal region. IMPRESSION: No DVT. Electronically Reviewed and Signed By Jaime Alegria MD , 04/18/20 12:52, APM Transcribe Initials: BETH , Transcribe Date: 04/15/20 17:16, Dictation Date: Copy for: EMERGENCY DEPT via modem Copy for: 710 MED REC DISCHARGED Page 1 of 1 Name Value Range Interpretation Code Description Data Roz rce(s) Supporting Document(s) ID Date Data Source [id number] 04/18/2020 07:58:00 AM EDT [facility] [address] [place] [address] RESPIRATORY CARE REPORT ==== ---------NAME------- NUMBER SEX AGE ADMIT DISC. XRAY# F/C [id number] Parrish [id number] F 74 04/15/20 04/15/20 [id number] E/R DATE OF : 1945 M/R# [id number] #: [id number] TR-06 LOCATION: EMERGENCY DEPT [facility] [id number] COMPLE TE:04/15/20 15:54 [facility] [address] PHYSICIAN: HEMA TOMLINSON Name Value Range Interpretation Code Description Data Roz rce(s) Supporting Document(s) ID Date Data Source [id number] 04/15/2020 03:20:00 PM EDT [facility] Name Value Range Interpretation Code Description Data Roz rce(s) Supporting Document(s) SARS coronavirus 2 RNA [facility] This lab was ordered by [facility] and reported by [facility]. ID Date Data Source [id number] 04/19/2020 07:11:00 AM EDT [facility] Name Value Range Interpretation Code Description Data Roz rce(s) Supporting Document(s) SARS-CoV-2, KAZ Not Detected Not Detected [facility] This nucleic acid amplification test was developed and its performancecharacteristics determined by [facility]. Nucleic acidamplification tests include PCR and TMA. This test has not been FDAcleared or approved. This test has been authorized by FDA under anEmergency Use Authorization (EUA). This test is only authorized forthe duration of time the declaration that circumstances existjustifying the authorization of the emergency use of in vitrodiagnostic tests for detection of SARS-CoV-2 virus and/or diagnosisof COVID-19 infection under section 564(b)(1) of the Act, 21 U.S.C.360bbb-3(b) (1), unless the authorization is terminated or revokedsooner.When diagnostic testing is negative, the possibility of a falsenegative result should be considered in the context of a patient'srecent exposures and the presence of clinical signs and symptomsconsistent with COVID- 19. An individual without symptoms of COVID-19and who is not shedding SARS-CoV-2 virus would expect to have anegative (not detected) result in this assay. ID Date Data Source [id number] 04/15/2020 03:20:00 PM EDT [facility] ([facility] Name Value Range Interpretation Code Description Data Roz rce(s) Supporting Document(s) Coronavirus Covid-19 Laboratory test result [facility] ([facility] SOURCE: Clean Catch ID Date Data Source [id number] 04/15/2020 03:20:00 PM EDT [facility] ([facility] Name Value Range Interpretation Code Description Data Roz rce(s) Supporting Document(s) Urinalysis Laboratory test result [facility] ([facility] SOURCE: Clean Catch Clarity Laboratory test result [facility] ([facility] SOURCE: Clean Catch Color Laboratory test result [facility] ([facility] SOURCE: Clean Catch Source Laboratory test result [facility] ([facility] SOURCE: Clean Catch Spec Kimball 1.025 1.001-1.030 [facility] ([facility] SOURCE: Clean Catch Glucose Laboratory test result [facility] ([facility] SOURCE: Clean Catch pH 5 5-9 [facility] SOURCE: Clean Catch Bilirubin Laboratory test result [facility] ([facility] SOURCE: Clean Catch Ketone 5 Abnormal (applies to non-numeric res ults) [facility] ([facility] SOURCE: Clean Catch Protein Laboratory test result [facility] ([facility] SOURCE: Clean Catch Nitrite Laboratory test result [facility] ([facility] SOURCE: Clean Catch Blood 25 Abnormal (applies to non-numeric res ults) [facility] ([facility] SOURCE: Clean Catch Leuk Est 25 [facility] ([facility] SOURCE: Clean Catch Microscopic Laboratory test result M [facility] ([facility] SOURCE: Clean Catch Urobilinogen Laboratory test result [facility] ([facility] SOURCE: Clean Catch WBC Laboratory test result [facility] ([facility] SOURCE: Clean Catch Epithelial Laboratory test result [facility] ([facility] SOURCE: Clean Catch RBC Laboratory test result [facility] ([facility] SOURCE: Clean Catch Mucous Laboratory test result [facility] ([facility] SOURCE: Clean Catch ID Date Data Source [id number] 04/15/2020 04:36:00 PM EDT [facility] Name Value Range Interpretation Code Description Data Roz rce(s) Supporting Document(s) URINALYSIS [facility] URINALYSIS SOURCE Clean Catch [facility] COLOR yellow NORMAL: Yellow [facility] CLARITY clear NORMAL: Clear [facility] Specific gravity of Urine by Test strip 1.025 1.001 - 1.030 [facility] pH 5 5 - 9 [facility] Gl[facility] [Mass/volume] in Urine by Test strip NORM NORMAL: [facility] Bilirubin.total [Presence] in Urine by Test strip NEG NORMAL: Negative [facility] Ketones [Presence] in Urine by Test strip 5 NORMAL: Negative [facility] Protein [Mass/volume] in Urine by Test strip NEG NORMAL: [facility] Nitrite [Presence] in Urine by Test strip NEG NORMAL: Negative [facility] BLOOD 25 NORMAL: Negative [facility] Leukocyte esterase [Presence] in Urine by Test strip 25 MONICA L: Negative [facility] Urobilinogen [Mass/volume] in Urine by Test strip NOR less annemarie n 1.0 mg/dL [facility] MICROSCOPIC See Below [facility] ital WBC 1 - 3 NORMAL: NONE SEEN [facility] Erythrocytes [#/volume] in Urine by Test strip 1 - 3 NORMAL: NON E SEEN [facility] EPITHELIAL FEW NORMAL: NONE SEEN [facility] Mucus [Presence] in Urine sediment by Light microscopy Trace NORMAL: NONE SEEN [facility] ID Date Data Source [id number] 04/21/2020 08:34:00 AM EDT [facility] 1040 Name Value Range Interpretation Code Description Data Roz rce(s) Supporting Document(s) Bacteria identified in Blood by Culture [facility] NO GROWTH AFTER 5 DAYS ID Date Data Source [id number] 04/22/2020 01:46:00 PM EDT [facility] Name Value Range Interpretation Code Description Data Roz rce(s) Supporting Document(s) CULTURE BLOOD [facility] spital _CULTURE BLOOD_ TEST PERFORM ED AT [facility] [address] [place] [address] CLIA# [id number] SEE SCANNED REPORT{ PRELIM ID Date Data Source [id number] 04/15/2020 02:50:00 PM EDT [facility] ([facility] Name Value Range Interpretation Code Description Data Roz rce(s) Supporting Document(s) Fibrin D-dimer [Presence] in Platelet poor plasma 1.27 ug/mL 0.27-0.50 Above high normal [facility] ([facility] ID Date Data Source [id number] 04/15/2020 02:50:00 PM EDT [facility] ([facility] Name Value Range Interpretation Code Description Data Roz rce(s) Supporting Document(s) RBC 3.99 10^6/uL 4.20-5.40 Below low normal [facility] ([facility] WBC 9.4 10^3/uL 4.2-11.0 [facility] ([facility] CBC W/Automated Diff Laboratory test result [facility] ([facility] COMPLETE BLOOD COUNT Hemoglobin 12.1 g/dL 12.0-16.0 [facility] ([facility] MCV 97.0 fL 81.0-101 [facility] ([facility] MCH 30.3 pg 27.0-34.0 [facility] ([facility] Hematocrit 38.7 % 37.0-47.0 [facility] ([facility] RDW 12.9 % 11.5-14.5 [facility] ([facility] Platelets 324 10^3/uL 150-450 [facility] ([facility] MCHC 31.3 g/dL 31.0-36.0 [facility] ([facility] MPV 9.9 fL 7.4-10.4 [facility] ([facility] Neut 57.3 % 37.0-80.0 [facility] ([facility] Lymph 20.0 % 25.0-40.0 Below low normal [facility] ( [facility] Eos 13.3 % 0.0-7.0 Above high normal [facility] ([facility] [place] 8.7 % 3.0-8.0 Above high normal [facility] ([facility] Baso 0.4 % 0.0-2.5 [facility] ([facility] %Ig 0.3 % 0.0-0.0 Above high normal [facility] ([facility] #Neut 5.38 10^3/uL 2.00-6.90 [facility] ([facility] #Lymph 1.88 10^3/uL 0.60-3.40 [facility] ([facility] %NRBC 0.0 % 0.0-0.0 [facility] ([facility] #Eos 1.25 10^3/uL 0.00-0.70 Above high normal [facility] ([facility] #Ig 0.03 10^3/uL 0.00-0.10 [facility] ([facility] #[place] 0.82 10^3/uL 0.00-0.90 [facility] ([facility] #Baso 0.04 10^3/uL 0.00-0.20 [facility] ([facility] RBC Morph Laboratory test result [facility] ([facility] Manual Diff Laboratory test result M [facility] ([facility] #NRBC 0.00 10^3/uL 0.00-0.00 [facility] ([facility] ID Date Data Source [id number] 04/15/2020 02:50:00 PM EDT [facility] ([facility] Name Value Range Interpretation Code Description Data Roz rce(s) Supporting Document(s) Comprehensive [employer] Laboratory test result [facility] ([facility] COMPREHENSIVE METABOLIC PANEL Chloride 103 meq/L 98-107 [facility] Sodium 138 meq/L 134-153 [facility] Potassium 4.6 meq/L 3.6-5.0 [facility] Creatinine 1.6 mg/dL 0.7-1.5 Above high normal [facility] ([facility] BUN 33 mg/dL 7-21 Above high normal [facility] ([facility] Glucose 110 mg/dL 65-110 [facility] Co2 26 meq/L 22-30 [facility] BUN/Creat 21 8-27 [facility] Albumin 4.8 g/dL 3.9-5.0 [facility] Total Protein 7.6 g/dL 6.3-8.2 [facility] ([facility] Total Bili Laboratory test result 0.2-1.3 [facility] ([facility] A/G Ratio 1.7 0.8-2.0 [facility] ([facility] Calcium 9.7 mg/dL 8.4-10.2 [facility] ([facility] Globulin 2.8 GM/DL 2.4-3.2 [facility] ([facility] SGPT/Alt 31 U/L 7-56 [facility] ([facility] Alkaline Phos 76 U/L 38-126 [facility] ([facility] Sgot/Ast 25 U/L 5-40 [facility] ([facility] Anion Gap 9.0 mmol/L 8.0-16.0 [facility] ([facility] Non-Aa GFR 34 mL/min [facility] ([facility] Age 74 yrs [facility] ([facility] Afr Amer GFR Laboratory test result [facility] ([facility] Male GFR Interprentation 20-49 yrs >60 mL/min Normal 50-59 yrs >56 mL/min Normal 60-69 yrs >49 mL/min Normal 70-79yrs >42 mL/min Normal 80 and above >35 mL/min Normal Female GFR Interpretation 20-39 yrs >60 mL/min Normal 40-49 yrs >58 mL/min Normal 50-59 yrs >51 mL/min Normal 60-69 yrs >45 mL/min Normal 70-79 yrs >39 mL/min Normal 80 and above >32 mL/min Normal ID Date Data Source [id number] 04/15/2020 02:50:00 PM EDT [facility] ([facility] Name Value Range Interpretation Code Description Data Roz rce(s) Supporting Document(s) Lactate [Mass/volume] in Serum or Plasma 1.3 mmol/L 0.2-2.2 [facility] ([facility] ID Date Data Source [id number] 04/15/2020 02:50:00 PM EDT [facility] ([facility] Name Value Range Interpretation Code Description Data Roz rce(s) Supporting Document(s) CRP (High Sensitivity) 1.32 mg/L 1.00-3.00 [facility] ([facility] <content>CDC/S HS-CRP CUT-OFF: RELATIVE RISK:</content>
<content><1.0 mg/L Low</content>
<content>1.0 - 3.0 mg/L Average</whitley nt>
<content>>3.0 mg/L High</content>
<content>Optimally, the average of HS-CRP results repeated</content>
<content>two weeks apart should be used for risk assessment.</content>
<content></content> Treponema pallidum Ab [Presence] in Serum Laboratory test result [facility] ([facility] Rheumatoid factor [Units/volume] in Serum or Plasma 12 IU/ml 0-14 [facility] ([facility] ID Date Data Source [id number] 04/15/2020 02:50:00 PM EDT [facility] ([facility] Name Value Range Interpretation Code Description Data Roz rce(s) Supporting Document(s) Sed Rate Reenter 10 [facility] ([facility] Sed Rate 10 mm/hr 0-30 [facility] ([facility] ID Date Data Source [id number] 04/15/2020 02:50:00 PM EDT [facility] ([facility] Name Value Range Interpretation Code Description Data Roz rce(s) Supporting Document(s) Culture Blood Laboratory test result [facility] ([facility] _CULTURE BLOOD_ [place] [address] CLIA# [id number] SEE SCANNED REPORT { PRELIM ID Date Data Source [id number] 04/15/2020 04:37:00 PM EDT [facility] Name Value Range Interpretation Code Description Data Roz rce(s) Supporting Document(s) Erythrocyte sedimentation rate by Westergren method 10 mm/hr 0 - 30 [facility] SED RATE REENTER 10 [facility] ID Date Data Source [id number] 04/15/2020 04:06:00 PM EDT [facility] Name Value Range Interpretation Code Description Data Roz rce(s) Supporting Document(s) Treponema pallidum Ab [Presence] in Serum NON-REACTIVE NORMAL:NON KRYSTIN CTIVE [facility] ID Date Data Source [id number] 04/15/2020 03:52:00 PM EDT [facility] Name Value Range Interpretation Code Description Data Roz rce(s) Supporting Document(s) RA QUANT 12 IU/mL 0 - 14 [facility] Date Data Source [id number] 04/15/2020 03:52:00 PM EDT [facility] Name Value Range Interpretation Code Description Data Roz rce(s) Supporting Document(s) C reactive protein [Mass/volume] in Serum or Plasma by High sensitivity method 1.32 MG/L 1.00 - 3.00 [facility] CDC/S HS-CRP CUT-OFF: RELATIVE RISK: <1.0 mg/L Low 1.0 - 3.0 mg/L Average >3.0 mg/L High Optimally, the average of HS-CRP results repeated two weeks apart should be used for risk assessment. ID Date Data Source [id number] 04/15/2020 03:52:00 PM EDT [facility] Name Value Range Interpretation Code Description Data Roz rce(s) Supporting Document(s) COMPREHENSIVE METABOLIC PANEL [facility] COMPREHENSIVE METABOLIC PANEL Sodium [Moles/volume] in Serum or Plasma 138 mEq/L 134 - 153 [facility] Potassium [Moles/volume] in Serum or Plasma 4.6 mEq/L 3.6 - 5.0 [facility] Chloride [Moles/volume] in Serum or Plasma 103 mEq/L 98 - 107 [facility] Carbon dioxide, total [Moles/volume] in Serum or Plasma 26 MEQ/L 22 - 30 [facility] Glucose [Mass/volume] in Serum or Plasma 110 MG/DL 65 - 110 [facility] BUN 33 MG/DL 7 - 21 [facility] Creatinine [Mass/volume] in Serum or Plasma 1.6 MG/DL 0.7 - 1.5 H [facility] BUN/CREAT 21 8 - 27 [facility] Protein [Mass/volume] in Serum or Plasma 7.6 G/DL 6.3 - 8.2 [facility] Albumin [Mass/volume] in Serum or Plasma 4.8 G/DL 3.9 - 5.0 [facility] Globulin [Mass/volume] in Serum by calculation 2.8 GM/DL 2.4 - 3.2 [facility] A/G RATIO 1.7 0.8 - 2.0 [facility] Calcium [Mass/volume] in Serum or Plasma 9.7 MG/DL 8.4 - 10.2 [facility] Bilirubin.total [Mass/volume] in Serum or Plasma <0.7 MG/DL 0.2 - 1.3 [facility] Alkaline phosphatase [Enzymatic activity/volume] in Serum or Plasma 76 U/L 38 - 126 [facility] Aspartate aminotransferase [Enzymatic activity/volume] in Serum or Plasma 25 U/L 5 - 40 [facility] Alanine aminotransferase [Enzymatic activity/volume] in Seru m or Plasma 31 U/L 7 - 56 [facility] Anion gap 3 in Serum or Plasma 9.0 mmol/L 8.0 - 16.0 [facility] AGE 74 yrs [facility] NON-[facility] GFR 34 mL/min [facility] AFR AMER GFR >60 [facility] Male GFR In terprentation 20-49 yrs >60 mL/min Normal 50-59 yrs >56 mL/min Normal 60-69 yrs >49 mL/min Normal 70-79yrs >42 mL/min Normal 80 and above >35 mL/min Normal Female GFR Interpretation 20-39 yrs >60 mL/min Normal 40-49 yrs >58 mL/min Normal 50-59 yrs >51 mL/min Normal 60-69 yrs >45 mL/min Normal 70-79 yrs >39 mL/min Normal 80 and above >32 mL/min Normal ID Date Data Source [id number] 04/15/2020 03:36:00 PM EDT [facility] Name Value Range Interpretation Code Description Data Roz rce(s) Supporting Document(s) Fibrin D-dimer FEU [Mass/volume] in Platelet poor plasma 1.27 ug /mL 0.27 - 0.50 H [facility] ID Date Data Source [id number] 04/15/2020 03:33:00 PM EDT [facility] Name Value Range Interpretation Code Description Data Roz rce(s) Supporting Document(s) CBC W/AUTOMATED DIFF [facility] COMPLETE BLOOD COUNT Leukocytes [#/volume] in Blood by Automated count 9.4 10^3/uL 4.2 - 1 1.0 [facility] Erythrocytes [#/volume] in Blood by Automated count 3.99 10^6/uL 4. 20 - 5.40 L [facility] Hemoglobin [Mass/volume] in Blood 12.1 g/dL 12.0 - 16.0 [facility] Hematocrit [Volume Fraction] of Blood by Automated count 38.7 % 3 7.0 - 47.0 [facility] Erythrocyte mean corpuscular volume [Entitic volume] by Auto mated count 97.0 fL 81.0 - 101 [facility] Erythrocyte mean corpuscular hemoglobin [Entitic mass] by Automated count 30.3 pg 27.0 - 34.0 [facility] Erythrocyte mean corpuscular hemoglobin concentration [Mass/volume] by Automated count 31.3 g/dL 31.0 - 36.0 [facility] Erythrocyte distribution width [Ratio] by Automated count 12.9 % 11.5 - 14.5 [facility] Platelets [#/volume] in Blood by Automated count 324 10^3/uL 150 - 45 0 [facility] Platelet mean volume [Entitic volume] in Blood by Automated count 9.9 fL 7.4 - 10.4 [facility] Neutrophils/100 leukocytes in Blood by Automated count 57.3 % 37. 0 - 80.0 [facility] Lymphocytes/100 leukocytes in Blood by Manual count 20.0 % 25.0 - 40.0 L [facility] Monocytes/100 leukocytes in Blood by Automated count 8.7 % 3.0 - 8.0 H [facility] Eosinophils/100 leukocytes in Blood by Automated count 13.3 % 0.0 - 7.0 H [facility] Basophils/100 leukocytes in Blood by Automated count 0.4 % 0.0 - 2.5 [facility] %IG 0.3 % 0.0 - 0.0 [facility] %NRBC 0.0 % 0.0 - 0.0 [facility] Neutrophils [#/volume] in Blood by Automated count 5.38 10^3/uL 2.00 - 6.90 [facility] Lymphocytes [#/volume] in Blood by Automated count 1.88 10^3/uL 0.60 - 3.40 [facility] Monocytes [#/volume] in Blood by Automated count 0.82 10^3/uL 0.00 - 0.90 [facility] Eosinophils [#/volume] in Blood by Automated count 1.25 10^3/uL 0.00 - 0.70 H [facility] Basophils [#/volume] in Blood by Automated count 0.04 10^3/uL 0.00 - 0.20 [facility] #IG 0.03 10^3/uL 0.00 - 0.10 [facility] #NRBC 0.00 10^3/uL 0.00 - 0.00 [facility] MANUAL DIFF NOT INDICATED [facility] RBC MORPH NOT INDICATED [facility] ID Date Data Source [id number] 04/15/2020 03:32:00 PM EDT [facility] Name Value Range Interpretation Code Description Data Roz rce(s) Supporting Document(s) Lactate [Moles/volume] in Serum or Plasma 1.3 MMOL/L 0.2 - 2.2 [facility] ID Date Data Source [id number] 04/15/2020 02:40:00 PM EDT [facility] ([facility] Name Value Range Interpretation Code Description Data Roz rce(s) Supporting Document(s) Culture Blood Laboratory test result [facility] ([facility] _CULTURE BLOOD_ { PRELIM TEST PERFORMED AT [address] [address] CLIA# [id number] SEE SCANNED REPORT ID Date Data Source [id number] 04/22/2020 01:46:00 PM EDT [facility] Name Value Range Interpretation Code Description Data Roz rce(s) Supporting Document(s) CULTURE BLOOD [facility] _CULTURE BLOOD_{ PRELIM TEST PERFORMED AT [address] [address] CLIA# [id number] SEE SCANNED REPORT ID Date Data Source [id number] 04/12/2020 10:20:00 AM EDT [facility] ([facility] Name Value Range Interpretation Code Description Data Roz rce(s) Supporting Document(s) BUN 23 mg/dL 8- [facility] ([facility] NORMAL RANGES Age WBC RBC HGB HCT MCV PLT Adult M 4.1-10.9 4.20-6.30 12.0-18.0 37.0-51.0 80-97 140-440 Adult F 4.1-10.9 4.04-5.48 12.0-18.0 37.0-51.0 80-97 140-440 0 -1 Yr 5.0-20.0 3.9-5.9 15-18 MV: 44 MV: 91 MV: 277 2-9 Yr. 6.0-17.0 3.8-5.4 11-13 MV: 37 MV: 78 MV: 300 10 Yrs. 5.0-13.0 3.8-5.4 12-15 MV: 39 MV: 80 MV: 250 NOTE: * FOR ADULT BLACK MALES AND FEMALES, NORMAL WBC IS 2.9-7.7 K/ML * FOR ADULT BLACK MALES AND FEMALES, NORMAL RBC,HGB, AND HCT IS 5% LESS SOURCE FOR DATA: [employer] 1800 OPERATION MANUAL( AUTOMATED BLOOD COUNTS AND DIFF.) APPENDIX B-3 CHRONIC KIDNEY DISEASE STAGING PER NKF: MALE GFR INTERPRETATION: 20-49 YRS: >60 mL/min Normal 50-59 YRS: >56 mL/min Normal 60-69 YRS: >49 mL/min Normal 70-79 YRS: >42 mL/min Normal 80 and above >35 mL/min Normal FEMALE GRF INTERPRETATION: 20-39 YRS: >60 mL/min Normal 40-49 YRS: >58 mL/min Normal 50-59 YRS: >51 mL/min Normal 60-69 YRS: >45 mL/min Normal 70-79 YRS: >39 mL/min Normal 80 and above >32 mL/min Normal Glu 155 mg/dL 70-110 Above high normal [facility] ([facility] NORMAL RANGES Age WBC RBC HGB HCT MCV PLT Adult M 4.1-10.9 4.20-6.30 12.0-18.0 37.0-51.0 80-97 140-440 Adult F 4.1-10.9 4.04-5.48 12.0-18.0 37.0-51.0 80-97 140-440 0 -1 Yr 5.0-20.0 3.9-5.9 15-18 MV: 44 MV: 91 MV: 277 2-9 Yr. 6.0-17.0 3.8-5.4 11-13 MV: 37 MV: 78 MV: 300 10 Yrs. 5.0-13.0 3.8-5.4 12-15 MV: 39 MV: 80 MV: 250 NOTE: * FOR ADULT BLACK MALES AND FEMALES, NORMAL WBC IS 2.9-7.7 K/ML * FOR ADULT BLACK MALES AND FEMALES, NORMAL RBC,HGB, AND HCT IS 5% LESS SOURCE FOR DATA: [employer] 1800 OPERATION MANUAL( AUTOMATED BLOOD COUNTS AND DIFF.) APPENDIX B-3 CHRONIC KIDNEY DISEASE STAGING PER NKF: MALE GFR INTERPRETATION: 20-49 YRS: >60 mL/min Normal 50-59 YRS: >56 mL/min Normal 60-69 YRS: >49 mL/min Normal 70-79 YRS: >42 mL/min Normal 80 and above >35 mL/min Normal FEMALE GRF INTERPRETATION: 20-39 YRS: >60 mL/min Normal 40-49 YRS: >58 mL/min Normal 50-59 YRS: >51 mL/min Normal 60-69 YRS: >45 mL/min Normal 70-79 YRS: >39 mL/min Normal 80 and above >32 mL/min Normal Creat 1.3 mg/dL 0.5-1.0 Above high normal [facility] ([facility] NORMAL RANGES Age WBC RBC HGB HCT MCV PLT Adult M 4.1-10.9 4.20-6.30 12.0-18.0 37.0-51.0 80-97 140-440 Adult F 4.1-10.9 4.04-5.48 12.0-18.0 37.0-51.0 80-97 140-440 0 -1 Yr 5.0-20.0 3.9-5.9 15-18 MV: 44 MV: 91 MV: 277 2-9 Yr. 6.0-17.0 3.8-5.4 11-13 MV: 37 MV: 78 MV: 300 10 Yrs. 5.0-13.0 3.8-5.4 12-15 MV: 39 MV: 80 MV: 250 NOTE: * FOR ADULT BLACK MALES AND FEMALES, NORMAL WBC IS 2.9-7.7 K/ML * FOR ADULT BLACK MALES AND FEMALES, NORMAL RBC,HGB, AND HCT IS 5% LESS SOURCE FOR DATA: [employer] 1800 OPERATION MANUAL( AUTOMATED BLOOD COUNTS AND DIFF.) APPENDIX B-3 CHRONIC KIDNEY DISEASE STAGING PER NKF: MALE GFR INTERPRETATION: 20-49 YRS: >60 mL/min Normal 50-59 YRS: >56 mL/min Normal 60-69 YRS: >49 mL/min Normal 70-79 YRS: >42 mL/min Normal 80 and above >35 mL/min Normal FEMALE GRF INTERPRETATION: 20-39 YRS: >60 mL/min Normal 40-49 YRS: >58 mL/min Normal 50-59 YRS: >51 mL/min Normal 60-69 YRS: >45 mL/min Normal 70-79 YRS: >39 mL/min Normal 80 and above >32 mL/min Normal Co2 22.1 mmol/L 22.0-29.0 [employer] ([employer] [facility] NORMAL RANGES Age WBC RBC HGB HCT MCV PLT Adult M 4.1-10.9 4.20-6.30 12.0-18.0 37.0-51.0 80-97 140-440 Adult F 4.1-10.9 4.04-5.48 12.0-18.0 37.0-51.0 80-97 140-440 0 -1 Yr 5.0-20.0 3.9-5.9 15-18 MV: 44 MV: 91 MV: 277 2-9 Yr. 6.0-17.0 3.8-5.4 11-13 MV: 37 MV: 78 MV: 300 10 Yrs. 5.0-13.0 3.8-5.4 12-15 MV: 39 MV: 80 MV: 250 NOTE: * FOR ADULT BLACK MALES AND FEMALES, NORMAL WBC IS 2.9-7.7 K/ML * FOR ADULT BLACK MALES AND FEMALES, NORMAL RBC,HGB, AND HCT IS 5% LESS SOURCE FOR DATA: [employer] 1800 OPERATION MANUAL( AUTOMATED BLOOD COUNTS AND DIFF.) APPENDIX B-3 CHRONIC KIDNEY DISEASE STAGING PER NKF: MALE GFR INTERPRETATION: 20-49 YRS: >60 mL/min Normal 50-59 YRS: >56 mL/min Normal 60-69 YRS: >49 mL/min Normal 70-79 YRS: >42 mL/min Normal 80 and above >35 mL/min Normal FEMALE GRF INTERPRETATION: 20-39 YRS: >60 mL/min Normal 40-49 YRS: >58 mL/min Normal 50-59 YRS: >51 mL/min Normal 60-69 YRS: >45 mL/min Normal 70-79 YRS: >39 mL/min Normal 80 and above >32 mL/min Normal BUN/Creatinine Ratio 17.2 [facility] ([facility] NORMAL RANGES Age WBC RBC HGB HCT MCV PLT Adult M 4.1-10.9 4.20-6.30 12.0-18.0 37.0-51.0 80-97 140-440 Adult F 4.1-10.9 4.04-5.48 12.0-18.0 37.0-51.0 80-97 140-440 0 -1 Yr 5.0-20.0 3.9-5.9 15-18 MV: 44 MV: 91 MV: 277 2-9 Yr. 6.0-17.0 3.8-5.4 11-13 MV: 37 MV: 78 MV: 300 10 Yrs. 5.0-13.0 3.8-5.4 12-15 MV: 39 MV: 80 MV: 250 NOTE: * FOR ADULT BLACK MALES AND FEMALES, NORMAL WBC IS 2.9-7.7 K/ML * FOR ADULT BLACK MALES AND FEMALES, NORMAL RBC,HGB, AND HCT IS 5% LESS SOURCE FOR DATA: [employer] 1800 OPERATION MANUAL( AUTOMATED BLOOD COUNTS AND DIFF.) APPENDIX B-3 CHRONIC KIDNEY DISEASE STAGING PER NKF: MALE GFR INTERPRETATION: 20-49 YRS: >60 mL/min Normal 50-59 YRS: >56 mL/min Normal 60-69 YRS: >49 mL/min Normal 70-79 YRS: >42 mL/min Normal 80 and above >35 mL/min Normal FEMALE GRF INTERPRETATION: 20-39 YRS: >60 mL/min Normal 40-49 YRS: >58 mL/min Normal 50-59 YRS: >51 mL/min Normal 60-69 YRS: >45 mL/min Normal 70-79 YRS: >39 mL/min Normal 80 and above >32 mL/min Normal Na 132 mmol/L 136-145 Below low normal [facility] NORMAL RANGES Age WBC RBC HGB HCT MCV PLT Adult M 4.1-10.9 4.20-6.30 12.0-18.0 37.0-51.0 80-97 140-440 Adult F 4.1-10.9 4.04-5.48 12.0-18.0 37.0-51.0 80-97 140-440 0 -1 Yr 5.0-20.0 3.9-5.9 15-18 MV: 44 MV: 91 MV: 277 2-9 Yr. 6.0-17.0 3.8-5.4 11-13 MV: 37 MV: 78 MV: 300 10 Yrs. 5.0-13.0 3.8-5.4 12-15 MV: 39 MV: 80 MV: 250 NOTE: * FOR ADULT BLACK MALES AND FEMALES, NORMAL WBC IS 2.9-7.7 K/ML * FOR ADULT BLACK MALES AND FEMALES, NORMAL RBC,HGB, AND HCT IS 5% LESS SOURCE FOR DATA: [employer] 1800 OPERATION MANUAL( AUTOMATED BLOOD COUNTS AND DIFF.) APPENDIX B-3 CHRONIC KIDNEY DISEASE STAGING PER NKF: MALE GFR INTERPRETATION: 20-49 YRS: >60 mL/min Normal 50-59 YRS: >56 mL/min Normal 60-69 YRS: >49 mL/min Normal 70-79 YRS: >42 mL/min Normal 80 and above >35 mL/min Normal FEMALE GRF INTERPRETATION: 20-39 YRS: >60 mL/min Normal 40-49 YRS: >58 mL/min Normal 50-59 YRS: >51 mL/min Normal 60-69 YRS: >45 mL/min Normal 70-79 YRS: >39 mL/min Normal 80 and above >32 mL/min Normal K 4.6 mmol/L 3.5-5.1 [facility] NORMAL RANGES Age WBC RBC HGB HCT MCV PLT Adult M 4.1-10.9 4.20-6.30 12.0-18.0 37.0-51.0 80-97 140-440 Adult F 4.1-10.9 4.04-5.48 12.0-18.0 37.0-51.0 80-97 140-440 0 -1 Yr 5.0-20.0 3.9-5.9 15-18 MV: 44 MV: 91 MV: 277 2-9 Yr. 6.0-17.0 3.8-5.4 11-13 MV: 37 MV: 78 MV: 300 10 Yrs. 5.0-13.0 3.8-5.4 12-15 MV: 39 MV: 80 MV: 250 NOTE: * FOR ADULT BLACK MALES AND FEMALES, NORMAL WBC IS 2.9-7.7 K/ML * FOR ADULT BLACK MALES AND FEMALES, NORMAL RBC,HGB, AND HCT IS 5% LESS SOURCE FOR DATA: [employer] 1800 OPERATION MANUAL( AUTOMATED BLOOD COUNTS AND DIFF.) APPENDIX B-3 CHRONIC KIDNEY DISEASE STAGING PER NKF: MALE GFR INTERPRETATION: 20-49 YRS: >60 mL/min Normal 50-59 YRS: >56 mL/min Normal 60-69 YRS: >49 mL/min Normal 70-79 YRS: >42 mL/min Normal 80 and above >35 mL/min Normal FEMALE GRF INTERPRETATION: 20-39 YRS: >60 mL/min Normal 40-49 YRS: >58 mL/min Normal 50-59 YRS: >51 mL/min Normal 60-69 YRS: >45 mL/min Normal 70-79 YRS: >39 mL/min Normal 80 and above >32 mL/min Normal CA 9.9 mg/dL 8.6-10.2 [facility] ([facility] NORMAL RANGES Age WBC RBC HGB HCT MCV PLT Adult M 4.1-10.9 4.20-6.30 12.0-18.0 37.0-51.0 80-97 140-440 Adult F 4.1-10.9 4.04-5.48 12.0-18.0 37.0-51.0 80-97 140-440 0 -1 Yr 5.0-20.0 3.9-5.9 15-18 MV: 44 MV: 91 MV: 277 2-9 Yr. 6.0-17.0 3.8-5.4 11-13 MV: 37 MV: 78 MV: 300 10 Yrs. 5.0-13.0 3.8-5.4 12-15 MV: 39 MV: 80 MV: 250 NOTE: * FOR ADULT BLACK MALES AND FEMALES, NORMAL WBC IS 2.9-7.7 K/ML * FOR ADULT BLACK MALES AND FEMALES, NORMAL RBC,HGB, AND HCT IS 5% LESS SOURCE FOR DATA: [employer] 1800 OPERATION MANUAL( AUTOMATED BLOOD COUNTS AND DIFF.) APPENDIX B-3 CHRONIC KIDNEY DISEASE STAGING PER NKF: MALE GFR INTERPRETATION: 20-49 YRS: >60 mL/min Normal 50-59 YRS: >56 mL/min Normal 60-69 YRS: >49 mL/min Normal 70-79 YRS: >42 mL/min Normal 80 and above >35 mL/min Normal FEMALE GRF INTERPRETATION: 20-39 YRS: >60 mL/min Normal 40-49 YRS: >58 mL/min Normal 50-59 YRS: >51 mL/min Normal 60-69 YRS: >45 mL/min Normal 70-79 YRS: >39 mL/min Normal 80 and above >32 mL/min Normal CL 97.1 mmol/L 98.0-107.0 Below low normal [facility] ([facility] NORMAL RANGES Age WBC RBC HGB HCT MCV PLT Adult M 4.1-10.9 4.20-6.30 12.0-18.0 37.0-51.0 80-97 140-440 Adult F 4.1-10.9 4.04-5.48 12.0-18.0 37.0-51.0 80-97 140-440 0 -1 Yr 5.0-20.0 3.9-5.9 15-18 MV: 44 MV: 91 MV: 277 2-9 Yr. 6.0-17.0 3.8-5.4 11-13 MV: 37 MV: 78 MV: 300 10 Yrs. 5.0-13.0 3.8-5.4 12-15 MV: 39 MV: 80 MV: 250 NOTE: * FOR ADULT BLACK MALES AND FEMALES, NORMAL WBC IS 2.9-7.7 K/ML * FOR ADULT BLACK MALES AND FEMALES, NORMAL RBC,HGB, AND HCT IS 5% LESS SOURCE FOR DATA: [employer] 1800 OPERATION MANUAL( AUTOMATED BLOOD COUNTS AND DIFF.) APPENDIX B-3 CHRONIC KIDNEY DISEASE STAGING PER NKF: MALE GFR INTERPRETATION: 20-49 YRS: >60 mL/min Normal 50-59 YRS: >56 mL/min Normal 60-69 YRS: >49 mL/min Normal 70-79 YRS: >42 mL/min Normal 80 and above >35 mL/min Normal FEMALE GRF INTERPRETATION: 20-39 YRS: >60 mL/min Normal 40-49 YRS: >58 mL/min Normal 50-59 YRS: >51 mL/min Normal 60-69 YRS: >45 mL/min Normal 70-79 YRS: >39 mL/min Normal 80 and above >32 mL/min Normal eGFR 47 # [facility] ( [facility] NORMAL RANGES Age WBC RBC HGB HCT MCV PLT Adult M 4.1-10.9 4.20-6.30 12.0-18.0 37.0-51.0 80-97 140-440 Adult F 4.1-10.9 4.04-5.48 12.0-18.0 37.0-51.0 80-97 140-440 0 -1 Yr 5.0-20.0 3.9-5.9 15-18 MV: 44 MV: 91 MV: 277 2-9 Yr. 6.0-17.0 3.8-5.4 11-13 MV: 37 MV: 78 MV: 300 10 Yrs. 5.0-13.0 3.8-5.4 12-15 MV: 39 MV: 80 MV: 250 NOTE: * FOR ADULT BLACK MALES AND FEMALES, NORMAL WBC IS 2.9-7.7 K/ML * FOR ADULT BLACK MALES AND FEMALES, NORMAL RBC,HGB, AND HCT IS 5% LESS SOURCE FOR DATA: [employer] 1800 OPERATION MANUAL( AUTOMATED BLOOD COUNTS AND DIFF.) APPENDIX B-3 CHRONIC KIDNEY DISEASE STAGING PER NKF: MALE GFR INTERPRETATION: 20-49 YRS: >60 mL/min Normal 50-59 YRS: >56 mL/min Normal 60-69 YRS: >49 mL/min Normal 70-79 YRS: >42 mL/min Normal 80 and above >35 mL/min Normal FEMALE GRF INTERPRETATION: 20-39 YRS: >60 mL/min Normal 40-49 YRS: >58 mL/min Normal 50-59 YRS: >51 mL/min Normal 60-69 YRS: >45 mL/min Normal 70-79 YRS: >39 mL/min Normal 80 and above >32 mL/min Normal Anion Gap 18 mmol/L [facility] NORMAL RANGES Age WBC RBC HGB HCT MCV PLT Adult M 4.1-10.9 4.20-6.30 12.0-18.0 37.0-51.0 80-97 140-440 Adult F 4.1-10.9 4.04-5.48 12.0-18.0 37.0-51.0 80-97 140-440 0 -1 Yr 5.0-20.0 3.9-5.9 15-18 MV: 44 MV: 91 MV: 277 2-9 Yr. 6.0-17.0 3.8-5.4 11-13 MV: 37 MV: 78 MV: 300 10 Yrs. 5.0-13.0 3.8-5.4 12-15 MV: 39 MV: 80 MV: 250 NOTE: * FOR ADULT BLACK MALES AND FEMALES, NORMAL WBC IS 2.9-7.7 K/ML * FOR ADULT BLACK MALES AND FEMALES, NORMAL RBC,HGB, AND HCT IS 5% LESS SOURCE FOR DATA: [employer] 1800 OPERATION MANUAL( AUTOMATED BLOOD COUNTS AND DIFF.) APPENDIX B-3 CHRONIC KIDNEY DISEASE STAGING PER NKF: MALE GFR INTERPRETATION: 20-49 YRS: >60 mL/min Normal 50-59 YRS: >56 mL/min Normal 60-69 YRS: >49 mL/min Normal 70-79 YRS: >42 mL/min Normal 80 and above >35 mL/min Normal FEMALE GRF INTERPRETATION: 20-39 YRS: >60 mL/min Normal 40-49 YRS: >58 mL/min Normal 50-59 YRS: >51 mL/min Normal 60-69 YRS: >45 mL/min Normal 70-79 YRS: >39 mL/min Normal 80 and above >32 mL/min Normal eGFR Non-Afr. Vincentian 41 # [facility] ([facility] NORMAL RANGES Age WBC RBC HGB HCT MCV PLT Adult M 4.1-10.9 4.20-6.30 12.0-18.0 37.0-51.0 80-97 140-440 Adult F 4.1-10.9 4.04-5.48 12.0-18.0 37.0-51.0 80-97 140-440 0 -1 Yr 5.0-20.0 3.9-5.9 15-18 MV: 44 MV: 91 MV: 277 2-9 Yr. 6.0-17.0 3.8-5.4 11-13 MV: 37 MV: 78 MV: 300 10 Yrs. 5.0-13.0 3.8-5.4 12-15 MV: 39 MV: 80 MV: 250 NOTE: * FOR ADULT BLACK MALES AND FEMALES, NORMAL WBC IS 2.9-7.7 K/ML * FOR ADULT BLACK MALES AND FEMALES, NORMAL RBC,HGB, AND HCT IS 5% LESS SOURCE FOR DATA: [employer] 1800 OPERATION MANUAL( AUTOMATED BLOOD COUNTS AND DIFF.) APPENDIX B-3 CHRONIC KIDNEY DISEASE STAGING PER NKF: MALE GFR INTERPRETATION: 20-49 YRS: >60 mL/min Normal 50-59 YRS: >56 mL/min Normal 60-69 YRS: >49 mL/min Normal 70-79 YRS: >42 mL/min Normal 80 and above >35 mL/min Normal FEMALE GRF INTERPRETATION: 20-39 YRS: >60 mL/min Normal 40-49 YRS: >58 mL/min Normal 50-59 YRS: >51 mL/min Normal 60-69 YRS: >45 mL/min Normal 70-79 YRS: >39 mL/min Normal 80 and above >32 mL/min Normal ID Date Data Source [id number] 04/12/2020 10:20:00 AM EDT [facility] ([facility] Name Value Range Interpretation Code Description Data Roz rce(s) Supporting Document(s) RBC 3.86 10E6/uL 4.20-6.30 Below low normal [facility] ([facility] NORMAL RANGES Age WBC RBC HGB HCT MCV PLT Adult M 4.1-10.9 4.20-6.30 12.0-18.0 37.0-51.0 80-97 140-440 Adult F 4.1-10.9 4.04-5.48 12.0-18.0 37.0-51.0 80-97 140-440 0 -1 Yr 5.0-20.0 3.9-5.9 15-18 MV: 44 MV: 91 MV: 277 2-9 Yr. 6.0-17.0 3.8-5.4 11-13 MV: 37 MV: 78 MV: 300 10 Yrs. 5.0-13.0 3.8-5.4 12-15 MV: 39 MV: 80 MV: 250 NOTE: * FOR ADULT BLACK MALES AND FEMALES, NORMAL WBC IS 2.9-7.7 K/ML * FOR ADULT BLACK MALES AND FEMALES, NORMAL RBC,HGB, AND HCT IS 5% LESS SOURCE FOR DATA: [employer] 1800 OPERATION MANUAL( AUTOMATED BLOOD COUNTS AND DIFF.) APPENDIX B-3 CHRONIC KIDNEY DISEASE STAGING PER NKF: MALE GFR INTERPRETATION: 20-49 YRS: >60 mL/min Normal 50-59 YRS: >56 mL/min Normal 60-69 YRS: >49 mL/min Normal 70-79 YRS: >42 mL/min Normal 80 and above >35 mL/min Normal FEMALE GRF INTERPRETATION: 20-39 YRS: >60 mL/min Normal 40-49 YRS: >58 mL/min Normal 50-59 YRS: >51 mL/min Normal 60-69 YRS: >45 mL/min Normal 70-79 YRS: >39 mL/min Normal 80 and above >32 mL/min Normal WBC 8.6 10E3/uL 4.1-10.9 [facility] ([facility] NORMAL RANGES Age WBC RBC HGB HCT MCV PLT Adult M 4.1-10.9 4.20-6.30 12.0-18.0 37.0-51.0 80-97 140-440 Adult F 4.1-10.9 4.04-5.48 12.0-18.0 37.0-51.0 80-97 140-440 0 -1 Yr 5.0-20.0 3.9-5.9 15-18 MV: 44 MV: 91 MV: 277 2-9 Yr. 6.0-17.0 3.8-5.4 11-13 MV: 37 MV: 78 MV: 300 10 Yrs. 5.0-13.0 3.8-5.4 12-15 MV: 39 MV: 80 MV: 250 NOTE: * FOR ADULT BLACK MALES AND FEMALES, NORMAL WBC IS 2.9-7.7 K/ML * FOR ADULT BLACK MALES AND FEMALES, NORMAL RBC,HGB, AND HCT IS 5% LESS SOURCE FOR DATA: [employer] 1800 OPERATION MANUAL( AUTOMATED BLOOD COUNTS AND DIFF.) APPENDIX B-3 CHRONIC KIDNEY DISEASE STAGING PER NKF: MALE GFR INTERPRETATION: 20-49 YRS: >60 mL/min Normal 50-59 YRS: >56 mL/min Normal 60-69 YRS: >49 mL/min Normal 70-79 YRS: >42 mL/min Normal 80 and above >35 mL/min Normal FEMALE GRF INTERPRETATION: 20-39 YRS: >60 mL/min Normal 40-49 YRS: >58 mL/min Normal 50-59 YRS: >51 mL/min Normal 60-69 YRS: >45 mL/min Normal 70-79 YRS: >39 mL/min Normal 80 and above >32 mL/min Normal HCT 37.4 % 37.0-51.0 [facility] ([facility] NORMAL RANGES Age WBC RBC HGB HCT MCV PLT Adult M 4.1-10.9 4.20-6.30 12.0-18.0 37.0-51.0 80-97 140-440 Adult F 4.1-10.9 4.04-5.48 12.0-18.0 37.0-51.0 80-97 140-440 0 -1 Yr 5.0-20.0 3.9-5.9 15-18 MV: 44 MV: 91 MV: 277 2-9 Yr. 6.0-17.0 3.8-5.4 11-13 MV: 37 MV: 78 MV: 300 10 Yrs. 5.0-13.0 3.8-5.4 12-15 MV: 39 MV: 80 MV: 250 NOTE: * FOR ADULT BLACK MALES AND FEMALES, NORMAL WBC IS 2.9-7.7 K/ML * FOR ADULT BLACK MALES AND FEMALES, NORMAL RBC,HGB, AND HCT IS 5% LESS SOURCE FOR DATA: [employer] 1800 OPERATION MANUAL( AUTOMATED BLOOD COUNTS AND DIFF.) APPENDIX B-3 CHRONIC KIDNEY DISEASE STAGING PER NKF: MALE GFR INTERPRETATION: 20-49 YRS: >60 mL/min Normal 50-59 YRS: >56 mL/min Normal 60-69 YRS: >49 mL/min Normal 70-79 YRS: >42 mL/min Normal 80 and above >35 mL/min Normal FEMALE GRF INTERPRETATION: 20-39 YRS: >60 mL/min Normal 40-49 YRS: >58 mL/min Normal 50-59 YRS: >51 mL/min Normal 60-69 YRS: >45 mL/min Normal 70-79 YRS: >39 mL/min Normal 80 and above >32 mL/min Normal HGB 12.0 g/dL 12.0-18.0 [facility] ([facility] NORMAL RANGES Age WBC RBC HGB HCT MCV PLT Adult M 4.1-10.9 4.20-6.30 12.0-18.0 37.0-51.0 80-97 140-440 Adult F 4.1-10.9 4.04-5.48 12.0-18.0 37.0-51.0 80-97 140-440 0 -1 Yr 5.0-20.0 3.9-5.9 15-18 MV: 44 MV: 91 MV: 277 2-9 Yr. 6.0-17.0 3.8-5.4 11-13 MV: 37 MV: 78 MV: 300 10 Yrs. 5.0-13.0 3.8-5.4 12-15 MV: 39 MV: 80 MV: 250 NOTE: * FOR ADULT BLACK MALES AND FEMALES, NORMAL WBC IS 2.9-7.7 K/ML * FOR ADULT BLACK MALES AND FEMALES, NORMAL RBC,HGB, AND HCT IS 5% LESS SOURCE FOR DATA: [employer] 1800 OPERATION MANUAL( AUTOMATED BLOOD COUNTS AND DIFF.) APPENDIX B-3 CHRONIC KIDNEY DISEASE STAGING PER NKF: MALE GFR INTERPRETATION: 20-49 YRS: >60 mL/min Normal 50-59 YRS: >56 mL/min Normal 60-69 YRS: >49 mL/min Normal 70-79 YRS: >42 mL/min Normal 80 and above >35 mL/min Normal FEMALE GRF INTERPRETATION: 20-39 YRS: >60 mL/min Normal 40-49 YRS: >58 mL/min Normal 50-59 YRS: >51 mL/min Normal 60-69 YRS: >45 mL/min Normal 70-79 YRS: >39 mL/min Normal 80 and above >32 mL/min Normal MCV 96.9 fL 80.0-97.0 [facility] ([facility] NORMAL RANGES Age WBC RBC HGB HCT MCV PLT Adult M 4.1-10.9 4.20-6.30 12.0-18.0 37.0-51.0 80-97 140-440 Adult F 4.1-10.9 4.04-5.48 12.0-18.0 37.0-51.0 80-97 140-440 0 -1 Yr 5.0-20.0 3.9-5.9 15-18 MV: 44 MV: 91 MV: 277 2-9 Yr. 6.0-17.0 3.8-5.4 11-13 MV: 37 MV: 78 MV: 300 10 Yrs. 5.0-13.0 3.8-5.4 12-15 MV: 39 MV: 80 MV: 250 NOTE: * FOR ADULT BLACK MALES AND FEMALES, NORMAL WBC IS 2.9-7.7 K/ML * FOR ADULT BLACK MALES AND FEMALES, NORMAL RBC,HGB, AND HCT IS 5% LESS SOURCE FOR DATA: [employer] 1800 OPERATION MANUAL( AUTOMATED BLOOD COUNTS AND DIFF.) APPENDIX B-3 CHRONIC KIDNEY DISEASE STAGING PER NKF: MALE GFR INTERPRETATION: 20-49 YRS: >60 mL/min Normal 50-59 YRS: >56 mL/min Normal 60-69 YRS: >49 mL/min Normal 70-79 YRS: >42 mL/min Normal 80 and above >35 mL/min Normal FEMALE GRF INTERPRETATION: 20-39 YRS: >60 mL/min Normal 40-49 YRS: >58 mL/min Normal 50-59 YRS: >51 mL/min Normal 60-69 YRS: >45 mL/min Normal 70-79 YRS: >39 mL/min Normal 80 and above >32 mL/min Normal PLT 288 10E3/uL 140-440 [facility] ([facility] NORMAL RANGES Age WBC RBC HGB HCT MCV PLT Adult M 4.1-10.9 4.20-6.30 12.0-18.0 37.0-51.0 80-97 140-440 Adult F 4.1-10.9 4.04-5.48 12.0-18.0 37.0-51.0 80-97 140-440 0 -1 Yr 5.0-20.0 3.9-5.9 15-18 MV: 44 MV: 91 MV: 277 2-9 Yr. 6.0-17.0 3.8-5.4 11-13 MV: 37 MV: 78 MV: 300 10 Yrs. 5.0-13.0 3.8-5.4 12-15 MV: 39 MV: 80 MV: 250 NOTE: * FOR ADULT BLACK MALES AND FEMALES, NORMAL WBC IS 2.9-7.7 K/ML * FOR ADULT BLACK MALES AND FEMALES, NORMAL RBC,HGB, AND HCT IS 5% LESS SOURCE FOR DATA: [employer] 1800 OPERATION MANUAL( AUTOMATED BLOOD COUNTS AND DIFF.) APPENDIX B-3 CHRONIC KIDNEY DISEASE STAGING PER NKF: MALE GFR INTERPRETATION: 20-49 YRS: >60 mL/min Normal 50-59 YRS: >56 mL/min Normal 60-69 YRS: >49 mL/min Normal 70-79 YRS: >42 mL/min Normal 80 and above >35 mL/min Normal FEMALE GRF INTERPRETATION: 20-39 YRS: >60 mL/min Normal 40-49 YRS: >58 mL/min Normal 50-59 YRS: >51 mL/min Normal 60-69 YRS: >45 mL/min Normal 70-79 YRS: >39 mL/min Normal 80 and above >32 mL/min Normal MCHC 32.1 g/dL 31.0-36.0 [facility] NORMAL RANGES Age WBC RBC HGB HCT MCV PLT Adult M 4.1-10.9 4.20-6.30 12.0-18.0 37.0-51.0 80-97 140-440 Adult F 4.1-10.9 4.04-5.48 12.0-18.0 37.0-51.0 80-97 140-440 0 -1 Yr 5.0-20.0 3.9-5.9 15-18 MV: 44 MV: 91 MV: 277 2-9 Yr. 6.0-17.0 3.8-5.4 11-13 MV: 37 MV: 78 MV: 300 10 Yrs. 5.0-13.0 3.8-5.4 12-15 MV: 39 MV: 80 MV: 250 NOTE: * FOR ADULT BLACK MALES AND FEMALES, NORMAL WBC IS 2.9-7.7 K/ML * FOR ADULT BLACK MALES AND FEMALES, NORMAL RBC,HGB, AND HCT IS 5% LESS SOURCE FOR DATA: [employer] 1800 OPERATION MANUAL( AUTOMATED BLOOD COUNTS AND DIFF.) APPENDIX B-3 CHRONIC KIDNEY DISEASE STAGING PER NKF: MALE GFR INTERPRETATION: 20-49 YRS: >60 mL/min Normal 50-59 YRS: >56 mL/min Normal 60-69 YRS: >49 mL/min Normal 70-79 YRS: >42 mL/min Normal 80 and above >35 mL/min Normal FEMALE GRF INTERPRETATION: 20-39 YRS: >60 mL/min Normal 40-49 YRS: >58 mL/min Normal 50-59 YRS: >51 mL/min Normal 60-69 YRS: >45 mL/min Normal 70-79 YRS: >39 mL/min Normal 80 and above >32 mL/min Normal MCH 31.1 pg 26.0-32.0 [facility] NORMAL RANGES Age WBC RBC HGB HCT MCV PLT Adult M 4.1-10.9 4.20-6.30 12.0-18.0 37.0-51.0 80-97 140-440 Adult F 4.1-10.9 4.04-5.48 12.0-18.0 37.0-51.0 80-97 140-440 0 -1 Yr 5.0-20.0 3.9-5.9 15-18 MV: 44 MV: 91 MV: 277 2-9 Yr. 6.0-17.0 3.8-5.4 11-13 MV: 37 MV: 78 MV: 300 10 Yrs. 5.0-13.0 3.8-5.4 12-15 MV: 39 MV: 80 MV: 250 NOTE: * FOR ADULT BLACK MALES AND FEMALES, NORMAL WBC IS 2.9-7.7 K/ML * FOR ADULT BLACK MALES AND FEMALES, NORMAL RBC,HGB, AND HCT IS 5% LESS SOURCE FOR DATA: [employer] 1800 OPERATION MANUAL( AUTOMATED BLOOD COUNTS AND DIFF.) APPENDIX B-3 CHRONIC KIDNEY DISEASE STAGING PER NKF: MALE GFR INTERPRETATION: 20-49 YRS: >60 mL/min Normal 50-59 YRS: >56 mL/min Normal 60-69 YRS: >49 mL/min Normal 70-79 YRS: >42 mL/min Normal 80 and above >35 mL/min Normal FEMALE GRF INTERPRETATION: 20-39 YRS: >60 mL/min Normal 40-49 YRS: >58 mL/min Normal 50-59 YRS: >51 mL/min Normal 60-69 YRS: >45 mL/min Normal 70-79 YRS: >39 mL/min Normal 80 and above >32 mL/min Normal RDW-CV 12.5 % 11.5-14.5 [facility] NORMAL RANGES Age WBC RBC HGB HCT MCV PLT Adult M 4.1-10.9 4.20-6.30 12.0-18.0 37.0-51.0 80-97 140-440 Adult F 4.1-10.9 4.04-5.48 12.0-18.0 37.0-51.0 80-97 140-440 0 -1 Yr 5.0-20.0 3.9-5.9 15-18 MV: 44 MV: 91 MV: 277 2-9 Yr. 6.0-17.0 3.8-5.4 11-13 MV: 37 MV: 78 MV: 300 10 Yrs. 5.0-13.0 3.8-5.4 12-15 MV: 39 MV: 80 MV: 250 NOTE: * FOR ADULT BLACK MALES AND FEMALES, NORMAL WBC IS 2.9-7.7 K/ML * FOR ADULT BLACK MALES AND FEMALES, NORMAL RBC,HGB, AND HCT IS 5% LESS SOURCE FOR DATA: [employer] 1800 OPERATION MANUAL( AUTOMATED BLOOD COUNTS AND DIFF.) APPENDIX B-3 CHRONIC KIDNEY DISEASE STAGING PER NKF: MALE GFR INTERPRETATION: 20-49 YRS: >60 mL/min Normal 50-59 YRS: >56 mL/min Normal 60-69 YRS: >49 mL/min Normal 70-79 YRS: >42 mL/min Normal 80 and above >35 mL/min Normal FEMALE GRF INTERPRETATION: 20-39 YRS: >60 mL/min Normal 40-49 YRS: >58 mL/min Normal 50-59 YRS: >51 mL/min Normal 60-69 YRS: >45 mL/min Normal 70-79 YRS: >39 mL/min Normal 80 and above >32 mL/min Normal Neut% 69.2 % 37.0-92.0 [facility] ([facility] NORMAL RANGES Age WBC RBC HGB HCT MCV PLT Adult M 4.1-10.9 4.20-6.30 12.0-18.0 37.0-51.0 80-97 140-440 Adult F 4.1-10.9 4.04-5.48 12.0-18.0 37.0-51.0 80-97 140-440 0 -1 Yr 5.0-20.0 3.9-5.9 15-18 MV: 44 MV: 91 MV: 277 2-9 Yr. 6.0-17.0 3.8-5.4 11-13 MV: 37 MV: 78 MV: 300 10 Yrs. 5.0-13.0 3.8-5.4 12-15 MV: 39 MV: 80 MV: 250 NOTE: * FOR ADULT BLACK MALES AND FEMALES, NORMAL WBC IS 2.9-7.7 K/ML * FOR ADULT BLACK MALES AND FEMALES, NORMAL RBC,HGB, AND HCT IS 5% LESS SOURCE FOR DATA: [employer] 1800 OPERATION MANUAL( AUTOMATED BLOOD COUNTS AND DIFF.) APPENDIX B-3 CHRONIC KIDNEY DISEASE STAGING PER NKF: MALE GFR INTERPRETATION: 20-49 YRS: >60 mL/min Normal 50-59 YRS: >56 mL/min Normal 60-69 YRS: >49 mL/min Normal 70-79 YRS: >42 mL/min Normal 80 and above >35 mL/min Normal FEMALE GRF INTERPRETATION: 20-39 YRS: >60 mL/min Normal 40-49 YRS: >58 mL/min Normal 50-59 YRS: >51 mL/min Normal 60-69 YRS: >45 mL/min Normal 70-79 YRS: >39 mL/min Normal 80 and above >32 mL/min Normal Lym% 16.5 % 10.0-58.5 [facility] ([facility] NORMAL RANGES Age WBC RBC HGB HCT MCV PLT Adult M 4.1-10.9 4.20-6.30 12.0-18.0 37.0-51.0 80-97 140-440 Adult F 4.1-10.9 4.04-5.48 12.0-18.0 37.0-51.0 80-97 140-440 0 -1 Yr 5.0-20.0 3.9-5.9 15-18 MV: 44 MV: 91 MV: 277 2-9 Yr. 6.0-17.0 3.8-5.4 11-13 MV: 37 MV: 78 MV: 300 10 Yrs. 5.0-13.0 3.8-5.4 12-15 MV: 39 MV: 80 MV: 250 NOTE: * FOR ADULT BLACK MALES AND FEMALES, NORMAL WBC IS 2.9-7.7 K/ML * FOR ADULT BLACK MALES AND FEMALES, NORMAL RBC,HGB, AND HCT IS 5% LESS SOURCE FOR DATA: [employer] 1800 OPERATION MANUAL( AUTOMATED BLOOD COUNTS AND DIFF.) APPENDIX B-3 CHRONIC KIDNEY DISEASE STAGING PER NKF: MALE GFR INTERPRETATION: 20-49 YRS: >60 mL/min Normal 50-59 YRS: >56 mL/min Normal 60-69 YRS: >49 mL/min Normal 70-79 YRS: >42 mL/min Normal 80 and above >35 mL/min Normal FEMALE GRF INTERPRETATION: 20-39 YRS: >60 mL/min Normal 40-49 YRS: >58 mL/min Normal 50-59 YRS: >51 mL/min Normal 60-69 YRS: >45 mL/min Normal 70-79 YRS: >39 mL/min Normal 80 and above >32 mL/min Normal Lym# 1.4 10E3/uL 0.6-4.1 [facility] ([facility] NORMAL RANGES Age WBC RBC HGB HCT MCV PLT Adult M 4.1-10.9 4.20-6.30 12.0-18.0 37.0-51.0 80-97 140-440 Adult F 4.1-10.9 4.04-5.48 12.0-18.0 37.0-51.0 80-97 140-440 0 -1 Yr 5.0-20.0 3.9-5.9 15-18 MV: 44 MV: 91 MV: 277 2-9 Yr. 6.0-17.0 3.8-5.4 11-13 MV: 37 MV: 78 MV: 300 10 Yrs. 5.0-13.0 3.8-5.4 12-15 MV: 39 MV: 80 MV: 250 NOTE: * FOR ADULT BLACK MALES AND FEMALES, NORMAL WBC IS 2.9-7.7 K/ML * FOR ADULT BLACK MALES AND FEMALES, NORMAL RBC,HGB, AND HCT IS 5% LESS SOURCE FOR DATA: [employer] 1800 OPERATION MANUAL( AUTOMATED BLOOD COUNTS AND DIFF.) APPENDIX B-3 CHRONIC KIDNEY DISEASE STAGING PER NKF: MALE GFR INTERPRETATION: 20-49 YRS: >60 mL/min Normal 50-59 YRS: >56 mL/min Normal 60-69 YRS: >49 mL/min Normal 70-79 YRS: >42 mL/min Normal 80 and above >35 mL/min Normal FEMALE GRF INTERPRETATION: 20-39 YRS: >60 mL/min Normal 40-49 YRS: >58 mL/min Normal 50-59 YRS: >51 mL/min Normal 60-69 YRS: >45 mL/min Normal 70-79 YRS: >39 mL/min Normal 80 and above >32 mL/min Normal Neut# 6.0 % 2.0-7.8 [facility] ([facility] NORMAL RANGES Age WBC RBC HGB HCT MCV PLT Adult M 4.1-10.9 4.20-6.30 12.0-18.0 37.0-51.0 80-97 140-440 Adult F 4.1-10.9 4.04-5.48 12.0-18.0 37.0-51.0 80-97 140-440 0 -1 Yr 5.0-20.0 3.9-5.9 15-18 MV: 44 MV: 91 MV: 277 2-9 Yr. 6.0-17.0 3.8-5.4 11-13 MV: 37 MV: 78 MV: 300 10 Yrs. 5.0-13.0 3.8-5.4 12-15 MV: 39 MV: 80 MV: 250 NOTE: * FOR ADULT BLACK MALES AND FEMALES, NORMAL WBC IS 2.9-7.7 K/ML * FOR ADULT BLACK MALES AND FEMALES, NORMAL RBC,HGB, AND HCT IS 5% LESS SOURCE FOR DATA: [employer] 1800 OPERATION MANUAL( AUTOMATED BLOOD COUNTS AND DIFF.) APPENDIX B-3 CHRONIC KIDNEY DISEASE STAGING PER NKF: MALE GFR INTERPRETATION: 20-49 YRS: >60 mL/min Normal 50-59 YRS: >56 mL/min Normal 60-69 YRS: >49 mL/min Normal 70-79 YRS: >42 mL/min Normal 80 and above >35 mL/min Normal FEMALE GRF INTERPRETATION: 20-39 YRS: >60 mL/min Normal 40-49 YRS: >58 mL/min Normal 50-59 YRS: >51 mL/min Normal 60-69 YRS: >45 mL/min Normal 70-79 YRS: >39 mL/min Normal 80 and above >32 mL/min Normal MXD% 14.3 % 0.1-24.0 [facility] ([facility] NORMAL RANGES Age WBC RBC HGB HCT MCV PLT Adult M 4.1-10.9 4.20-6.30 12.0-18.0 37.0-51.0 80-97 140-440 Adult F 4.1-10.9 4.04-5.48 12.0-18.0 37.0-51.0 80-97 140-440 0 -1 Yr 5.0-20.0 3.9-5.9 15-18 MV: 44 MV: 91 MV: 277 2-9 Yr. 6.0-17.0 3.8-5.4 11-13 MV: 37 MV: 78 MV: 300 10 Yrs. 5.0-13.0 3.8-5.4 12-15 MV: 39 MV: 80 MV: 250 NOTE: * FOR ADULT BLACK MALES AND FEMALES, NORMAL WBC IS 2.9-7.7 K/ML * FOR ADULT BLACK MALES AND FEMALES, NORMAL RBC,HGB, AND HCT IS 5% LESS SOURCE FOR DATA: [employer] 1800 OPERATION MANUAL( AUTOMATED BLOOD COUNTS AND DIFF.) APPENDIX B-3 CHRONIC KIDNEY DISEASE STAGING PER NKF: MALE GFR INTERPRETATION: 20-49 YRS: >60 mL/min Normal 50-59 YRS: >56 mL/min Normal 60-69 YRS: >49 mL/min Normal 70-79 YRS: >42 mL/min Normal 80 and above >35 mL/min Normal FEMALE GRF INTERPRETATION: 20-39 YRS: >60 mL/min Normal 40-49 YRS: >58 mL/min Normal 50-59 YRS: >51 mL/min Normal 60-69 YRS: >45 mL/min Normal 70-79 YRS: >39 mL/min Normal 80 and above >32 mL/min Normal MXD# 1.2 10E3/uL 0.0-1.8 [facility] ([facility] NORMAL RANGES Age WBC RBC HGB HCT MCV PLT Adult M 4.1-10.9 4.20-6.30 12.0-18.0 37.0-51.0 80-97 140-440 Adult F 4.1-10.9 4.04-5.48 12.0-18.0 37.0-51.0 80-97 140-440 0 -1 Yr 5.0-20.0 3.9-5.9 15-18 MV: 44 MV: 91 MV: 277 2-9 Yr. 6.0-17.0 3.8-5.4 11-13 MV: 37 MV: 78 MV: 300 10 Yrs. 5.0-13.0 3.8-5.4 12-15 MV: 39 MV: 80 MV: 250 NOTE: * FOR ADULT BLACK MALES AND FEMALES, NORMAL WBC IS 2.9-7.7 K/ML * FOR ADULT BLACK MALES AND FEMALES, NORMAL RBC,HGB, AND HCT IS 5% LESS SOURCE FOR DATA: [employer] 1800 OPERATION MANUAL( AUTOMATED BLOOD COUNTS AND DIFF.) APPENDIX B-3 CHRONIC KIDNEY DISEASE STAGING PER NKF: MALE GFR INTERPRETATION: 20-49 YRS: >60 mL/min Normal 50-59 YRS: >56 mL/min Normal 60-69 YRS: >49 mL/min Normal 70-79 YRS: >42 mL/min Normal 80 and above >35 mL/min Normal FEMALE GRF INTERPRETATION: 20-39 YRS: >60 mL/min Normal 40-49 YRS: >58 mL/min Normal 50-59 YRS: >51 mL/min Normal 60-69 YRS: >45 mL/min Normal 70-79 YRS: >39 mL/min Normal 80 and above >32 mL/min Normal MPV 10.3 fL 9.0-13.0 [facility] ([facility] NORMAL RANGES Age WBC RBC HGB HCT MCV PLT Adult M 4.1-10.9 4.20-6.30 12.0-18.0 37.0-51.0 80-97 140-440 Adult F 4.1-10.9 4.04-5.48 12.0-18.0 37.0-51.0 80-97 140-440 0 -1 Yr 5.0-20.0 3.9-5.9 15-18 MV: 44 MV: 91 MV: 277 2-9 Yr. 6.0-17.0 3.8-5.4 11-13 MV: 37 MV: 78 MV: 300 10 Yrs. 5.0-13.0 3.8-5.4 12-15 MV: 39 MV: 80 MV: 250 NOTE: * FOR ADULT BLACK MALES AND FEMALES, NORMAL WBC IS 2.9-7.7 K/ML * FOR ADULT BLACK MALES AND FEMALES, NORMAL RBC,HGB, AND HCT IS 5% LESS SOURCE FOR DATA: [employer] 1800 OPERATION MANUAL( AUTOMATED BLOOD COUNTS AND DIFF.) APPENDIX B-3 CHRONIC KIDNEY DISEASE STAGING PER NKF: MALE GFR INTERPRETATION: 20-49 YRS: >60 mL/min Normal 50-59 YRS: >56 mL/min Normal 60-69 YRS: >49 mL/min Normal 70-79 YRS: >42 mL/min Normal 80 and above >35 mL/min Normal FEMALE GRF INTERPRETATION: 20-39 YRS: >60 mL/min Normal 40-49 YRS: >58 mL/min Normal 50-59 YRS: >51 mL/min Normal 60-69 YRS: >45 mL/min Normal 70-79 YRS: >39 mL/min Normal 80 and above >32 mL/min Normal ID Date Data Source [id number] 04/12/2020 10:19:00 AM EDT [facility] ([facility] Name Value Range Interpretation Code Description Data Roz rce(s) Supporting Document(s) Urine Culture, Routine Laboratory test result [facility] ([facility] SRC:URINE Bacteria identified in Urine by Culture Laboratory test result [facility] ([facility] SRC:URINE ID Date Data Source [id number] 04/12/2020 10:06:00 AM EDT [facility] ([facility] Name Value Range Interpretation Code Description Data Roz rce(s) Supporting Document(s) Color Urine Laboratory test result [facility] ([facility] Appearance of Urine Laboratory test result [facility] ([facility] PH Urine 7.0 5.0-8.0 [facility] ([facility] Glucose Urine Laboratory test result [facility] ([facility] Specific [place] 1.020 1.00-1.03 [facility] ([facility] Blood Urine Laboratory test result [facility] ([facility] Bilirubin.total [Presence] in Urine by Test strip Laboratory test res ult [facility] ([facility] Protein Urine Laboratory test result [facility] ([facility] Ketones Laboratory test result [facility] ([facility] Leukocytes Laboratory test result [facility] ([facility] Urobilinogen 0.2 EU/dl 0.2-1.0 [facility] ([facility] Nitrite Laboratory test result [facility] ([facility] ID Date Data Source [id number] 04/11/2020 12:11:00 PM EDT [facility] [address] [place] [address] PHONE: [phone] FAX: [phone] Name .................. : ALKA Parrish Acct Number.................. : [id number] ROOM. ................. : VT-06 MR Number ................... : [id number] Stay type ............. : E/R Discharge Date......... ... : Admit Date ......... : 04/09/20 Admit Phys .................... : GABBY DIAS Date of ....... : 1945 Family Phys ................... : IRIS[employer] S Phone .................. : [phone] Age ................................ : 74 Film# .................. .:[id number] Sex ................................. : F Unsigned transcriptions are preliminary reports and do not represent a medical or legal document ABDOMEN MULTIPLE VIEW 52097 COMPLETE:04/09/20 18:18 ARIANNA [id number] Reason(s): Nausea MULTIPLE VIEW ABDOMINAL SERIES WITH PA CHEST: HISTORY: Nausea. COMPARISON: Chest radiograph from 07/22/19. FINDINGS: A single view of the chest and 2-views of the abdomen are reviewed. The cardiomediastinal silhouette is within normal limits. The lungs are clear. No consolidation, pleural effusion or pneumothorax. The bowel gas pattern is nonobstructive. Moderate colonic stool is noted. No abnormal soft tissue calcifications are evident. No acute osseous abnormalities. IMPRESSION: No acute pulmonary disease. Nonobstructive bowel gas pattern. _ Electronically Reviewed and Signed By Afsaneh Cote MD , 04/11/20 12:11, BOBBY Transcribe Initials: DZ , Transcribe Date: 04/09/20 18:20, Dictation Date: Page 1 of 2 [place] [address] PHONE: [phone] FAX: [phone] Name .................. : ALKA Parrish Acct Number.................. : [id number] ROOM. ................. : VT-06 MR Number ................... : [id number] Stay type ............. : E/R Discharge Date......... ... : Admit Date ......... : 04/09/20 Admit Phys .................... : GABBY DIAS Date of ....... : 1945 Family Phys ................... : DELILAH S Phone .................. : [phone] Age ................................ : 74 Film# .................. .:[id number] Sex ................................. : F Unsigned transcriptions are preliminary reports and do not represent a medical or legal document ABDOMEN MULTIPLE VIEW 04133 CO MPLETE:04/09/20 18:18 ARIANNA [id number] Reason(s): Nausea Copy for: EMERGENCY DEPT via modem Copy for: 710 MED REC DISCHARGED Page 2 of 2 Name Value Range Interpretation Code Description Data Roz rce(s) Supporting Document(s) ID Date Data Source [id number] 04/09/2020 04:02:00 PM EDT [facility] 1 OrderSheet [facility] Emergency Department [address] [place] [address] Phone #: ext- [phone] 04/09/2020 16:01 Patient: HUONG RUCKER Sex: F : 1945 Age: 74yWEIGHT:68.0 kg (S) HEIGHT:62 inches (S) BMI:27.4ALLERGIES: OtezlaCHIEF COMPLAINT: chills, sweats, "not feeling well", "hurts all over", fatigueDIAGNOSIS: Urinary tract infectious disease, AbrasionLAB ORDERSOrder Description Priority Entered Acknowledged InitialedUrinalysis (Clean STAT 17:13 04/09/2020 17:13 Linus Mancuso) Nina Mancuso RChavo; R.N. Verbal order per; Aries Pierre PhysicianRapid Strep Screen STAT 17:16 04/09/2020 17:[address] RN Physician;Influenza Nasal A B STAT 17:16 04/09/2020 17:[address] RN Physician;Blood Culture STAT 17:17 04/09/2020 17:26 [id number] X2 (Sched Aries Lane RN17:17 04/09/2020) Physician;Blood Culture STAT 17:17 04/09/2020 17:26 [id number] X2 (Sched Aries Lane RN17:27 04/09/2020) Physician;Lactic Acid STAT 17:17 04/09/2020 17:[address] RN Physician;CBC w Diff STAT 17:17 04/09/2020 17:[address] RN Physician;CMP STAT 17:17 04/09/2020 17:[address] RN Physician;DIAGNOSTIC STUDY ORDERSOrder Description Priority Entered Acknowledged InitialedAbdomen Multiview STAT 17:18 04/09/2020 17:27 Octavio(Oxygen?(No)) Aries Lane RN 2 OrderSheet [facility] Emergency Department [address] [place] [address] Phone #: ext- [phone] 04/09/2020 16:01 Patient: HUONG RUCKER Sex: F : 1945 Age: 74y Physician; NOTES: Chills Reason for Study: NauseaMEDICATION/IV/DRIP/FLUID ORDERSOrder Description Priority Entered Acknowledged InitialedSeptra DS PO 1 tab 18:33 04/09/2020 18:[address] RN Physician;GENERAL ORDERSOrder Description Priority Entered Acknowledged Initialed[Electronically signed by Aries Pierre Physician (19:30 04/09/2020)][Electronically signed by Octavio Lane RN (20:14 04/10/2020)][Electronically locked by Octavio Lane RN (20:14 04/10/2020)] Name Value Range Interpretation Code Description Data Roz rce(s) Supporting Document(s) ID Date Data Source [id number] 04/09/2020 04:02:00 PM EDT [facility] 1 Medication Reconciliation Report [facility] Emergency Department [address] [place] [address] Phone #: ext- [phone] 04/09/2020 16:01 Patient: HUONG RUCKER Sex: F : 1945 Age: 74yWeight: 68.0 kgHeight/Length: 62 in.BMI: 27.4ALLERGIES: OtezlaThe patient's Home Medications are listed below:THE FOLLOWING MEDICATIONS NEED TO BE RECONCILED: Anoro Ellipta Inhalation Aspirin Low Dose Oral Diuretic Lisinopril Oral Singulair Oral Statins Support OralThe source(s) of the original Home Medication information:Not obtained.The following Medications were given to the patient in the Emergency Department:Septra [PO] PO 1 tab, administered: 04/09/2020 6:39:00 PMThe following Medications were prescribed to the patient:Bactrim DS 800 mg-160 mg tablet Take 1 tablet twice a day for 7 days -- for UTI / Wound infections -Stop Lisinopril while taking Bactrim. Dispense 14 tablet. Refills: 0. Substitution permitted.Pharmacy - [facility] - [id number] ; [place], [place] [id number]. . -- Aries Pierre, Physician Name Value Range Interpretation Code Description Data Roz rce(s) Supporting Document(s) ID Date Data Source [id number] 04/09/2020 04:02:00 PM EDT [facility] 1 Medication Administration Record [facility] Emergency Department [address] [place] [address] Phone #: ext- [phone] 04/09/2020 16:01 Patient: HUONG RUCKER Sex: F : 1945 Age: 74yWeight: 68.0 kgHeight/Length: 62 inBMI: 27.4ALLERGIES: Otezla Date/Time Medication Administered Medication OrderedGiven SEPTRA [PO] Septra DS PO 1 tab18:39 04/09/2020 (SULFAMETHOXAZOLE-TRIMETHOPRITerry YENINFER Lane) Dose: 1 tab Tablets PO Name Value Range Interpretation Code Description Data Roz rce(s) Supporting Document(s) ID Date Data Source [id number] 04/09/2020 04:02:00 PM EDT [facility] 1 General Instructions [facility] Emergency Department [address] [place] [address] Phone #: ext- [phone] 04/09/2020 16:01 Patient: HUONG RUCKER Sex: F : 1945 Age: 74yMultiple superficial abrasions to the head, right upper arm, right elbow, right forearm, right wrist, right hand,right thigh, right knee, right lower leg, right ankle and right foot and left upper arm, left elbow, left forearm,left wrist, left hand, left thigh, left knee, left lower leg, left ankle and left foot. (Numerous - All over body). Noforeign body present or cellulitis. Treatment of abrasion not delayed.Acute urinary tract infection with cystitis. No hematuria. Not associated with indwelling catheter orobstruction.INSTRUCTIONSAlternate Tylenol (Acetaminophen) or Motrin (Ibuprofen) for temperature greater than 100.4 degrees bytympanic thermometer. Take according to label instructions.Drink plenty of fluids.(Try to stop scratching psoriasis areas and creating new wounds.Motrin / Tylenol for pain / fevers.).Warnings: Further evaluation is necessary.GENERAL WARNINGS: Return or contact your physician immediately if your condition worsens orchanges unexpectedly, if not improving as expected, or if other problems arise.Prescription Medications:Bactrim DS 800 mg-160 mg tablet Take 1 tablet twice a day for 7 days -- for UTI / Wound infections -Stop Lisinopril while taking Bactrim. Dispense 14 tablet. Refills: 0. Substitution permitted.Pharmacy - [facility] - [id number] ; [place], [place] [id number]. .Follow-up:Follow up with your doctor in four days if not better. Call for an appointment. Reason for referral:evaluation, treatment and Chills / UTI / Numerous skin abrasions.Understanding of the discharge instructions verbalized by patient. ADDITIONAL INFORMATIONAbrasionsAbrasions are skin scrapes. Their treatment depends on how large and deep the abrasion is. 2 General Instructions [facility] Emergency Department [address] [place] [address] Phone #: ext- [phone] 04/09/2020 16:01 Patient: HUONG RUCKER Sex: F : 1945 Age: 74yHome careYou may be prescribed an antibiotic cream or ointment to apply to the wound. This helps preventinfection. Follow instructions when using this medicine.General care To care for the abrasion, do the following each day for as long as directed by your healthcare provider. o If you were given a bandage, change it once a day. If your bandage sticks to the wound, soak it in warm water until it loosens. o Wash the area with soap and warm water. You may do this in a sink or under a tub faucet or shower. Rinse off the soap. Then pat the area dry with a clean towel. o If antibiotic ointment or cream was prescribed, reapply it to the wound as directed. Cover the wound with a fresh nonstick bandage. If the bandage becomes wet or dirty, change it as soon as possible. o Some antibiotic ointments or cream can cause an allergic reaction or dermatitis. This may cause redness, itching and or hives. If this occurs, stop using the ointment immediately and wash off any remaining ointment. You may need to take some allergy medicine to relieve symptoms. You may use acetaminophen or ibuprofen to control pain unless another pain medicine was prescribed. Talk with your healthcare provider before using these medicines if you have chronic liver or kidney disease or ever had a stomach ulcer or GI bleeding. Don't use ibuprofen in children younger than six months old. Most skin wounds heal within 10 days. But an infection may occur even with treatment. So it's important to watch the wound for signs of infection as listed below.Follow-up careFollow up with your healthcare provider, or as advised.When to seek medical adviceCall your healthcare provider right away if any of these occur: Fever of 100.4F (38C) or higher, or as directed by your healthcare provider Increasing pain, redness, swelling, or drainage from the wound Bleeding from the wound that does not stop after a few minutes of steady, firm pressure 3 General Instructions [facility] Emergency Department [address] [place] [address] Phone #: ext- [phone] 04/09/2020 16:01 Patient: HUONG RUCKER Sex: F : 1945 Age: 74y Decreased ability to move any body part near the wound [id number] [employer] [place] [address]. All rights reserved. This information is not intended as asubstitute for professional medical care. Always follow your healthcare professional's instructions.Bladder Infection, Female (Adult)Urine is normally doesn't have any bacteria in it. But bacteria can get into the urinary tract from theskin around the rectum. Or they can travel in the blood from elsewhere in the body. Once they are inyour urinary tract, they can cause infection in the urethra (urethritis), the bladder (cystitis), or thekidneys (pyelonephritis).The most common place for an infection is in the bladder. This is called a bladder infection. This isone of the most common infections in women. Most bladder infections are easily treated. They arenot serious unless the infection spreads to the kidney.The phrases "bladder infection," "UTI," and "cystitis" are often used to describe the same thing. Butthey are not always the same. Cystitis is an inflammation of the bladder. The most common cause ofcystitis is an infection.SymptomsThe infection causes inflammation in the urethra and bladder. This causes many of the symptoms.The most common symptoms of a bladder infection are: Pain or burning when urinating 4 General Instructions [facility] Emergency Department [address] [place] [address] Phone #: ext- [phone] 04/09/2020 16:01 Patient: HUONG RUCKER Sex: F : 1945 Age: 74y Having to urinate more often than usual Urgent need to urinate Only a small amount of urine comes out Blood in urine Abdominal discomfort. This is usually in the lower abdomen above the pubic bone. Cloudy urine Strong- or bad-smelling urine Unable to urinate (urinary retention) Unable to hold urine in (urinary incontinence) Fever Loss of appetite Confusion (in older adults)CausesBladder infections are not contagious. You can't get one from someone else, from a toilet seat, orfrom sharing a bath.The most common cause of bladder infections is bacteria from the bowels. The bacteria get onto theskin around the opening of the urethra. From there, they can get into the urine and travel up to thebladder, causing inflammation and infection. This usually happens because of: Wiping improperly after urinating. Always wipe from front to back. Bowel incontinence Procedures such as having a catheter inserted Older age Not emptying your bladder. This can allow bacteria a chance to grow in your urine. Dehydration Constipation Sex 5 General Instructions [facility] Emergency Department [address] [place] [address] Phone #: ext- [phone] 04/09/2020 16:01 Patient: HUONG RUCKER Sex: F : 1945 Age: 74y Use of a diaphragm for controlTreatmentBladder infections are diagnosed by a urine test. They are treated with antibiotics and usually clear upquickly without complications. Treatment helps prevent a more serious kidney infection.M edicinesMedicines can help in the treatment of a bladder infection: Take antibiotics until they are used up, even if you feel better. It is important to finish them to make sure the infection has cleared. You can use acetaminophen or ibuprofen for pain, fever, or discomfort, unless another medicine was prescribed. If you have chronic liver or kidney disease, talk with your healthcare provider before using these medicines. Also talk with your provider if you've ever had a stomach ulcer or gastrointestinal bleeding, or are taking blood-thinner medicines. If you are given phenazopydridine to reduce burning with urination, it will cause your urine to become a bright orange color. This can stain clothing.Care and preventionThese self-care steps can help prevent future infections: Drink plenty of fluids to prevent dehydration and flush out your bladder. Do this unless you must restrict fluids for other health reasons, or your doctor told you not to. Proper cleaning after going to the bathroom is important. Wipe from front to back after using the toilet to prevent the spread of bacteria. Urinate more often. Don't try to hold urine in for a long time. Wear loose-fitting clothes and cotton underwear. Avoid tight-fitting pants. Improve your diet and prevent constipation. Eat more fresh fruit and vegetables, and fiber, and less junk and fatty foods. Avoid sex until your symptoms are gone. Avoid caffeine, alcohol, and spicy foods. These can irritate your bladder. Urinate right after intercourse to flush out your bladder. If you use control pills and have frequent bladder infections, discuss it with your doctor. 6 General Instructions [facility] Emergency Department [address] [place] [address] Phone #: [phone] 04/09/2020 16:01 Patient: HUONG RUCKER Sex: Jackie : 1945 Age: 74yFollow-up careCall your healthcare provider if all symptoms are not gone after 3 days of treatment. This is especiallyimportant if you have repeat infections.If a culture was done, you will be told if your treatment needs to be changed. If directed, you cancall to find out the re sults.If X-rays were done, you will be told if the results will affect your treatment.Call [phone] if any of the following occur: Trouble breathing Hard to wake up or confusion Fainting or loss of consciousness Rapid heart rateWhen to seek medical adviceCall your healthcare provider right away if any of these occur: Fever of 100.4F (38.0C) or higher, or as directed by your healthcare provider Symptoms are not better by the third day of treatment Back or belly (abdominal) pain that gets worse Repeated vomiting, or unable to keep medicine down Weakness or dizziness Vaginal discharge Pain, redness, or swelling in the outer vaginal area (labia) [id number] [employer]. [address] [place] [address]. All rights reserved. This information is not intended as asubstitute for professional medical care. Always follow your healthcare professional's instructions.Fever Control (Adult)A fever is a normal reaction of your body to an illness. The temperature itself usually isn't harmful. Itactually helps your body fight infections. You don't need to treat a fever unless you feel veryuncomfortable. 7 General Instructions [facility] Emergency Department [address] [place] [address] Phone #: ext- [phone] 04/09/2020 16:01 Patient: HUONG RUCKER Sex: F : 1945 Age: 74yHome careFollow these tips to take care of yourself at home: If you feel warm, check your temperature. Dress in light clothing. This will help you lose extra body heat through your skin. The fever will go up if you wear extra layers or wrap in blankets. Fever causes your body to lose water through evap oration. Drink plenty of fluids. These include water, juice, clear sodas, latisha mitch, or lemonade.Fever medicinesYou can take acetaminophen every 4 to 6 hours if: You feel very uncomfortable Your oral temperature is 100.4F (38C) or higherIf you can't take or keep down oral medicine, ask your pharmacist for acetaminophen suppositories.You don't need a prescription for these.If the fever doesn't get better within 1 hour after you take acetaminophen, take ibuprofen. If thisworks, keep taking the ibuprofen every 6 to 8 hours.If you have chronic liver or kidney disease, talk with your healthcare provider before taking thesemedicines. Also talk with your provider if you ever had a stomach ulcer or GI (gastrointestinal)bleeding.If either medicine alone doesn't keep the fever down, you may switch off between the 2 medicinesevery 3 to 4 hours. But do this only if your healthcare provider has told you to. For example, takeibuprofen. Wait 3 hours. Then take acetaminophen. Wait 3 hours. Take ibupro fen, and so on. Followyour provider's instructions exactly.Don't give aspirin to anyone younger than age 19 who is ill with a fever. Aspirin can cause seriousside effects such as liver damage and Jeanne syndrome. Although rare, Jeanne syndrome is a veryserious illness usually found in children younger than age 15. The syndrome is closely linked to theuse of aspirin or aspirin-containing medicine during viral infection.Follow-up careFollow up with your healthcare provider if you don't get better after 48 hours.When to seek medical adviceCall your healthcare provider right away if any of these occur: 8 General Instructions [facility] Emergency Department [address] [place] [address] Phone #: ext- [phone] 04/09/2020 16:01 [id number] Sex: F : 1945 Age: 74y Fever, as directed by your healthcare provider, or: o Fever of 100.4F (38C) or above lasting for 24 to 48 hours o Fever lasting more than 3 days, even without other symptoms o Fever that happens after visiting a foreign country o Fever that happens within a month after visiting a country with malaria. Malaria is a serious illness. A fever can still be malaria even if you took medicine to prevent it. The medicine does not work in all cases. Confusion or trouble thinking Headache or stiff neck Flat, small, purplish red spots on your skin Low blood pressure Fast heart rate Fast (rapid) breathing You are You just had surgery, another medical procedure, or were just discharged from the hospital Use of medicines that suppress the immune system (immunosuppressants). These include Prednisone, cancer medicines, and organ transplant rejection medicines. If you are not sure about whether your medicines suppress your immune system, ask your healthcare provider.Call 911Someone should call 911 if you: Are having trouble breathing or shortness of breath Are unresponsiveImportant reminderCall your healthcare provider if you get a fever after visiting a place where infectious diseases arecommon. Many people poultry picking machine tender a cold or other virus while traveling. This usually goes away without aproblem. But, some places have more serious diseases. Fever with certain other symptoms maymean you have a serious illness. Symptoms to watch for include diarrhea, skin rashes, insect bites,and skin boils, or infections. Your provider may ask you: What you did on your trip 9 General Instructions [facility] Emergency Department [address] [place] [address] Phone #: ext- [phone] 04/09/2020 16:01 Patient: HUONG RUCKER Sex: F : 1945 Age: 74y How long you were there Where you stayed [place]hotel, [place] house, tent) What you ate and drank If you were bitten by insects or other bugs If you swam in freshwater If you had sex or got a tattoo or piercing while you were thereCheck the [facility] to get more information about specific infectious diseases in the areas you havetraveled. [id number] [employer]. [address] [place] [address]. All rights reserved. This information is not intended as asubstitute for professional medical care. Always follow your healthcare professional's instr uctions. You have been given the following additional information: Abrasions Bladder Infection, Female (Adult) Fever Control (Adult)(Electronically signed by Aries Pierre, Physician 04/09/2020 19:30) Name Value Range Interpretation Code Description Data Roz rce(s) Supporting Document(s) ID Date Data Source [id number] 04/09/2020 04:02:00 PM EDT [facility] 1 Clinical Report - Nurses [facility] Emergency Department [address] [place] [address] Phone #: ext- [phone] 04/09/2020 16:01 Patient: HUONG RUCKER Sex: F : 1945 Age: 74yTRIAGEArrived by private vehicle. Historian: patient. Accompanied by family.Acuity: LEVEL 4.Chief Complaint: (chills).Alert. No acute distress.Onset. (1 week).Treatment MANAGER COMMUNICATION:(tramadol 1400).SEPSIS SCREEN: SIRS Screen negative. Sepsis Screen negative. No suspected or confirmed signs of infection present. --16:08 04/09/20 Nina Mancuso R.N.16:04 04/09/20. HR: 87. RR: 18. O2 saturation: 95% on room air. Temp: 97.2 F. Pain level now: 010.--16:08 04/09/20 Nina Mancuso R.N.16:08 04/09/20. BP: 147/65. MAP: 92. --16:08 04/09/20 Nina Mancuso R.N.Weight: 68 kg stated. Height/Length: 62 inches Per Patient. BMI: 27.4. --16:03 04/09/20 Nina Mancuso R.N.MedicationsLisinopril Oral. --16:09 04/09/20 Nina Mancuso R.N. Aspirin Low Dose Oral. Singulair Oral. --16:10 04/09/20 Nina Mancuso R.N. Anoro Ellipta Inhalation. --16:10 04/09/20 Nina Mancuso R.N. Statins Support Oral. --16:12 04/09/20 Nina Mancuso R.N. Diuretic. --16:13 04/09/20 Nina Mancuso R.N.AllergiesOtezla. --16:08 04/09/20 Nina Mancuso R.N.PROBLEMS:Heart Disease.Hypercholesterolemia.Hypertension.COPD - Chronic Obstructive Pulmonary Disease.Psoriasis. --16:11 04/09/20 Nina Mancuso R.N.ADDITIONAL SURGERIES: 2 Clinical Report - Nurses [facility] Emergency Department [address] [place] [address] Phone #: ext- [phone] 04/09/2020 16:01 Patient: HUONG RUCKER Sex: F : 1945 Age: 74y . --16:11 04/09/20 Nina Mancuso R.N. History PAST MEDICAL HX: Immunizations: up-to-date. The patient is post-menopausal. SOCIAL HX: Smoker- current status unknown (quit 15 years ago). Occasional alcohol use. No drug use. She was offered HIV testing but declined and hepatitis C testing but declined. She has not traveled outside the [place] Infectious disease exposure: No infectious disease exposure. Patient is not a known carrier of tuberculosis, hepatitis, HIV, MRSA or VRE. Patient is not a known carrier of CRE. SELF HARM ASSESSMENT: Self harm assessment was performed. The patient answered "no" to the question(s) "Have you recently felt down, depressed, or hopeless?", "Do you have thoughts of harming or killing yourself?", "Do you have a plan for harming or killing yourself?", "Have you recently had thoughts about harming or killing others?", "Do you have any dangerous items in your possession?", "Have you noticed less interest or pleasure in doing things?", "Are you here because you tried to hurt yourself?" and "Have you ever tried to hurt yourself before today?". ABUSE ASSESSMENT: Abuse assessment. Abuse denied. No suspicion of abuse. No report of abuse. NUTRITIONAL RISK ASSESSMENT: The nutritional risk assessment revealed no deficiencies. FUNCTIONAL ASSESSMENT: Functional assessment: no impairments noted. LEARNING NEEDS ASSESSMENT: The learning needs assessment revealed no barriers. FALL RISK ASSESSMENT: Fall risk assessment completed. No risk factors identified. SKIN INTEGRITY ASSESSMENT: Skin integrity risk assessment completed. No skin integrity risk identified. --16:08 04/09/20 Nina Mancuso R.N. Interventions Identification band on patient. To treatment room. --16:08 04/09/20 Nina Mancuso R.N.PHYSICAL [id number] 04/09/20. Ambulatory to room.GENERAL / NEURO / PSYCH: Alert. Oriented X 4.HEENT: No facial asymmetry noted. Mucous membranes are pink.RESPIRATORY: Respirations not labored. Chest nontender. Breath sounds within normal limits.CVS: Capillary refill less than 2 seconds. Pulses within normal limits.GI / : Abdomen soft and nontender and normal bowel sounds.SKIN: Skin rash present- psoriasis lesions body red. --16:53 04/09/[address] RN.NURSING PROGRESS NOTES16:54 04/09/20. Patient gowned. Head of bed elevated 75 degrees. Warming measures: blanket 3 Clinical Report - Nurses [facility] Emergency Department [address] [place] [address] Phone #: ext- [phone] 04/09/2020 16:01 Patient: HUONG RUCKER Sex: F : 1945 Age: 74y applied (1300). Two patient identifiers checked. Call light placed in reach. Bed placed in lowest position. Brakes of bed on. Patient ready for evaluation- chart flagged. --16:54 04/09/[address] RN Patient ID band checked for patient name and birthdate: patient confirmed. Clean catch urine collected with return of yellow-colored urine; sample sent to lab for urinalysis. Specimen labeled in the presence of the patient. --17:14 04/09/20 Nina Mancuso R.N. 17:32 04/09/20. Checked patient name and birthdate: patient confirmed. Blood samples drawn by tech. (3000). Checked patient name and birthdate: patient confirmed. Flu swab obtained by RN via nasal swab. Labeled in the presence of the patient and sent to lab ([id number]). Checked patient name and birthdate: patient confirmed. Throat swab obtained by nurse for rapid strep; labeled in the presence of the patient and sent to lab ([id number]). --17:32 04/09/[address] RN Patient transported to radiology by wheelchair with timber management technician. ([id number]). Patient returned from radiology by wheelchair with timber management technician. (8183). --18:15 04/09/[address] RN 18:39 04/09/2020 Septra (Sulfamethoxazole- Trimethoprim) PO Tablets 1 tab given. Allergies verified and confirmed 5 rights. Information reviewed with patient. --18:44 04/09/[address] RN.DISPOSITION / DISCHARGE 18:45 04/09/20. Departure time: 18:45 04/09/2020. Condition at departure: unchanged. No learning barriers present. Discharge instructions provided and reviewed with the patient. Reviewed medication(s) side effects, precautions, dosing and course information. Prescription(s) sent electronically to pharmacy. Reviewed rest instructions (increase fluids). Reviewed referrals. Provided to follow-up provider. Patient and family verbalized understanding. Written instructions provided in Spanish. The patient was discharged by the physician. She was discharged home and accompanied by family. She left ambulatory and via private vehicle. Family member driving. --18:45 04/09/[address] RN 18:44 04/09/20. BP: 144/61. MAP: 88. HR: 63. RR: 18. O2 saturation: 97% on room air. Temp: 97.3 F (oral). Pain level now: 0/10. --18:45 04/09/[address] RN.Locked/Released at 04/10/2020 20:[address] RN Name Value Range Interpretation Code Description Data Roz rce(s) Supporting Document(s) ID Date Data Source [id number] 04/09/2020 04:02:00 PM EDT [facility] 1 Clinical Report - Physicians/Mid Levels [facility] Emergency Department [address] [place] [address] Phone #: ext- [phone] 04/09/2020 16:01 [id number] Sex: F : 1945 Age: 74y Time Seen: 16:03 04/09/2020. Arrived- By private vehicle. Historian- patient. Disposition decision: 18:24 04/09/2020.HISTORY OF PRESENT ILLNESS Chief Complaint: CHILLS, SWEATS and "NOT FEELING WELL". FATIGUE and "HURTS ALL OVER& quot; Has not measured an actual fever. This started 7 days ago; No fever, no vomiting, no cough, no chest pain, no sore throat, no abdominal pain, no diarrhea. + psoriasis and she scratches her skin raw (creating wounds) all over. and is still present. Fever not measured. Fever (None). No muscle aches, loss of appetite, fatigue, chest pain or dyspnea. No cough, decreased oral intake, diarrhea, altered mental status or joint pain. No decreased urine output. Skin breakdown noted on the back of the head, both ears, both sides of the scapula, both elbows, both wrists, both buttocks, both hips, both knees, both calves, both ankles and both heels. The patient has had skin rash (Psoriasis). Additional history - No known contact with a sick individual. Has not recently been ill. She is not immunocompromised. No organ transplant. No recent absolute neutrophil count. No recent hospitalization. No new medication recently administered. No history of cancer. No history of HIV illness. No indwelling line. No recent travel. No known exposure to an animal. No drug use. No alcohol recently. No Sylvester catheter. Similar symptoms previously. Patient has had similar symptoms many times, chronically. Recent medical care: Not recently seen/assessed.REVIEW OF SYSTEMSNo anorexia, weight loss, palpitations, calf pain or sputum production. No nausea, constipation, blackstools, difficulty with urination or flank pain. No vomiting, headache, sinus pain, sore throat or tick bite.No easy bruising, enlarged lymph nodes, neck pain or back pain.PAST HISTORYPast history not negative. See nurses notes. Hypertension. Heart disease. Lung disease. Otherdisease. COPDPsoriasisHyperlipidemia. Surgeries: C- section.SOCIAL HISTORYFormer smoker. Occasional alcohol use. Not exposed to second-hand smoke at home. No drug use.No recent travel.ADDITIONAL NOTES 2 Clinical Report - Physicians/Mid Levels [facility] Emergency Department [address] [place] [address] Phone #: ext- [phone] 04/09/2020 16:01 Patient: HUONG RUCKER Sex: F : 1945 Age: 74y The nursing notes have been reviewed with agreement regarding the chief complaint, HPI, ROS, PMH and patient medications and allergies.PHYSICAL EXAMVital Signs: 04/09/2020 16:08 BP: 147/65. MAP: 92.04/09/2020 16:04 HR: 87. RR: 18. O2 saturation: 95% on room air. Temp: 97.2 F. Pain level now: 0/10.Have been reviewed and appear to be correct. Hypertensive. Heart rate normal. Respiratory ratenormal. Temperature normal. Oxygen saturation normal.Appearance: Alert. Anxious. Patient in mild distress. In distress.Eyes: Pupils equal, round and reactive to light. Eyes normal inspection.ENT: Nose normal. Pharynx normal. Uvula midline.Neck: Normal inspection. Neck supple.CVS: Normal heart rate and rhythm. Heart sounds normal. Pulses normal.Respiratory: No respiratory distress. Painless inspiration. Breath sounds normal. Chest nontender.Abdomen: Soft and nontender. Bowel sounds normal. No organomegaly. No mass.Back: Abnormal inspection. (Raw open wounds on upper most and lower back.).Skin: Skin warm and dry. Normal skin color. Rash present. Normal skin turgor. (Psoriasis rash withnumerous raw, weeping abrasions (from self-itching) worst on all extremities.).Extremities: Extremities exhibit normal ROM. (Numerous, small, op en, abraded wounds on allextremities.). Extremity tenderness.Neuro: No motor deficit. No sensory deficit.LABS, X-RAYS, AND EKGLaboratory Tests: Laboratory tests have been ordered, with results reviewed and considered in themedical decision making process. Abdomen Multiview: (KHUSHBOO: 04/09/2020 17:18) ( MsgRcvd 04/09/2020 18:22) In Progress ABDOMEN MULTIPLE VIEW Reason(s): Nausea TRANSPORTATION: IV? O2? Oxygen?(No) Room: ED : Menopause CMTS: Chills Exam ABDOMEN MULTIPLE VIEW [facility] [address] [place] [address] PHONE: [phone] FAX: [phone] Name .................. : ALKA Parrish Acct Number.................. : [id number] ROOM. ................. : VT-06 MR Number ................... : [id number] Stay type ............. : E/R Discharge Date......... ... : Admit Date ......... : 04/09/20 Admit Phys .................... : GABBY DIAS Date of ....... : 1945 Family Phys ................... : DELILAH Morrison Phone ..... ............. : [phone] Age ................................ : 74 Film# .................. .:[id number] Sex ................................. : F Unsigned transcriptions are preliminary reports and do not represent a medical or legal document ABDOMEN MULTIPLE VIEW [id number] COMPLETE:04/09/20 18:18 ARIANNA 15815 Reason(s): Nausea 3 Clinical Report - Physicians/Mid Levels [facility] Emergency Department [address] [place] [address] Phone #: ext- [phone] 04/09/2020 16:01 Patient: HUONG RUCKER Sex: F : 1945 Age: 74y MULTIPLE VIEW ABDOMINAL SERIES WITH PA CHEST: HISTORY: Nausea. COMPARISON: Chest radiograph from 07/22/19. FINDINGS: A single view of the chest and 2-views of the abdomen are reviewed. The cardiomediastinal silhouette is within normal limits. The lungs are clear. No consolidation, pleural effusion or pneumothorax. The bowel gas pattern is nonobstructive. Moderate colonic stool is noted. No abnormal soft tissue calcifications are evident. No acute osseous abnormalities. IMPRESSION: No acute pulmonary disease. Nonobstructive bowel gas pattern. Electronically Reviewed and Signed By DCTNAME SIGNDATEBOBBY Transcribe Initials: BETH , Transcribe Date: 04/09/20 18:20, Dictation Date: Page 1of 2 [place] [address] PHONE: [phone] FAX: [phone] Name .................. : ALKA Parrish Acct Number.................. : [id number] ROOM. ................. : VT-06 MR Number ................... : [id number] Stay type ............. : E/R Discharge Date......... ... : Admit Date ......... : 04/09/20 Admit Phys .................... : GABBY DIAS Date of ....... : 1945 Family Phys ................... : DELILAH Morrison Phone .................. : [phone] Age ................................ : 74 Film# .................. .:[id number] Sex ................................. : F Unsigned transcriptions are preliminary reports and do not represent a medical or legal document ABDOMEN MULTIPLE VIEW [id number] COMPLETE:04/09/20 18:18 ARIANNA 42302 Reason(s): Nausea <<REPDIST>> Page 2 4 Clinical Report - Physicians/Mid Levels [facility] Emergency Department [address] [place] [address] Phone #: ext- [phone] 04/09/2020 16:01 Patient: HUONG RUCKER Sex: F : 1945 Age: 74yof 2Lactic Acid: (KHUSHBOO: 04/09/2020 17:28) ( MsgRcvd 04/09/2020 17:38) Final results Test Result Flag Units (Reference) LACTIC ACID 1.6 MMOL/L (0.2 - 2.2)CBC w Diff: (KHUSHBOO: 04/09/2020 17:28) ( MsgRcvd 04/09/2020 17:38) Final results Test Result Flag Units (Reference) CBC W/AUTOMATED DIFF COMPLETE BLOOD COUNT WBC 11.8 H 10/uL (4.2 - 11.0) RBC 4.07 L 10/uL (4.20 - 5.40) HEMOGLOBIN 12.2 g/dL (12.0 - 16.0) HEMATOCRIT 39.1 % (37.0 - 47.0) MCV 96.1 fL (81.0 - 101) MCH 30.0 pg (27.0 - 34.0) MCHC 31.2 g/dL (31.0 - 36.0) RDW 12.9 % (11.5 - 14.5) PLATELETS 279 10/uL (150 - 450) MPV 9.8 fL (7.4 - 10.4) NEUT 68.8 % (37.0 - 80.0) LYMPH 16.5 L % (25.0 - 40.0) MONO 6.6 % (3.0 - 8.0) EOS 7.4 H % (0.0 - 7.0) BASO 0.4 % (0.0 - 2.5) %IG 0.3 H % (0.0 - 0.0) %NRBC 0.0 % (0.0 - 0.0) #NEUT 8.13 H 10/uL (2.00 - 6.90) #LYMPH 1.95 10/uL (0.60 - 3.40) #MONO 0.78 10/uL (0.00 - 0.90) #EOS 0.87 H 10/uL (0.00 - 0.70) #BASO 0.05 10/uL (0.00 - 0.20) #IG 0.04 10/uL (0.00 - 0.10) #NRBC 0.00 10/uL (0.00 - 0.00) MANUAL DIFF NOT INDICATED RBC MORPH NOT INDICATEDCMP: (KHUSHBOO: 04/09/2020 17:28) ( MsgRcvd 04/09/2020 18:02) Final results Test Result Flag Units (Reference) COMPREHENSIVE METABOLIC PANEL COMPREHENSIVE METABOLIC PANEL SODIUM 138 mEq/L (134 - 153) POTASSIUM 4.2 mEq/L (3.6 - 5.0) CHLORIDE 101 mEq/L (98 - 107) CO2 25 MEQ/L (22 - 30) GLUCOSE 114 H MG/DL (65 - 110) BUN 25 H MG/DL (7 - 21) CREATININE 0.9 MG/DL (0.7 - 1.5) BUN/CREAT 28 H (8 - 27) TOTAL PROTEIN 7.2 G/DL (6.3 - 8.2) ALBUMIN 4.7 G/DL (3.9 - 5.0) GLOBULIN 2.5 GM/DL (2.4 - 3.2) A/G RATIO 1.9 (0.8 - 2.0) CALCIUM 10.5 H MG/DL (8.4 - 10.2) TOTAL BILI <0.7 MG/DL (0.2 - 1.3) ALKALINE PHOS 82 U/L (38 - 126) 5 Clinical Report - Physicians/Mid Levels [facility] Emergency Department [address] [place] [address] Phone #: ext- [phone] 04/09/2020 16:01 Patient: HUONG RUCKER Sex: F : 1945 Age: 74y SGOT/AST 23 U/L (5 - 40) SGPT/ALT 27 U/L (7 - 56) ANION GAP 12.0 mmol/L (8.0 - 16.0) AGE 74 yrs NON-AA GFR >60 mL/min AFR AMER GFR >60 Male GFR Interprentation 20-49 yrs >60 mL/min Tdaagm00-73 yrs >56 mL/min Normal 60-69 yrs >49 mL/min Normal 70-79yrs>42 mL/min Normal 80 and above >35 mL/min Normal Female GFRInterpretation 20-39 yrs >60 mL/min Normal 40-49 yrs >58 mL/minNormal 50-59 yrs >51 mL/min Normal 60-69 yrs >45 mL/min Ziggpd52-21 yrs >39 mL/min Normal 80 and above >32 mL/min NormalRapid Strep Screen: (KHUSHBOO: 04/09/2020 17:28) ( MsgRcvd 04/09/2020 17:52) Final results Test Result Flag Units (Reference) RAPID STREP NEGATIVE (NORMAL: NEGAT RAPID STREP REENTER NEGATIVE (NORMAL: NEGAT { PROCEDURAL CONTROL VALID ){ KIT LOT #[id number] ){ KIT EXP DATE 03.11.21 )TheStrep A 2 assay utilizes isothermal nucleic acid amplification technology fothe qualitative detection of GroupA Strep bacterial nucleic acid in throat swabspecimens.All negative test results no longer need to be confirmedwith a culture. Follow-up testing requiring a culture is necessary if clinical symptoms persist, or inthe eventof an acute rheumatic fever outbreak. A culture will need to beordered by the Qualified Medical Provider.Negativeresults do not preclude infection with Group A Strep and should not beused as the sole basis for treatment.Influenza Nasal A B: (KHUSHBOO: 04/09/2020 17:28) ( WigRcvd 04/09/2020 17:52) Final results Test Result Flag Units (Reference) INFLUENZA A NEGATIVE (NORMAL: NEGAT INFLUENZA B NEGATIVE (NORMAL: NEGAT INFLUENZA A REENTER NEGATIVE (NORMAL: NEGAT INFLUENZA B REENTER NEGATIVE (NORMAL: NEGAT PROCEDURAL CONTROL VALID KIT LOT # _[id number] 04/09/20. . KIT EXP DATE _08.30.20 04/09/20. .The Influenza A utili zing an isothermal nucleic acid amplification technology for thequalitativedetection of influenza A and B viral RNA.Negative results do not preclude influenza virus infection and shouldnot beused as the sole basis for diagnosis, treatment or other patient managementdecisions.Urinalysis: (KHUSHBOO: 04/09/2020 17:12) ( MsgRcvd 04/09/2020 17:26) Final results Test Result Flag Units (Reference) URINALYSIS URINALYSIS SOURCE R COLOR yellow (NORMAL: Yello CLARITY clear (NORMAL: Clear SPEC GRAVITY 1.020 (1.001 - 1.030 pH 5 (5 - 9) GLUCOSE NORM (NORMAL: Negat BILIRUBIN NEG (NORMAL: Negat KETONE 5 A (NORMAL: Negat PROTEIN 15 (NORMAL: Negat NITRITE NEG (NORMAL: Negat BLOOD 50 A (NORMAL: Negat LEUK EST 25 (NORMAL: Negat UROBILINOGEN NOR (less than 1.0 MICROSCOPIC See Below 6 Clinical Report - Physicians/Mid Levels [facility] Emergency Department [address] [place] [address] Phone #: ext- [phone] 04/09/2020 16:01 Patient: HUONG RUCKER Sex: F : 1945 Age: 74y WBC 1 - 3 (NORMAL: NONE EPITHELIAL FEW (NORMAL: NONE BACTERIA Trace (NORMAL: NONE . Note - Tests: (Abd series - NAD as per radiology).PROGRESS AND PROCEDURESCourse of Care: 18:Apr 09 2020. Patient is stable. Symptoms better. 18:Apr 09 2020. Pt. has innumerable self inflicted scratch wounds all over body and a mild UTI. Strep and flu swabs are negative. I will prescribe antibiotic to cover both. Will discharge to home. Disposition: Discharged home in good and improved condition (18:Apr 09 2020). Condition: good.CLINICAL IMPRESSION Multiple superficial abrasions to the head, right upper arm, right elbow, right forearm, right wrist, right hand, right thigh, right knee, right lower leg, right ankle and right foot and left upper arm, left elbow, left forearm, left wrist, left hand, left thigh, left knee, left lower leg, left ankle and left foot. (Numerous - All over body). No foreign body present or cellulitis. Treatment of abrasion not delayed. Acute urinary tract infection with cystitis. No hematuria. Not associated with indwelling catheter or obstruction.INSTRUCTIONS Alternate Tylenol (Acetaminophen) or Motrin (Ibuprofen) for temperature greater than 100.4 degrees by tympanic thermometer. Take according to label instructions. Drink plenty of fluids. (Try to stop scratching psoriasis areas and creating new wounds. Motrin / Tylenol for pain / fevers.). Warnings: Further evaluation is necessary. GENERAL WARNINGS: Return or contact your physician immediately if your condition worsens or changes unexpectedly, if not improving as expected, or if other problems arise. Prescription Medications: Bactrim DS 800 mg-160 mg tablet Take 1 tablet twice a day for 7 days -- for UTI / Wound infections - Stop Lisinopril while taking Bactrim. Dispense 14 tablet. Refills: 0. Substitution permitted. Pharmacy - [facility] - [id number] ; [place], [place] [id number]. . Follow-up: 7 Clinical Report - Physicians/Mid Levels [facility] Emergency Department [address] [place] [address] Phone #: ext- [phone] 04/09/2020 16:01 Patient: HUONG RUCKER Sex: F : 1945 Age: 74y Follow up with your doctor in four days if not better. Call for an appointment. Reason for referral: evaluation, treatment and Chills / UTI / Numerous skin abrasions. Understanding of the discharge instructions verbalized by patient.(Electronically signed by Aries Pierre, Physician 04/09/2020 19:30) Name Value Range Interpretation Code Description Data Roz rce(s) Supporting Document(s) ID Date Data Source [id number] 04/15/2020 06:53:00 AM EDT [facility] [address] Name Value Range Interpretation Code Description Data Roz rce(s) Supporting Document(s) Bacteria identified in Blood by Culture [facility] NO GROWTH AFTER 5 DAYS ID Date Data Source [id number] 04/09/2020 05:50:00 PM EDT [facility] ([facility] Name Value Range Interpretation Code Description Data Roz rce(s) Supporting Document(s) Culture Blood Laboratory test result [facility] ([facility] _CULTURE BLOOD_ { PRELIM TEST PERFORMED AT [address] [address] CLIA# [id number] SEE SCANNED REPORT ID Date Data Source [id number] 04/16/2020 09:29:00 AM EDT [facility] Name Value Range Interpretation Code Description Data Roz rce(s) Supporting Document(s) CULTURE BLOOD [facility] _CULTURE BLOOD_{ PRELIM TEST PERFORMED AT [address] [address] CLIA# [id number] SEE SCANNED REPORT ID Date Data Source [id number] 04/09/2020 05:28:00 PM EDT [facility] ([facility] Name Value Range Interpretation Code Description Data Roz rce(s) Supporting Document(s) Culture Blood Laboratory test result [facility] ([facility] _CULTURE BLOOD_ { PRELIM TEST PERFORMED AT [address] [address] CLIA# [id number] SEE SCANNED REPORT ID Date Data Source [id number] 04/09/2020 05:28:00 PM EDT [facility] ([facility] Name Value Range Interpretation Code Description Data Roz rce(s) Supporting Document(s) Comprehensive [facility]abo Laboratory test result [facility] ([facility] COMPREHENSIVE METABOLIC PANEL Chloride 101 meq/L 98-107 [facility] ([facility] Potassium 4.2 meq/L 3.6-5.0 [facility] ([facility] Sodium 138 meq/L 134-153 [facility] ([facility] BUN 25 mg/dL 7-21 Above high normal [facility] ([facility] Glucose 114 mg/dL 65-110 Above high normal [facility] ([facility] Creatinine 0.9 mg/dL 0.7-1.5 [facility] Co2 25 meq/L 22-30 [facility] ([facility] BUN/Creat 28 8-27 Above high normal [facility] ([facility] Total Protein 7.2 g/dL 6.3-8.2 [facility] ([facility] Albumin 4.7 g/dL 3.9-5.0 [facility] ([facility] A/G Ratio 1.9 0.8-2.0 [facility] ([facility] Calcium 10.5 mg/dL 8.4-10.2 Above high normal [facility] ([facility] Globulin 2.5 GM/DL 2.4-3.2 [facility] ([facility] Total Bili Laboratory test result 0.2-1.3 ME D[facility] ([facility] SGPT/Alt 27 U/L 7-56 [facility] ([facility] Anion Gap 12.0 mmol/L 8.0-16.0 [facility] ([facility] Alkaline Phos 82 U/L 38-126 [facility] ([facility] Sgot/Ast 23 U/L 5-40 [facility] ([facility] Non-Aa GFR Laboratory test result [facility] ([facility] Age 74 yrs [facility] ([facility] Afr Amer GFR Laboratory test result [facility] ([facility] Male GFR Interprentation 20-49 yrs >60 mL/min Normal 50-59 yrs >56 mL/min Normal 60-69 yrs >49 mL/min Normal 70-79yrs >42 mL/min Normal 80 and above >35 mL/min Normal Female GFR Interpretation 20-39 yrs >60 mL/min Normal 40-49 yrs >58 mL/min Normal 50-59 yrs >51 mL/min Normal 60-69 yrs >45 mL/min Normal 70-79 yrs >39 mL/min Normal 80 and above >32 mL/min Normal ID Date Data Source [id number] 04/09/2020 05:28:00 PM EDT [facility] ([facility] Name Value Range Interpretation Code Description Data Roz rce(s) Supporting Document(s) Influenza A Laboratory test result M [facility] ([facility] Influenza B Laboratory test result M [facility] ([facility] Influenza A Reenter Laboratory test result [facility] ([facility] Influenza B Reenter Laboratory test result [facility] ([facility] <content>PROCEDURAL CONTROL VALID</con tent>
<content>KIT LOT # _[id number] 04/09/201752. .</content>
<content>KIT EXP DATE _08.30.20 04/09/20.1752. .</content>
<content>The Influenza A & B assay is a rapid molecular in vitro diagnostic test</content>
<content> utilizing an isothermal nucleic acid amplification technology for the</content>
<content>qualitative detection of influenza A and B viral RNA.</content>
<content>Negative results do not preclude influenza virus infection and should not be</content>
<content>used as the sole basis for diagnosis, treatment or other patient management</content>
<content>d ecisions.</content>
<content></content> ID Date Data Source [id number] 04/09/2020 05:28:00 PM EDT MEDENT ([facility] Name Value Range Interpretation Code Description Data Roz rce(s) Supporting Document(s) Rapid Strep Laboratory test result M EDENT ([facility] Rapid Strep Reenter Laboratory test result MEDENT ([facility] { PROCEDURAL CONTROL VALID ) { KIT LOT # [id number] ) { KIT EXP DATE 03.11.21 ) The Strep A 2 assay utilizes isothermal nucleic acid amplification technology fo the qualitative detection of Group A Strep bacterial nucleic acid in throat swab specimens. All negative test results no longer need to be confirmed with a culture. Follow- up testing requiring a culture is necessary if clinical symptoms persist, or in the event of an acute rheumatic fever outbreak. A culture will need to be ordered by the Qualified Medical Provider. Negative results do not preclude infection with Group A Strep and should not be used as the sole basis for treatment. ID Date Data Source [id number] 04/09/2020 05:28:00 PM EDT MEDENT ([facility] Name Value Range Interpretation Code Description Data Roz rce(s) Supporting Document(s) CBC W/Automated Diff Laboratory test result [facility] ([facility] COMPLETE BLOOD COUNT Hemoglobin 12.2 g/dL 12.0-16.0 [facility] Hematocrit 39.1 % 37.0-47.0 MEDENT ([facility] RBC 4.07 10^6/uL 4.20-5.40 Below low normal MEDENT ([facility] WBC 11.8 10^3/uL 4.2-11.0 Above high normal MEDEN T ([facility] MCV 96.1 fL 81.0-101 [facility] MCHC 31.2 g/dL 31.0-36.0 [facility] MCH 30.0 pg 27.0-34.0 [facility] ([facility] Platelets 279 10^3/uL 150-450 MEDENT ([facility] Neut 68.8 % 37.0-80.0 [facility] RDW 12.9 % 11.5-14.5 MEDENT ([facility] MPV 9.8 fL 7.4-10.4 MEDENT ([facility] Lymph 16.5 % 25.0-40.0 Below low normal MEDENT ( [facility] Eos 7.4 % 0.0-7.0 Above high normal MEDENT ([facility] [place] 6.6 % 3.0-8.0 MEDENT ([facility] #Neut 8.13 10^3/uL 2.00-6.90 Above high normal MEDEN T ([facility] Baso 0.4 % 0.0-2.5 [facility] %Ig 0.3 % 0.0-0.0 Above high normal MED[facility] ([facility] %NRBC 0.0 % 0.0-0.0 [facility] ([facility] #Lymph 1.95 10^3/uL 0.60-3.40 [facility] ([facility] #[place] 0.78 10^3/uL 0.00-0.90 [facility] ([facility] #Eos 0.87 10^3/uL 0.00-0.70 Above high normal MEDEN T ([facility] Manual Diff Laboratory test result M EDENT ([facility] #NRBC 0.00 10^3/uL 0.00-0.00 MED[facility] ([facility] #Ig 0.04 10^3/uL 0.00-0.10 [facility] ([facility] #Baso 0.05 10^3/uL 0.00-0.20 [facility] RBC Morph Laboratory test result ME DENT ([facility] ID Date Data Source [id number] 04/09/2020 05:28:00 PM EDT MEDENT ([facility] Name Value Range Interpretation Code Description Data Roz rce(s) Supporting Document(s) Lactate [Mass/volume] in Serum or Plasma 1.6 mmol/L 0.2-2.2 MEDENT ([facility] ID Date Data Source [id number] 04/16/2020 09:29:00 AM EDT [facility] Name Value Range Interpretation Code Description Data Roz rce(s) Supporting Document(s) CULTURE BLOOD [facility] _CULTURE BLOOD_{ PRELIM [place] [address] CLIA# [id number] SEE SCANNED REPORT ID Date Data Source [id number] 04/09/2020 06:02:00 PM EDT [facility] Name Value Range Interpretation Code Description Data Roz rce(s) Supporting Document(s) COMPREHENSIVE METABOLIC PANEL [facility] COMPREHENSIVE METABOLIC PANEL Sodium [Moles/volume] in Serum or Plasma 138 mEq/L 134 - 153 [facility] Potassium [Moles/volume] in Serum or Plasma 4.2 mEq/L 3.6 - 5.0 [facility] Chloride [Moles/volume] in Serum or Plasma 101 mEq/L 98 - 107 [facility] Carbon dioxide, total [Moles/volume] in Serum or Plasma 25 MEQ/L 22 - 30 [facility] Glucose [Mass/volume] in Serum or Plasma 114 MG/DL 65 - 110 H [facility] BUN 25 MG/DL 7 - 21 H [facility] al Creatinine [Mass/volume] in Serum or Plasma 0.9 MG/DL 0.7 - 1.5 [facility] BUN/CREAT 28 8 - 27 H [facility] Protein [Mass/volume] in Serum or Plasma 7.2 G/DL 6.3 - 8.2 [facility] Albumin [Mass/volume] in Serum or Plasma 4.7 G/DL 3.9 - 5.0 [facility] Globulin [Mass/volume] in Serum by calculation 2.5 GM/DL 2.4 - 3.2 [facility] A/G RATIO 1.9 0.8 - 2.0 [facility] Calcium [Mass/volume] in Serum or Plasma 10.5 MG/DL 8.4 - 10.2 H [facility] Bilirubin.total [Mass/volume] in Serum or Plasma <0.7 MG/DL 0.2 - 1.3 [facility] Alkaline phosphatase [Enzymatic activity/volume] in Serum or Plasma 82 U/L 38 - 126 [facility] Aspartate aminotransferase [Enzymatic activity/volume] in Serum or Plasma 23 U/L 5 - 40 [facility] Alanine aminotransferase [Enzymatic activity/volume] in Seru m or Plasma 27 U/L 7 - 56 [facility] Anion gap 3 in Serum or Plasma 12.0 mmol/L 8.0 - 16.0 [facility] AGE 74 yrs [facility] al NON-AA GFR >60 mL/min [facility] ital AFR AMER GFR >60 [facility] Male GFR In terprentation 20-49 yrs >60 mL/min Normal 50-59 yrs >56 mL/min Normal 60-69 yrs >49 mL/min Normal 70-79yrs >42 mL/min Normal 80 and above >35 mL/min Normal Female GFR Interpretation 20-39 yrs >60 mL/min Normal 40-49 yrs >58 mL/min Normal 50-59 yrs >51 mL/min Normal 60-69 yrs >45 mL/min Normal 70-79 yrs >39 mL/min Normal 80 and above >32 mL/min Normal ID Date Data Source [id number] 04/09/2020 05:52:00 PM EDT [facility] Name Value Range Interpretation Code Description Data Roz rce(s) Supporting Document(s) Influenza virus A Ag [Presence] in Nasopharynx by Immunoassa y NEGATIVE NORMAL: NEGATIVE [facility] Influenza virus B Ag [Presence] in Nasopharynx by Immunoassa y NEGATIVE NORMAL: NEGATIVE [facility] NEGATIVENEGATIVE PROCEDURAL CO NTROL VALID KIT LOT # _[id number] 04/09/20. . KIT EXP DATE _08.30.20 04/09/20. .The Influenza A & B assay is a rapid molecular in vitro diagnostic testutilizing an isothermal nucleic acid amplification technology for thequalitative detection of influenza A and B viral RNA.Negative results do not preclude influenza virus infection and should not beused as the sole basis for diagnosis, treatment or other patient managementdecisions. ID Date Data Source [id number] 04/09/2020 05:52[facility] Value Range Interpretation Code Description Data [facility] rce(s) Supporting Document(s) RAPID STREP NEGATIVE NORMAL: NEGATIVE [facility] RAPID STREP REENTER NEGATIVE NORMAL: NEGATIVE [facility] { PROCEDURAL CONTROL VALID ){ KIT LOT # [id number] ){ KIT EXP DATE 03.11.21 )The Strep A 2 assay utilizes isothermal nucleic acid amplification technology fothe qualitative detection of Group A Strep bacterial nucleic acid in throat swabspecimens.All negative test results no longer need to be confirmed with a culture. Follow-up testing requiring a culture is necessary if clinical symptoms persist, or inthe event of an acute rheumatic fever outbreak. A culture will need to beordered by the Qualified Medical Provider.Negative results do not preclude infection with Group A Strep and should not beused as the sole basis for treatment. ID Date Data Source [id number] 04/09/2020 05:38:00 PM EDT [facility] Name Value Range Interpretation Code Description Data Roz rce(s) Supporting Document(s) CBC W/AUTOMATED DIFF [facility] COMPLETE BLOOD COUNT Leukocytes [#/volume] in Blood by Automated count 11.8 10^3/uL 4.2 - 11.0 H [facility] Erythrocytes [#/volume] in Blood by Automated count 4.07 10^6/uL 4. 20 - 5.40 L [facility] Hemoglobin [Mass/volume] in Blood 12.2 g/dL 12.0 - 16.0 [facility] Hematocrit [Volume Fraction] of Blood by Automated count 39.1 % 3 7.0 - 47.0 [facility] Erythrocyte mean corpuscular volume [Entitic volume] by Auto mated count 96.1 fL 81.0 - 101 [facility] Erythrocyte mean corpuscular hemoglobin [Entitic mass] by Automated count 30.0 pg 27.0 - 34.0 [facility] Erythrocyte mean corpuscular hemoglobin concentration [Mass/volume] by Automated count 31.2 g/dL 31.0 - 36.0 [facility] Erythrocyte distribution width [Ratio] by Automated count 12.9 % 11.5 - 14.5 [facility] Platelets [#/volume] in Blood by Automated count 279 10^3/uL 150 - 45 0 [facility] Platelet mean volume [Entitic volume] in Blood by Automated count 9.8 fL 7.4 - 10.4 [facility] Neutrophils/100 leukocytes in Blood by Automated count 68.8 % 37. 0 - 80.0 [facility] Lymphocytes/100 leukocytes in Blood by Manual count 16.5 % 25.0 - 40.0 L [facility] Monocytes/100 leukocytes in Blood by Automated count 6.6 % 3.0 - 8.0 [facility] Eosinophils/100 leukocytes in Blood by Automated count 7.4 % 0.0 - 7.0 H [facility] Basophils/100 leukocytes in Blood by Automated count 0.4 % 0.0 - 2.5 [facility] %IG 0.3 % 0.0 - 0.0 H [facility] %NRBC 0.0 % 0.0 - 0.0 [facility] Neutrophils [#/volume] in Blood by Automated count 8.13 10^3/uL 2.00 - 6.90 H [facility] Lymphocytes [#/volume] in Blood by Automated count 1.95 10^3/uL 0.60 - 3.40 [facility] Monocytes [#/volume] in Blood by Automated count 0.78 10^3/uL 0.00 - 0.90 [facility] Eosinophils [#/volume] in Blood by Automated count 0.87 10^3/uL 0.00 - 0.70 H [facility] Basophils [#/volume] in Blood by Automated count 0.05 10^3/uL 0.00 - 0.20 [facility] #IG 0.04 10^3/uL 0.00 - 0.10 [facility] ospital #NRBC 0.00 10^3/uL 0.00 - 0.00 [facility] MANUAL DIFF NOT INDICATED [facility] RBC MORPH NOT INDICATED [facility] ID Date Data Source [id number] 04/09/2020 05:38:00 PM EDT [facility] Name Value Range Interpretation Code Description Data Roz rce(s) Supporting Document(s) Lactate [Moles/volume] in Serum or Plasma 1.6 MMOL/L 0.2 - 2.2 [facility] ID Date Data Source [id number] 04/09/2020 05:12:00 PM EDT MEDENT ([facility] Name Value Range Interpretation Code Description Data Roz rce(s) Supporting Document(s) Urinalysis Laboratory test result ME DENT ([facility] SOURCE: Clean Catch Clarity Laboratory test result MEDENT ([facility] SOURCE: Clean Catch Color Laboratory test result MEDENT ([facility] SOURCE: Clean Catch Source Laboratory test result MEDENT ([facility] SOURCE: Clean Catch Spec [place] 1.020 1.001-1.030 MEDENT ([facility] SOURCE: Clean Catch pH 5 5-9 MED[facility] ([facility] SOURCE: Clean Catch Protein 15 [facility] ([facility] SOURCE: Clean Catch Bilirubin Laboratory test result ME DENT ([facility] SOURCE: Clean Catch Glucose Laboratory test result MED[facility] ([facility] SOURCE: Clean Catch Ketone 5 Abnormal (applies to non-numeric res ults) [facility] ([facility] SOURCE: Clean Catch Leuk Est 25 [facility] ([facility] SOURCE: Clean Catch Nitrite Laboratory test result MED[facility] ([facility] SOURCE: Clean Catch Blood 50 Abnormal (applies to non-numeric res ults) [facility] ([facility] SOURCE: Clean Catch WBC Laboratory test result MED[facility] ([facility] SOURCE: Clean Catch Urobilinogen Laboratory test result MED[facility] ([facility] SOURCE: Clean Catch Epithelial Laboratory test result ME DENT ([facility] SOURCE: Clean Catch Microscopic Laboratory test result M EDENT ([facility] SOURCE: Clean Catch Bacteria Laboratory test result MEDENT ([facility] SOURCE: Clean Catch ID Date Data Source [id number] 04/09/2020 05:26:00 PM EDT [facility] Name Value Range Interpretation Code Description Data Roz rce(s) Supporting Document(s) [facility] SOURCE R [facility] COLOR yellow NORMAL: Yellow [facility] CLARITY clear NORMAL: Clear [facility] Specific gravity of Urine by Test strip 1.020 1.001 - 1.030 [facility] pH 5 5 - 9 [facility] Glucose [Mass/volume] in Urine by Test strip NORM NORMAL: Negat [facility] Bilirubin.total [Presence] in Urine by Test strip NEG NORMAL: Negative [facility] Ketones [Presence] in Urine by Test strip 5 NORMAL: Negative A [facility] Protein [Mass/volume] in Urine by Test strip 15 NORMAL: Negat [facility] Nitrite [Presence] in Urine by Test strip NEG NORMAL: Negative [facility] BLOOD 50 NORMAL: Negative A [facility] Leukocyte esterase [Presence] in Urine by Test strip 25 MONICA L: Negative [facility] Urobilinogen [Mass/volume] in Urine by Test strip NOR less annemarie n 1.0 mg/dL [facility] MICROSCOPIC See Below [facility] WBC 1 - 3 NORMAL: NONE SEEN [facility] EPITHELIAL FEW NORMAL: NONE SEEN [facility] Bacteria [Presence] in Urine sediment by Light microscopy Tr hayes NORMAL: NONE SEEN [facility] ID Date Data Source [id number] 04/07/2020 09:05:00 AM EDT MEDENT ([facility] Name Value Range Interpretation Code Description Data Roz rce(s) Supporting Document(s) Chol 153 mg/dL 0-200 [facility] CHRONIC KIDNEY DISEASE STAGING PER NKF: MALE GFR INTERPRETATION: 20-49 YRS: >60 mL/min Normal 50-59 YRS: >56 mL/min Normal 60-69 YRS: >49 mL/min Normal 70-79 YRS: >42 mL/min Normal 80 and above >35 mL/min Normal FEMALE GRF INTERPRETATION: 20-39 YRS: >60 mL/min Normal 40-49 YRS: >58 mL/min Normal 50-59 YRS: >51 mL/min Normal 60-69 YRS: >45 mL/min Normal 70-79 YRS: >39 mL/min Normal 80 and above >32 mL/min NormalCLASSIFICATION CHOLESTEROL FOR ADULTS CHILDREN/ADOLESCENTS* DESIRABLE: <200 MG/DL <170 MG/DL BORDER-LINE HIGH RISK: 200-239 MG/DL 170-199 MG/DL HIGH RISK: >240 MG/DL >200 MG/DL CLASS. FOR PRIMARY LDL CHOL PREVENTION: LDL CHOL-CHILD/ADOLESCENTS* DESIRABLE: <130 MG/DL <110 MG/DL BORDERLINE-HIGH RISK: 130- 159 MG/DL 110-129 MG/DL HIGH RISK: >160 MG/DL >130 MG/DL *CHILDREN AND ADOLESCENTS REPRESENTS INDIVIDUALA AGED 2-19 YEARS EXCLUSIVE. Cholesterol in HDL [Mass/volume] in Serum or Plasma 54 mg/dL 45-65 [facility] ([facility] CHRONIC KIDNEY DISEASE STAGING PER NKF: MALE GFR INTERPRETATION: 20-49 YRS: >60 mL/min Normal 50-59 YRS: >56 mL/min Normal 60-69 YRS: >49 mL/min Normal 70-79 YRS: >42 mL/min Normal 80 and above >35 mL/min Normal FEMALE GRF INTERPRETATION: 20-39 YRS: >60 mL/min Normal 40-49 YRS: >58 mL/min Normal 50-59 YRS: >51 mL/min Normal 60-69 YRS: >45 mL/min Normal 70-79 YRS: >39 mL/min Normal 80 and above >32 mL/min NormalCLASSIFICATION CHOLESTEROL FOR ADULTS CHILDREN/ADOLESCENTS* DESIRABLE: <200 MG/DL <170 MG/DL BORDER-LINE HIGH RISK: 200-239 MG/DL 170-199 MG/DL HIGH RISK: >240 MG/DL >200 MG/DL CLASS. FOR PRIMARY LDL CHOL PREVENTION: LDL CHOL-CHILD/ADOLESCENTS* DESIRABLE: <130 MG/DL <110 MG/DL BORDERLINE-HIGH RISK: 130- 159 MG/DL 110-129 MG/DL HIGH RISK: >160 MG/DL >130 MG/DL *CHILDREN AND ADOLESCENTS REPRESENTS INDIVIDUALA AGED 2-19 YEARS EXCLUSIVE. Trig 135 mg/dL 40-200 [facility] CHRONIC KIDNEY DISEASE STAGING PER NKF: MALE GFR INTERPRETATION: 20-49 YRS: >60 mL/min Normal 50-59 YRS: >56 mL/min Normal 60-69 YRS: >49 mL/min Normal 70-79 YRS: >42 mL/min Normal 80 and above >35 mL/min Normal FEMALE GRF INTERPRETATION: 20-39 YRS: >60 mL/min Normal 40-49 YRS: >58 mL/min Normal 50-59 YRS: >51 mL/min Normal 60-69 YRS: >45 mL/min Normal 70-79 YRS: >39 mL/min Normal 80 and above >32 mL/min NormalCLASSIFICATION CHOLESTEROL FOR ADULTS CHILDREN/ADOLESCENTS* DESIRABLE: <200 MG/DL <170 MG/DL BORDER-LINE HIGH RISK: 200-239 MG/DL 170-199 MG/DL HIGH RISK: >240 MG/DL >200 MG/DL CLASS. FOR PRIMARY LDL CHOL PREVENTION: LDL CHOL-CHILD/ADOLESCENTS* DESIRABLE: <130 MG/DL <110 MG/DL BORDERLINE-HIGH RISK: 130- 159 MG/DL 110-129 MG/DL HIGH RISK: >160 MG/DL >130 MG/DL *CHILDREN AND ADOLESCENTS REPRESENTS INDIVIDUALA AGED 2-19 YEARS EXCLUSIVE. LDL_C 72 Calc 75-129 Below low normal [facility] ( [facility] CHRONIC KIDNEY DISEASE STAGING PER NKF: MALE GFR INTERPRETATION: 20-49 YRS: >60 mL/min Normal 50-59 YRS: >56 mL/min Normal 60-69 YRS: >49 mL/min Normal 70-79 YRS: >42 mL/min Normal 80 and above >35 mL/min Normal FEMALE GRF INTERPRETATION: 20-39 YRS: >60 mL/min Normal 40-49 YRS: >58 mL/min Normal 50-59 YRS: >51 mL/min Normal 60-69 YRS: >45 mL/min Normal 70-79 YRS: >39 mL/min Normal 80 and above >32 mL/min NormalCLASSIFICATION CHOLESTEROL FOR ADULTS CHILDREN/ADOLESCENTS* DESIRABLE: <200 MG/DL <170 MG/DL BORDER-LINE HIGH RISK: 200-239 MG/DL 170-199 MG/DL HIGH RISK: >240 MG/DL >200 MG/DL CLASS. FOR PRIMARY LDL CHOL PREVENTION: LDL CHOL-CHILD/ADOLESCENTS* DESIRABLE: <130 MG/DL <110 MG/DL BORDERLINE-HIGH RISK: 130- 159 MG/DL 110-129 MG/DL HIGH RISK: >160 MG/DL >130 MG/DL *CHILDREN AND ADOLESCENTS REPRESENTS INDIVIDUALA AGED 2-19 YEARS EXCLUSIVE. Cho/HDL Ratio 2.8 CALC MEDENT ([facility] CHRONIC KIDNEY DISEASE STAGING PER NKF: MALE GFR INTERPRETATION: 20-49 YRS: >60 mL/min Normal 50-59 YRS: >56 mL/min Normal 60-69 YRS: >49 mL/min Normal 70-79 YRS: >42 mL/min Normal 80 and above >35 mL/min Normal FEMALE GRF INTERPRETATION: 20-39 YRS: >60 mL/min Normal 40-49 YRS: >58 mL/min Normal 50-59 YRS: >51 mL/min Normal 60-69 YRS: >45 mL/min Normal 70-79 YRS: >39 mL/min Normal 80 and above >32 mL/min NormalCLASSIFICATION CHOLESTEROL FOR ADULTS CHILDREN/ADOLESCENTS* DESIRABLE: <200 MG/DL <170 MG/DL BORDER-LINE HIGH RISK: 200-239 MG/DL 170-199 MG/DL HIGH RISK: >240 MG/DL >200 MG/DL CLASS. FOR PRIMARY LDL CHOL PREVENTION: LDL CHOL-CHILD/ADOLESCENTS* DESIRABLE: <130 MG/DL <110 MG/DL BORDERLINE-HIGH RISK: 130- 159 MG/DL 110-129 MG/DL HIGH RISK: >160 MG/DL >130 MG/DL *CHILDREN AND ADOLESCENTS REPRESENTS INDIVIDUALA AGED 2-19 YEARS EXCLUSIVE. ID Date Data Source [id number] 04/07/2020 09:05:00 AM EDT MEDENT ([facility] Name Value Range Interpretation Code Description Data Roz rce(s) Supporting Document(s) Glu 124 mg/dL 70-110 Above high normal MEDENT ([facility] CHRONIC KIDNEY DISEASE STAGING PER NKF: MALE GFR INTERPRETATION: 20-49 YRS: >60 mL/min Normal 50-59 YRS: >56 mL/min Normal 60-69 YRS: >49 mL/min Normal 70-79 YRS: >42 mL/min Normal 80 and above >35 mL/min Normal FEMALE GRF INTERPRETATION: 20-39 YRS: >60 mL/min Normal 40-49 YRS: >58 mL/min Normal 50-59 YRS: >51 mL/min Normal 60-69 YRS: >45 mL/min Normal 70-79 YRS: >39 mL/min Normal 80 and above >32 mL/min NormalCLASSIFICATION CHOLESTEROL FOR ADULTS CHILDREN/ADOLESCENTS* DESIRABLE: <200 MG/DL <170 MG/DL BORDER-LINE HIGH RISK: 200-239 MG/DL 170-199 MG/DL HIGH RISK: >240 MG/DL >200 MG/DL CLASS. FOR PRIMARY LDL CHOL PREVENTION: LDL CHOL-CHILD/ADOLESCENTS* DESIRABLE: <130 MG/DL <110 MG/DL BORDERLINE-HIGH RISK: 130- 159 MG/DL 110-129 MG/DL HIGH RISK: >160 MG/DL >130 MG/DL *CHILDREN AND ADOLESCENTS REPRESENTS INDIVIDUALA AGED 2-19 YEARS EXCLUSIVE. BUN 29 mg/dL 8-23 Above high normal [facility] ([facility] CHRONIC KIDNEY DISEASE STAGING PER NKF: MALE GFR INTERPRETATION: 20-49 YRS: >60 mL/min Normal 50-59 YRS: >56 mL/min Normal 60-69 YRS: >49 mL/min Normal 70-79 YRS: >42 mL/min Normal 80 and above >35 mL/min Normal FEMALE GRF INTERPRETATION: 20-39 YRS: >60 mL/min Normal 40-49 YRS: >58 mL/min Normal 50-59 YRS: >51 mL/min Normal 60-69 YRS: >45 mL/min Normal 70-79 YRS: >39 mL/min Normal 80 and above >32 mL/min NormalCLASSIFICATION CHOLESTEROL FOR ADULTS CHILDREN/ADOLESCENTS* DESIRABLE: <200 MG/DL <170 MG/DL BORDER-LINE HIGH RISK: 200-239 MG/DL 170-199 MG/DL HIGH RISK: >240 MG/DL >200 MG/DL CLASS. FOR PRIMARY LDL CHOL PREVENTION: LDL CHOL-CHILD/ADOLESCENTS* DESIRABLE: <130 MG/DL <110 MG/DL BORDERLINE-HIGH RISK: 130- 159 MG/DL 110-129 MG/DL HIGH RISK: >160 MG/DL >130 MG/DL *CHILDREN AND ADOLESCENTS REPRESENTS INDIVIDUALA AGED 2-19 YEARS EXCLUSIVE. BUN/Creatinine Ratio 27.1 CALC MEDENT ([facility] CHRONIC KIDNEY DISEASE STAGING PER NKF: MALE GFR INTERPRETATION: 20-49 YRS: >60 mL/min Normal 50-59 YRS: >56 mL/min Normal 60-69 YRS: >49 mL/min Normal 70-79 YRS: >42 mL/min Normal 80 and above >35 mL/min Normal FEMALE GRF INTERPRETATION: 20-39 YRS: >60 mL/min Normal 40-49 YRS: >58 mL/min Normal 50-59 YRS: >51 mL/min Normal 60-69 YRS: >45 mL/min Normal 70-79 YRS: >39 mL/min Normal 80 and above >32 mL/min NormalCLASSIFICATION CHOLESTEROL FOR ADULTS CHILDREN/ADOLESCENTS* DESIRABLE: <200 MG/DL <170 MG/DL BORDER-LINE HIGH RISK: 200-239 MG/DL 170-199 MG/DL HIGH RISK: >240 MG/DL >200 MG/DL CLASS. FOR PRIMARY LDL CHOL PREVENTION: LDL CHOL-CHILD/ADOLESCENTS* DESIRABLE: <130 MG/DL <110 MG/DL BORDERLINE-HIGH RISK: 130- 159 MG/DL 110-129 MG/DL HIGH RISK: >160 MG/DL >130 MG/DL *CHILDREN AND ADOLESCENTS REPRESENTS INDIVIDUALA AGED 2-19 YEARS EXCLUSIVE. Na 141 mmol/L 136-145 [facility] ([facility] CHRONIC KIDNEY DISEASE STAGING PER NKF: MALE GFR INTERPRETATION: 20-49 YRS: >60 mL/min Normal 50-59 YRS: >56 mL/min Normal 60-69 YRS: >49 mL/min Normal 70-79 YRS: >42 mL/min Normal 80 and above >35 mL/min Normal FEMALE GRF INTERPRETATION: 20-39 YRS: >60 mL/min Normal 40-49 YRS: >58 mL/min Normal 50-59 YRS: >51 mL/min Normal 60-69 YRS: >45 mL/min Normal 70-79 YRS: >39 mL/min Normal 80 and above >32 mL/min NormalCLASSIFICATION CHOLESTEROL FOR ADULTS CHILDREN/ADOLESCENTS* DESIRABLE: <200 MG/DL <170 MG/DL BORDER-LINE HIGH RISK: 200-239 MG/DL 170-199 MG/DL HIGH RISK: >240 MG/DL >200 MG/DL CLASS. FOR PRIMARY LDL CHOL PREVENTION: LDL CHOL-CHILD/ADOLESCENTS* DESIRABLE: <130 MG/DL <110 MG/DL BORDERLINE-HIGH RISK: 130- 159 MG/DL 110-129 MG/DL HIGH RISK: >160 MG/DL >130 MG/DL *CHILDREN AND ADOLESCENTS REPRESENTS INDIVIDUALA AGED 2-19 YEARS EXCLUSIVE. Creat 1.1 mg/dL 0.5-1.0 Above high normal [facility] ([facility] CHRONIC KIDNEY DISEASE STAGING PER NKF: MALE GFR INTERPRETATION: 20-49 YRS: >60 mL/min Normal 50-59 YRS: >56 mL/min Normal 60-69 YRS: >49 mL/min Normal 70-79 YRS: >42 mL/min Normal 80 and above >35 mL/min Normal FEMALE GRF INTERPRETATION: 20-39 YRS: >60 mL/min Normal 40-49 YRS: >58 mL/min Normal 50-59 YRS: >51 mL/min Normal 60-69 YRS: >45 mL/min Normal 70-79 YRS: >39 mL/min Normal 80 and above >32 mL/min NormalCLASSIFICATION CHOLESTEROL FOR ADULTS CHILDREN/ADOLESCENTS* DESIRABLE: <200 MG/DL <170 MG/DL BORDER-LINE HIGH RISK: 200-239 MG/DL 170-199 MG/DL HIGH RISK: >240 MG/DL >200 MG/DL CLASS. FOR PRIMARY LDL CHOL PREVENTION: LDL CHOL-CHILD/ADOLESCENTS* DESIRABLE: <130 MG/DL <110 MG/DL BORDERLINE-HIGH RISK: 130- 159 MG/DL 110-129 MG/DL HIGH RISK: >160 MG/DL >130 MG/DL *CHILDREN AND ADOLESCENTS REPRESENTS INDIVIDUALA AGED 2-19 YEARS EXCLUSIVE. K 4.5 mmol/L 3.5-5.1 [facility] CHRONIC KIDNEY DISEASE STAGING PER NKF: MALE GFR INTERPRETATION: 20-49 YRS: >60 mL/min Normal 50-59 YRS: >56 mL/min Normal 60-69 YRS: >49 mL/min Normal 70-79 YRS: >42 mL/min Normal 80 and above >35 mL/min Normal FEMALE GRF INTERPRETATION: 20-39 YRS: >60 mL/min Normal 40-49 YRS: >58 mL/min Normal 50-59 YRS: >51 mL/min Normal 60-69 YRS: >45 mL/min Normal 70-79 YRS: >39 mL/min Normal 80 and above >32 mL/min NormalCLASSIFICATION CHOLESTEROL FOR ADULTS CHILDREN/ADOLESCENTS* DESIRABLE: <200 MG/DL <170 MG/DL BORDER-LINE HIGH RISK: 200-239 MG/DL 170-199 MG/DL HIGH RISK: >240 MG/DL >200 MG/DL CLASS. FOR PRIMARY LDL CHOL PREVENTION: LDL CHOL-CHILD/ADOLESCENTS* DESIRABLE: <130 MG/DL <110 MG/DL BORDERLINE-HIGH RISK: 130- 159 MG/DL 110-129 MG/DL HIGH RISK: >160 MG/DL >130 MG/DL *CHILDREN AND ADOLESCENTS REPRESENTS INDIVIDUALA AGED 2-19 YEARS EXCLUSIVE. CL 102.9 mmol/L 98.0-107.0 [facility] ([facility] CHRONIC KIDNEY DISEASE STAGING PER NKF: MALE GFR INTERPRETATION: 20-49 YRS: >60 mL/min Normal 50-59 YRS: >56 mL/min Normal 60-69 YRS: >49 mL/min Normal 70-79 YRS: >42 mL/min Normal 80 and above >35 mL/min Normal FEMALE GRF INTERPRETATION: 20-39 YRS: >60 mL/min Normal 40-49 YRS: >58 mL/min Normal 50-59 YRS: >51 mL/min Normal 60-69 YRS: >45 mL/min Normal 70-79 YRS: >39 mL/min Normal 80 and above >32 mL/min NormalCLASSIFICATION CHOLESTEROL FOR ADULTS CHILDREN/ADOLESCENTS* DESIRABLE: <200 MG/DL <170 MG/DL BORDER-LINE HIGH RISK: 200-239 MG/DL 170-199 MG/DL HIGH RISK: >240 MG/DL >200 MG/DL CLASS. FOR PRIMARY LDL CHOL PREVENTION: LDL CHOL-CHILD/ADOLESCENTS* DESIRABLE: <130 MG/DL <110 MG/DL BORDERLINE-HIGH RISK: 130- 159 MG/DL 110-129 MG/DL HIGH RISK: >160 MG/DL >130 MG/DL *CHILDREN AND ADOLESCENTS REPRESENTS INDIVIDUALA AGED 2-19 YEARS EXCLUSIVE. Co2 27.2 mmol/L 22.0-29.0 [facility] ([facility] CHRONIC KIDNEY DISEASE STAGING PER NKF: MALE GFR INTERPRETATION: 20-49 YRS: >60 mL/min Normal 50-59 YRS: >56 mL/min Normal 60-69 YRS: >49 mL/min Normal 70-79 YRS: >42 mL/min Normal 80 and above >35 mL/min Normal FEMALE GRF INTERPRETATION: 20-39 YRS: >60 mL/min Normal 40-49 YRS: >58 mL/min Normal 50-59 YRS: >51 mL/min Normal 60-69 YRS: >45 mL/min Normal 70-79 YRS: >39 mL/min Normal 80 and above >32 mL/min NormalCLASSIFICATION CHOLESTEROL FOR ADULTS CHILDREN/ADOLESCENTS* DESIRABLE: <200 MG/DL <170 MG/DL BORDER-LINE HIGH RISK: 200-239 MG/DL 170-199 MG/DL HIGH RISK: >240 MG/DL >200 MG/DL CLASS. FOR PRIMARY LDL CHOL PREVENTION: LDL CHOL-CHILD/ADOLESCENTS* DESIRABLE: <130 MG/DL <110 MG/DL BORDERLINE-HIGH RISK: 130- 159 MG/DL 110-129 MG/DL HIGH RISK: >160 MG/DL >130 MG/DL *CHILDREN AND ADOLESCENTS REPRESENTS INDIVIDUALA AGED 2-19 YEARS EXCLUSIVE. TP 6.5 g/dL 6.6-8.7 Below low normal [facility] ( [facility] CHRONIC KIDNEY DISEASE STAGING PER NKF: MALE GFR INTERPRETATION: 20-49 YRS: >60 mL/min Normal 50-59 YRS: >56 mL/min Normal 60-69 YRS: >49 mL/min Normal 70-79 YRS: >42 mL/min Normal 80 and above >35 mL/min Normal FEMALE GRF INTERPRETATION: 20-39 YRS: >60 mL/min Normal 40-49 YRS: >58 mL/min Normal 50-59 YRS: >51 mL/min Normal 60-69 YRS: >45 mL/min Normal 70-79 YRS: >39 mL/min Normal 80 and above >32 mL/min NormalCLASSIFICATION CHOLESTEROL FOR ADULTS CHILDREN/ADOLESCENTS* DESIRABLE: <200 MG/DL <170 MG/DL BORDER-LINE HIGH RISK: 200-239 MG/DL 170-199 MG/DL HIGH RISK: >240 MG/DL >200 MG/DL CLASS. FOR PRIMARY LDL CHOL PREVENTION: LDL CHOL-CHILD/ADOLESCENTS* DESIRABLE: <130 MG/DL <110 MG/DL BORDERLINE-HIGH RISK: 130- 159 MG/DL 110-129 MG/DL HIGH RISK: >160 MG/DL >130 MG/DL *CHILDREN AND ADOLESCENTS REPRESENTS INDIVIDUALA AGED 2-19 YEARS EXCLUSIVE. Alb 4.4 g/dL 3.4-4.8 [facility] ([facility] CHRONIC KIDNEY DISEASE STAGING PER NKF: MALE GFR INTERPRETATION: 20-49 YRS: >60 mL/min Normal 50-59 YRS: >56 mL/min Normal 60-69 YRS: >49 mL/min Normal 70-79 YRS: >42 mL/min Normal 80 and above >35 mL/min Normal FEMALE GRF INTERPRETATION: 20-39 YRS: >60 mL/min Normal 40-49 YRS: >58 mL/min Normal 50-59 YRS: >51 mL/min Normal 60-69 YRS: >45 mL/min Normal 70-79 YRS: >39 mL/min Normal 80 and above >32 mL/min NormalCLASSIFICATION CHOLESTEROL FOR ADULTS CHILDREN/ADOLESCENTS* DESIRABLE: <200 MG/DL <170 MG/DL BORDER-LINE HIGH RISK: 200-239 MG/DL 170-199 MG/DL HIGH RISK: >240 MG/DL >200 MG/DL CLASS. FOR PRIMARY LDL CHOL PREVENTION: LDL CHOL-CHILD/ADOLESCENTS* DESIRABLE: <130 MG/DL <110 MG/DL BORDERLINE-HIGH RISK: 130- 159 MG/DL 110-129 MG/DL HIGH RISK: >160 MG/DL >130 MG/DL *CHILDREN AND ADOLESCENTS REPRESENTS INDIVIDUALA AGED 2-19 YEARS EXCLUSIVE. CA 9.5 mg/dL 8.6-10.2 [facility] ([facility] CHRONIC KIDNEY DISEASE STAGING PER NKF: MALE GFR INTERPRETATION: 20-49 YRS: >60 mL/min Normal 50-59 YRS: >56 mL/min Normal 60-69 YRS: >49 mL/min Normal 70-79 YRS: >42 mL/min Normal 80 and above >35 mL/min Normal FEMALE GRF INTERPRETATION: 20-39 YRS: >60 mL/min Normal 40-49 YRS: >58 mL/min Normal 50-59 YRS: >51 mL/min Normal 60-69 YRS: >45 mL/min Normal 70-79 YRS: >39 mL/min Normal 80 and above >32 mL/min NormalCLASSIFICATION CHOLESTEROL FOR ADULTS CHILDREN/ADOLESCENTS* DESIRABLE: <200 MG/DL <170 MG/DL BORDER-LINE HIGH RISK: 200-239 MG/DL 170-199 MG/DL HIGH RISK: >240 MG/DL >200 MG/DL CLASS. FOR PRIMARY LDL CHOL PREVENTION: LDL CHOL-CHILD/ADOLESCENTS* DESIRABLE: <130 MG/DL <110 MG/DL BORDERLINE-HIGH RISK: 130- 159 MG/DL 110-129 MG/DL HIGH RISK: >160 MG/DL >130 MG/DL *CHILDREN AND ADOLESCENTS REPRESENTS INDIVIDUALA AGED 2-19 YEARS EXCLUSIVE. Globulin 2.1 CALC [facility] ([facility] CHRONIC KIDNEY DISEASE STAGING PER NKF: MALE GFR INTERPRETATION: 20-49 YRS: >60 mL/min Normal 50-59 YRS: >56 mL/min Normal 60-69 YRS: >49 mL/min Normal 70-79 YRS: >42 mL/min Normal 80 and above >35 mL/min Normal FEMALE GRF INTERPRETATION: 20-39 YRS: >60 mL/min Normal 40-49 YRS: >58 mL/min Normal 50-59 YRS: >51 mL/min Normal 60-69 YRS: >45 mL/min Normal 70-79 YRS: >39 mL/min Normal 80 and above >32 mL/min NormalCLASSIFICATION CHOLESTEROL FOR ADULTS CHILDREN/ADOLESCENTS* DESIRABLE: <200 MG/DL <170 MG/DL BORDER-LINE HIGH RISK: 200-239 MG/DL 170-199 MG/DL HIGH RISK: >240 MG/DL >200 MG/DL CLASS. FOR PRIMARY LDL CHOL PREVENTION: LDL CHOL-CHILD/ADOLESCENTS* DESIRABLE: <130 MG/DL <110 MG/DL BORDERLINE-HIGH RISK: 130- 159 MG/DL 110-129 MG/DL HIGH RISK: >160 MG/DL >130 MG/DL *CHILDREN AND ADOLESCENTS REPRESENTS INDIVIDUALA AGED 2-19 YEARS EXCLUSIVE. Alp 68.5 U/L 35-129 [facility] ([facility] CHRONIC KIDNEY DISEASE STAGING PER NKF: MALE GFR INTERPRETATION: 20-49 YRS: >60 mL/min Normal 50-59 YRS: >56 mL/min Normal 60-69 YRS: >49 mL/min Normal 70-79 YRS: >42 mL/min Normal 80 and above >35 mL/min Normal FEMALE GRF INTERPRETATION: 20-39 YRS: >60 mL/min Normal 40-49 YRS: >58 mL/min Normal 50-59 YRS: >51 mL/min Normal 60-69 YRS: >45 mL/min Normal 70-79 YRS: >39 mL/min Normal 80 and above >32 mL/min NormalCLASSIFICATION CHOLESTEROL FOR ADULTS CHILDREN/ADOLESCENTS* DESIRABLE: <200 MG/DL <170 MG/DL BORDER-LINE HIGH RISK: 200-239 MG/DL 170-199 MG/DL HIGH RISK: >240 MG/DL >200 MG/DL CLASS. FOR PRIMARY LDL CHOL PREVENTION: LDL CHOL-CHILD/ADOLESCENTS* DESIRABLE: <130 MG/DL <110 MG/DL BORDERLINE-HIGH RISK: 130- 159 MG/DL 110-129 MG/DL HIGH RISK: >160 MG/DL >130 MG/DL *CHILDREN AND ADOLESCENTS REPRESENTS INDIVIDUALA AGED 2-19 YEARS EXCLUSIVE. A/G Ratio 2.1 CALC [facility] ([facility] CHRONIC KIDNEY DISEASE STAGING PER NKF: MALE GFR INTERPRETATION: 20-49 YRS: >60 mL/min Normal 50-59 YRS: >56 mL/min Normal 60-69 YRS: >49 mL/min Normal 70-79 YRS: >42 mL/min Normal 80 and above >35 mL/min Normal FEMALE GRF INTERPRETATION: 20-39 YRS: >60 mL/min Normal 40-49 YRS: >58 mL/min Normal 50-59 YRS: >51 mL/min Normal 60-69 YRS: >45 mL/min Normal 70-79 YRS: >39 mL/min Normal 80 and above >32 mL/min NormalCLASSIFICATION CHOLESTEROL FOR ADULTS CHILDREN/ADOLESCENTS* DESIRABLE: <200 MG/DL <170 MG/DL BORDER-LINE HIGH RISK: 200-239 MG/DL 170-199 MG/DL HIGH RISK: >240 MG/DL >200 MG/DL CLASS. FOR PRIMARY LDL CHOL PREVENTION: LDL CHOL-CHILD/ADOLESCENTS* DESIRABLE: <130 MG/DL <110 MG/DL BORDERLINE-HIGH RISK: 130- 159 MG/DL 110-129 MG/DL HIGH RISK: >160 MG/DL >130 MG/DL *CHILDREN AND ADOLESCENTS REPRESENTS INDIVIDUALA AGED 2-19 YEARS EXCLUSIVE. Ast (Sgot) 15 U/L 0-40 [facility] ([facility] CHRONIC KIDNEY DISEASE STAGING PER NKF: MALE GFR INTERPRETATION: 20-49 YRS: >60 mL/min Normal 50-59 YRS: >56 mL/min Normal 60-69 YRS: >49 mL/min Normal 70-79 YRS: >42 mL/min Normal 80 and above >35 mL/min Normal FEMALE GRF INTERPRETATION: 20-39 YRS: >60 mL/min Normal 40-49 YRS: >58 mL/min Normal 50-59 YRS: >51 mL/min Normal 60-69 YRS: >45 mL/min Normal 70-79 YRS: >39 mL/min Normal 80 and above >32 mL/min NormalCLASSIFICATION CHOLESTEROL FOR ADULTS CHILDREN/ADOLESCENTS* DESIRABLE: <200 MG/DL <170 MG/DL BORDER-LINE HIGH RISK: 200-239 MG/DL 170-199 MG/DL HIGH RISK: >240 MG/DL >200 MG/DL CLASS. FOR PRIMARY LDL CHOL PREVENTION: LDL CHOL-CHILD/ADOLESCENTS* DESIRABLE: <130 MG/DL <110 MG/DL BORDERLINE-HIGH RISK: 130- 159 MG/DL 110-129 MG/DL HIGH RISK: >160 MG/DL >130 MG/DL *CHILDREN AND ADOLESCENTS REPRESENTS INDIVIDUALA AGED 2-19 YEARS EXCLUSIVE. Alt (SGPT) 19 U/L 0-41 [facility] ([facility] CHRONIC KIDNEY DISEASE STAGING PER NKF: MALE GFR INTERPRETATION: 20-49 YRS: >60 mL/min Normal 50-59 YRS: >56 mL/min Normal 60-69 YRS: >49 mL/min Normal 70-79 YRS: >42 mL/min Normal 80 and above >35 mL/min Normal FEMALE GRF INTERPRETATION: 20-39 YRS: >60 mL/min Normal 40-49 YRS: >58 mL/min Normal 50-59 YRS: >51 mL/min Normal 60-69 YRS: >45 mL/min Normal 70-79 YRS: >39 mL/min Normal 80 and above >32 mL/min NormalCLASSIFICATION CHOLESTEROL FOR ADULTS CHILDREN/ADOLESCENTS* DESIRABLE: <200 MG/DL <170 MG/DL BORDER-LINE HIGH RISK: 200-239 MG/DL 170-199 MG/DL HIGH RISK: >240 MG/DL >200 MG/DL CLASS. FOR PRIMARY LDL CHOL PREVENTION: LDL CHOL-CHILD/ADOLESCENTS* DESIRABLE: <130 MG/DL <110 MG/DL BORDERLINE-HIGH RISK: 130- 159 MG/DL 110-129 MG/DL HIGH RISK: >160 MG/DL >130 MG/DL *CHILDREN AND ADOLESCENTS REPRESENTS INDIVIDUALA AGED 2-19 YEARS EXCLUSIVE. Osmolality-Calculated 288.3 CALC [facility] ([facility] CHRONIC KIDNEY DISEASE STAGING PER NKF: MALE GFR INTERPRETATION: 20-49 YRS: >60 mL/min Normal 50-59 YRS: >56 mL/min Normal 60-69 YRS: >49 mL/min Normal 70-79 YRS: >42 mL/min Normal 80 and above >35 mL/min Normal FEMALE GRF INTERPRETATION: 20-39 YRS: >60 mL/min Normal 40-49 YRS: >58 mL/min Normal 50-59 YRS: >51 mL/min Normal 60-69 YRS: >45 mL/min Normal 70-79 YRS: >39 mL/min Normal 80 and above >32 mL/min NormalCLASSIFICATION CHOLESTEROL FOR ADULTS CHILDREN/ADOLESCENTS* DESIRABLE: <200 MG/DL <170 MG/DL BORDER-LINE HIGH RISK: 200-239 MG/DL 170-199 MG/DL HIGH RISK: >240 MG/DL >200 MG/DL CLASS. FOR PRIMARY LDL CHOL PREVENTION: LDL CHOL-CHILD/ADOLESCENTS* DESIRABLE: <130 MG/DL <110 MG/DL BORDERLINE-HIGH RISK: 130- 159 MG/DL 110-129 MG/DL HIGH RISK: >160 MG/DL >130 MG/DL *CHILDREN AND ADOLESCENTS REPRESENTS INDIVIDUALA AGED 2-19 YEARS EXCLUSIVE. Tbili 0.33 mg/dL 0.0-1.2 [facility] ([facility] CHRONIC KIDNEY DISEASE STAGING PER NKF: MALE GFR INTERPRETATION: 20-49 YRS: >60 mL/min Normal 50-59 YRS: >56 mL/min Normal 60-69 YRS: >49 mL/min Normal 70-79 YRS: >42 mL/min Normal 80 and above >35 mL/min Normal FEMALE GRF INTERPRETATION: 20-39 YRS: >60 mL/min Normal 40-49 YRS: >58 mL/min Normal 50-59 YRS: >51 mL/min Normal 60-69 YRS: >45 mL/min Normal 70-79 YRS: >39 mL/min Normal 80 and above >32 mL/min NormalCLASSIFICATION CHOLESTEROL FOR ADULTS CHILDREN/ADOLESCENTS* DESIRABLE: <200 MG/DL <170 MG/DL BORDER-LINE HIGH RISK: 200-239 MG/DL 170-199 MG/DL HIGH RISK: >240 MG/DL >200 MG/DL CLASS. FOR PRIMARY LDL CHOL PREVENTION: LDL CHOL-CHILD/ADOLESCENTS* DESIRABLE: <130 MG/DL <110 MG/DL BORDERLINE-HIGH RISK: 130- 159 MG/DL 110-129 MG/DL HIGH RISK: >160 MG/DL >130 MG/DL *CHILDREN AND ADOLESCENTS REPRESENTS INDIVIDUALA AGED 2-19 YEARS EXCLUSIVE. eGFR 58 # [facility] ( [facility] CHRONIC KIDNEY DISEASE STAGING PER NKF: MALE GFR INTERPRETATION: 20-49 YRS: >60 mL/min Normal 50-59 YRS: >56 mL/min Normal 60-69 YRS: >49 mL/min Normal 70-79 YRS: >42 mL/min Normal 80 and above >35 mL/min Normal FEMALE GRF INTERPRETATION: 20-39 YRS: >60 mL/min Normal 40-49 YRS: >58 mL/min Normal 50-59 YRS: >51 mL/min Normal 60-69 YRS: >45 mL/min Normal 70-79 YRS: >39 mL/min Normal 80 and above >32 mL/min NormalCLASSIFICATION CHOLESTEROL FOR ADULTS CHILDREN/ADOLESCENTS* DESIRABLE: <200 MG/DL <170 MG/DL BORDER-LINE HIGH RISK: 200-239 MG/DL 170-199 MG/DL HIGH RISK: >240 MG/DL >200 MG/DL CLASS. FOR PRIMARY LDL CHOL PREVENTION: LDL CHOL-CHILD/ADOLESCENTS* DESIRABLE: <130 MG/DL <110 MG/DL BORDERLINE-HIGH RISK: 130- 159 MG/DL 110-129 MG/DL HIGH RISK: >160 MG/DL >130 MG/DL *CHILDREN AND ADOLESCENTS REPRESENTS INDIVIDUALA AGED 2-19 YEARS EXCLUSIVE. Anion Gap 15 mmol/L [facility] CHRONIC KIDNEY DISEASE STAGING PER NKF: MALE GFR INTERPRETATION: 20-49 YRS: >60 mL/min Normal 50-59 YRS: >56 mL/min Normal 60-69 YRS: >49 mL/min Normal 70-79 YRS: >42 mL/min Normal 80 and above >35 mL/min Normal FEMALE GRF INTERPRETATION: 20-39 YRS: >60 mL/min Normal 40-49 YRS: >58 mL/min Normal 50-59 YRS: >51 mL/min Normal 60-69 YRS: >45 mL/min Normal 70-79 YRS: >39 mL/min Normal 80 and above >32 mL/min NormalCLASSIFICATION CHOLESTEROL FOR ADULTS CHILDREN/ADOLESCENTS* DESIRABLE: <200 MG/DL <170 MG/DL BORDER-LINE HIGH RISK: 200-239 MG/DL 170-199 MG/DL HIGH RISK: >240 MG/DL >200 MG/DL CLASS. FOR PRIMARY LDL CHOL PREVENTION: LDL CHOL-CHILD/ADOLESCENTS* DESIRABLE: <130 MG/DL <110 MG/DL BORDERLINE-HIGH RISK: 130- 159 MG/DL 110-129 MG/DL HIGH RISK: >160 MG/DL >130 MG/DL *CHILDREN AND ADOLESCENTS REPRESENTS INDIVIDUALA AGED 2-19 YEARS EXCLUSIVE. eGFR Non-Afr. Vincentian 50 # [facility] ([facility] CHRONIC KIDNEY DISEASE STAGING PER NKF: MALE GFR INTERPRETATION: 20-49 YRS: >60 mL/min Normal 50-59 YRS: >56 mL/min Normal 60-69 YRS: >49 mL/min Normal 70-79 YRS: >42 mL/min Normal 80 and above >35 mL/min Normal FEMALE GRF INTERPRETATION: 20-39 YRS: >60 mL/min Normal 40-49 YRS: >58 mL/min Normal 50-59 YRS: >51 mL/min Normal 60-69 YRS: >45 mL/min Normal 70-79 YRS: >39 mL/min Normal 80 and above >32 mL/min NormalCLASSIFICATION CHOLESTEROL FOR ADULTS CHILDREN/ADOLESCENTS* DESIRABLE: <200 MG/DL <170 MG/DL BORDER-LINE HIGH RISK: 200-239 MG/DL 170-199 MG/DL HIGH RISK: >240 MG/DL >200 MG/DL CLASS. FOR PRIMARY LDL CHOL PREVENTION: LDL CHOL-CHILD/ADOLESCENTS* DESIRABLE: <130 MG/DL <110 MG/DL BORDERLINE-HIGH RISK: 130- 159 MG/DL 110-129 MG/DL HIGH RISK: >160 MG/DL >130 MG/DL *CHILDREN AND ADOLESCENTS REPRESENTS INDIVIDUALA AGED 2-19 YEARS EXCLUSIVE. ID Date Data Source [id number] 04/07/2020 09:05:00 AM EDT [facility] ([facility] Name Value Range Interpretation Code Description Data Roz rce(s) Supporting Document(s) Hemoglobin A1c/Hemoglobin.total in Blood 6.4 % 4.50-6.20 Above high normal [facility] ([facility] ID Date Data Source [id number] 11/10/2019 01:53:00 PM EDT [facility] ([facility] Name Value Range Interpretation Code Description Data Roz rce(s) Supporting Document(s) Misc Laboratory test result [facility] ([facility] ID Date Data Source [id number] 10/06/2019 01:39:00 PM EDT [facility] ([facility] Name Value Range Interpretation Code Description Data Roz rce(s) Supporting Document(s) Glu 100 mg/dL 70-110 [facility] ([facility] Urea nitrogen/Creatinine [Mass Ratio] in Serum or Plasma 32.2 CALC [facility] ([facility]) Na 140 mmol/L 136-145 [facility] ([facility]) Creat 0.9 mg/dL 0.5-1.0 [facility] ([facility] BUN 30 mg/dL 8-23 [facility] ([facility] K 4.2 mmol/L 3.5-5.1 [facility] ([facility]) Co2 23.5 mmol/L 22.0-29.0 [facility] ([facility]) CL 104.5 mmol/L 98.0-107.0 [facility] ([facility]) CA 9.6 mg/dL 8.6-10.2 [facility] ([facility] Alb 4.4 g/dL 3.4-4.8 [facility] ([facility] A/G Ratio 2.0 CALC [facility] ([facility] TP 6.6 g/dL 6.6-8.7 [facility] ([facility] Globulin [Mass/volume] in Serum by calculation 2.2 CALC [facility] ([facility]) Alp 78.3 U/L 35-129 [facility] ([facility]) Alanine aminotransferase [Enzymatic activity/volume] in Seru m or Plasma 25 U/L 0-41 [facility] ([facility]) Aspartate aminotransferase [Enzymatic activity/volume] in Serum or Plasma 16 U/L 0-40 [facility] ([employer] [facility]) Tbili 0.23 mg/dL 0.0-1.2 [facility] ([facility]) Anion gap in Serum or Plasma 16 mmol/L [facility] ([facility]) Osmolality-Calculated 285.8 CALC [facility] ([facility]) eGFR 74 # [facility] ( [facility]) CKD-EPI eGFR Non-Afr. Vincentian 63 # [facility] ([facility]) CKD-EPI Chol 182 mg/dL 0-200 [facility] ([facility] Cho/HDL Ratio 3.3 Calc [facility] ([facility]) Cholesterol in HDL [Mass/volume] in Serum or Plasma 56 mg/dL 45-65 [facility] ([facility]) LDL_C 92 Calc 75-129 [facility] ([facility] Trig 174 mg/dL 40-200 [facility] ([facility] Hemoglobin A1c/Hemoglobin.total in Blood 6.2 % 4.50-6.20 [facility] ([facility]) ID Date Data Source [id number] 10/06/2019 01:39:00 PM EDT [facility] ([facility] Name Value Range Interpretation Code Description Data Roz rce(s) Supporting Document(s) Hemoglobin A1c/Hemoglobin.total in Blood 6.2 % 4.50-6.20 [facility] ([facility] ID Date Data Source [id number] 10/06/2019 01:39:00 PM EDT [facility] ([facility] Name Value Range Interpretation Code Description Data Roz e(s) Supporting Document(s) Chol 182 mg/dL 0-200 [facility] ([facility] Trig 174 mg/dL 40-200 [facility] LDL_C 92 Calc 75-129 [facility] Cholesterol in HDL [Mass/volume] in Serum or Plasma 56 mg/dL 45-65 [facility] ([facility] Cho/HDL Ratio 3.3 Calc [facility] ([facility] ID Date Data Source [id number] 10/06/2019 01:39:00 PM EDT [facility] ([facility] Name Value Range Interpretation Code Description Data [facility] Supporting Document(s) Glu 100 mg/dL 70-110 [facility] ([facility] BUN 30 mg/dL 8-23 Above high normal [facility] ([facility] Creat 0.9 mg/dL 0.5-1.0 [facility] BUN/Creatinine Ratio 32.2 CALC [facility] ([facility] Na 140 mmol/L 136-145 [facility] ([facility] K 4.2 mmol/L 3.5-5.1 [facility] ([facility] CL 104.5 mmol/L 98.0-107.0 [facility] CA 9.6 mg/dL 8.6-10.2 [facility] ([facility] Co2 23.5 mmol/L 22.0-29.0 [facility] ([facility] TP 6.6 g/dL 6.6-8.7 [facility] Alb 4.4 g/dL 3.4-4.8 [facility] A/G Ratio 2.0 CALC [facility] ([facility] Globulin 2.2 CALC [facility] ([facility] Alt (SGPT) 25 U/L 0-41 [facility] Alp 78.3 U/L 35-129 [facility] ([facility] Ast (Sgot) 16 U/L 0-40 [facility] ([facility] Osmolality-Calculated 285.8 CALC [facility] ([facility] Tbili 0.23 mg/dL 0.0-1.2 [facility] ([facility] Anion Gap 16 mmol/L [facility] ([facility] eGFR 74 # [facility] ( [facility] CKD-EPI eGFR Non-Afr. Vincentian 63 # [facility] ([facility] CKD-EPI ID Date Data Source [id number] 09/01/2019 06:57:00 AM [facility] Patient Name: Huong Rucker DO B: 1945 Sex: F Pt Unit #: [id number] Location:AMB.DERM Provider: Visit Date/Time: 09/01/19 Primary Insurance: MEDICARE [employer] [facility] Int[facility] Vital Signs 09/01/19 07:00 BP 124/82 Blood Pressure Location Lt brachial Position Sitting Respiration 18 Pulse 90 Pulse Strength Normal Pulse Source Pulse Oximeter Pulse Oximetry (%) 98 Oxygen Delivery Method room air Intake Visit Reasons: Office visit Is patient in pain?: No Allergies No Known Drug Allergies Allergy (Verified 09/01/19 07:05) Medications aspirin (Aspir-) 81 mg PO DAILY betamethasone, augmented 0.05% 1 applic TP BID betamethasone, augmented 0.05% 1 applic topical HS chlorthalidone 12.5 mg PO DAILY esomeprazole magnesium (Nexium) 40 mg PO BID hydroxyzine HCl 10 mg PO HS PRN lisinopril 20 mg PO DAILY mometasone 0.1% 1 applic topical QDAY montelukast 1 tab PO DAILY [Simvastatin 80 mg PO DAILY] sulfacetamide-prednisolone 10-0.2 % (Blephamide S.O.P.) 0.5 inches OU BID tramadol 50 mg PO TID PRN triamcinolone acetonide 0.1% 1 applic topical BID Post menopausal: Yes Do you need a note to return Do you need a note to return to daycare/school/sports/work: No PFSH - Derm Medical History Arias's esophagus (Chronic) History of hypertension (Chronic) Hyperlipidemia (Chronic) Prurigo nodularis (Acute) Scalp psoriasis (Acute) Seborrheic keratoses, inflamed (Acute) Social History Does the Patient have a Healthcare Proxy: No Does Patient have a DNR?: No Does Patient have a Living Will?: No Pertinent Past History Pertinent Past History Previous skin cancer: none Family history of nonmelanoma skin cancer: No Family history with melanoma: No Pertinent Social History: sunscreen use, tobacco use (former use), tanning bed use (in the past), sunburns and outdoor leisure activities; negative for outdoor occupation, photoprotective clothing and other Dermatology HPI Current Symptoms Chief Complaint:: Patient presents today for a recheck of biopsy proven (08/05/19) Prurigo Nodularison the Left abdomen. Patient treated with [facility] BID x 2 weeks. Psoriasis is flaring on face and Right knee for a few weeks. Patient also has a spot on the Right breast. Patient notes all are itchy.Patient is treating with Betamethasone and CeraVe. Location: abdomen (Left abdomen) Duration: weeks Symptoms: itchy S everity of symptoms: mild Treatments tried: Shave biopsy 08/05/19 - Pathology Prurigo Nodularis. Current treatment: TMC BID Treatment response: no change Skin care goals for today' visit: TMC BID Dermatology ROS Constituitional Reports system reviewed and no additional complaints, except as documented Psych Reports system reviewed and no additional complaints, except as documented Dermatology Exam Constitutional General appearance: comfortable Orientation Orientation: alert and oriented x 3 Skin Skin exam performed including: face, eyelids, nose, lips, neck, chest, abdomen, back, right arm, right hand, fingers, left arm and left hand Face and Body: Psych Appearance: grossly normal Mental Status: mental status grossly normal Speech and Movement: speech and movement normal Mood: congruent mood Affect: normal affect Attitude: cooperative Thought Content: normal Insight: insight good Judgment: judgment good Office Procedures Intralesional Kenalog Details: Intralesional Kenalog performed in office today. K5mg/cc x 1cc_prurigo, areas of LSC anterior chest Consent form signed. Treatment options, risks, benefits, and side effects reviewed (including but not limited to: scar, infection, pain, need for repeat treatment, and atrophy). ILTA patient information handout given. K10 [facility] [id number] Liquid Nitrogen Cryotherapy Details: LN2 cryotherapy performed in office today to ISKs x2 (lesions on chest rub on bra line). Cryocare instructions given. ABN and Consent form signed. Treatment options, risks, benefits, and side effects reviewed (including but not limited to: scar, infection, pain, need for repeat treatment). Patient instructed to contact the office if the lesiondoes not completely resolve after treatment/recurs. Assessment Plan Assessment Plan (1) Prurigo nodularis: Status: Acute Code(s): L28.1 - Prurigo nodularis SNOMED Code(s): 85753824 Category: Medical Plan - DAVI Hunter: KENALOG INJ (2) Seborrheic psoriasis: Status: Acute Code(s): L40.8 - Other psoriasis SNOMED Code(s): 57954423 Category: Medical (3) Scalp psoriasis: Status: Acute Code(s): L40.9 - Psoriasis, unspecified SNOMED Code(s): 933204831 Category: Medical Medications: Refilled: betamethasone, augmented 0.05% Apply to scalp nightly for up to 2 weeks as needed. 1 applic topical HS 60 mL 1RF (4) Seborrheic keratoses, inflamed: Status: Acute Code(s): L82.0 - Inflamed seborrheic ke ratosis SNOMED Code(s): 289804607 Category: Medical Plan - DAVI Hunter: CRYO x2 Orders Other Medications: New: hydroxyzine HCl Take one pill in the evening as needed for itching. MAY CAUSE DROWSINESS 10 mg PO HS PRN 30 tabs 1RF itching mometasone 0.1% Apply to facial rash twice daily x 2 weeks 1 applic topical QDAY 45 grams 0RF Refilled: betamethasone, augmented 0.05% Apply to areas of rash 2x/day for 2 weeks, then as needed on the neck down. 1 applic TP BID 50 grams 1RF L40.0 Follow Up: PRN-clinic closing Electronically Signed By: <Electronically signed by Genesis TOMLINSON> Date/Time Signed: 09/01/19 0724 Name Value Range Interpretation Code Description Data Roz rce(s) Supporting Document(s) ID Date Data Source [id number] 08/12/2019 07:04:00 AM [facility] PATH SPEC #:: [id number] Name Value Range Interpretation Code Description Data Roz rce(s) Supporting Document(s) Pathology studies (set) See scanned report [facility] ID Date Data Source [id number] 08/05/2019 07:09:00 AM [facility] Patient Name: HUONG RUCKER DO B: 1945 Sex: F Pt Unit #: [id number] Location:AMB.DERM Provider: Visit Date/Time: 08/05/19 Primary Insurance: MEDICARE [facility] Secondary Insurance: 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) 0.5 inches OU BID tramadol 50 mg PO TID PRN Post menopausal: Yes Patient : No PFSH - Derm Medical History Arias's esophagus (Chronic) History of hypertension (Chronic) Hyperlipidemia (Chronic) Scalp psoriasis (Acute) Seborrheic keratoses, inflamed (Acute) Social Tube Closing Machine Operator Required No Use the Language Identification sheet. The message underneath each language says "Point to your language. An cassandra developer will be called. The cassandra developer is provided at no cost to you ." Social History Does the Patient have a Healthcare Proxy: No Does Patient have a DNR?: No Does Patient have a Living Will?: No Pertinent Past History Pertinent Past History Previous skin cancer: none Family history of nonmelanoma skin cancer: No Family history with melanoma: No Pertinent Social History: sunscreen use, tobacco use (former use), tanning bed use (in the past), sunburns and outdoor leisure activities; negative for outdoor occupation, photoprotective clothing and other Dermatology HPI History of Present Illness Details:: Pt presents to dermatology clinic as an established pt for a spot of concern. Pt has hx of psoriasis and tx with betamethasone. She was prescribed calcipotriene but pt states that she does not use. Current Symptoms Chief Complaint:: spot of concern Location: other (left side) Duration: months Symptoms: itchy and other (pink and rashy) Severity of symptoms: mild Treatments tried: Betamethasone, OTC lotions Treatment response: no change Skin care goals for today' visit: none per pt Contacts/family history of similar?: Yes (granddaughter has psoriasis) Dermatology ROS Constituitional Reports system reviewed and no additional complaints, except as documented Psych Reports system reviewed and no additional complaints, except as documented Dermatology Exam Constitutional General appearance: comfortable Orientation Orientation: alert and oriented x 3 Skin Skin exam performed including: face, eyelids, nose, lips, neck, chest, right arm, right hand, fingers, left arm and left hand Face and Body: 1. 1.2 cm neoplasm Psych Appearance: grossly normal Mental Status: mental status grossly normal Speech and Movement: speech and movement normal Mood: congruent mood Affect: normal affect Attitude: cooperative Thought Content: normal Insight: insight good Judgment: judgment good Office Procedures Skin Biopsy Details: Shave Biopsy Performed. DDX: prurigo v SCC Site: L abdomen Size: 1.2cm Consent: Verbal and Written consent obtained. Treatment options, risks, benefits, and side effects reviewed (including but not limited to: scar, infection, pain, need for repeat treatment). Time- Outprotocol followed. Clinical photograph obtained. Anesthesia: 2% Lidocaine with epinephrine Procedure: 15 blade deep tangential excision, hemostasis obtained using aluminum chloride and electrocautery, bacitracin and band-aid applied. Specimen sent to pathology. Wound care instructions given. Patient will be contacted in one week with pathology results. Assessment Plan Assessment Plan (1) Neoplasm of uncertain behavior of skin: Code(s): D48.5 - Neoplasm of uncertain behavior of skin Plan - DAVI Hunter: skin biopsy Orders Follow Up: pending PATH Electronically Signed By: <Electronically signed by Genesis TOMLINSON> Date/Time Signed: 08/05/19 0740 Name Value Range Interpretation Code Description Data Roz rce(s) Supporting Document(s) ID Date Data Source [id number] 07/23/2019 02:11:00 PM [facility] [address] [place] [address] PHONE: [phone] FAX: [phone] Name .................. : ALKA Parrish Acct Number.................. : [id number] ROOM. ................. : Number ................... : [id number] Stay type ............. : O/P Discharge Date......... ... : 07/22/19 Admit Date ... ...... : 07/22/19 Admit Phys .................... : DELILAH S Date of ....... : 1945 Family Phys ................... : DELILAH Morrison Phone .................. : [phone] Age ................................ : 73 Film# .................. .:[id number] Sex ................................. : F Unsigned transcriptions are preliminary reports and do not represent a medical or legal document CHEST 2 VIEWS [id number] COMPLETE:07/22/19 14:49 KBO [id number] (REASON FOR CHEST: SOB CHEST X-RAY: 2-VIEWS INDICATION: Shortness of breath. FINDINGS: The cardiac and mediastinal silhouettes appear normal and the lungs are clear. The bones and soft tissues are normal. The upper abdomen is unremarkable. IMPRESSION: No acute disease identifiable. Electronically Reviewed and Signed By Tremayne Richter M.D. , 07/23/19 14:11, WAY Transcribe Initials: BETH , Transcribe Date: 07/22/19 21:09, Dictation Date: Copy for: DELILAH DUNBAR via fax Copy for: [facility] Page 1 of 1 Name Value Range Interpretation Code Description Data Roz rce(s) Supporting Document(s) ID Date Data Source [id number] 07/23/2019 10:45:00 AM EST MEDENT ([facility]) Name Value Range Interpretation Code Description Data Roz rce(s) Supporting Document(s) Natriuretic peptide.B prohormone N-Terminal [Mass/volu me] in Serum or Plasma 20 [facility] ([facility] Thyroid Stimulating Hormone 1.050 ME DENT ([facility]) ID Date Data Source [id number] 07/23/2019 10:45:00 AM EST [facility] ([facility]) Name Value Range Interpretation Code Description Data Roz rce(s) Supporting Document(s) Albumin [Mass/volume] in Serum or Plasma 4.0 [facility] ([facility]) Calcium [Mass/volume] in Serum or Plasma 9.1 [facility] ([facility]) Alanine aminotransferase [Enzymatic activity/volume] in Serum or Pl asma 31 [facility] ([facility]) Carbon dioxide, total [Moles/volume] in Serum or Plasma 27 [facility] ([facility]) Chloride [Moles/volume] in Serum or Plasma 103 [facility] ([facility]) Potassium [Moles/volume] in Serum or Plasma 4.5 [facility] ([facility]) Alkaline phosphatase [Enzymatic activity/volume] in Serum or Plasma 7 7 [facility] ([facility]) Protein [Mass/volume] in Serum or Plasma 7.4 [facility] ([facility]) Sodium 138 [facility] ([facility]) Aspartate aminotransferase [Enzymatic activity/volume] in Serum or Plasma 14 [facility] ([facility]) Glucose 113 70-100 [facility] ([facility]) Creatinine For GFR 0.98 [facility] ([facility] Urea nitrogen [Mass/volume] in Serum or Plasma 30 [facility] ([facility]) ID Date Data Source [id number] 07/23/2019 10:45:00 AM EST [facility] ([facility]) Name Value Range Interpretation Code Description Data Roz rce(s) Supporting Document(s) Red Blood Count 4.32 4.00-5.40 [facility] ([facility]) White Blood Count 10.3 4.0-10.0 [facility] ([facility]) Hemoglobin 13.1 [facility] ([facility]) Platelets 285 150-450 [facility] Hematocrit 41.9 [facility] ([facility]) ID Date Data Source [id number] 07/23/2019 09:22:00 AM EST [facility] ([facility] Name Value Range Interpretation Code Description Data Roz rce(s) Supporting Document(s) Natriuretic peptide.B prohormone N-Terminal [Mass/volu me] in Serum or Plasma 20 pg/mL Normal (applies to non-numeric results) [facility] ([facility] Thyrotropin [Units/volume] in Serum or Plasma 1.050 uIU/ML 0. 358-3.740 Normal (applies to non-numeric results) [facility] ([facility] ID Date Data Source [id number] 07/23/2019 09:22:00 AM EST [facility] ([facility] Name Value Range Interpretation Code Description Data Roz rce(s) Supporting Document(s) Glucose, Fasting 113 mg/dL 70-100 Above high normal M EDENT ([facility] Blood Urea Nitrogen 30 mg/dL 7-18 Above high normal [facility] ([facility] Creatinine For GFR 0.98 mg/dL 0.55-1.30 Normal (applies to non -numeric results) [facility] ([facility] Glomerular Filtration Rate 59.4 Normal (applies to n on-numeric results) [facility] ([facility] <content>Units are mL/min/1.73 m2</content>
<content></content>
<content>Chronic Kidney Disease Staging per NKF:</content>
<content></content>
<content>Stage I & II GFR >=60 Normal to Mildly Decreased</content>
<content>Stage III GFR 30- 59 Moderately Decreased</content>
<content>Stage IV GFR 15-29 Severely Decreased</content>
<content>Stage V GFR <15 Very Little GFR Left</content>
<content>ESRD GFR <15 on MANAGER GRANT</content>
<content></content> Potassium Serum 4.5 meq/L 3.5-5.1 Normal (applies to non-numeric results) [facility] ([facility] Sodium Level 138 meq/L 136-145 Normal (applies to non-numeric res ults) [facility] ([facility] Chloride Level 103 meq/L 98-107 Normal (applies to non-numeric r esults) [facility] ([facility] Carbon Dioxide Level 27 meq/L 21-32 Normal (applies to non-num james results) [facility] ([facility] Anion Gap 8 meq/L 8-16 Normal (applies to non-numeric resul ts) [facility] ([facility] Ast/Sgot 14 U/L 7-37 Normal (applies to non-numeric resul ts) [facility] ([facility] Calcium Level 9.1 mg/dL 8.8-10.2 Normal (applies to non-numeric re sults) [facility] ([facility] Alt/SGPT 31 U/L 12-78 Normal (applies to non-numeric resul ts) [facility] ([facility] Alkaline Phosphatase 77 U/L 45-117 Normal (applies to non-num james results) [facility] ([facility] Bilirubin,Total 0.5 mg/dL 0.2-1.0 Normal (applies to non-numeric results) [facility] ([facility] Albumin 4.0 GM/DL 3.2-5.2 Normal (applies to non-numeric resul ts) [facility] ([facility] Total Protein 7.4 GM/DL 6.4-8.2 Normal (applies to non-numeric re sults) [facility] ([facility] Albumin/Globulin Ratio 1.18 1.00-1.93 Normal (applies to non-numeric results) [facility] ([facility] ID Date Data Source [id number] 07/23/2019 09:22:00 AM EST [facility] ([facility] Name Value Range Interpretation Code Description Data Roz rce(s) Supporting Document(s) White Blood Count 10.3 10 4.0-10.0 Above high normal [facility] ([facility] Red Blood Count 4.32 10 4.00-5.40 Normal (applies to non-numeric results) [facility] ([facility] Hemoglobin 13.1 g/dL 12.0-15.5 Normal (applies to non-numeric resul ts) [facility] ([facility] Hematocrit 41.9 % 36.0-47.0 Normal (applies to non-numeric resul ts) [facility] ([facility] Mean Corpuscular Hemoglobin 30.3 pg 27.0-33.0 Norm al (applies to non-numeric results) [facility] ([facility] ) Mean Corpuscular Volume 97.0 fl 80.0-96.0 Above high normal [facility] ([facility] Mean Corpuscular HGB Conc 31.3 g/dL 32.0-36.5 Below low normal [facility] ([facility] Red Cell Distribution Width 12.4 % 11.5-14.5 Norm al (applies to non-numeric results) [facility] ([facility] Nucleated Red Blood Cell % 0.0 % 0-0 Normal (applies to n on-numeric results) [facility] ([facility] Platelet Count, Automated 285 10 150-450 Normal (applies to non-numeric results) [facility] ([facility] ) Procedure Social History Code Duration Value Status Description Data Source(s ) Smoking 08/04/2020 12:00:00 AM EST Former Smoker completed Former Smoker eCW1 ([facility]) Smoking 08/04/2020 12:00:00 AM EST Former Smoker completed Former Smoker eCW1 ([facility]) Smoking 07/04/2020 12:00:00 AM EST Former Smoker completed Former Smoker eCW1 ([facility]) Smoking 07/04/2020 12:00:00 AM EST Former Smoker completed Former Smoker eCW1 ([facility]) Smoking 07/04/2020 12:00:00 AM EST Former Smoker completed Former Smoker eCW1 ([facility]) Smoking 07/04/2020 12:00:00 AM EST Former Smoker completed Former Smoker eCW1 ([facility]) Smoking 06/07/2020 12:00:00 AM EST Former Smoker completed Former Smoker eCW1 ([facility]) Smoking 04/26/2020 12:00:00 AM EDT Former Smoker completed Former Smoker eCW1 ([facility]) Smoking 04/26/2020 12:00:00 AM EDT Former Smoker completed Former Smoker eCW1 ([facility]) Smoking 04/26/2020 12:00:00 AM EDT Former Smoker completed Former Smoker eCW1 ([facility]) Smoking 01/10/2020 12:00:00 AM EDT Patient is a former smoker completed Patient is a former smoker [facility] ([facility]) Vital Signs ID Date Data Source UNK Name Value Range Interpretation Code Description Data Source(s) Diastolic blood pressure 78 mm[Hg] 78 mm[Hg] eCW1 ([facility]) Systolic blood pressure 134 mm[Hg] 134 mm[Hg] e CW1 ([facility]) Body mass index (BMI) [Ratio] 28.34 kg/m2 28.34 kg/m2 eCW1 ([facility]) Body height 61 [in_i] 61 [in_i] eCW1 ([facility]) Body weight 150.0 [lb_av] 150.0 [lb_av] eCW1 ([facility]) Body temperature 97.2 [degF] 97.2 [degF] MED[facility] ([facility]) Body weight 68.040 kg 68.040 kg [facility] ([facility]) Body mass index (BMI) [Ratio] 27.4 kg/m2 27.4 k g/m2 [facility] ([facility]) Heart rate 70 /min 70 /min [facility] ([facility]) Diastolic blood pressure 74 mm[Hg] 74 mm[Hg] MED[facility] ([facility]) Systolic blood pressure 130 mm[Hg] 130 mm[Hg] M EDENT ([facility]) Body weight 150.00 [lb_av] 150.00 [lb_av] MEDEN T ([facility]) Body height 62 [in_i] 62 [in_i] [facility] ([facility] 5'2" Diastolic blood pressure 73 mm[Hg] 73 mm[Hg] eCW1 ([facility]) Systolic blood pressure 154 mm[Hg] 154 mm[Hg] e CW1 ([facility]) Body mass index (BMI) [Ratio] 28.07 kg/m2 28.07 kg/m2 eCW1 ([facility]) Body height 61 [in_i] 61 [in_i] eCW1 ([facility]) Body weight 67.4 kg 67.4 kg eCW1 ([facility]) Body weight 148.6 [lb_av] 148.6 [lb_av] eCW1 ([facility]) Diastolic blood pressure 72 mm[Hg] 72 mm[Hg] eCW1 ([facility]) Systolic blood pressure 124 mm[Hg] 124 mm[Hg] e CW1 ([facility]) Body mass index (BMI) [Ratio] 27.77 kg/m2 27.77 kg/m2 eCW1 ([facility]) Body height 61 [in_i] 61 [in_i] eCW1 ([facility]) Body weight 147 [lb_av] 147 [lb_av] eCW1 ([facility]) Oxygen saturation in Arterial blood by Pulse oximetry 95 % 95 % MED[facility] ([facility] Body mass index (BMI) [Ratio] 27.8 kg/m2 27.8 k g/m2 MED[facility] ([facility] [place] body weight 110 [lb_av] 110 [lb_av] MEDEN T ([facility] Body weight 152.00 [lb_av] 152.00 [lb_av] MEDEN T ([facility] Body height 62 [in_i] 62 [in_i] MEDENT ([facility] 5'2" Respiratory rate 14 /min 14 /min MED[facility] ( [facility] Heart rate 74 /min 74 /min MED[facility] ([facility] Body temperature 98.2 [degF] 98.2 [degF] MED[facility] ([facility] Diastolic blood pressure 74 mm[Hg] 74 mm[Hg] MED[facility] ([facility] Systolic blood pressure 122 mm[Hg] 122 mm[Hg] M EDENT ([facility] Diastolic blood pressure 70 mm[Hg] 70 mm[Hg] eCW1 ([facility]) Systolic blood pressure 126 mm[Hg] 126 mm[Hg] e CW1 ([facility]) Body mass index (BMI) [Ratio] 27.96 kg/m2 27.96 kg/m2 eCW1 ([facility]) Body height 61 [in_i] 61 [in_i] eCW1 ([facility]) Body weight 148.0 [lb_av] 148.0 [lb_av] eCW1 ([facility]) Oxygen saturation in Arterial blood by Pulse oximetry 96 % 96 % MED[facility] ([facility] [place] body weight 110 [lb_av] 110 [lb_av] MEDEN T ([facility] Body height 62 [in_i] 62 [in_i] MED[facility] ([facility] 5'2" Respiratory rate 16 /min 16 /min MED[facility] ( [facility] Heart rate 86 /min 86 /min [facility] ([facility] Body temperature 98.4 [degF] 98.4 [degF] MED[facility] ([facility] Diastolic blood pressure 58 mm[Hg] 58 mm[Hg] MED[facility] ([facility] Systolic blood pressure 110 mm[Hg] 110 mm[Hg] M EDENT ([facility] Oxygen saturation in Arterial blood by Pulse oximetry 95 % 95 % [facility] ([facility] Body mass index (BMI) [Ratio] 26.7 kg/m2 26.7 k g/m2 MED[facility] ([facility] [place] body weight 110 [lb_av] 110 [lb_av] MEDEN T ([facility] Body weight 146.00 [lb_av] 146.00 [lb_av] MEDEN T ([facility] Body height 62 [in_i] 62 [in_i] MED[facility] ([facility] 5'2" Respiratory rate 16 /min 16 /min MED[facility] ( [facility] Heart rate 80 /min 80 /min MED[facility] ([facility] Body temperature 98.8 [degF] 98.8 [degF] [facility] ([facility] Diastolic blood pressure 66 mm[Hg] 66 mm[Hg] [facility] ([facility] Systolic blood pressure 122 mm[Hg] 122 mm[Hg] M EDENT ([facility] Oxygen saturation in Arterial blood by Pulse oximetry 97 % 97 % ROSAS ([facility] Body mass index (BMI) [Ratio] 27.1 kg/m2 27.1 k g/m2 MEDDONNA ([facility] [place] body weight 110 [lb_av] 110 [lb_av] MEDEN T ([facility] Body weight 148.00 [lb_av] 148.00 [lb_av] MEDEN T ([facility] Body height 62 [in_i] 62 [in_i] MEDDONNA ([facility] 5'2" Respiratory rate 16 /min 16 /min ROSAS ( [facility] Heart rate 68 /min 68 /min ROSAS ([facility] Body temperature 99.5 [degF] 99.5 [degF] ROSAS ([facility] Diastolic blood pressure 88 mm[Hg] 88 mm[Hg] ROSAS ([facility] Systolic blood pressure 128 mm[Hg] 128 mm[Hg] M EDDONNA ([facility] Diastolic blood pressure 74 mm[Hg] 74 mm[Hg] eCW1 ([facility]) Systolic blood pressure 124 mm[Hg] 124 mm[Hg] e CW1 ([facility]) Body mass index (BMI) [Ratio] 27.89 kg/m2 27.89 kg/m2 eCW1 ([facility]) Body height 61 [in_i] 61 [in_i] eCW1 ([facility]) Body weight 147.6 [lb_av] 147.6 [lb_av] eCW1 ([facility]) Diastolic blood pressure 60 mm[Hg] 60 mm[Hg] eCW1 ([facility]) Systolic blood pressure 118 mm[Hg] 118 mm[Hg] e CW1 ([facility]) Body temperature 98.3 [degF] 98.3 [degF] eCW1 ( [facility]) Body mass index (BMI) [Ratio] 28.07 kg/m2 28.07 kg/m2 eCW1 ([facility]) Body height 61 [in_i] 61 [in_i] eCW1 ([facility]) Body weight 148.6 [lb_av] 148.6 [lb_av] eCW1 ([facility]) Diastolic blood pressure 60 mm[Hg] 60 mm[Hg] MEDENT ([facility]) sitting Systolic blood pressure 128 mm[Hg] 128 mm[Hg] M EDENT ([facility]) sitting Diastolic blood pressure 64 mm[Hg] 64 mm[Hg] MEDENT ([facility]) sitting, regualr cuff Systolic blood pressure 132 mm[Hg] 132 mm[Hg] M EDENT ([facility]) sitting, regualr cuff Respiratory rate 16 /min 16 /min MEDENT ( [facility]) Heart rate 60 /min 60 /min MEDENT ([facility] Regular Body mass index (BMI) [Ratio] 26.5 kg/m2 26.5 k g/m2 MEDENT ([facility]) Body height 62 [in_i] 62 [in_i] MEDENT ([facility] 5'2" Body weight 145.00 [lb_av] 145.00 [lb_av] MEDEN T ([facility]) Diastolic blood pressure 78 mm[Hg] 78 mm[Hg] eCW1 ([facility]) Systolic blood pressure 124 mm[Hg] 124 mm[Hg] e CW1 ([facility]) Body mass index (BMI) [Ratio] 28.26 kg/m2 28.26 kg/m2 eCW1 ([facility]) Body height 61 [in_i] 61 [in_i] eCW1 ([facility]) Body weight 149.6 [lb_av] 149.6 [lb_av] eCW1 ([facility]) Oxygen saturation in Arterial blood by Pulse oximetry 95 % 95 % MEDENT ([facility] Body mass index (BMI) [Ratio] 27.1 kg/m2 27.1 k g/m2 MEDENT ([facility] [place] body weight 110 [lb_av] 110 [lb_av] MEDEN T ([facility] Body weight 148.00 [lb_av] 148.00 [lb_av] MEDEN T ([facility] Body height 62 [in_i] 62 [in_i] MEDENT ([facility] 5'2" Respiratory rate 16 /min 16 /min MEDENT ( [facility] Heart rate 86 /min 86 /min MEDENT ([facility] Body temperature 97.8 [degF] 97.8 [degF] MEDENT ([facility] Diastolic blood pressure 60 mm[Hg] 60 mm[Hg] MEDENT ([facility] Systolic blood pressure 124 mm[Hg] 124 mm[Hg] M EDENT ([facility] Oxygen saturation in Arterial blood by Pulse oximetry 95 % 95 % MEDENT ([facility] Body mass index (BMI) [Ratio] 27.1 kg/m2 27.1 k g/m2 MEDENT ([facility] [place] body weight 110 [lb_av] 110 [lb_av] MEDEN T ([facility] Body weight 148.00 [lb_av] 148.00 [lb_av] MEDEN T ([facility] Body height 62 [in_i] 62 [in_i] MEDENT ([facility] 5'2" Respiratory rate 16 /min 16 /min MEDENT ( [facility] Heart rate 84 /min 84 /min MEDENT ([facility] Body temperature 98.6 [degF] 98.6 [degF] MEDENT ([facility] Diastolic blood pressure 72 mm[Hg] 72 mm[Hg] MEDENT ([facility] Systolic blood pressure 142 mm[Hg] 142 mm[Hg] M EDENT ([facility] Oxygen saturation in Arterial blood by Pulse oximetry 97 % 97 % MEDENT ([facility] Body mass index (BMI) [Ratio] 26.2 kg/m2 26.2 k g/m2 MEDENT ([facility] Body weight 143.00 [lb_av] 143.00 [lb_av] MEDEN T ([facility] Body height 62 [in_i] 62 [in_i] MEDENT ([facility] 5'2" Respiratory rate 15 /min 15 /min MEDENT ( [facility] Heart rate 72 /min 72 /min MEDENT ([facility] Body temperature 98.1 [degF] 98.1 [degF] MEDENT ([facility] Diastolic blood pressure 68 mm[Hg] 68 mm[Hg] MEDENT ([facility] Systolic blood pressure 138 mm[Hg] 138 mm[Hg] M EDENT ([facility] Diastolic blood pressure 68 mm[Hg] 68 mm[Hg] MEDENT ([facility]) Sitting, regular cuff Systolic blood pressure 126 mm[Hg] 126 mm[Hg] M EDENT ([facility]) Sitting, regular cuff Respiratory rate 16 /min 16 /min MEDENT ( [facility]) Heart rate 68 /min 68 /min MEDENT ([facility] Regular Body mass index (BMI) [Ratio] 26.5 kg/m2 26.5 k g/m2 MEDENT ([facility]) Body height 62 [in_i] 62 [in_i] MEDENT ([facility] 5'2" Body weight 145.00 [lb_av] 145.00 [lb_av] MEDEN T ([facility]) Diastolic blood pressure 74 mm[Hg] 74 mm[Hg] MEDENT ([facility]) Sitting Systolic blood pressure 126 mm[Hg] 126 mm[Hg] M EDENT ([facility]) Sitting Diastolic blood pressure 74 mm[Hg] 74 mm[Hg] MEDENT ([facility]) Sitting, regular cuff Systolic blood pressure 128 mm[Hg] 128 mm[Hg] M EDENT ([facility]) Sitting, regular cuff Respiratory rate 16 /min 16 /min MEDENT ( [facility]) Heart rate 60 /min 60 /min MEDENT ([facility] Regular Body mass index (BMI) [Ratio] 26.9 kg/m2 26.9 k g/m2 MEDENT ([facility]) Body height 62 [in_i] 62 [in_i] MEDENT ([facility] 5'2" Body weight 147.00 [lb_av] 147.00 [lb_av] MEDEN T ([facility]) Diastolic blood pressure 80 mm[Hg] 80 mm[Hg] eCW1 ([facility]) Systolic blood pressure 120 mm[Hg] 120 mm[Hg] e CW1 ([facility]) Body mass index (BMI) [Ratio] 27.58 kg/m2 27.58 kg/m2 eCW1 ([facility]) Body height 61 [in_us] 61 [in_us] eCW1 ([facility]) Body weight Measured 146 [lb_av] 146 [lb_av] eC W1 ([facility]) ID Date Data Source [id number] 05/29/2020 06:16:13 AM EST [facility] Name Value Range Interpretation Code Description Data Source(s) WEIGHT RECORDED 148.00 pounds 148.00 pounds [facility] Height 62 Inches 062 Inches [facility] Patient Treatment Plan of Care Planned Activity Planned Date Details Description Data Source (s) Triamcinolone Acetonide 0.001 MG/MG Topical Ointment 020 12:00:00 AM EDT eCW1 ([facility]) levocetirizine dihydrochloride 5 MG Oral Tablet 04/11/2020 12:00:00 AM EDT eCW1 ([facility]) Triamcinolone Acetonide 0.001 MG/MG Topical Ointment 020 12:00:00 AM EDT eCW1 ([facility]) levocetirizine dihydrochloride 5 MG Oral Tablet 04/11/2020 12:00:00 AM EDT eCW1 ([facility]) Dupixent 300 MG/2ML 04/05/2020 12:00:00 AM EDT eCW1 ([facility]) Dupixent 300 MG/2ML 04/05/2020 12:00:00 AM EDT eCW1 ([facility]) Dupixent 300 MG/2ML 04/05/2020 12:00:00 AM EDT eCW1 ([facility]) Dupixent 300 MG/2ML 04/05/2020 12:00:00 AM EDT eCW1 ([facility]) Dupixent 300 MG/2ML 04/05/2020 12:00:00 AM EDT eCW1 ([facility]) Dupixent 300 MG/2ML 04/05/2020 12:00:00 AM EDT eCW1 ([facility]) Dupixent 300 MG/2ML 04/05/2020 12:00:00 AM EDT eCW1 ([facility]) Dupixent 300 MG/2ML 04/05/2020 12:00:00 AM EDT eCW1 ([facility]) Dupixent 300 MG/2ML 04/05/2020 12:00:00 AM EDT eCW1 ([facility]) Prednisone 20 MG Oral Tablet 01/12/2020 12:00:00 AM EDT eCW1 ([facility]) Otezla 10 & 20 & 30 MG 12/22/2019 12:00:00 AM EDT eCW1 ([facility]) apremilast 30 MG Oral Tablet [Otezla] 12/22/2019 12:00:00 AM EDT eCW1 ([facility])
[2020-08-28] MEDS ORDERED: fentaNYL 100 MCG/2 ML INJECTION (J3010) As Ordered ONE (07:09)
[2020-08-28] MEDS ORDERED: propofoL 500 MG/50 ML VIAL As Ordered ONE (07:09)
[2020-08-28] MEDS ORDERED: LIDOCAINE 2% 100MG/5ML SDV (FOR ANES.) As Ordered ONE (07:09)
[2020-08-28] MEDS ORDERED: ePHEDrine SULFATE 25 MG/5 ML(5MG/ML) SYRINGE As Ordered ONE (07:49)
--- NOTE | 2020-08-28 07:49 | ROOR ---
Patient Name: Huong Alcocer Procedure Date: 08/28/2020 7:34 AM Date of : 1945 Age: 74 Room: [facility] Gender: Female Note Status: Finalized Procedure: Upper Endoscopy + Biopsies Indications: Heartburn, Exclusion of Arias's esophagus Providers: Rusty Patel MD Referring MD: MANJINDER MAZARIEGOS MD Requesting Provider: Medicines: Monitored Anesthesia Care Complications: No immediate complications. Procedure: Pre-Anesthesia Assessment: - The heart rate, respiratory rate, oxygen saturations, blood pressure, adequacy of pulmonary ventilation, and response to care were monitored throughout the procedure. The Endoscope was introduced through the mouth, and advanced to the second part of duodenum. The upper GI endoscopy was accomplished without difficulty. The patient tolerated the procedure well. Findings: The Z-line was irregular and was found 35 cm from the incisors. Multiple biopsies were obtained with cold forceps for evaluation to rule out Arias's Esophagus randomly at the gastroesophageal junction. A medium-sized hiatal hernia was present. Localized mild inflammation characterized by congestion (edema), erosions and erythema was found in the gastric antrum. Biopsies were taken with a cold forceps for Helicobacter pylori testing. The exam was otherwise without abnormality. Impression: - Z-line irregular, 35 cm from the incisors. - Medium-sized hiatal hernia. - Mucosal changes suspicious for gastritis. Biopsied. - The examination was otherwise normal. - Multiple biopsies were obtained at the gastroesophageal junction. - The examination was otherwise normal. Recommendation: - Patient has a contact number available for emergencies. The signs and symptoms of potential delayed complications were discussed with the patient. Return to normal activities tomorrow. Written discharge instructions were provided to the patient. - High fiber diet. - Discharge patient to home. - Follow an antireflux regimen. - Continue present medications. - Await pathology results. - Telephone GI clinic for pathology results in 1 week. - Return to referring physician. - The findings and recommendations were discussed with the patient. Procedure Code(s): --- Professional --- 77085, Esophagogastroduodenoscopy, flexible, transoral; with biopsy, single or multiple Diagnosis Code(s): --- Professional --- K22.8, Other specified diseases of esophagus K44.9, Diaphragmatic hernia without obstruction or gangrene K31.89, Other diseases of stomach and duodenum R12, Heartburn CPT copyright 2019 [employer]. All rights reserved. The codes documented in this report are preliminary and upon security systems sales representative review may be revised to meet current compliance requirements. Rusty Patel MD Rusty Patel MD 08/28/2020 7:49:21 AM Electronically signed by Rusty Patel MD Number of Addenda: 0 Note Initiated On: 08/28/2020 7:34 AM Estimated Blood Loss: Estimated blood loss: none.
--- NOTE | 2020-08-28 08:14 | ROOR ---
Patient Name: Huong Alcocer Procedure Date: 08/28/2020 7:35 AM Date of : 1945 Age: 74 Room: [facility] Gender: Female Note Status: Finalized Procedure: Total Colonoscopy to Cecum + Cold Snare Polypectomy + Hemoclips Indications: Colon cancer screening in patient at increased risk: Colorectal cancer in father, Colon cancer screening in patient at increased risk: Colorectal cancer in brother Providers: Rusty Patel MD Referring MD: MANJINDER MAZARIEGOS MD Requesting Provider: Medicines: Monitored Anesthesia Care Complications: No immediate complications. Procedure: Pre-Anesthesia Assessment: - The heart rate, respiratory rate, oxygen saturations, blood pressure, adequacy of pulmonary ventilation, and response to care were monitored throughout the procedure. The Colonoscope was introduced through the anus and advanced to the cecum, identified by appendiceal orifice and ileocecal valve. The colonoscopy was performed without difficulty. The patient tolerated the procedure well. The quality of the bowel preparation was good. Findings: The perianal and digital rectal examinations were normal. Non-bleeding internal hemorrhoids were found during retroflexion. The hemorrhoids were small and Grade I (internal hemorrhoids that do not prolapse). A small polyp was found in the cecum. The polyp was sessile. The polyp was removed with a cold snare. Resection and retrieval were complete. To prevent bleeding after the polypectomy, one hemostatic clip was successfully placed (MR conditional). There was no bleeding at the end of the procedure. A small polyp was found in the ascending colon. The polyp was sessile. The polyp was removed with a cold snare. Resection and retrieval were complete. To prevent bleeding after the polypectomy, one hemostatic clip was successfully placed (MR conditional). There was no bleeding at the end of the procedure. The exam was otherwise without abnormality on direct and retroflexion views. Impression: - Non-bleeding internal hemorrhoids. - One small polyp in the cecum, removed with a cold snare. Resected and retrieved. Clip (MR conditional) was placed. - One small polyp in the ascending colon, removed with a cold snare. Resected and retrieved. Clip (MR conditional) was placed. - The examination was otherwise normal on direct and retroflexion views. - The exam was otherwise normal to the cecum. Recommendation: - Patient has a contact number available for emergencies. The signs and symptoms of potential delayed complications were discussed with the patient. Return to normal activities tomorrow. Written discharge instructions were provided to the patient. - High fiber diet. - Discharge patient to home. - Continue present medications. - Await pathology results. - Telephone GI clinic for pathology results in 1 week. - Repeat colonoscopy in 3 years for surveillance based on pathology results. - Return to referring physician. - The findings and recommendations were discussed with the patient. Procedure Code(s): --- Professional --- 61056, Colonoscopy, flexible; with removal of tumor(s), polyp(s), or other lesion(s) by snare technique Diagnosis Code(s): --- Professional --- K64.0, First degree hemorrhoids K63.5, Polyp of colon Z80.0, Family history of malignant neoplasm of digestive organs CPT copyright 2019 [employer]. All rights reserved. The codes documented in this report are preliminary and upon biomedical electronics technician review may be revised to meet current compliance requirements. Rusty Patel MD Rusty Patel MD 08/28/2020 8:13:56 AM Electronically signed by Rusty Patel MD Number of Addenda: 0 Note Initiated On: 08/28/2020 7:35 AM Estimated Blood Loss: Estimated blood loss: none.
[2020-08-28 08:42] VITALS: BP 129/67
== END 2020-08-28 08:42 | disposition home or self-care (01) ==
LOC: M OPP 06:55
PROVIDERS: ATTEND Internal Medicine Gastroenterology
DX: Z12.11 Encounter for screening for malignant neoplasm of colon (principal); Z80.0 Family history of malignant neoplasm of digestive organs; D12.0 Benign neoplasm of cecum; D12.2 Benign neoplasm of ascending colon; R12 Heartburn; K64.0 First degree hemorrhoids; D13.1 Benign neoplasm of stomach; K22.8 Other specified diseases of esophagus; K44.9 Diaphragmatic hernia without obstruction or gangrene; K31.89 Other diseases of stomach and duodenum; I25.10 Atherosclerotic heart disease of native coronary artery without angina pectoris; I10 Essential (primary) hypertension; E78.5 Hyperlipidemia, unspecified; L40.9 Psoriasis, unspecified; J44.9 Chronic obstructive pulmonary disease, unspecified; Z95.5 Presence of coronary angioplasty implant and graft; Z87.891 Personal history of nicotine dependence; Z88.8 Allergy status to other drugs, medicaments and biological substances; Z79.51 Long term (current) use of inhaled steroids; Z79.82 Long term (current) use of aspirin; Z79.899 Other long term (current) drug therapy
CPT/HCPCS: 43239; 45385; 88305; J3010

== ENCOUNTER → 2020-09-13 | Outpatient (CLI) | payer MEDICARE ==
[~2020-09-13] MED LIST changes: -NS 1,000 ML IV ONE
[2020-09-13 13:29] LABS: CALCIUM LEVEL 9.7 MG/DL (8.8-10.2); CREATININE FOR GFR 1.03 MG/DL (0.55-1.30); GLOMERULAR FILTRATION RATE 55.9 (>39); POTASSIUM SERUM 4.3 MEQ/L (3.5-5.1)
== END ==
LOC: M WUC 09:35
PROVIDERS: ATTEND Physician Assistant
DX: I10 Essential (primary) hypertension (principal)

== ENCOUNTER → 2020-09-22 | Outpatient (CLI) | payer MEDICARE ==
--- NOTE | 2020-09-22 08:54 | REP ---
INDICATION: PERSONAL HX NICOTINE DEPENDENCE. COMPARISON: Comparison is made with multiple prior chest CT studies the most recent which is from September 13, 2019 and the most remote is dated October 17, 2015.. TECHNIQUE: Low-dose screening chest CT study. Helical scanning. 3 mm axial reformatted views at lung only windows. FINDINGS: Digital preliminary link trainer teacher radiograph is unremarkable. Axial CT images the again demonstrate fairly numerous subcentimeter stable pulmonary nodules scattered bilaterally all of which are unchanged from the October 17, 2015 prior study and are therefore considered benign. No new pulmonary nodule or mass lesion is observed. No infiltrate is seen. There is no evidence of pleural effusion. The lungs appear to be somewhat hyperinflated overall as before. IMPRESSION: Stable lung RADS category 1 findings. Repeat screening study suggested in 1 year. <Electronically signed by Mg Garza > 09/22/20 [id number]
== END ==
LOC: M RAD 07:54
PROVIDERS: ATTEND Internal Medicine Pulmonary Disease
DX: Z12.2 Encounter for screening for malignant neoplasm of respiratory organs (principal); Z87.891 Personal history of nicotine dependence

== ENCOUNTER → 2020-12-06 | Outpatient (CLI) | payer MEDICARE ==
--- NOTE | 2020-12-06 16:06 | REP ---
INDICATION: LOCALIZED EDEMA COMPARISON: 10/20/2018 TECHNIQUE: PA and lateral. FINDINGS: The mediastinum and cardiac silhouette are normal. The lung [place] are clear and without acute consolidation, effusion, or pneumothorax. The skeletal structures are intact and normal. IMPRESSION: No acute cardiopulmonary process. <Electronically signed by Royal Noel > 12/06/20 [id number]
[2020-12-06 16:29] LABS: HEMATOCRIT 42.1 % (36.0-47.0); HEMOGLOBIN 13.1 g/dl (12.0-15.5); MEAN CORPUSCULAR HEMOGLOBIN 30.1 pg (27.0-33.0); MEAN CORPUSCULAR HGB CONC 31.1 g/dl (32.0-36.5); MEAN CORPUSCULAR VOLUME 96.8 fl (80.0-96.0); PLATELET COUNT, AUTOMATED 260 10^3/uL (150-450); RED BLOOD COUNT 4.35 10^6/uL (4.00-5.40); WHITE BLOOD COUNT 11.3 10^3/uL (4.0-10.0)
[2020-12-06 16:57] LABS: CALCIUM LEVEL 9.7 MG/DL (8.8-10.2); CREATININE FOR GFR 1.02 MG/DL (0.55-1.30); GLOMERULAR FILTRATION RATE 56.6 (>39); POTASSIUM SERUM 3.7 MEQ/L (3.5-5.1)
== END ==
LOC: M LAB 15:43 → M RAD 15:43
PROVIDERS: ATTEND Physician Assistant
DX: R60.0 Localized edema (principal)

== ENCOUNTER → 2021-09-21 | Outpatient (CLI) | payer MEDICARE ==
[~2021-09-21] MED LIST changes: -MONT10TA10 PO; +MONT10TA97 PO; +OMEP40CA4 PO; -OMEP40CA97 PO
== END ==
LOC: M WHC 07:58
PROVIDERS: ATTEND Advanced Practice Midwife
DX: Z12.31 Encounter for screening mammogram for malignant neoplasm of breast (principal); Z80.0 Family history of malignant neoplasm of digestive organs; Z78.0 Asymptomatic menopausal state

== ENCOUNTER → 2021-10-08 | Outpatient (CLI) | payer MEDICARE | LOC: M RAD 13:19 | PROVIDERS: ATTEND Internal Medicine Pulmonary Disease | DX: Z12.2 Encounter for screening for malignant neoplasm of respiratory organs (principal); Z87.891 Personal history of nicotine dependence; J44.9 Chronic obstructive pulmonary disease, unspecified; K44.9 Diaphragmatic hernia without obstruction or gangrene ==

== ENCOUNTER → 2022-03-04 | Outpatient (CLI) | payer MEDICARE | LOC: M WUC 15:34 | PROVIDERS: ATTEND Internal Medicine | DX: R10.9 Unspecified abdominal pain (principal) ==

== ENCOUNTER → 2022-10-07 | Outpatient (REF) | payer MEDICARE | LOC: M LAB REF 18:42 | PROVIDERS: ATTEND Student in an Organized Health Care Education/Training Program | DX: R30.0 Dysuria (principal) ==

== ENCOUNTER → 2022-11-19 | Outpatient (CLI) | payer MEDICARE ==
[~2022-11-19] MED LIST changes: +POTA-298 PO; -POTA1TAB14 PO
== END ==
LOC: M RAD 14:15
PROVIDERS: ATTEND Internal Medicine Pulmonary Disease
DX: Z12.2 Encounter for screening for malignant neoplasm of respiratory organs (principal); Z87.891 Personal history of nicotine dependence; R91.8 Other nonspecific abnormal finding of lung field

== ENCOUNTER → 2022-12-06 | Outpatient (CLI) | payer MEDICARE ==
[~2022-12-06] MED LIST changes: -ROSU20TA5 PO; +ROSU20TA61 PO
== END ==
LOC: M WHC 10:15
PROVIDERS: ATTEND Advanced Practice Midwife
DX: Z12.31 Encounter for screening mammogram for malignant neoplasm of breast (principal)

== ENCOUNTER → 2023-10-09 | Outpatient (CLI) | payer MEDICARE ==
[~2023-10-09] MED LIST changes: +EZET10TA58 PO; -ZETI10TA16 PO
== END ==
LOC: M RAD 07:26
PROVIDERS: ATTEND Internal Medicine Pulmonary Disease
DX: J44.9 Chronic obstructive pulmonary disease, unspecified (principal)

== ENCOUNTER → 2023-11-03 | Outpatient (CLI) | payer MEDICARE | LOC: M PLAIMG 08:03 | PROVIDERS: ATTEND Physician Assistant | DX: R06.02 Shortness of breath (principal); I08.0 Rheumatic disorders of both mitral and aortic valves ==

== ENCOUNTER → 2023-12-12 | Outpatient (CLI) | payer MEDICARE | LOC: M RAD 07:22 | PROVIDERS: ATTEND Internal Medicine Pulmonary Disease | DX: Z12.2 Encounter for screening for malignant neoplasm of respiratory organs (principal); Z87.891 Personal history of nicotine dependence ==

== ENCOUNTER → 2023-12-15 | Outpatient (REF) | payer MEDICARE | LOC: M LAB REF 16:37 | PROVIDERS: ATTEND Nurse Practitioner Family | DX: R30.0 Dysuria (principal); R31.9 Hematuria, unspecified ==

== ENCOUNTER → 2024-01-06 | Outpatient (CLI) | payer MEDICARE | LOC: M WHC 07:10 | PROVIDERS: ATTEND Internal Medicine | DX: Z12.31 Encounter for screening mammogram for malignant neoplasm of breast (principal); R92.333 Mammographic heterogeneous density, bilateral breasts ==

== ENCOUNTER → 2024-03-17 | Outpatient (CLI) | payer MEDICARE | LOC: M WUC 15:30 | PROVIDERS: ATTEND Internal Medicine | DX: M25.551 Pain in right hip (principal); M16.11 Unilateral primary osteoarthritis, right hip ==

== ENCOUNTER → 2025-02-01 | Outpatient (CLI) | payer MEDICARE ==
[~2025-02-01] MED LIST changes: -ROSU20TA61 PO; +ROSU20TA86 PO
== END ==
LOC: M WHC 06:56
PROVIDERS: ATTEND Internal Medicine
DX: Z12.31 Encounter for screening mammogram for malignant neoplasm of breast (principal)

== ENCOUNTER → 2025-02-09 | Outpatient (CLI) | payer MEDICARE | LOC: M RAD 09:25 | PROVIDERS: ATTEND Internal Medicine Pulmonary Disease | DX: Z12.2 Encounter for screening for malignant neoplasm of respiratory organs (principal); Z87.891 Personal history of nicotine dependence; R91.8 Other nonspecific abnormal finding of lung field; J47.9 Bronchiectasis, uncomplicated ==

== ENCOUNTER → 2025-05-16 | Outpatient (CLI) | payer MEDICARE ==
[2025-05-16 15:40] LABS: BASO # 0.0 10^3/uL (0.0-0.2); BASO % 0.2 % (0.0-1.0); EOS # 0.2 10^3/uL (0.0-0.5); EOS % 1.7 % (0.0-3.0); LYMPH # 2.9 10^3/uL (1.5-5.0); LYMPH % 23.9 % (24.0-44.0); MONO # 0.8 10^3/uL (0.0-0.8); MONO % 6.2 % (2.0-8.0); NEUTROPHILS # 8.2 10^3/uL (1.5-8.5); NEUTROPHILS % 67.6 % (36.0-66.0); PLATELET COUNT, AUTOMATED 287 10^3/uL (150-450)
[2025-05-16 15:59] LABS: ESTIMATED AVERAGE GLUCOSE 140.0 MG/DL (60-110)
[2025-05-16 16:10] LABS: C REACTIVE PROTEIN QUANTITATIV < 0.50 MG/DL (<1.0)
[2025-05-16 16:11] LABS: ALT/SGPT 25 U/L (7.0-40); AST/SGOT 19 U/L (<34); CALCIUM LEVEL 9.2 MG/DL (8.3-10.6); CARBON DIOXIDE LEVEL 28 MMOL/L (20-31); CHLORIDE LEVEL 101 MMOL/L (98-107); CHOLESTEROL LEVEL 166 MG/DL (<200); CHOLESTEROL RISK RATIO 3.07 (<5); CREATININE FOR GFR 0.98 MG/DL (0.55-1.30); GLOMERULAR FILTRATION RATE 59.1 (>39); GLUCOSE,RANDOM 104 MG/DL (LESS THAN 200); LDL CHOLESTEROL 74.0 MG/DL (<100); NON-HDL-C 112.0 MG/DL; POTASSIUM SERUM 3.6 MMOL/L (3.5-5.1); SODIUM LEVEL 138 MMOL/L (136-145); TRIGLYCERIDES LEVEL 190 MG/DL (<150)
== END ==
LOC: M LAB 14:26
PROVIDERS: ATTEND Physician Assistant
DX: H47.019 Ischemic optic neuropathy, unspecified eye (principal); Z79.899 Other long term (current) drug therapy